=== PATIENT | female | born 1935 | race Caucasian/White ===

== ENCOUNTER 2023-01-15 10:08 | Outpatient (OUT) | payer MEDICARE, SELFPAY ==
[2023-01-15 10:44] LABS: Basophils Percent Auto 0.6 % (0.2-2.0); Eosinophils Absolute Auto 0.2 10^3/uL (0.0-0.7); Hematocrit 38.1 % (36.0-48.0); Immature Granulocytes Abs Auto 0.03 10^3/uL (0.00-0.03); Immature Granulocytes Pct Auto 0.6 % (0.0-0.5); Lymphocytes Absolute Auto 0.8 10^3/uL (1.2-3.8); Lymphocytes Percent Auto 15.8 % (20.5-60.0); Mean Corpuscular HGB Conc 31.5 g/dL (29.9-35.2); Mean Corpuscular Hemoglobin 32.1 pg (26.7-34.0); Mean Corpuscular Volume 101.9 fL (81.0-99.0); Mean Platelet Volume 9.7 fL (9.5-13.5); Monocytes Absolute Auto 0.4 10^3/uL (0.3-0.8); Monocytes Percent Auto 7.8 % (1.7-12.0); Neutrophils Absolute Auto 3.7 10^3/uL (1.4-6.5); Neutrophils Percent Auto 71.2 % (43.0-75.0); Platelet Count 167 10^3/uL (150-450); Red Blood Count 3.74 10^6/uL (4.20-5.40); Red Cell Distribution Width 15.5 % (11.0-15.0); White Blood Count 5.2 10^3/uL (4.0-11.0)
[2023-01-15 11:27] LABS: Estimated Average Glucose 123 mg/dL; Glycohemoglobin A1C 5.9 % (4.5-6.2)
[2023-01-15 11:30] LABS: Creatinine Urine Random 74.81 mg/dL (20.00-300.00); Microalbum Creatinine Ratio Ur 407.6 mg/g (0.0-29.9); Microalbumin Urine Random 30.5 mg/dL (<=30.0)
[2023-01-15 11:43] LABS: Alanine Aminotransferase 16 U/L (14-59); Albumin Globulin Ratio 0.7; Albumin Level 3.5 g/dL (3.4-5.0); Alkaline Phosphatase 66 U/L (46-116); Anion Gap 10.5; Aspartate Amino Transferase 21 U/L (15-37); BUN Creatinine Ratio 19.4; Bilirubin Total 0.5 mg/dL (0.2-1.0); Calcium 10.1 mg/dL (8.5-10.1); Carbon Dioxide 28.9 mmol/L (21.0-32.0); Chloride 104 mmol/L (98-107); Chol HDL Ratio 2.2; Cholesterol 135 mg/dL (<=200); Estimated GFR (African America 47 (>=60); Estimated GFR (Non-African Ame 39 (>=60); Globulin 5.1 g/dL; Glucose 111 mg/dL (74-106); HDL Cholesterol 61 mg/dL (40-60); Potassium 3.4 mmol/L (3.5-5.1); Sodium 140 mmol/L (136-145); Thyroid Stimulating Hormone 1.512 uIU/mL (0.358-3.740); Total Protein 8.6 g/dL (6.4-8.2); Triglycerides 146 mg/dL (<=150); VLDL CHOLESTEROL 29.2 mg/dL
== END 2023-01-15 10:09 | disposition home or self-care (01) ==
LOC: LAB 10:13
PROVIDERS: PCP Internal Medicine; Visit Provider Internal Medicine
DX: E11.9 Type 2 diabetes mellitus without complications (principal); E03.9 Hypothyroidism, unspecified; I10 Essential (primary) hypertension; E78.5 Hyperlipidemia, unspecified
CPT/HCPCS: 36415; 80053; 80061; 82043; 82570; 83036; 84443; 85025

== ENCOUNTER 2023-05-28 14:58 | Inpatient (IN) | payer MEDICARE, SELFPAY ==
[2023-05-28] VITALS (47 sets, daily range): BP systolic 77–140; BP diastolic 41–81; PULSE 71–157; RESP 12–28; TEMP 36.2–36.8; O2SAT 92–98; BMI 26.3; BMI 26.7
--- NOTE | 2023-05-28 15:08 | ECG_ITS ---
The [facility] Test Date: 2023-05-28 Pat Name: BETTY ALCALA Department: Room: - Gender: Female Lab Intern: : 1935 Requested By: SHAIKH SREEDHAR Order Number: [id number] Reading MD: BARBARA MATHUR Measurements Intervals [place] Rate: 129 P: -20325 AR: -62120 QRS: 69 QRSD: 82 T: 3 QT: 294 QTc: 370 Interpretive Statements 75362 Atrial fibrillation with rapid ventricular response [id number] Nonspecific Twave abnormality, probably digitalis effect 9140 abnormal rhythm ECG No previous ECG available for comparison Electronically Signed On 05-29-2023 6:52:57 EST by BARBARA MATHUR
--- NOTE | 2023-05-28 15:08 | XR_ITS ---
The [address] [address] Patient Name: BETTY ALCALA MRN: [id number] date: 1935 Sex: F Assigned Patient Location: ER Current Patient Location: ED.MAIN Accession/Order Number: [id number] Exam Date: 05/28/2023 16:45 Report Date: 05/28/2023 17:19 At the request of: BASIL REYNOLDS Procedure: XR chest 1V EXAM: XR chest 1V HISTORY: Afib COMPARISON: None. TECHNIQUE: Single view of the chest FINDINGS: Limited evaluation secondary to patient positioning/patient condition. Small bilateral pleural effusions with adjacent atelectasis/consolidation. Plaque formation of the right apex pleura. Suspicion for trace pleural separation/pneumothorax at the right apex. No definitive vascular congestion. Borderline cardiomegaly, accentuated by technique. XR/XR chest 1V IMPRESSION: Small pleural effusions with adjacent atelectasis/consolidation. Questionable trace right apical pneumothorax. Electronically authenticated by: MAG ORNELAS Date: 05/28/2023 17:19
--- NOTE | 2023-05-28 15:08 | CT_ITS ---
The [address] [address] Patient Name: BETTY ALCALA MRN: [id number] date: 1935 Sex: F Assigned Patient Location: ER Current Patient Location: Accession/Order Number: [id number] Exam Date: 05/28/2023 16:48 Report Date: 05/28/2023 17:48 At the request of: BASIL REYNOLDS Procedure: CT abdomen pelvis w con EXAM: CT abdomen pelvis w con TECHNIQUE: Axial CT images were obtained of the abdomen and pelvis with intravenous contrast. Sagittal and coronal reformatted images were also obtained. Dose reduction techniques were achieved by using automated exposure control and/or adjustment of mA and/or kV according to patient size and/or use of iterative reconstruction technique. HISTORY: Abdominal pain, diarrhea COMPARISON: 05/12/2022 FINDINGS: Lower chest: Small pneumothorax noted at the right base anteriorly, as described on chest x-ray. Moderate size right-sided pleural effusion, small left-sided pleural effusion and bibasilar atelectasis. Liver: The liver is homogeneous with normal contours and normal size. Gallbladder: Multiple large calcified stones of the gallbladder. No biliary dilatation. Pancreas: The pancreas is homogeneous without evidence for mass lesion or inflammation. Spleen: Small cyst superiorly within the spleen is stable. Adrenal glands: The adrenal glands are unremarkable Kidneys and bladder: Multiple large left renal cysts including a stable 10.5 cm cyst of the anterior cortex left kidney with calcified rim. Smaller cyst of lower pole right kidney. 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 The ureters demonstrate normal caliber. The urinary bladder is unremarkable. GI Tract: Stomach is unremarkable. Visualized small bowel is unremarkable without evidence for obstruction or active inflammation. The appendix is unremarkable.The visualized portion of the large bowel is unremarkable. Reproductive: Unremarkable Lymph nodes: No retroperitoneal or abdominal lymphadenopathy. Vascular: The aorta is not dilated. Dense calcifications at the origins of the renal arteries. Peritoneum: No free intraperitoneal air or fluid. No acute inflammation. Abdominal wall: Unremarkable without acute abnormality. CT/CT abdomen pelvis w con IMPRESSION: Small pneumothorax anteriorly the right lung base. Bilateral pleural effusions and bibasilar atelectasis. No bowel obstruction. Large staghorn stone again noted of left kidney, unchanged. Critical results were NOTIFIED by TELEPHONE BY Dr. Anuel Grimaldo MD to Samy Basil At 05/28/2023 5:38 PM EST. Electronically authenticated by: ANUEL GRIMALDO Date: 05/28/2023 17:48
--- NOTE | 2023-05-28 15:12 | ED_ITS ---
HPI - Abdominal Pain General Chief Complaint: Abdominal Pain Stated Complaint: NAUSEA, VOMITING, ABDOMINAL PAIN Time Seen by Provider: 05/28/23 15:00 Source: patient Mode of arrival: ambulance Limitations: no limitations History of Present Illness HPI narrative: Patient is an 87-year-old female who presents to the emergency department by ambulance from home for increasing left-sided abdominal pain, nausea, vomiting, diarrhea. Patient states last week she had a sinus infection which improved. She then noted pain in the posterior left leg traveling to her hip, she states she was seen in an outside emergency department and prescribed her steroids. She states the leg pain is better although at this time she is having worsening abdominal pain, vomiting and diarrhea over the last several days. She has had n o fevers, chills. She denies any issues with urination. No blood in her stool. She was noted by EMS to be in rapid A-fib on arrival to her home. She has no complaints of chest pain, shortness of breath or dizziness. She has never had A-fib previously and currently takes metoprolol but no other medications for rate control or anticoagulation. Related Data Allergies Allergy/AdvReac Type Severity Reaction Status Date / Time No Known Drug Allergies Allergy Verified 05/28/23 15:02 Review of Systems ROS Constitutional Denies: fever or chills Ears, nose, mouth, and throat Denies: throat pain or nasal congestion Cardiovascular Denies: chest pain Respiratory Denies: shortness of breath or cough Gastrointestinal Reports: abdominal pain, nausea, vomiting and diarrhea Musculoskeletal Reports: back pain and extremity swelling (Chronic lymphedema to the left arm); Denies: neck pain, extremity pain or joint pain Neurological Denies: headache Endocrine Denies: excessive urination Exam Narrative Exam Narrative: Gen.: Awake, alert, in no distress Head: Normocephalic, atraumatic ENT: Moist mucous membranes Respiratory: No respiratory distress, lungs clear bilaterally Cardio: Tachycardia, irregular Gastrointestinal: Abdomen is soft, Mildly distended and nontender to palpation. No guarding or rebound Extremities: Moves extremities equally Psych: Normal mood and affect Neuro: No focal neuro deficit Skin: Warm, dry, intact Constitutional Vital Signs, click to edit/add: Last Vital Signs Temp 98.2 F 05/28/23 15:02 Pulse 141 H 05/28/23 15:02 Resp 17 05/28/23 17:12 BP 101/61 05/28/23 18:26 Pulse Ox 96 05/28/23 16:30 O2 Del Method Room Air 05/28/23 15:02 Course Vital Signs Vital signs: Vital Signs Temperature 98.2 F 05/28/23 15:02 Pulse Rate 141 H 05/28/23 15:02 Respiratory Rate 23 05/28/23 15:02 Blood Pressure 126/79 05/28/23 15:02 Pulse Oximetry 96 05/28/23 15:02 Oxygen Delivery Method Room Air 05/28/23 15:02 Temperature 98.2 F 05/28/23 15:02 Pulse Rate 141 H 05/28/23 15:02 Respiratory Rate 17 05/28/23 17:12 Blood Pressure 101/61 05/28/23 18:26 Pulse Oximetry 96 05/28/23 16:30 Oxygen Delivery Method Room Air 05/28/23 15:02 MDM - Abdominal Pain MDM Narrative Medical decision making narrative: Initially patient's A-fib with RVR was not treated with Cardizem and Lovenox until we determined that her abdomen was nonsurgical. Lab studies are within normal limits,Mild renal insufficiency noted. Urine specimen and respiratory panel were obtained for the patient. CT of the abdomen and pelvis shows no evidence of acute process, I discussed this with the radiologist. There was noted on chest x-ray and CT of the abdomen and pelvis that the patient has a questionable trace right apical pneumothorax that was noted on CT in the right lung base due to positioning. Patient was then started on a Cardizem drip, no bolus was given as she had soft blood pressures that were labile in the ER. At time of discussion with hospitalist, blood pressure is 101/61 and patient has not had any dizziness, chest pain, shortness of breath in the ER. I discussed the pneumothorax and moderate right pleural effusion noted on chest x-ray with Dr. Kim for pulmonology. He was made aware that we are giving 60 mg of subq Lovenox at this time for anticoagulation, he is okay with this and will see the patient tomorrow morning to evaluate for possible thoracentesis as well as monitoring of the small pneumothorax. I discussed these findings with the hospitalist and patient will be admitted for new onset A-fib with RVR, small pneumothorax and right pleural effusion. She is hemodynamically stable, although still in rapid ventricular response at time of admission to ICU for further evaluation and treatment. Critical care time 35 minutes. Medical Records Attestation: I reviewed the patient's medical records. Lab Data Attestation: I reviewed the patient's lab results. Labs: Lab Results 05/28/23 05/28/23 Range/Units 15:49 15:52 WBC 9.9 (4.0-11.0) 10^3/uL RBC 3.66 L (4.20-5.40) 10^6/uL Hgb 11.9 L (12.0-16.0) g/dL Hct 38.2 (36.0-48.0) % MCV 104.4 H (81.0-99.0) fL MCH 32.5 (26.7-34.0) pg MCHC 31.2 (29.9-35.2) g/dL RDW 15.1 H (11.0-15.0) % Plt Count 173 (150-450) 10^3/uL MPV 10.0 (9.5-13.5) fL Seg Neuts % (Manual) 95.0 Lymphocytes % (Manual) 1.0 L (20.5-60.0) % Monocytes % (Manual) 4.0 (1.7-12.0) % Eosinophils % (Manual) 0.0 L (0.9-7.0) % Basophils % (Manual) 0.0 L (0.2-2.0) % Neutrophils # (Manual) 9.40 H (1.4-6.5) 10^3/uL Lymphocytes # (Manual) 0.09 L (1.20-3.80) 10^3/uL Monocytes # (Manual) 0.39 (0.30-0.80) 10^3/uL Eosinophils # (Manual) 0.00 (0.00-0.70) 10^3/uL Basophils # (Manual) 0.00 (0.00-0.10) 10^3/uL PT 10.8 (9.0-11.6) sec INR 1.02 VBG pH 7.466 H (7.330-7.430) VBG pCO2 33.3 L (40.0-52.0) mmHg Sodium 137 (136-145) mmol/L Potassium 4.5 (3.5-5.1) mmol/L Chloride 101 (98-107) mmol/L Carbon Dioxide 26.4 (21.0-32.0) mmol/L Anion Gap 14.1 BUN 58.0 H (7.0-18.0) mg/dL Creatinine 1.57 H (0.55-1.02) mg/dL Est GFR ( Amer) 38 L (>=60) Est GFR (Non-Af Amer) 31 L (>=60) BUN/Creatinine Ratio 36.9 Glucose 125 H (74-106) mg/dL Lactate 1.4 (0.4-2.0) mmol/L Calcium 9.5 (8.5-10.1) mg/dL Magnesium 1.7 L (1.8-2.4) mg/dL Total Bilirubin 0.6 (0.2-1.0) mg/dL AST 56 H (15-37) U/L ALT 34 (14-59) U/L Alkaline Phosphatase 65 (46-116) U/L Troponin I High Sens 34.7 (4.0-51.3) pg/mL Total Protein 7.0 (6.4-8.2) g/dL Albumin 2.9 L (3.4-5.0) g/dL Globulin 4.1 g/dL Albumin/Globulin Ratio 0.7 Lipase 47.0 (16.0-77.0) U/L Procalcitonin 0.18 (0.00-0.50) ng/mL Imaging Data CT scan - abdomen: Attestation: I have reviewed the pertinent imaging results. Radiologist's impression: ITS Impressions Abdomen/Pelvis CT 05/28/23 15:08 IMPRESSION: Small pneumothorax anteriorly the right lung base. Bilateral pleural effusions and bibasilar atelectasis. No bowel obstruction. Large staghorn stone again noted of left kidney, unchanged. Critical results were NOTIFIED by TELEPHONE BY Dr. Geovanny Carpenter MD to Modesta Pablo At 05/28/2023 5:38 PM EST. Electronically authenticated by: GEOVANNY CARPENTER Date: 05/28/2023 17:48 Chest X-Ray 05/28/23 15:08 IMPRESSION: Small pleural effusions with adjacent atelectasis/consolidation. Questionable trace right apical pneumothorax. Electronically authenticated by: MAG ORNELAS Date: 05/28/2023 17:19 ECG Data Attestation: I personally reviewed and interpreted this ECG as follows: (A-fib with RVR at a rate of 129, no acute ST elevation or ectopy. EKG reviewed by attending physician) Critical Care Time Critical Care Time Critical Care Time: Yes Total Critical Care Time: 35 Attestation: 35 minutes of critical care time for Cardizem drip and critical care medications. Discharge Plan Discharge Chief Complaint: Abdominal Pain Patient Disposition: Admitted As Inpatient Time of Disposition Decision: 18:40 Referrals: Shaikh Conde MD [Primary Care Provider] - 1 week
[2023-05-28] MEDS: MORPHINE SULFATE 2 MG/ML SYRINGE IV (15:32)
[2023-05-28] MEDS: HYOSCYAMINE SULFATE 0.125 MG TAB.SUBL SL (15:32)
[2023-05-28] MEDS: ONDANSETRON PF 4 MG/2 ML VIAL IV (15:32)
[2023-05-28] MEDS: 0.9 % SODIUM CHLORIDE 1,000 ML 999 ML IV (15:33)
[2023-05-28 16:03] LABS: PCO2 VBG 33.3 mmHg (40.0-52.0); pH VBG 7.466 (7.330-7.430)
[2023-05-28 16:05] LABS: Hematocrit 38.2 % (36.0-48.0); Hemoglobin 11.9 g/dL (12.0-16.0); Mean Corpuscular HGB Conc 31.2 g/dL (29.9-35.2); Mean Corpuscular Hemoglobin 32.5 pg (26.7-34.0); Mean Corpuscular Volume 104.4 fL (81.0-99.0); Platelet Count 173 10^3/uL (150-450); Red Blood Count 3.66 10^6/uL (4.20-5.40); Red Cell Distribution Width 15.1 % (11.0-15.0); White Blood Count 9.9 10^3/uL (4.0-11.0)
[2023-05-28 16:18] LABS: INR 1.02; Prothrombin Time 10.8 sec (9.0-11.6)
[2023-05-28 16:24] LABS: Alanine Aminotransferase 34 U/L (14-59); Albumin Globulin Ratio 0.7; Albumin Level 2.9 g/dL (3.4-5.0); Alkaline Phosphatase 65 U/L (46-116); Anion Gap 14.1; Aspartate Amino Transferase 56 U/L (15-37); BUN Creatinine Ratio 36.9; Bilirubin Total 0.6 mg/dL (0.2-1.0); Calcium 9.5 mg/dL (8.5-10.1); Carbon Dioxide 26.4 mmol/L (21.0-32.0); Chloride 101 mmol/L (98-107); Estimated GFR (African America 38 (>=60); Estimated GFR (Non-African Ame 31 (>=60); Globulin 4.1 g/dL; Glucose 125 mg/dL (74-106); Magnesium 1.7 mg/dL (1.8-2.4); Potassium 4.5 mmol/L (3.5-5.1); Sodium 137 mmol/L (136-145); Troponin I High Sensitivity 34.7 pg/mL (4.0-51.3)
[2023-05-28] MEDS: ACETAMINOPHEN 325 MG TABLET 650 MG PO (16:36)
[2023-05-28 16:39] LABS: Lymphocytes Absolute Manual 0.09 10^3/uL (1.20-3.80); Monocytes Absolute Manual 0.39 10^3/uL (0.30-0.80)
[2023-05-28 17:00] LABS: Lactate/Lactic Acid 1.4 mmol/L (0.4-2.0)
[2023-05-28] MEDS: DILTIAZEM HCL 25 MG/5 ML VIAL 10 MG IV (17:31)
[2023-05-28] MEDS: 0.9 % SODIUM CHLORIDE 500 ML IV (17:56)
[2023-05-28 18:03] LABS: Bilirubin Urine NEGATIVE (NEGATIVE); Blood Urine MODERATE (NEGATIVE); Clarity Urine CLEAR (CLEAR); Color Urine LT. YELLOW (YELLOW); Glucose Urine UA NEGATIVE (NEGATIVE); Ketones Urine NEGATIVE (NEGATIVE); Leukocyte Esterase Urine SMALL (NEGATIVE); Nitrite Urine NEGATIVE (NEGATIVE); Protein Urine NEGATIVE (NEG/TRACE); Urobilinogen Urine 0.2 EU/dL (0.2-1.0); pH Urine 5.5 (5.0-9.0)
[2023-05-28 18:08] LABS: PROCALCITONIN 0.18 ng/mL (0.00-0.50)
[2023-05-28] MEDS: dilTIAZem HCL 125 MG in 0.9 % SODIUM CHLORIDE 100 ML IV (18:14)
[2023-05-28] MEDS: ENOXAPARIN SODIUM 60 MG/0.6 ML SYRINGE SUBQ (18:17)
[2023-05-28 18:37] LABS: Urine Microscopic Indicated YES
[2023-05-28 18:38] LABS: Bacteria Urine TRACE #/HPF (NONE SEEN); Cast Seen? NONE SEEN #/LPF (NONE SEEN); Crystals Seen? None Seen #/HPF (None Seen); Mucus Urine NONE SEEN (NONE SEEN); Squamous Epithelial Cell Urine RARE #/LPF (NONE/RARE)
[2023-05-28 18:39] LABS: Urine Culture Indicated YES
[2023-05-28 18:43] LABS: Adenovirus NOT DETECTED (NOT DETECTE); Bordetella parapertussis NOT DETECTED (NOT DETECTE); Coronavirus 229E NOT DETECTED (NOT DETECTE); Coronavirus HKU1 NOT DETECTED (NOT DETECTE); Coronavirus NL63 NOT DETECTED (NOT DETECTE); Coronavirus OC43 NOT DETECTED (NOT DETECTE); Human Metapneumovirus NOT DETECTED (NOT DETECTE); Human Rhinovirus/Enterovirus NOT DETECTED (NOT DETECTE); Influenza A NOT DETECTED (NOT DETECTE); Influenza B NOT DETECTED (NOT DETECTE); Mycoplasma pneumoniae NOT DETECTED (NOT DETECTE); Parainfluenza Virus 1 NOT DETECTED (NOT DETECTE); Parainfluenza Virus 2 NOT DETECTED (NOT DETECTE); Parainfluenza Virus 3 NOT DETECTED (NOT DETECTE); Parainfluenza Virus 4 NOT DETECTED (NOT DETECTE); Respiratory Syncytial Virus NOT DETECTED (NOT DETECTE); SARS-CoV-2 NOT DETECTED (NOT DETECTE)
[2023-05-28 20:30] LABS: Troponin I High Sensitivity 39.8 pg/mL (4.0-51.3)
[2023-05-28 20:40] LABS: Glucometer 109 mg/dL (74-106)
[2023-05-28] MEDS: MAGNESIUM SULFATE IN WATER 2 GM/50 ML PREMIX IV (22:18)
[2023-05-29] VITALS (135 sets, daily range): BP systolic 70–147; BP diastolic 36–116; PULSE 81–139; RESP 9–150; TEMP 36.5–36.9; O2SAT 76–100
[2023-05-29] MEDS: 0.9 % SODIUM CHLORIDE 1,000 ML 100 ML IV (02:00)
[2023-05-29] MEDS: METOPROLOL TARTRATE 50 MG TABLET PO ×3 (02:00→21:25)
[2023-05-29 05:14] LABS: Hematocrit 27.8 % (36.0-48.0); Hemoglobin 8.6 g/dL (12.0-16.0); Mean Corpuscular HGB Conc 30.9 g/dL (29.9-35.2); Mean Corpuscular Hemoglobin 32.7 pg (26.7-34.0); Mean Corpuscular Volume 105.7 fL (81.0-99.0); Mean Platelet Volume 10.5 fL (9.5-13.5); Platelet Count 88 10^3/uL (150-450); Red Blood Count 2.63 10^6/uL (4.20-5.40); Red Cell Distribution Width 15.5 % (11.0-15.0); White Blood Count 5.1 10^3/uL (4.0-11.0)
[2023-05-29 05:29] LABS: Estimated Average Glucose 134 mg/dL; Glycohemoglobin A1C 6.3 % (4.5-6.2)
[2023-05-29 05:39] LABS: Anion Gap 10.7; BUN Creatinine Ratio 34.9; Calcium 6.3 mg/dL (8.5-10.1); Carbon Dioxide 22.5 mmol/L (21.0-32.0); Chloride 115 mmol/L (98-107); Estimated GFR (African America 60 (>=60); Estimated GFR (Non-African Ame 49 (>=60); Glucose 72 mg/dL (74-106); Potassium 3.2 mmol/L (3.5-5.1); Sodium 145 mmol/L (136-145)
--- NOTE | 2023-05-29 06:00 | XR_ITS ---
The [address] [address] Patient Name: BETTY ALCALA MRN: [id number] date: 1935 Sex: F Assigned Patient Location: ICU Current Patient Location: ICU Accession/Order Number: [id number] Exam Date: 05/29/2023 06:05 Report Date: 05/29/2023 07:14 At the request of: HUNTER YIP Procedure: XR chest 1V EXAM: XR chest 1V HISTORY: Hydropnemothorax COMPARISON: 05/28/2023 TECHNIQUE: AP portable erect FINDINGS: LUNGS: Low lung volumes. Moderate bibasilar infiltrates obscuring the hemidiaphragms and partially obscuring the heart borders, grossly on the right, slightly increased on the left VASCULATURE: No increased pulmonary vasculature. PLEURA: Likely right apical pneumothorax measuring 0.6 cm.. Bilateral pleural effusions CARDIAC: Mild stable cardiomegaly. MEDIASTINUM: No visible mass or adenopathy. Aortic atherosclerosis BONES: No fracture or visible bone lesion. OTHER: Negative. XR/XR chest 1V IMPRESSION: Moderate bibasilar infiltrates and pleural effusions, stable normal right, increased on the left Suspected 6 mm right apical pneumothorax Electronically authenticated by: NABIL CHARLES Date: 05/29/2023 07:14
[2023-05-29 06:03] LABS: Cholesterol 89 mg/dL (<=200); HDL Cholesterol 51 mg/dL (40-60); Thyroid Stimulating Hormone 1.107 uIU/mL (0.358-3.740); Triglycerides 93 mg/dL (<=150); VLDL CHOLESTEROL 18.6 mg/dL
[2023-05-29 06:04] LABS: Chol HDL Ratio 1.7
--- NOTE | 2023-05-29 06:44 | PC.NURSE ---
coby on standby for low BP
--- NOTE | 2023-05-29 07:26 | PM.PLCN ---
History of Present Illness History of Present Illness Consult date: 05/29/23 Requesting physician: Modesta Pablo Reason for consult: pneumothorax Chief complaint: NAUSEA, VOMITING, New Onset a fib with RVR pneum Narrative: 87yo female presented to the ER with malaise and N/V. During evaluation, she was found to have an irregular heart beat which on telemetry was consistent with afib w/RVR, which was new onset. CXR showed questionable right pneumothorax. Abdominal/pelvic CT was then ordered - was found to have bilateral effusions (R>L) and a small right pneumothorax. I was able to review the imaging and noted the small pneumothorax. There was a prior abdominal/pelvic CT done 05/12/2022 which noted bilateral effusions (R>L) but no pneumothorax. She denies any known history of CHF, but she is treated for unspecified edema with Lasix. She denies any trauma/injury or surgery within the past year. Does not feel greatly short of breath. Has history of left breast cancer s/p mastectomy 1984 - still has right breast with unremarkable mammograms. Denies any history of tobacco abuse. No medical history of asthma or COPD. 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 Denied having any pets. No significant occupational or environmental exposures. Review of Systems ROS Status of ROS 10 or more systems reviewed and unremarkable except as noted in history and below Cardiovascular Reports: edema; Denies: chest pain Respiratory Denies: shortness of breath, cough, wheezing or coughing up blood Gastrointestinal Reports: abdominal pain, nausea and vomiting [facility] Medical History (Updated 05/29/23 @ 07:44 by Aron Kim DO) CKD (chronic kidney disease) ?N18.9 - Chronic kidney disease, unspecified (ICD-10) Hypothyroidism ?E03.9 - Hypothyroidism, unspecified (ICD-10) Kidney stone on left side ?N20.0 - Calculus of kidney (ICD-10) Gall bladder stones ?K80.20 - Calculus of gallbladder without cholecystitis without obstruction (ICD-10) Hyperlipemia ?E78.5 - Hyperlipidemia, unspecified (ICD-10) HTN (hypertension) ?I10 - Essential (primary) hypertension (ICD-10) Diabetic acidosis, type I ?E10.10 - Type 1 diabetes mellitus with ketoacidosis without coma (ICD-10) Sciatic leg pain ?M54.30 - Sciatica, unspecified side (ICD-10) Ulcerative colitis without complications ?K51.90 - Ulcerative colitis, unspecified, without complications (ICD-10) Surgical History (Updated 05/28/23 @ 21:21 by Earnestine Livingston) H/O left mastectomy ?Z90.12 - Acquired absence of left breast and nipple (ICD-10) Social History (Updated 05/28/23 @ 21:23 by Earnestine Livingston) Within the past year, how often did you have a drink containing alcohol: never Score interpretation: A score less than 3 is consistent with normal alcohol consumption. Smoking status: Never smoker Non-prescribed substance use: denies use Highest level of school completed/degree received: 10th grade Are you now , , , , never or living with a partner: In a typical week, how many times do you talk on the telephone with family, friends, or neighbors: 3 or more times per week How often do you get together with friends or relatives: 3 or more times per week How often do you attend christian or oriental orthodox services: 1-3 times per year Do you belong to any clubs or organizations such as christian groups unions, fra[employer] of [place] or athletic groups, or school groups: no Total score: 1 Score interpretation: A score of less than or equal to 1 indicates the most socially isolated. Little interest or pleasure in doing things: not at all Feeling down, depressed, or hopeless: not at all Feel stressed/tense/nervous/anxious/difficulty sleeping: only a little Due to disability, difficulty making decisions: No Meds Home Medications and Allergies Home Medications Medication Instructions Recorded Confirmed Type amlodipine 5 mg tablet 5 mg PO DAILY 05/28/23 05/28/23 History atorvastatin 40 mg tablet 40 mg PO DAILY 05/28/23 05/28/23 History cholecalciferol (vitamin D3) 50 2,000 unit PO .QD 05/28/23 05/29/23 History mcg (2,000 unit) tablet furosemide 20 mg tablet 20 mg PO DAILY 05/28/23 05/28/23 History levothyroxine 75 mcg tablet 75 mcg PO DAILY 05/28/23 05/28/23 History loratadine 10 mg tablet 10 mg PO DAILY 05/28/23 05/28/23 History losartan 100 mg tablet 100 mg PO DAILY 05/28/23 05/28/23 History metformin 500 mg tablet,extended 500 mg PO DAILY 05/28/23 05/28/23 History release 24 hr metoprolol tartrate 50 mg tablet 50 mg PO Q12H 05/28/23 05/28/23 History potassium chloride 10 mEq 10 meq PO DAILY 05/28/23 05/28/23 History capsule,extended release Allergies Allergy/AdvReac Type Severity Reaction Status Date / Time No Known Drug Allergies Allergy Verified 05/28/23 15:02 Exam Constitutional Vital Signs, click to edit/add: Last Vital Signs Temp 98 F 05/29/23 05:00 Pulse 115 H 05/29/23 06:35 Resp 26 H 05/29/23 06:35 BP 102/65 05/29/23 06:35 Pulse Ox 95 05/29/23 06:35 O2 Del Method Room Air 05/29/23 05:00 Documenting provider has reviewed patient's vital signs: yes Common normals: no apparent distress HENMT Common normals: normocephalic Neck & C-Spine General: normal visual inspection Chest Other: Moderate thoracic kyphosis Respiratory Other: Diminished breath sounds with some scant crackles on the right. No true egophony, but muffled breath sounds posteriorly on the right. Dullness present. No rhonchi or wheezes. Cardio Other: Irregularly irregular, rate 110-120's on telemetry GI Inspection: normal to inspection Extremity Other: LUE Edema (Chronic s/p left mastectomy). Trace/mild BLE ankle edema. Neuro Sensorium/orientation: awake and alert Motor exam: no tremor noted Psych Common normals: mental status grossly normal Results Laboratory Findings ABG, PT/INR, D-dimer: PT/INR, D-dimer PT 10.8 sec (9.0-11.6) 05/28/23 15:49 INR 1.02 05/28/23 15:49 Abnormal lab findings: Abnormal Labs 05/28/23 05/28/23 05/28/23 15:49 15:52 17:20 RBC 3.66 L Hgb 11.9 L Hct MCV 104.4 H RDW 15.1 H Plt Count Lymphocytes % (Manual) 1.0 L Eosinophils % (Manual) 0.0 L Basophils % (Manual) 0.0 L Neutrophils # (Manual) 9.40 H Lymphocytes # (Manual) 0.09 L VBG pH 7.466 H VBG pCO2 33.3 L Potassium Chloride BUN 58.0 H Creatinine 1.57 H Est GFR ( Amer) 38 L Est GFR (Non-Af Amer) 31 L Glucose 125 H Hemoglobin A1c Calcium Magnesium 1.7 L AST 56 H NT-Pro-B Natriuret Pep Albumin 2.9 L Urine Occult Blood Moderate A Ur Leukocyte Esterase Small A Urine RBC 2-5 A Urine WBC 5-10 A Urine Bacteria Trace A POC Glucose 05/28/23 05/29/23 20:32 05:00 RBC 2.63 L Hgb 8.6 L Hct 27.8 L MCV 105.7 H RDW 15.5 H Plt Count 88 L Lymphocytes % (Manual) Eosinophils % (Manual) Basophils % (Manual) Neutrophils # (Manual) Lymphocytes # (Manual) VBG pH VBG pCO2 Potassium 3.2 L Chloride 115 H BUN 37.0 H Creatinine 1.06 H Est GFR ( Amer) Est GFR (Non-Af Amer) 49 L Glucose 72 L Hemoglobin A1c 6.3 H Calcium 6.3 L Magnesium AST NT-Pro-B Natriuret Pep 4675.0 H* Albumin Urine Occult Blood Ur Leukocyte Esterase Urine RBC Urine WBC Urine Bacteria POC Glucose 109 H Diagnostic Findings Chest x-ray: report reviewed and image reviewed CT scan - chest: report reviewed and image reviewed Assessment and Plan Assessment and Plan (1) Hydropneumothorax: Assessment and Plan: Right hydropneumothorax. Bilateral pleural effusions present 05/12/2022 and in similar configuration to present imaging (05/28/2023) with exception of right pneumothorax. Patient denies any trauma/injury to the chest. Denies any pleuritic or abrupt sharp pain. No recent surgeries, IVs, etc. The chronic effusions are likely due to underlying CHF, but with new pneumothorax, question other possibilities such as neoplasm or infection, or lung has become trapped. I suggested a right-sided diagnostic thoracentesis to a sample of the fluid to determine the cause; at this point, I am unable to state at 100% this is CHF. Explained risks of thoracentesis including pain, bleeding, infection, and further pneumothorax which could require a chest tube. The patient refused a thoracentesis at this time. Explained again that I cannot state why the pneumothorax occurred, so all we can do at this time is monitor it. She replied that this was acceptable for her. CXR this AM redemonstrates right apical pneumothorax (6mm). Will recheck CXR tomorrow morning. Placing patient on O2 @ 6L/min (do not titrate!) for nitrogen washout. Continue w/up for afib w/RVR including echocardiogram.
[2023-05-29 07:45] LABS: Glucometer 131 mg/dL (74-106)
--- NOTE | 2023-05-29 08:00 | CA_ITS ---
Patient Name: BETTY ALCALA MR#: [id number] : 1935 Exam Date: 05/29/2023 Ordering Doctor: HALLIE BARRIGA ECHOCARDIOGRAM REPORT PROCEDURE: CA ECHO DOPPLER COMPLETE INDICATIONS: A-fib w/RVR COMPARISON: None. DESCRIPTION: COMPLETE ECHOCARDIOGRAM Real-time transthoracic echocardiography with 2D, M-mode, spectral and color flow Doppler performed. QUALITY: Technical quality was good. LEFT VENTRICLE: Normal chamber size. Normal left ventricular wall thickness. LV EF: Global left ventricular systolic function is normal. Visual estimation of left ventricular ejection fraction is 55-60% DIASTOLIC: Not adequately assessed due to heart rhythm. ATRIAL SEPTUM: Inadequately seen. LEFT ATRIUM: Normal chamber size. RIGHT ATRIUM: Normal chamber size.. RIGHT VENTRICLE: Normal chamber size. Normal right ventricular systolic function. TRICUSPID VALVE: Normal mobility and thickness. Mild to moderate regurgitation. No evidence of pulmonary hypertension. RVSP 25mmHg MITRAL VALVE: Mildly thickened with normal mobility. No evidence of mitral valve stenosis. Moderate mitral annular calcification. Moderate mitral regurgitation. AORTIC VALVE: Normal trileaflet appearance. Thickened aortic valve. Normal leaflet mobility. No evidence of aortic valve stenosis. AORTIC ROOT: Normal diameter and appearance. PULMONIC VALVE: Normal thickness and mobility. No stenosis. Trivial regurgitation. PERICARDIUM: Anterior free space; trivial effusion versus fat pad. IVC: Collapses with inspirations. Normal size CONCLUSION: 1. Global left ventricular systolic function is normal; visually estimated ejection fraction is 55 to 60% 2. The right ventricle is normal in size and systolic function 3. Mild to moderate tricuspid regurgitation 4. Moderate mitral regurgitation 5. Anterior free space; trivial effusion versus fat pad Adult Echocardiography Procedure Report Left Ventricle LVEDD (3.7 - 5.6 cm): 3.66 cm LVESD (2.2 - 4.0 cm): 2.47 cm LVIVS thickness (0.6 - 1.2 cm): 0.93 cm LVPW thickness (0.5 - 1.0 cm): 0.85 cm e': 0.10 m/s E - e': 13.07 LVOT Max Gradient: 1.15 mm[Hg], 1.15 mm[Hg] LVOT Area (cm2): 0.54 m/s Peak Velocity (LVOT): 0.54 m/s, 0.54 m/s Mean Velocity (LVOT): 0.38 m/s LVOT Diameter 1.82 cm Left Atrium LA Volume Index (2D A2C): 24.11 ml/m2 Left Atrium Systolic Dimension: 3.51 cm Mitral Valve MV E to A Ratio: 134.28 Mitral Valve A-Wave Peak Velocity: 0.01 m/s Mitral Valve E-Wave Peak Velocity: 1.25 m/s Right Ventricle RV Internal Diastolic Dimension: 3.79 cm Aorta AO Root Diam: 2.67 cm Aortic Valve AoV Area (Peak Kevin): 1.33 cm2, 1.33 cm2 AoV Area (VTI): 1.25 cm2, 1.24 cm2 Peak Velocity(Antegrade Flow): 1.05 m/s Peak Gradient(Antegrade Flow): 4.39 mm[Hg] Mean Velocity(Antegrade Flow): 0.74 m/s Mean Gradient(Antegrade Flow): 2.49 mm[Hg] Velocity Time Integral: 20.44 cm Tricuspid Valve Peak Velocity (Regurgitant Flow): 2.19 m/s, 2.29 m/s, 2.33 m/s Pulmonic Valve Peak Velocity: 0.68 m/s Peak Gradient: 1.60 mm[Hg], 2.08 mm[Hg] Right Atrium Right Atrium Systolic Pressure: 61.34 ml, 61.34 ml Dictated by: Jenny Curry M.D. on 05/29/2023 at 12:26 Approved by: Jenny Curry M.D. on 05/29/2023 at 12:29
[2023-05-29] MEDS: ATORVASTATIN CALCIUM 40 MG TABLET PO (08:26)
[2023-05-29] MEDS: AMLODIPINE BESYLATE 5 MG TABLET PO (08:26)
[2023-05-29] MEDS: CETIRIZINE HCL 10 MG TABLET PO (08:26)
[2023-05-29] MEDS: LEVOTHYROXINE SODIUM 75 MCG TABLET PO (08:26)
[2023-05-29] MEDS: POTASSIUM CHLORIDE 10 MEQ ER TABLET PO (09:33)
[2023-05-29] MEDS: FUROSEMIDE 40 MG/4 ML VIAL IVP (09:33)
[2023-05-29] MEDS: CEFTRIAXONE 1,000 MG in 0.9 % SODIUM CHLORIDE 50 ML 100 MG IV (09:33)
--- NOTE | 2023-05-29 11:24 | CM.NOTE ---
Rounds made with Dr. Berg, no discharge today. Dr. Kim will consult on pt for further recommendations.
--- NOTE | 2023-05-29 11:24 | PM.HP ---
H&P: HPI History of Present Illness Chief complaint: NAUSEA, VOMITING, New Onset a fib with RVR pneum Narrative: 87 y/o female to ER with abdominal pain, nausea, and vomiting. History of ulcerative colitis and recently with increased symptoms. Developed sinusitis last week but resolved. C/o worsening sciatica and to urgent care and placed on steroids. Developed abdominal pain and continued to worsen. Decreased appetite and emesis. To ER by EMS and noted to be in afib. In ER found rapid afib. CT abdomen negative for acute change and showed old kidney stone. Started cardizem drip in ER. Found bilateral pleural effusion and pneumothorax on imaging and discussed with pulmonology. UA with possible UTI and admitted. Weaned off cardizem drip due to hypotension but had resumed home medication including metoprolol. Rate controlled. Pulmonology consulted and placed on 6 LPM and will monitor pneumothorax but likely will need thoracentesis. Review of Systems ROS Constitutional Denies: fever, chills or night sweats Cardiovascular Denies: chest pain, palpitations or edema Respiratory Denies: shortness of breath, cough or wheezing Gastrointestinal Reports: abdominal pain, nausea and vomiting; Denies: diarrhea Genitourinary Denies: painful urination [facility] Medical History (Updated 05/29/23 @ 11:10 by Dave Berg MD) Abdominal pain ?R10.9 - Unspecified abdominal pain (ICD-10) Pneumothorax ?J93.9 - Pneumothorax, unspecified (ICD-10) Nausea vomiting and diarrhea ?R11.2 - Nausea with vomiting, unspecified (ICD-10) ?R19.7 - Diarrhea, unspecified (ICD-10) New onset atrial fibrillation ?I48.91 - Unspecified atrial fibrillation (ICD-10) CKD (chronic kidney disease) ?N18.9 - Chronic kidney disease, unspecified (ICD-10) Kidney stone on left side ?N20.0 - Calculus of kidney (ICD-10) Gall bladder stones ?K80.20 - Calculus of gallbladder without cholecystitis without obstruction (ICD-10) Hyperlipemia ?E78.5 - Hyperlipidemia, unspecified (ICD-10) Diabetic acidosis, type I ?E10.10 - Type 1 diabetes mellitus with ketoacidosis without coma (ICD-10) Sciatic leg pain ?M54.30 - Sciatica, unspecified side (ICD-10) Surgical History (Updated 05/28/23 @ 21:21 by Earnestine Livingston) H/O left mastectomy ?Z90.12 - Acquired absence of left breast and nipple (ICD-10) Social History (Updated 05/28/23 @ 21:23 by Earnestine Livingston) Within the past year, how often did you have a drink containing alcohol: never Score interpretation: A score less than 3 is consistent with normal alcohol consumption. Smoking status: Never smoker Non-prescribed substance use: denies use Highest level of school completed/degree received: 10th grade Are you now , , , , never or living with a partner: In a typical week, how many times do you talk on the telephone with family, friends, or neighbors: 3 or more times per week How often do you get together with friends or relatives: 3 or more times per week How often do you attend confucianism or gnosticism services: 1-3 times per year Do you belong to any clubs or organizations such as confucianism groups unions, [employer] or athletic groups, or school groups: no Total score: 1 Score interpretation: A score of less than or equal to 1 indicates the most socially isolated. Little interest or pleasure in doing things: not at all Feeling down, depressed, or hopeless: not at all Feel stressed/tense/nervous/anxious/difficulty sleeping: only a little Due to disability, difficulty making decisions: No Meds Home Medications and Allergies Home Medications Medication Instructions Recorded Confirmed Type amlodipine 5 mg tablet 5 mg PO DAILY 05/28/23 05/28/23 History atorvastatin 40 mg tablet 40 mg PO DAILY 05/28/23 05/28/23 History cholecalciferol (vitamin D3) 50 2,000 unit PO .QD 05/28/23 05/29/23 History mcg (2,000 unit) tablet furosemide 20 mg tablet 20 mg PO DAILY 05/28/23 05/28/23 History levothyroxine 75 mcg tablet 75 mcg PO DAILY 05/28/23 05/28/23 History loratadine 10 mg tablet 10 mg PO DAILY 05/28/23 05/28/23 History losartan 100 mg tablet 100 mg PO DAILY 05/28/23 05/28/23 History metformin 500 mg tablet,extended 500 mg PO DAILY 05/28/23 05/28/23 History release 24 hr metoprolol tartrate 50 mg tablet 50 mg PO Q12H 05/28/23 05/28/23 History potassium chloride 10 mEq 10 meq PO DAILY 05/28/23 05/28/23 History capsule,extended release Allergies Allergy/AdvReac Type Severity Reaction Status Date / Time No Known Drug Allergies Allergy Verified 05/28/23 15:02 Exam Constitutional Vital Signs, click to edit/add: Last Vital Signs Temp 98.5 F 05/29/23 08:00 Pulse 91 H 05/29/23 10:00 Resp 18 05/29/23 09:40 BP 84/45 L 05/29/23 09:30 Pulse Ox 100 05/29/23 09:40 O2 Del Method Nasal Cannula 05/29/23 08:32 O2 Flow Rate 6 05/29/23 08:32 Documenting provider has reviewed patient's vital signs: yes Common normals: no apparent distress, oriented x3 and alert HENMT Common normals: normocephalic Eye Common normals: PERRL and EOMs intact bilaterally Respiratory Common normals: normal respiratory effort and clear to auscultation bilaterally Cardio Common normals: regular rate, regular rhythm, no gallops, no murmurs and no rub GI Auscultation: normoactive bowel sounds Palpation: tender (Mild diffuse TTP); no guarding Extremity Common normals: no pedal edema Results Labs Labs: Short CBC 05/28/23 05/29/23 Range/Units 15:49 05:00 WBC 9.9 5.1 (4.0-11.0) 10^3/uL Hgb 11.9 L 8.6 L (12.0-16.0) g/dL Hct 38.2 27.8 L (36.0-48.0) % Plt Count 173 88 L (150-450) 10^3/uL BMP 05/28/23 05/29/23 15:49 05:00 Sodium 137 145 Potassium 4.5 3.2 L Chloride 101 115 H Carbon Dioxide 26.4 22.5 BUN 58.0 H 37.0 H Creatinine 1.57 H 1.06 H Glucose 125 H 72 L Calcium 9.5 6.3 L Liver Function 05/28/23 Range/Units 15:49 Total Bilirubin 0.6 (0.2-1.0) mg/dL AST 56 H (15-37) U/L ALT 34 (14-59) U/L Alkaline Phosphatase 65 (46-116) U/L Albumin 2.9 L (3.4-5.0) g/dL Urine 05/28/23 Range/Units 17:20 Urine Color Lt. yellow (YELLOW) Urine Clarity Clear (CLEAR) Urine pH 5.5 (5.0-9.0) Ur Specific Raymond 1.010 (1.005-1.025) Urine Protein Negative (NEG/TRACE) mg/dL Urine Glucose (UA) Negative (NEGATIVE) mg/dL ABG ABG results: 05/28/23 15:52 VBG pH 7.466 H VBG pCO2 33.3 L Assessment and Plan Assessment and Plan (1) Atrial fibrillation with RVR: (2) Hydropneumothorax: (3) Bilateral pleural effusion: (4) UTI (urinary tract infection): (5) SYLVIA (acute kidney injury): (6) Ulcerative colitis without complications: (7) Renal calculi: (8) Type 2 diabetes mellitus with hyperglycemia: (9) HTN (hypertension): (10) Hypothyroidism: (11) Stage 3a chronic kidney disease: Plan Found rapid afib and initially on cardizem drip. Resumed home medication including metoprolol and remains in afib but rate controlled. Hold norvasc due to low BP. Hold anti-coagulation due to likely upcoming thoracentesis. Check echo. Pleural effusions present for months and give IV lasix. Pulmonology following. Start rocephin for likely UTI. Abdominal pain likely related to UC and start solu-medrol. Start PT/OT for weakness. Plan for at least a 2 midnight stay for inpatient medically necessary services.
[2023-05-29] MEDS: METHYLPREDNISOLONE SOD SUCC PF 125 MG/2 ML VIAL 60 MG IVP ×3 (11:52→23:01)
[2023-05-29 11:53] LABS: Glucometer 82 mg/dL (74-106)
--- NOTE | 2023-05-29 14:46 | CM.NOTE ---
Important Message From Medicare discussed with pt, pt verbalizes understanding and signs paper. Original given to pt and copy placed on pt's chart.
--- NOTE | 2023-05-29 15:13 | SWNOTE1 ---
SW spoke with case management and pt will need walker. Documentation showed she had walker, case management went back in and spoke with pt and daughter in room. Pt does not have a wheeled walker at home and would need one. Possible need for home health, pt at this time does not feel she needs it. SW to review therapy notes tomorrow and will determine if HH is needed at discharge. Will need script from doctor and documentation showing need for walker. SW to call [facility] to see if they take [employer] [facility], family would like to use somewhere local.
--- NOTE | 2023-05-29 15:31 | SWNOTE1 ---
BRENDA spoke with [facility] and they can run it through her [facility] medicare and they can, but some [employer] they are not able to. They will need face sheet. BRENDA sent face sheet.
[2023-05-29 16:14] LABS: Glucometer 175 mg/dL (74-106)
[2023-05-29] MEDS: INSULIN ASPART 300 UNIT/3 ML PEN SUBQ (21:30)
[2023-05-29 21:32] LABS: Glucometer 212 mg/dL (74-106)
[2023-05-30] VITALS (76 sets, daily range): BP systolic 97–138; BP diastolic 65–86; PULSE 79–144; RESP 8–150; TEMP 36.4–36.7; O2SAT 83–100
--- NOTE | 2023-05-30 06:00 | XR_ITS ---
The [address] [address] Patient Name: BETTY ALCALA MRN: [id number] date: 1935 Sex: F Assigned Patient Location: ICU Current Patient Location: ICU Accession/Order Number: [id number] Exam Date: 05/30/2023 05:10 Report Date: 05/30/2023 07:08 At the request of: HUNTER YIP Procedure: XR chest 1V EXAM: XR chest 1V HISTORY: Right hydropneumothorax COMPARISON: None. TECHNIQUE: Portable erect FINDINGS: LUNGS: Low lung volumes. Moderate bibasilar infiltrates obscuring the hemidiaphragms and partially obscuring the heart borders, stable. Left lung apex is obscured by the patient's head position VASCULATURE: No increased pulmonary vasculature. PLEURA: Likely 7 mm right apical pneumothorax. Bilateral pleural effusions CARDIAC: Moderate stable cardiomegaly MEDIASTINUM: No visible mass or adenopathy. Aortic atherosclerosis BONES: No fracture or visible bone lesion. OTHER: Negative. XR/XR chest 1V IMPRESSION: Likely 7 mm right apical pneumothorax Moderate bibasilar infiltrates and pleural effusions, grossly stable r Electronically authenticated by: NABIL CHARLES Date: 05/30/2023 07:08
[2023-05-30] MEDS: LEVOTHYROXINE SODIUM 75 MCG TABLET PO (06:08)
[2023-05-30] MEDS: METHYLPREDNISOLONE SOD SUCC PF 125 MG/2 ML VIAL 60 MG IVP ×4 (06:08→23:36)
[2023-05-30 07:44] LABS: Glucometer 204 mg/dL (74-106)
[2023-05-30] MEDS: FUROSEMIDE 40 MG/4 ML VIAL IVP (08:08)
[2023-05-30] MEDS: CETIRIZINE HCL 10 MG TABLET PO (08:08)
[2023-05-30] MEDS: METOPROLOL TARTRATE 50 MG TABLET PO ×2 (08:08→21:10)
[2023-05-30] MEDS: POTASSIUM CHLORIDE 10 MEQ ER TABLET PO (08:08)
[2023-05-30] MEDS: INSULIN ASPART 300 UNIT/3 ML PEN SUBQ ×4 (08:08→21:15)
[2023-05-30] MEDS: ATORVASTATIN CALCIUM 40 MG TABLET PO (08:08)
--- NOTE | 2023-05-30 08:20 | CT_ITS ---
[address] [address] Patient Name: BETTY ALCALA MRN: [id number] date: 1935 Sex: F Assigned Patient Location: ICU Current Patient Location: ICU Accession/Order Number: [id number] Exam Date: 05/30/2023 09:02 Report Date: 05/30/2023 09:25 At the request of: HUNTER YIP Procedure: CT chest wo con EXAMINATION: CT chest wo con HISTORY: Right hydropneumothorax COMPARISON: 05/30/2022 chest x-ray TECHNIQUE: Multi-planar CT images were created with IV contrast. Axial, Coronal, and Sagittal images. Dose reduction techniques were achieved by using automated exposure control and/or adjustment of mA and/or kV according to patient size and/or use of iterative reconstruction technique. FINDINGS: LUNGS: Calcified tracheobronchial tree. Partial consolidation of both lower lobes right greater than left PLEURA: No pneumothorax. Calcified pleural plaque most significant over the right apex. 4.5 cm right and 1.9 cm left pleural effusions VASCULATURE: No abnormality. MARKELL: No mass or adenopathy. MEDIASTINUM: No mass or adenopathy. CARDIAC: No enlargement or pericardial effusion. Mild to moderate coronary atherosclerosis AORTA: No aneurysm or dissection. CHEST WALL: No mass or axillary adenopathy. BONES: Shoulder arthroplasty Exaggerated thoracic kyphosis with degenerative changes LIMITED ABDOMEN: No suspicious findings. Limited images of the upper abdomen. OTHER: Negative. CT/CT chest wo con IMPRESSION: No pneumothorax. 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 Consider pneumonia Electronically authenticated by: NABIL CHARLES Date: 05/30/2023 09:25
--- NOTE | 2023-05-30 08:22 | PM.PLPN ---
Progress Note: A&P Assessment and Plan (1) Hydropneumothorax: Assessment and Plan: Right hydropneumothorax. Unchanged on CXR. Etiology still unclear. Explained to patient once again that I do not know the cause of the fluid. The effusions appear relatively unchanged in size on 05/28/2023 compared to 05/12/2022 - the only significant change is the pneumothorax. Stated that the goal of thoracentesis is to analyze the fluid to see if there is any cancer, infection or other identifiable cause. The pneumothorax does not appear large, so there is no emergent need for chest tube to prevent a tension pneumothorax. Will order full chest CT at this time to evaluate for any upper lung field mass or abscess that could be the cause. Continue O2 @ 6L/min for N2 washout. Subjective Subjective Interval history: Patient is doing about the same this morning. No significant changes regarding her respiratory status. She remains on O2 @ 6L/min for N2 washout and is tolerating it well. She asked more questions about the hydropneumothorax. I replied that I do not know the cause of the fluid nor the air. She stated she did not like the risk of a worsening collapsed lung with a thoracentesis and asked isn't there any other test to get the fluid, which I answered no . She made a comment stating I wish there were a doctor who knew what he was doing. I asked her if she had concerns regarding my management of her? She answered no, that she was referring to someone else... CXR this AM continues to demonstrate a small apical pneumothorax. Exam Constitutional Vital Signs, click to edit/add: Last Vital Signs Temp 98.1 F 05/30/23 07:53 Pulse 112 H 05/30/23 07:58 Resp 20 05/30/23 07:50 BP 129/76 05/30/23 07:38 Pulse Ox 98 05/30/23 07:36 O2 Del Method Nasal Cannula 05/30/23 07:53 O2 Flow Rate 6 05/30/23 07:53 Documenting provider has reviewed patient's vital signs: yes Common normals: no apparent distress HENMT Other: Wearing nasal cannula Chest Common normals: inspection of chest normal Respiratory Other: Diminished breath sounds in the bases, less in the right. No rhonchi or wheezes. Cardio Other: Remains irregularly irregular in the 110's GI Inspection: normal to inspection Extremity Common normals: no clubbing, cyanosis or edema Neuro Motor exam: no tremor noted and no fasciculations Psych Attitude: belligerent (made an insulting comment which I am unclear was directed towards me)
[2023-05-30] MEDS: CEFTRIAXONE 1,000 MG in 0.9 % SODIUM CHLORIDE 50 ML 100 MG IV (09:49)
[2023-05-30 10:42] LABS: Hemoglobin 11.5 g/dL (12.0-16.0); Mean Corpuscular HGB Conc 31.9 g/dL (29.9-35.2); Mean Corpuscular Hemoglobin 32.6 pg (26.7-34.0); Platelet Count 136 10^3/uL (150-450); Red Blood Count 3.53 10^6/uL (4.20-5.40); White Blood Count 5.1 10^3/uL (4.0-11.0)
[2023-05-30 10:48] LABS: Lymphocytes Absolute Manual 0.15 10^3/uL (1.20-3.80); Monocytes Absolute Manual 0.05 10^3/uL (0.30-0.80); Segmented Neut Absolute Manual 4.89 10^3/uL (1.4-6.5)
[2023-05-30 11:09] LABS: Glucometer 166 mg/dL (74-106)
[2023-05-30 11:11] LABS: Anion Gap 20.2; BUN Creatinine Ratio 23.5; Calcium 8.2 mg/dL (8.5-10.1); Carbon Dioxide 22.2 mmol/L (21.0-32.0); Chloride 105 mmol/L (98-107); Estimated GFR (African America 35 (>=60); Estimated GFR (Non-African Ame 29 (>=60); Glucose 180 mg/dL (74-106); Potassium 3.4 mmol/L (3.5-5.1); Sodium 144 mmol/L (136-145)
--- NOTE | 2023-05-30 11:12 | PM.PN ---
Progress Note: Subjective Subjective Interval history: Patient feels better this am. Abdominal pain and diarrhea resolved after starting steroids. Still SOB and mild cough. Continued weakness. Remains in afib but rate controlled and no palpitations or chest pain. Decreased appetite but no emesis or diarrhea. Afebrile. Exam Constitutional Vital Signs, click to edit/add: Last Vital Signs Temp 98.1 F 05/30/23 07:53 Pulse 113 H 05/30/23 08:50 Resp 20 05/30/23 07:50 BP 129/76 05/30/23 07:38 Pulse Ox 98 05/30/23 07:36 O2 Del Method Nasal Cannula 05/30/23 07:53 O2 Flow Rate 6 05/30/23 07:53 Documenting provider has reviewed patient's vital signs: yes Common normals: no apparent distress, oriented x3 and alert HENMT Common normals: normocephalic Eye Common normals: PERRL and EOMs intact bilaterally Respiratory Common normals: normal respiratory effort and clear to auscultation bilaterally Cardio Common normals: regular rate, no gallops, no murmurs and no rub Rhythm: abnormal rhythm irregularly irregular GI Common normals: Normal to inspection, nondistended, normoactive bowel sounds present and non-tender Extremity Common normals: no pedal edema Progress Note: Objective Labs Labs: Short CBC 05/30/23 Range/Units 10:15 WBC 5.1 (4.0-11.0) 10^3/uL Hgb 11.5 L (12.0-16.0) g/dL Hct 36.0 (36.0-48.0) % Plt Count 136 L (150-450) 10^3/uL BMP 05/30/23 10:35 Sodium 144 Potassium 3.4 L Chloride 105 Carbon Dioxide 22.2 BUN 39.0 H Creatinine 1.66 H Glucose 180 H Calcium 8.2 L Progress Note: A&P Assessment and Plan (1) Atrial fibrillation with RVR: (2) Hydropneumothorax: (3) Bilateral pleural effusion: (4) UTI (urinary tract infection): (5) SYLVIA (acute kidney injury): (6) Ulcerative colitis without complications: (7) Renal calculi: (8) Type 2 diabetes mellitus with hyperglycemia: (9) HTN (hypertension): (10) Hypothyroidism: (11) Stage 3a chronic kidney disease: Plan Patient improved today. Abdominal pain and diarrhea resolved after addition of steroids. Check GI panel due to recent antibiotic use. Patient reports history of UC but review of PCP records does not indicate UC. Colonoscopy from 2013 normal with normal biopsy. Will hold any disease modifying medication such as sulfasalazine and patient can address with PCP as outpatient. Remains in afib but rate controlled with metoprolol. PT notes weakness and recommends using rolling walker and patient will need a new one at home since hers is worn. Continue PT/OT. CT chest without pneumothorax but effusions. Further plan per pulmonology. Continue antibiotics for UTI.
--- NOTE | 2023-05-30 11:35 | CM.NOTE ---
Rounds made with Dr. Berg, no discharge today. RN calling Dr. Kim about weaning off oxygen.
--- NOTE | 2023-05-30 11:47 | SWNOTE1 ---
SW sent referral for wheeled walker to [facility].
[2023-05-30 16:05] LABS: Glucometer 171 mg/dL (74-106)
[2023-05-30 21:19] LABS: Glucometer 194 mg/dL (74-106)
[2023-05-31] VITALS (10 sets, daily range): BP systolic 109–135; BP diastolic 73–82; PULSE 93–123; RESP 10–16; TEMP 36.6–36.7; O2SAT 94–99
[2023-05-31 04:46] LABS: Basophils Percent Auto 0.2 % (0.2-2.0); Hematocrit 36.3 % (36.0-48.0); Hemoglobin 11.1 g/dL (12.0-16.0); Immature Granulocytes Abs Auto 0.06 10^3/uL (0.00-0.03); Lymphocytes Absolute Auto 0.5 10^3/uL (1.2-3.8); Lymphocytes Percent Auto 7.4 % (20.5-60.0); Mean Corpuscular HGB Conc 30.6 g/dL (29.9-35.2); Mean Corpuscular Hemoglobin 31.9 pg (26.7-34.0); Mean Corpuscular Volume 104.3 fL (81.0-99.0); Mean Platelet Volume 10.1 fL (9.5-13.5); Monocytes Absolute Auto 0.2 10^3/uL (0.3-0.8); Monocytes Percent Auto 2.9 % (1.7-12.0); Neutrophils Absolute Auto 5.5 10^3/uL (1.4-6.5); Neutrophils Percent Auto 88.5 % (43.0-75.0); Platelet Count 136 10^3/uL (150-450); Red Blood Count 3.48 10^6/uL (4.20-5.40); Red Cell Distribution Width 15.3 % (11.0-15.0); White Blood Count 6.2 10^3/uL (4.0-11.0)
[2023-05-31 04:53] LABS: Anion Gap 16.6; BUN Creatinine Ratio 29.8; Calcium 8.1 mg/dL (8.5-10.1); Carbon Dioxide 23.2 mmol/L (21.0-32.0); Chloride 106 mmol/L (98-107); Estimated GFR (African America 37 (>=60); Estimated GFR (Non-African Ame 30 (>=60); Glucose 179 mg/dL (74-106); Potassium 3.8 mmol/L (3.5-5.1); Sodium 142 mmol/L (136-145)
[2023-05-31] MEDS: METHYLPREDNISOLONE SOD SUCC PF 125 MG/2 ML VIAL 60 MG IVP ×2 (05:48→11:22)
[2023-05-31] MEDS: LEVOTHYROXINE SODIUM 75 MCG TABLET PO (05:49)
--- NOTE | 2023-05-31 07:20 | P.PLPN_ITS ---
Progress Note: A&P Assessment and Plan (1) Hydropneumothorax: Assessment and Plan: Right hydropneumothorax. Unchanged on CXR. Etiology still unclear. Explained to patient once again that I do not know the cause of the fluid. The effusions appear relatively unchanged in size on 05/28/2023 compared to 05/12/2022 - the only significant change is the pneumothorax. Stated that the goal of thoracentesis is to analyze the fluid to see if there is any cancer, infection or other identifiable cause. The pneumothorax does not appear large, so there is no emergent need for chest tube to prevent a tension pneumothorax. Will order full chest CT at this time to evaluate for any upper lung field mass or abscess that could be the cause. Continue O2 @ 6L/min for N2 washout. 1. Right hydropneumothorax. Pneumothorax has essentially spontaneously resolved based on chest CT 05/30/2023 - I personally reviewed the imaging and there may be a tiny miniscule area of are near sternal border, but it is so small, it is negligible. Unclear why air was present. Explained to patient that we may never know. Pleural effusions present since 05/2022 - offered thoracentesis for diagnostic purposes but she has refused. 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 Clinical suspicion for pneumonia is low - the partial consolidations are more consistent with compressive atelectasis than infectious etiology. 2. 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 The asbestos fibers can settle on his clothes and transmitted to her when she did the laundry (e.g [employer]). Prior infection can also cause an apical plaque cap . Pleural plaques by themselves are benign. Plan Patient can be monitored outpatient with a F/U non-contrast chest CT in 3-6 months to document stability of the effusions which I will defer to her PCP to order. If there would be a change, then a thoracentesis would be even more indicated. However, as she has refused a thoracentesis, I do not have anything else to add to this case. Subjective Subjective Interval history: Patient seems to be doing better this AM. No significant complaints at this time. I reviewed chest CT findings from yesterday's (05/30/2023) scan: No pneumothorax. Abnormality on plain x-ray are calcified pleural plaques over the right apex likely representing prior exposure to asbestos. Partial consolidation of both lower lobes with pleural effusions, right greater than left. Consider pneumonia. As the pneumothorax has essentially resolved, I took her off the O2 used for N2 washout. There does not appear to be any decline in her respiratory status. Denies any pleuritic pain or worsening dyspnea. Regarding the pleural plaques, she denies any known asbestos exposure. Asked about her family, etc. 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 Exam Constitutional Vital Signs, click to edit/add: Last Vital Signs Temp 97.9 F 05/30/23 20:00 Pulse 119 H 05/31/23 06:06 Resp 10 L 05/31/23 04:10 BP 129/73 05/31/23 03:00 Pulse Ox 94 L 05/31/23 03:00 O2 Del Method Room Air 05/31/23 03:00 O2 Flow Rate 6 05/30/23 07:53 Documenting provider has reviewed patient's vital signs: yes Common normals: no apparent distress [facility] Common normals: normocephalic Chest Other: Thoracic kyphosis Respiratory Other: Essentially unchanged. Diminished breath sounds in the bases, especially left. Dullness to percussion more on left. Cardio Other: Remains irregularly irregular, rate 100-110's. GI Inspection: normal to inspection Extremity Common normals: no clubbing, cyanosis or edema Neuro Motor exam: no tremor noted and no fasciculations Psych Speech: normal speech
[2023-05-31] MEDS: FUROSEMIDE 40 MG/4 ML VIAL IVP (08:11)
[2023-05-31] MEDS: POTASSIUM CHLORIDE 10 MEQ ER TABLET PO (08:11)
[2023-05-31] MEDS: CETIRIZINE HCL 10 MG TABLET PO (08:12)
[2023-05-31] MEDS: METOPROLOL TARTRATE 50 MG TABLET PO (08:12)
[2023-05-31] MEDS: ATORVASTATIN CALCIUM 40 MG TABLET PO (08:12)
[2023-05-31] MEDS: INSULIN ASPART 300 UNIT/3 ML PEN SUBQ ×2 (08:13→11:22)
[2023-05-31] MEDS: CHOLECALCIFEROL (VITAMIN D3) 25 MCG/1,000 UNITS TABLET 50 MCG PO (08:13)
[2023-05-31] MEDS: CEFTRIAXONE 1,000 MG in 0.9 % SODIUM CHLORIDE 50 ML 100 MG IV (10:02)
--- NOTE | 2023-05-31 10:03 | SWNOTE1 ---
SW had message from case management and [facility] does not take insurance for walker. [facility] [place]. Information sent to [facility].
--- NOTE | 2023-05-31 10:25 | PT.DAILY ---
Physical Therapy Daily Note PT Daily Note/Assess Start: 05/29/23 14:11 Freq: Status: Active Protocol: Document 05/31/23 09:55 ABBY (Rec: 05/31/23 10:24 ABBY [id number]) Physical Therapy Daily Note/Assessment Time In/Time Out Time In 09:55 Time Out 10:15 Pain In Pain N/A Pain Out Pain N/A Subjective Subjective Patient pleasant, agrees to PT . Denies pain. Questions about how to get RW, told her I would send clinical social work aide in to discuss. Therapeutic Exercise Time Therapeutic Exercise Minutes (minutes) 5 Therapeutic Exercise Units 0 Therapeutic Exercise Treatment Therapeutic Exercise Treatment Seated exercises with AP, Marches, LAQ, Hip ER, step outs, and adduction squeeze 10x each Therapeutic Activity Time Therapeutic Activity Minutes (minutes) 10 Therapeutic Activity Units 1 Therapeutic Activity Treatment Chair Transfer Ability Standby Assistance Therapeutic Activity Comments Gait with RW 200 ft. SBA. No LOB. Good safety awareness with RW as well. Total Physical Therapy Time Total Therapy Minutes 15 Total Physical Therapy Units 1 Summary Daily Note Summary Improved ability with gait and gait distance this date. Good safety awareness with RW. No LOB throughout RX.
[2023-05-31 11:21] LABS: Glucometer 208 mg/dL (74-106)
--- NOTE | 2023-05-31 11:46 | SWNOTE1 ---
SW spoke with pt in regards to walker. SW received call from [employer] and there translator and interpreter is not in to run information through insurance. SW let pt know and she is alright with SW sending to [facility] in [place], her daughter works in [place] so she can pick it up. Referral sent to [facility].
--- NOTE | 2023-05-31 11:47 | CM.NOTE ---
Rounds made with Dr. Berg. Plan for discharge today. Will need to follow up with PCP within 2 weeks. PCP will help arrange for Pulmonary physician. Ms. Larios verbalizes understanding.
--- NOTE | 2023-05-31 12:27 | P.DS_ITS ---
DS: Providers Provider Date of admission: 05/28/23 20:12 Primary care physician: Shaikh Elton MD Consults: 05/29/23 07:00 Consult to Pulmonology Routine Consulting Provider: Aron Kim Reason for consultation: Bilateral pleural effusions; Right apical pneumothorax Has provider been notified: Yes 05/29/23 09:00 Occupational Therapy Eval and Treat Routine Reason for consultation: eval and treat Has provider been notified: No Physical Therapy Eval and Treat Routine Reason for consultation: Eval and treat Has provider been notified: No DS: Diagnosis Discharge Diagnosis (1) Atrial fibrillation with RVR: (2) Hydropneumothorax: (3) Bilateral pleural effusion: (4) UTI (urinary tract infection): (5) SYLIVA (acute kidney injury): (6) Ulcerative colitis without complications: (7) Renal calculi: (8) Type 2 diabetes mellitus with hyperglycemia: (9) HTN (hypertension): (10) Hypothyroidism: (11) Stage 3a chronic kidney disease: DS: Summary Hospital Course Hospital Course: Reason for admission: See H&P for details. 87 y/o female to ER with abdominal pain, nausea, and vomiting. Reports a history of ulcerative colitis and recently with increased symptoms. Developed sinusitis last week but resolved. C/o worsening sciatica and to urgent care and placed on steroids. Developed abdominal pain and continued to worsen. Decreased appetite and emesis. To ER by EMS and noted to be in afib. In ER found rapid afib. CT abdomen negative for acute change and showed old kidney stone. Started cardizem drip in ER. Found bilateral pleural effusion and pneumothorax on imaging and discussed with pulmonology. UA with possible UTI and admitted. Hospital course: Weaned off cardizem drip due to hypotension but had resumed home medication including metoprolol. Rate controlled. Pulmonology consulted and placed on 6 LPM and monitored pneumothorax. Started rocephin for UTI and PT/OT for weakness. Continued to c/o abdominal pain and added solu-medrol. SOB improved. CT performed and no pneumothorax but continued pleural effusions. Abdominal pain and diarrhea resolved. Pulmonology discussed thoracentesis but patient refused. On room air and no SOB. Vitals stable. No further abdominal pain and normal appetite. Remained in afib but rate controlled. Discharged home in stable condition. Will take prednisone for colitis. Start Eliquis for afib and continue metoprolol. Follow up with PCP and will need referral for pulmonology as patient did not want to see Dr. Kim. Patient asked about treatment of ulcerative colitis but review or records does not show this diagnosis. Will defer to PCP. Resume home medication as directed. Time Spent with Patient Time attestation: Total time spent providing and/or coordinating discharge services: Exam Constitutional Vital Signs, click to edit/add: Last Vital Signs Temp 98.1 F 05/31/23 11:50 Pulse 104 H 05/31/23 11:50 Resp 16 05/31/23 11:50 BP 135/82 05/31/23 11:50 Pulse Ox 99 05/31/23 11:50 O2 Del Method Room Air 05/31/23 11:50 O2 Flow Rate 6 05/30/23 07:53 Documenting provider has reviewed patient's vital signs: yes Common normals: no apparent distress, oriented x3 and alert HENMT Common normals: normocephalic Eye Common normals: PERRL and EOMs intact bilaterally Respiratory Common normals: normal respiratory effort and clear to auscultation bilaterally Cardio Common normals: regular rate, no gallops, no murmurs and no rub Rhythm: abnormal rhythm irregularly irregular GI Common normals: Normal to inspection, nondistended, normoactive bowel sounds present and non-tender Extremity Common normals: no pedal edema DS: Data Data Completed and Pending Labs on day of discharge: Labs from last 24 hours 05/31/23 05/31/23 05/30/23 11:19 04:24 21:12 WBC 6.2 RBC 3.48 L Hgb 11.1 L Hct 36.3 MCV 104.3 H MCH 31.9 MCHC 30.6 RDW 15.3 H Plt Count 136 L MPV 10.1 Neut % (Auto) 88.5 H Lymph % (Auto) 7.4 L [place] % (Auto) 2.9 Eos % (Auto) 0.0 L Baso % (Auto) 0.2 Neut # (Auto) 5.5 Lymph # (Auto) 0.5 L [place] # (Auto) 0.2 L Eos # (Auto) 0.0 Baso # (Auto) 0.0 Abs Immat Gran (auto) 0.06 H Imm/Tot Granulo (auto) 1.0 H Sodium 142 Potassium 3.8 Chloride 106 Carbon Dioxide 23.2 Anion Gap 16.6 BUN 48.0 H Creatinine 1.61 H Est GFR ( Amer) 37 L Est GFR (Non-Af Amer) 30 L BUN/Creatinine Ratio 29.8 Glucose 179 H Calcium 8.1 L POC Glucose 208 H 194 H 05/30/23 16:03 WBC RBC Hgb Hct MCV MCH MCHC RDW Plt Count MPV Neut % (Auto) Lymph % (Auto) [place] % (Auto) Eos % (Auto) Baso % (Auto) Neut # (Auto) Lymph # (Auto) [place] # (Auto) Eos # (Auto) Baso # (Auto) Abs Immat Gran (auto) Imm/Tot Granulo (auto) Sodium Potassium Chloride Carbon Dioxide Anion Gap BUN Creatinine Est GFR ( Amer) Est GFR (Non-Af Amer) BUN/Creatinine Ratio Glucose Calcium POC Glucose 171 H Preliminary micro results at discharge 05/28/23 15:52 - Preliminary Blood NO GROWTH AT 36-48 HOURS. FINAL TO FOLLOW. 05/28/23 15:49 Blood Culture Result 1 - Preliminary Blood NO GROWTH AT 36-48 HOURS. FINAL TO FOLLOW. Discharge Plan Discharge Disposition: Home, Self-Care Condition: Good Discharge Medications: New cefdinir 300 mg capsule 300 mg PO BID 10 Days Qty: 20 0RF Eliquis 5 mg tablet 5 mg PO BID Qty: 60 0RF prednisone 50 mg tablet 50 mg PO DAILY 5 Days Qty: 5 0RF Continued amlodipine 5 mg tablet 5 mg PO DAILY atorvastatin 40 mg tablet 40 mg PO DAILY furosemide 20 mg tablet 20 mg PO DAILY cholecalciferol (vitamin D3) 50 mcg (2,000 unit) tablet 2,000 unit PO .QD levothyroxine 75 mcg tablet 75 mcg PO DAILY losartan 100 mg tablet 100 mg PO DAILY loratadine 10 mg tablet 10 mg PO DAILY metformin 500 mg tablet extended release 24 hr 500 mg PO DAILY metoprolol tartrate 50 mg tablet 50 mg PO Q12H potassium chloride 10 mEq capsule, extended release 10 meq PO DAILY Activity: resume usual activities as tolerated Activity Detail: Wheeled walker ordered to be picked up at discharge Diet: advance to your usual diet Patient Instructions: Prednisone (By mouth), Cefdinir (By mouth) (Omnicef), Apixaban (By mouth) (Eliquis), A-fib (Atrial Fibrillation) (DC), Blood Thinners (DC) Forms: Portal Instructions Follow Up Appointments: Dr Lenz Jun 14 10 am
--- NOTE | 2023-06-05 10:55 | CM.DCFOLLOWU ---
1st attempt discharge follow up call made by Josselyn Rivas on 06/05/23, no answer
== END 2023-05-31 14:52 | disposition home or self-care (01) | DRG 187 ==
LOC: ER 19:23 → ICU 20:16
PROVIDERS: Physician Assistant; Registered Nurse; Admitting Provider Family Medicine; Emergency Provider Emergency Medicine; PCP Internal Medicine; Visit Provider Family Medicine
DX: J94.8 Other specified pleural conditions (principal); K51.90 Ulcerative colitis, unspecified, without complications; N39.0 Urinary tract infection, site not specified; N17.9 Acute kidney failure, unspecified; I48.91 Unspecified atrial fibrillation; J90 Pleural effusion, not elsewhere classified; N20.0 Calculus of kidney; E11.65 Type 2 diabetes mellitus with hyperglycemia; I12.9 Hypertensive chronic kidney disease with stage 1 through stage 4 chronic kidney disease, or unspecified chronic kidney disease; E11.22 Type 2 diabetes mellitus with diabetic chronic kidney disease; E03.9 Hypothyroidism, unspecified; N18.31 Chronic kidney disease, stage 3a; R53.1 Weakness; Z79.01 Long term (current) use of anticoagulants; Z79.84 Long term (current) use of oral hypoglycemic drugs; Z79.899 Other long term (current) drug therapy; E78.5 Hyperlipidemia, unspecified; M54.30 Sciatica, unspecified side; Z90.12 Acquired absence of left breast and nipple; I95.9 Hypotension, unspecified; Z85.3 Personal history of malignant neoplasm of breast; J92.9 Pleural plaque without asbestos; K80.20 Calculus of gallbladder without cholecystitis without obstruction
CPT/HCPCS: 0202U; 36415; 71045; 71250; 74177; 80048; 80053; 80061; 81001; 82800; 82948; 83036; 83605; 83690; 83735; 83880; 84145; 84443; 84484; 85007; 85025; 85027; 85610; 87040; 87086; 87507; 93005; 93306; 96361; 96365; 96366; 96367; 96372; 96375; 96376; 97110; 97161; 97165; 97530; 97535; 99285; J0696; J1650; J1940; J2270; J2405; J2930; J3475; Q9966

== ENCOUNTER 2023-06-09 17:47 | Inpatient (IN) | payer MEDICARE, SELFPAY ==
[2023-06-09] VITALS (35 sets, daily range): BP systolic 92–151; BP diastolic 55–86; PULSE 92–149; RESP 11–45; TEMP 36.5–36.6; O2SAT 85–98; BMI 28.0; BMI 28.1
--- NOTE | 2023-06-09 18:02 | ECG_ITS ---
The [facility] Test Date: 2023-06-09 Pat Name: BETTY ALCALA Department: Room: - Gender: Female Advanced Practice Registered Nurse: : 1935 Requested By: SHAIKH SREEDHAR Order Number: [id number] Reading MD: CHIRAG IBANEZ Measurements Intervals David Rate: 135 P: -56576 MT: -64703 QRS: 77 QRSD: 90 T: -53 QT: 286 QTc: 365 Interpretive Statements 02355 Atrial fibrillation with rapid ventricular response [address] depression, probably digitalis effect 10287 Twave abnormality, possible inferior ischemia or digitalis effect 9150 abnormal ECG Compared to ECG 05/28/2023 15:05:02 ST (T wave) deviation now present Possible ischemia now present Electronically Signed On 06-10-2023 5:57:29 EST by CHIRAG IBANEZ
--- NOTE | 2023-06-09 18:02 | XR_ITS ---
The [address] [address] Patient Name: BETTY ALCALA MRN: [id number] date: 1935 Sex: F Assigned Patient Location: ER Current Patient Location: ED.MAIN Accession/Order Number: [id number] Exam Date: 06/09/2023 19:32 Report Date: 06/09/2023 20:17 At the request of: RICK CHARLES Procedure: XR chest 1V XR chest 1V 06/09/2023 7:32 PM EST CLINICAL INDICATION: Tachycardia COMPARISON: 05/30/2023 TECHNIQUE: Portable semiupright AP view of the chest. FINDINGS: Left shoulder arthroplasty. The cardiomediastinal silhouette and pulmonary vasculature are within normal limits. Similar appearance of bibasilar airspace disease and small to moderate bilateral pleural effusions. Right apical evaluation is limited by superimposed structures. No displaced rib fractures. Osseous structures demonstrate degenerative changes. Soft tissues are grossly normal. XR/XR chest 1V IMPRESSION: Similar appearance of bibasilar airspace disease and small to moderate bilateral pleural effusions. Evaluation of the right apex is limited by superimposed structures. Electronically authenticated by: JYOTI BAY Date: 06/09/2023 20:17
--- NOTE | 2023-06-09 18:03 | CT_ITS ---
The [address] [address] Patient Name: BETTY ALCALA MRN: [id number] date: 1935 Sex: F Assigned Patient Location: ER Current Patient Location: ED.MAIN Accession/Order Number: [id number] Exam Date: 06/09/2023 19:32 Report Date: 06/09/2023 20:18 At the request of: RICK CHARLES Procedure: CT abdomen pelvis w con EXAM: CT abdomen pelvis w con CLINICAL INDICATION: low abd pain COMPARISON: CT abdomen/pelvis 05/28/2023 . TECHNIQUE: After the injection of intravenous nonionic iodinated contrast, axial CT of the abdomen, and pelvis was performed from the top of the hemidiaphragms to the inferior osseous pelvis. 2D reformats were obtained. Automatic exposure control radiation dose reduction technology was utilized. FINDINGS: Visualized portion of the lung bases demonstrate moderate right and small left pleural effusions with associated atelectasis, slightly progressed. No residual pneumothorax noted at the right lung base. Stable benign-appearing bilateral renal cysts including a large 10.5 cm rim calcified exophytic anterior lower pole left renal cyst. 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 No hydronephrosis. The liver, spleen, adrenal glands and pancreas are within normal limits. Gallbladder contains calcified stones, similar to prior. No abdominal aortic aneurysm. No enlarged lymph nodes, free fluid, or free air. The bowel is without evidence of obstruction or adjacent inflammatory changes. Normal appendix. Bladder unremarkable. Grossly no suspicious osseous lesions are identified. CT/CT abdomen pelvis w con IMPRESSION: 1. No significant acute abnormality identified in the abdomen or pelvis, as described above. 2. Moderate right and small left pleural effusions with associated atelectasis, slightly progressed. No residual pneumothorax noted at the right lung base. 3. Cholelithiasis. Electronically authenticated by: CYNTHIA LOVE Date: 06/09/2023 20:18
--- NOTE | 2023-06-09 18:04 | ED.ABDPAIN1 ---
HPI - Abdominal Pain General Chief Complaint: Abdominal Pain Stated Complaint: abdominal pain Time Seen by Provider: 06/09/23 17:50 Source: patient Source comment: ABD pain before and after using the bathroom and back pain Mode of arrival: ambulance Limitations: physical limitation Limitations comment: movement History of Present Illness HPI narrative: 87-year-old female presents with abdominal pain. Upon arrival she was noted to have a fast heart rate and she has a history of atrial fibrillation. She points to the mid abdomen to indicate where it hurts and she states it is worse when she has a bowel movement. Her lower back hurts as well. No fever or vomiting. She does not seem to have palpitations. Related Data Home Medications Medication Instructions Recorded Confirmed amlodipine 5 mg tablet 5 mg PO DAILY 05/28/23 06/09/23 atorvastatin 40 mg tablet 40 mg PO DAILY 05/28/23 06/09/23 cholecalciferol (vitamin D3) 50 2,000 unit PO .QD 05/28/23 06/09/23 mcg (2,000 unit) tablet furosemide 20 mg tablet 20 mg PO DAILY 05/28/23 06/09/23 levothyroxine 75 mcg tablet 75 mcg PO DAILY 05/28/23 06/09/23 loratadine 10 mg tablet 10 mg PO DAILY 05/28/23 06/09/23 losartan 100 mg tablet 100 mg PO DAILY 05/28/23 06/09/23 metformin 500 mg tablet,extended 500 mg PO DAILY 05/28/23 06/09/23 release 24 hr metoprolol tartrate 50 mg tablet 50 mg PO Q12H 05/28/23 06/09/23 potassium chloride 10 mEq 10 meq PO DAILY 05/28/23 06/09/23 capsule,extended release Previous Rx's Medication Instructions Recorded apixaban 5 mg tablet (Eliquis) 5 mg PO BID #60 tabs 05/31/23 prednisone 50 mg tablet 50 mg PO DAILY 5 days #5 tabs 05/31/23 Allergies Allergy/AdvReac Type Severity Reaction Status Date / Time No Known Drug Allergies Allergy Verified 05/28/23 15:02 Review of Systems ROS Narrative A ten point review of systems is negative except as noted above. [facility] Medical History (Updated 06/09/23 @ 18:35 by Timothy Mcclelland MD) Renal calculi ?N20.0 - Calculus of kidney (ICD-10) Atrial fibrillation with RVR ?I48.91 - Unspecified atrial fibrillation (ICD-10) Stage 3a chronic kidney disease ?N18.31 - Chronic kidney disease, stage 3a (ICD-10) Type 2 diabetes mellitus with hyperglycemia ?E11.65 - Type 2 diabetes mellitus with hyperglycemia (ICD-10) Hydropneumothorax ?J94.8 - Other specified pleural conditions (ICD-10) Hypothyroidism ?E03.9 - Hypothyroidism, unspecified (ICD-10) HTN (hypertension) ?I10 - Essential (primary) hypertension (ICD-10) Ulcerative colitis without complications ?K51.90 - Ulcerative colitis, unspecified, without complications (ICD-10) Bilateral pleural effusion ?J90 - Pleural effusion, not elsewhere classified (ICD-10) Abdominal pain ?R10.9 - Unspecified abdominal pain (ICD-10) Pneumothorax ?J93.9 - Pneumothorax, unspecified (ICD-10) Nausea vomiting and diarrhea ?R11.2 - Nausea with vomiting, unspecified (ICD-10) ?R19.7 - Diarrhea, unspecified (ICD-10) New onset atrial fibrillation ?I48.91 - Unspecified atrial fibrillation (ICD-10) CKD (chronic kidney disease) ?N18.9 - Chronic kidney disease, unspecified (ICD-10) Kidney stone on left side ?N20.0 - Calculus of kidney (ICD-10) Gall bladder stones ?K80.20 - Calculus of gallbladder without cholecystitis without obstruction (ICD-10) Hyperlipemia ?E78.5 - Hyperlipidemia, unspecified (ICD-10) Diabetic acidosis, type I ?E10.10 - Type 1 diabetes mellitus with ketoacidosis without coma (ICD-10) Sciatic leg pain ?M54.30 - Sciatica, unspecified side (ICD-10) Surgical History (Updated 05/28/23 @ 21:21 by Earnestine Livingston) H/O left mastectomy ?Z90.12 - Acquired absence of left breast and nipple (ICD-10) Social History (Updated 05/28/23 @ 21:23 by Earnestine Livingston) Within the past year, how often did you have a drink containing alcohol: never Score interpretation: A score less than 3 is consistent with normal alcohol consumption. Smoking status: Never smoker Non-prescribed substance use: denies use Highest level of school completed/degree received: 10th grade Are you now , , , , never or living with a partner: In a typical week, how many times do you talk on the telephone with family, friends, or neighbors: 3 or more times per week How often do you get together with friends or relatives: 3 or more times per week How often do you attend yarsani or amish services: 1-3 times per year Do you belong to any clubs or organizations such as yarsani groups unions, fraternal or athletic groups, or school groups: no Total score: 1 Score interpretation: A score of less than or equal to 1 indicates the most socially isolated. Little interest or pleasure in doing things: not at all Feeling down, depressed, or hopeless: not at all Feel stressed/tense/nervous/anxious/difficulty sleeping: only a little Due to disability, difficulty making decisions: No Exam Narrative Exam Narrative: Nurses note and vital signs reviewed and patient is not hypoxic. General: The patient appears well and in no apparent distress. Patient is resting comfortably on cart. Skin: Warm, dry, no pallor noted. There is no rash noted. Head: Normocephalic, atraumatic Eye: Normal conjunctiva, no drainage Ears, Nose, Mouth, and Throat: oral mucosa is moist. Nares patent. Cardiovascular: Irregular and tachycardic Respiratory: Patient is in no distress, no accessory muscle use, lungs are clear to auscultation, no wheezing, rales or rhonchi Back: non-tender GI: no tenderness to palpation, no masses appreciated. No rebound, guarding, or rigidity noted. Musculoskeletal: The patient has no evidence of calf tenderness, no pitting edema, symmetrical pulses noted bilaterally Neurological: A&O x4, normal speech Psychiatric: Cooperative Constitutional Vital Signs, click to edit/add: Last Vital Signs Temp 97.7 F 06/09/23 17:50 Pulse 138 H 06/09/23 17:50 Resp 32 H 06/09/23 17:50 BP 151/82 H 06/09/23 17:50 Pulse Ox 94 L 06/09/23 17:50 O2 Del Method Room Air 06/09/23 17:50 Course Vital Signs Vital signs: Vital Signs Temperature 97.7 F 06/09/23 17:50 Pulse Rate 138 H 06/09/23 17:50 Respiratory Rate 32 H 06/09/23 17:50 Blood Pressure 151/82 H 06/09/23 17:50 Pulse Oximetry 94 L 06/09/23 17:50 Oxygen Delivery Method Room Air 06/09/23 17:50 Temperature 97.7 F 06/09/23 17:50 Pulse Rate 138 H 06/09/23 17:50 Respiratory Rate 32 H 06/09/23 17:50 Blood Pressure 151/82 H 06/09/23 17:50 Pulse Oximetry 94 L 06/09/23 17:50 Oxygen Delivery Method Room Air 06/09/23 17:50 MDM - Abdominal Pain MDM Narrative Medical decision making narrative: The patient presented with atrial fibrillation with RVR. She was ordered IV Cardizem and the rest of her workup is pending and the patient is being signed out to Dr. Real at change of shift. Differential Diagnosis Differential diagnosis: Likely abdominal pain, constipation, diverticulitis, gastroenteritis and other (Atrial fibrillation, UTI) Lab Data Attestation: I reviewed the patient's lab results. Discharge Plan Discharge Patient Disposition: Still a Patient
--- OUTSIDE RECORDS SUMMARY | 2023-06-09 18:08 | XMS_ITS | CCD ---
Author Name Unknown Address [address] [place] [address] Organization [facility] Care Team Providers Care [employer] Name Role Phone Obey Condeikh Attending Unavailable Fawwad, Peterson Primary Care Unavailable Fawwad, Peterson Admitting Unavailable FAJAVIER, PETERSON Primary Care Physician [phone] FAWWAD, PETERSON H Admitting Unavailable FAWWAD, PETERSON H Attending Unavailable FAWWAD, PETERSON H Primary Care Unavailable FATremayneWAD, PETERSON H Consulting Unavailable KAYE, SAURABH Admitting Unavailable KAYE, SAURABH Attending Unavailable FAWWAD, PETERSON H Primary Care Unavailable KAYE, SAURABH Consulting Unavailable SHANLELE HACKETT Admitting Unavailable SHANELLE HACKETT Attending Unavailable FAWWAD, PETERSON H Primary Care Unavailable Kunal Rg Consulting Unavailable SHANELLE HACKETT Consulting Unavailable FAWWAD, PETERSON H Primary Care Unavailable PAY ., DR WILLIS Admitting Unavailable PAY ., DR WILLIS Attending Unavailable PAY ., DR WILLIS Consulting Unavailable [facility] Consulting Unavailable ANAIS MEDELLIN Consulting Unavailable KAYE, SAURABH Admitting Unavailable KAYE, SAURABH Attending Unavailable FAWWAD, PETERSON H Primary Care Unavailable KAYE, SAURABH Admitting Unavailable KAYE, SAURABH Attending Unavailable FAWWAD, PETERSON H Primary Care Unavailable KAYE, SAURABH Consulting Unavailable FAWWAD, PETERSON Attending Unavailable Ivis Winston Unavailable FAWWAD, PETERSON Primary Care Unavailable SHANELLE HACKETT Attending Unavailable SHANELLE HACKETT Attending Unavailable FAWWAD, PETERSON Primary Care Unavailable Kia Dawson Unavailable Allergies Allergy Classification Reported Allergen(s) Allergy Type Date of Onset Reaction(s) Facility (2 sources) Sulfamethoxazole / Trimethoprim; Translations: [sulfamethoxazole-t rimethoprim] Drug Allergy Nausea and vomiting (disorder) [facility] (2 sources) Grass; Translations: [Grass] Allergy to substance Unknown (qualifier value) [facility] (1 source) No Known Medication Allergies; Translations: [No Known Medication Allergies] Propensity to adverse reactions (disorder) [facility] Repository Medications Current Medications Medication Drug Class(es) Dates Sig (Normalized) Sig (Original) amLODIPine 5 mg oral tablet (3 sources) Dihydropyridine Calcium Channel Nette Start: 08-16-2022 amLODIPine 5 mg Tab Refills(s) 0 Start Date: 08/16/22 Status: Ordered atorvastatin 40 mg oral tablet (3 sources) HMG-CoA Reductase Inhibitor Start: 08-16-2022 atorvastatin 40 mg Tab Refills(s) 0 Start Date: 08/16/22 Status: Ordered cholecalciferol 0.05 mg oral tablet (2 sources) Vitamin D take 1 tablet by mouth once daily Vitamin D 50 MCG (2000 UT) TAKE 1 TABLET BY MOUTH DAILY Oral for 90 Days Active DDM Vitamin D 2000 IU (1 source) Start: 08-16-2022 DDM Vitamin D 2000 IU DDM Vitamin D 2000 IU Start Date: 08/16/22 Status: Ordered fluticasone propionate 0.05 mg/actuat metered dose nasal spray (2 sources) Corticosteroid Fluticasone Propionate 50 MCG/ACT Nasal for 30 Days Active furosemide 40 mg oral tablet (3 sources) Loop Diuretic Start: 04-17-2019 take 1 mg by mouth every other day furosemide 40 mg Tab mg tab(s), Oral, Every other day, Refills(s) 0 Start Date: 04/17/19 Status: Ordered take 1 tablet by george th once daily as needed Furosemide 20 MG TAKE 1 TABLET BY MOUTH ONCE DAILY Oral for 90 Days Not-Taking/PRN Synthroid (3 sources) l-Thyroxine Start: 04-10-2019 Synthroid 50 m icrogram, Oral, Daily, Refills(s) 0 Start Date: 04/10/19 Status: Ordered Levothyroxine So dium 75 MCG Oral for 90 Days Active loratadine 10 mg oral tablet (3 sources) Start: 08-16-2022 loratadine 10 mg Tab Refills(s) 0 Start Date: 08/16/22 Status: Ordered losartan potassium 100 mg oral tablet (3 sources) Angiotensin 2 Receptor Nette Start: 08-16-2022 losartan 100 mg Tab Refills(s) 0 Start Date: 08/16/22 Status: Ordered metFORMIN hydrochloride 500 mg oral tablet (3 sources) Biguanide Start: 04-10-2019 take 500 mg by mouth once daily metformin 500 mg, Oral, Daily, Refills(s) 0 Start Date: 04/10/19 Status: Ordered take 1 tablet by mouth once wilton y metFORMIN HCl ER 500 MG TAKE 1 TABLET BY MOUTH DAILY Oral for 90 Days Active methylPREDNISolone 4 mg oral tablet (1 source) Corticosteroid Start: 05-24-2023 Medrol 4 MG as directed Orally As Directed for 6 days May, Active Start: 05-24-2023 Medrol 4 MG as directed Orally As Directed for 6 days May, Active 24 hr metoprolol succinate 50 mg extended release oral tablet (3 sources) beta-Adrenergic Nette Start: 04-17-2019 take 1 tablet by mouth twice daily metoprolol 50 mg ER Tab 50 mg = 1 tab(s), Oral, BID, Refills(s) 0 Start Date: 04/17/19 Status: Ordered Metoprolol Tartr ate 50 MG Oral for 90 Days Active Klor-Con (3 sources) Start: 04-10-2019 Klor-Con 20 mE q, Oral, Daily, Refills(s) 0 Start Date: 04/10/19 Status: Ordered take 1 tablet by mouth in the mo rning Potassium Chloride Daisha ER 10 MEQ TAKE 1 TABLET BY MOUTH IN THE MORNING; do not crush or chew Oral for 90 Days Not-Taking/PRN Completed/Discontinued Medications Medication Drug Class(es) Dates Sig (Normalized) Sig (Original) azithromycin 250 mg oral tablet (2 sources) Macrolide Antimicrobial Start: 05-08-2023 Azithromycin 250 MG 2 tablet on the first day, then 1 tablet daily for 4 days Orally Once a day for 5 day(s) May, Not-Taking/PRN triamcinolone acetonide 40 mg/ml injectable suspension (1 source) Corticosteroid Start: 05-23-2023 Kenalog-40 May, 40 mg Problems Active Problems Problem Classification Problem Date Documented Da te Episodic/Chronic Biliary tract disease (1 source) Calculus of gallbladder without cholecystitis without obstruction; Translations: [CALCU GB W/O CHOLECYST W/O OBST] Onset: 08-20-2022 Episodic Calculus of urinary tract (8 sources) Kidney stone; Translations: [Calculus of kidney] Onset: 05-16-2022 Episodic Congestive heart failure; nonhypertensive (5 sources) Chronic diastolic (congestive) heart failure; Translations: [CHRONIC DIASTOLIC HEART FAILURE] Onset: 09-12-2021 Chronic Diabetes mellitus without complication (5 sources) Type 2 diabetes mellitus without complications; Translations: [TYPE 2 DM WITHOUT COMPLICATIONS] Onset: 09-08-2021 Chronic Disorders of lipid metabolism (2 sources) Hypercholesterolemi a; Translations: [Hyperlipidemia, unspecified] Onset: 09-12-2021 08-16-2022 Chronic Essential hypertension (2 sources) Hypertensive disorder; Translations: [Essential (primary) hypertension] Onset: 05-16-2022 08-16-2022 Chronic Genitourinary symptoms and ill-defined conditions (2 sources) Stress incontinence (female) (male); Translations: [Genuine stress incontinence] Onset: 08-16-2022 Chronic Genitourinary symptoms and ill-defined conditions (2 sources) Increased frequency of urination; Translations: [Microscopic hematuria] 04-10-2019 Episodic Hypertension with complications and secondary hypertension (1 source) Hypertensive heart disease with heart failure; Translations: [HTN HEART DISEASE W/HEART FAIL] Onset: 09-12-2021 Chronic Other diseases of kidney and ureters (1 source) Acquired renal cyst without neoplastic change; Translations: [Cyst of kidney, acquired] Onset: 08-16-2022 Episodic Other diseases of kidney and ureters (1 source) Cyst of kidney 08-16-2022 Episodic Other gastrointestinal disorders (1 source) Constipation 08-16-2022 Episodic Other upper respiratory infections (1 source) Acute sinusitis, unspecified Episodic Spondylosis; intervertebral disc disorders; other back problems (1 source) Sciatica, left side Episodic Sprains and strains (1 source) Strain of muscle, fascia and tendon of lower back, initial encounter Episodic Thyroid disorders (2 sources) Hypothyroidism; Translations: [Hypothyroidism, unspecified] Onset: 05-16-2022 08-16-2022 Chronic Unclassified (1 source) Encounter for screening mammogram for malignant neoplasm of breast; Translations: [Encounter for screening mammogram for malignant neoplasm of breast] Onset: 02-20-2022 Unclassified (2 sources) LOW BACK PAIN, UNSPECIFIED; Translations: [LOW BACK PAIN, UNSPECIFIED] Onset: 05-16-2022 Past or Other Problems Problem Classification Problem Date Documented Da te Episodic/Chronic Abdominal hernia (1 source) Diaphragmatic hernia without obstruction or gangrene; Translations: [DIAPH HERNIA W/O OBST/GANGRENE] Onset: 05-16-2022 Episodic Abdominal pain (1 source) Unspecified abdominal pain; Translations: [UNSPECIFIED ABDOMINAL PAIN] Onset: 05-16-2022 Episodic Menopausal disorders (1 source) Hormone replacement therapy; Translations: [HORMONE REPLACEMENT THERAPY] Onset: 05-16-2022 Episodic Other aftercare (1 source) meterman (current) use of aspirin; Translations: [RETIREMENT CURRENT USE OF ASPIRIN] Onset: 05-16-2022 Episodic Other aftercare (1 source) Other fdc (current) drug therapy; Translations: [OTH RETIREMENT CURRENT DRUG THERAPY] Onset: 05-16-2022 Episodic Other aftercare (1 source) intermediate (current) use of oral hypoglycemic drugs; Translations: [RETIREMENT USE ORAL HYPOGLYCEMIC DX] Onset: 05-16-2022 Episodic Other gastrointestinal disorders (1 source) Constipation, unspecified; Translations: [CONSTIPATION UNSPECIFIED] Onset: 05-16-2022 Episodic Pleurisy; pneumothorax; pulmonary collapse (1 source) Pleural effusion, not elsewhere classified; Translations: [PLEURAL EFFUSION NEC] Onset: 05-16-2022 Episodic Unclassified (1 source) LOW BACK PAIN, UNSPECIFIED; Translations: [LOW BACK PAIN, UNSPECIFIED] Onset: 05-12-2022 Results Test Name Value Interpretation Reference Range Facility RAD - MISCon 08-30-2022 RAD - MISC [id number]:[address] [facility] Ambulatory Visit Summaryon 0 08-16-2022 Ambulatory Visit Summary BETTY LARIOS :1935 Visit Date:08/16/2022 Ambulatory Visit Instructions Your Diagnosis Kidney stone Stress incontinence Renal cyst Tests Performed Urnls Dip Stick Auto w/o Microscopy POC 67138 XR Abdomen 1 View -- Results Pending -- Please visit your patient portal for your results or contact your primary care physician. Your Care Team Attending Physician - SHANELLE HACKETT PA-C Primary Care Physician - SHAIKH CONDE This Is Your Medications List Contact prescribing physician if questions or concerns Misc Prescription (DDM Vitamin D 2000 IU) amlodipine (amLODIPine 5 mg Tab) atorvastatin (atorvastatin 40 mg Tab) furosemide (furosemide 40 mg Tab) levothyroxine (Synthroid) loratadine (loratadine 10 mg Tab) losartan (losartan 100 mg Tab) metformin metoprolol (metoprolol 50 mg ER Tab) potassium chloride (Klor-Con) Procedures Performed Cystoscopy (09/12/2018), Cystoscopic insertion of ureteric stent (08/31/2018), Cystoscopy (12/01/2015), Cystoscopy (08/18/2013), Mastectomy. Discharge Vitals Heart Rate (Peripheral) 68 Respiratory Rate 16 Blood Pressure 128/78 Height 142.2 cm Height 56 in Weight 59 kg Weight 129.8 lb BMI 29.18 What to do next You Need to Schedule the Following Appointments Follow Up with SHANELLE HACKETT PA-C, URL When: In 1 year 08/17/2023 EDT Comments: NAVEEN Where: [address] [place] [address] [id number] Medications What How Much When Instructions Unchanged amlodipine (amLODIPine 5 mg Tab) Contact prescribing physician if questions or concerns Unchanged atorvastatin (atorvastatin 40 mg Tab) Contact prescribing physician if questions or concerns Unchanged furosemide (furosemide 40 mg Tab) By Mouth Every other day Contact prescribing physician if questions or concerns Unchanged levothyroxine (Synthroid) 50 Microgram By Mouth Every day Contact prescribing physician if questions or concerns Unchanged loratadine (loratadine 10 mg Tab) Contact prescribing physician if questions or concerns Unchanged losartan (losartan 100 mg Tab) Contact prescribing physician if questions or concerns Unchanged metformin 500 Milligram By Mouth Every day Contact prescribing physician if questions or concerns Unchanged metoprolol (metoprolol 50 mg ER Tab) 1 Tablets By Mouth 2 times a day Contact prescribing physician if questions or concerns Unchanged Misc Prescription (DDM Vitamin D 2000 IU) 0 Contact prescribing physician if questions or concerns Unchanged potassium chloride (Klor-Con) 20 Milliequivalent By Mouth Every day Contact prescribing physician if questions or concerns Test Results Urnls Dip Stick Auto w/o Microscopy POC 67075 (08/16/2022) Bilirubin Urine Dipstick - Negative Glucose Urine Dipstick - Negative Ketones Urine Dipstick - Negative Leukocytes Urine Dipstick - Trace Nitrite Urine Dipstick - Negative Protein Urine Dipstick - Negative Specific [place] Urine Dipstick - 1.015 Urine Appearance Urine Dipstick - Slightly cloudy Urine Color Urine Dipstick - Light yellow Urobilinogen Urine Dipstick - Normal 0.2-1 EU/dl pH Urine Dipstick - 5 Allergies Bactrim (Nausea and vomiting) Grass (Unknown) Problems Ongoing - Any problem that you are currently receiving treatment for. Constipation Hypercholesteremia Hypertension Hypothyroidism Kidney stone Microscopic hematuria Renal cyst Stress incontinence Urinary frequency Education Materials Kidney Stones Kidney stones are rock-like masses that form inside of the kidneys. Kidneys are organs that make pee (urine). A kidney stone may move into other parts of the urinary tract, including: ? The tubes that connect the kidneys to the bladder (ureters). ? The bladder. ? The tube that carries urine out of the body (urethra). Kidney stones can cause very bad pain and can block the flow of pee. The stone usually leaves your body (passes) through your pee. You may need to have a doctor take out the stone. What are the causes? Kidney stones may be caused by: ? A condition in which certain glands make too much parathyroid hormone (primary hyperparathyroidism). ? A buildup of a type of crystals in the bladder made of a chemical called uric acid. The body makes uric acid when you eat certain foods. ? Narrowing (stricture) of one or both of the ureters. ? A kidney blockage that you were born with. ? Past surgery on the kidney or the ureters, such as gastric bypass surgery. What increases the risk? You are more likely to develop this condition if: ? You have had a kidney stone in the past. ? You have a family history of kidney stones. ? You do not drink enough water. ? You eat a diet that is high in protein, salt (sodium), or sugar. ? You are overweight or very overweight (obese). What are the signs or symptoms? Symptoms of a kidney stone may include (more content not included)... Normal [facility] Patient Educationon 08-17-19 Patient Education Urology Kidney Stones Kidney stones are rock-like masses that form inside of the kidneys. Kidneys are organs that make pee (urine). A kidney stone may move into other parts of the urinary tract, including: ? The tubes that connect the kidneys to the bladder (ureters). ? The bladder. ? The tube that carries urine out of the body (urethra). Kidney stones can cause very bad pain and can block the flow of pee. The stone usually leaves your body (passes) through your pee. You may need to have a doctor take out the stone. What are the causes? Kidney stones may be caused by: ? A condition in which certain glands make too much parathyroid hormone (primary hyperparathyroidism). ? A buildup of a type of crystals in the bladder made of a chemical called uric acid. The body makes uric acid when you eat certain foods. ? Narrowing (stricture) of one or both of the ureters. ? A kidney blockage that you were born with. ? Past surgery on the kidney or the ureters, such as gastric bypass surgery. What increases the risk? You are more likely to develop this condition if: ? You have had a kidney stone in the past. ? You have a family history of kidney stones. ? You do not drink enough water. ? You eat a diet that is high in protein, salt (sodium), or sugar. ? You are overweight or very overweight (obese). What are the signs or symptoms? Symptoms of a kidney stone may include: ? Pain in the side of the belly, right below the ribs (flank pain). Pain usually spreads (radiates) to the groin. ? Needing to pee often or right away (urgently). ? Pain when going pee (urinating). ? Blood in your pee (hematuria). ? Feeling like you may vomit (nauseous). ? Vomiting. ? Fever and chills. How is this treated? Treatment depends on the size, location, and makeup of the kidney stones. The stones will often pass out of the body through peeing. You may need to: ? Drink more fluid to help pass the stone. In some cases, you may be given fluids through an IV tube put into one of your veins at the hospital. ? Take medicine for pain. ? Make changes in your diet to help keep kidney stones from coming back. Sometimes, medical procedures are needed to remove a kidney stone. This may involve: ? A procedure to break up kidney stones using a beam of light (laser) or shock waves. ? Surgery to remove the kidney stones. Follow these instructions at home: Medicines ? Take qmsh-was-bgylsdk and prescription medicines only as told by your doctor. ? Ask your doctor if the medicine prescribed to you requires you to avoid driving or using heavy machinery. Eating and drinking ? Drink enough fluid to keep your pee pale yellow. You may be told to drink at least 8?10 glasses of water each day. This will help you pass the stone. ? If told by your doctor, change your diet. This may include: ? Limiting how much salt you eat. ? Eating more fruits and vegetables. ? Limiting how much meat, poultry, fish, and eggs you eat. ? Follow instructions from your doctor about eating or drinking restrictions. General instructions ? Collect pee samples as told by your doctor. You may need to collect a pee sample: ? 24 hours after a stone comes out. ? 8?12 weeks after a stone comes out, and every 6?12 months after that. ? Strain your pee every time you pee (urinate), for as long as told. Use the strainer that your doctor recommends. ? Do not throw out the stone. Keep it so that it can be tested by your doctor. ? Keep all follow-up visits as told by your doctor. This is important. You may need follow-up tests. How is this prevented? To prevent another kidney stone: ? Drink enough fluid to keep your pee pale yellow. This is the best way to prevent kidney stones. ? Eat healthy foods. ? Avoid certain foods as told by your doctor. You may be told to eat less protein. ? Stay at a healthy weight. Where to find more information ? National Kidney Foundation (NKF): www.kidney.org ? [employer] (UCF): www.urologyhealth.org Contact a doctor if: ? You have pain that gets worse or does not get better with medicine. Get help right away if: ? You have a fever or chills. ? You get very bad pain. ? You get new pain in your belly (abdomen). ? You pass out (faint). ? You cannot pee. Summary ? Kidney stones are rock-like masses that form inside of the kidneys. ? Kidney stones can cause very bad pain and can block the flow of pee. ? The stones will often pass out of the body through peeing. ? Drink enough fluid to keep your pee pale yellow. This information is not intended to replace advice given to you by your health care provider. Make sure you discuss any questions you have with your health care provider. Document Released: 10/09/2008 Document Revised: 09/09/2019 Document Reviewed: 09/09/2019 [employer]image Patient Education ? 2019 [employer]. 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 (office RS'd) Additional DX: Urge Incontinence. KUB done 08/15/[address] done 05/12/22. *No Urology Medications. Pt is taking Klor Con from [facility]. Pt went to ER 05/12/22 c/o lower abdominal pain. CT was done at that time. Does show Staghorn Calculus. Hansel is pushing both images through PAC. Denies flank pain. Denies pain/burning and visible blood in urine. Occasional leaking when she sneezes/coughs. Not very often. History of Present Illness staff HPI reviewed and agree. Review of Systems PHQ Score Initial Depression Screen Score: 0 no fever, chills, malaise, myalgia. no rash/lesions. no chest pain, palpitations, or SOB. no abdominal pain, nausea, vomiting. no unilateral calf swelling, redness, pain Physical Exam Vitals & Measurements HR: 68(Peripheral) RR: 16 BP: 128/78 HT: 56 in HT: 142.2 cm WT: 59 kg WT: 129.8 lb BMI: 29.18 General: nontoxic, NAD Mouth: moist mucosa Lungs: normal respiratory effort Cardio: regular rate, good distal perfusion Abdomen: nondistended, no suprapubic distention or tenderness, no CVA tenderness Neurologic: Grossly normal Skin: No rashes or suspicious lesions Assessment/Plan 1. Kidney stone (N20.0: Calculus of kidney) KUB done 08/15/2022 showed multiple large calcifications within the left kidney, large staghorn calcification 3.7cm. Pt denies any flank pain, recurrent UTI's or gross hematuria. advised pt that the only way to treat this would be PCNL and for that she would need referred to tertiary center. Also, we'd have to do a renal scan first to see if that kidney is even functional anymore to see if stone worth treating vs just removing the kidney. Risks of either procedure far outweigh the benefits at this time since pt is completely asymptomatic. Will monitor. 2. Stress incontinence (N39.3: Stress incontinence (female) (male)) Stable. She has mild leaking. She does not need undergarment protection. Pt denies any recent infections. 3. Renal cyst (N28.1: Cyst of kidney, acquired) KUB done 08/15/2022 showed 12.8 cm rim calcified cyst projecting from inferior pole of kidney. Per CT May 2022 cyst is without internal septae. Follow-up With When Contact Information SHANELLE HACKETT PA-C, LIZ In 1 year 08/17/2023 EDT [address] [facility] [place] [phone] Additional Instructions: KUB Patient Education Kidney Stones, Ammi-ht-Wrrb Saundra Yadav personally scribed for Shanelle Hackett PA-C on 08/16/2022 13:49:30. . Documentation recorded by the derick Sandy accurately reflects the services(s) I performed and decisions made by me. Authenticated by Shanelle Hackett PA-C on 08/16/2022 13:54:18. Problem List/Past Medical History Ongoing Constipation Hypercholesteremia Hypertension Hypothyroidism Kidney stone Microscopic hematuria Renal cyst Stress incontinence Urinary frequency Historical No qualifying data Procedure/Surgical History Cystoscopy (09/12/2018), Cystoscopic insertion of ureteric stent (08/31/2018), Cystoscopy (12/01/2015), Cystoscopy (08/18/2013), Mastectomy. Medications amLODIPine 5 mg Tab atorvastatin 40 mg Tab DDM Vitamin D 2000 IU, 0 furosemide 40 mg Tab, Oral, Every other day Klor-Con, 20 mEq, Oral, Daily loratadine 10 mg Tab losartan 100 mg Tab metformin, 500 mg, Oral, Daily metoprolol 50 mg ER Tab, 50 mg= 1 tab(s), Oral, BID Synthroid, 50 mcg, Oral, Daily Allergies Bactrim (Nausea and vomiting) Grass (Unknown) Social History Alcohol - Denies Alcohol Use, 04/10/2019 Substance Abuse - Denies Substance Abuse, 04/10/2019 Tobacco - Denies Tobacco Use, 04/17/2019 Never (less than 100 in lifetime) Tobacco Use:. Never Smokeless Tobacco Use:., 08/16/2022 Family History Heart failure: Mother. Hodgkin's disease: Father. Immunizations Vaccine Date Status influenza virus vaccine, live, trivalent 02/14/2019 Recorded Lab Results Ambulatory Point of Care Results Bilirubin Urine Dipstick: Negative (08/16/22 13:28:00) Glucose Urine Dipstick: Negative (08/16/22 13:28:00) Ketones Urine Dipstick: Negative (08/16/22 13:28:00) Leukocytes Urine Dipstick: Trace (08/16/22 13:28:00) Nitrite Urine Dipstick: Negative (08/16/22 13:28:00) Protein Urine Dipstick: Negative (08/16/22 13:28:00) Specific [place] Urine Dipstick: 1.015 (08/16/22 13:28:00) Urine Appearance Urine Dipstick: Slightly cloudy (08/16/22 13:28:00) Urine Color Urine Dipstick: Light yellow (08/16/22 13:28:00) Urobilinogen Urine Dipstick: Normal 0.2-1 EU/dl (08/16/22 13:28:00) pH Urine Dipstick: 5 (08/16/22 13:28:00) Diagnostic Results Tests Reviewed: Reviewed UA, KUB Normal [facility] Comment on above: Result Comment: Elec tronically Signed By: SHANELLE HACKETT PA-C\.br\Date and Time Signed: 08/16/22 13:54 EDT\.br\Electronically Co-Signed By: Saundra Sandy MA.br\Date and Time Co-Signed: 08/16/22 13:49 EDT XR KUB 1 VIEWon 08-16-2022 XR KUB 1 VIEW EXAMINATION: XR KUB 1 VIEW HISTORY: Kidney stone ; lower abdominal pain COMPARISON: CT abdomen pelvis 05/12/2022 FINDINGS: KIDNEY/URETER - RIGHT: No visible renal or ureteral calcifications. KIDNEY/URETER - LEFT: Multiple large calcifications within left kidney; large staghorn calcification 3.7 cm. 12.8 cm rim calcified cyst projecting from inferior pole of kidney. PELVIS: No appreciable ureteral stones. Multiple tiny pelvic calcifications suspected represent phleboliths. BOWEL: No abnormal dilation or deviation. BONES: No acute abnormality. OTHER: Multiple stones within gallbladder. IMPRESSION: 1. Marked left nephrolithiasis; grossly stable. 2. No convincing stones within right kidney or bilateral ureters. 3. Cholelithiasis. Electronically authenticated by: KUNAL RG Date: 2022-08-16 10:26 Normal [facility] CBC W MANUAL DIFFon 05-12-19 23 ATYPICAL LYMPH # Normal [facility] Comment on above: Performed By: #### B PHARMACEUTICAL PLANT OPERATOR #### [facility] [address] [address] [address] Primitivo Kaplan ATYPICAL LYMPH % Normal [facility] Comment on above: Performed By: #### B PHARMACEUTICAL PLANT OPERATOR #### [facility] [address] [place] [address] Dr. Primitivo Kaplan BAND # Normal 0.0-0.3 [facility] Comment on above: Performed By: #### B PHARMACEUTICAL PLANT OPERATOR #### [facility] [address] [address] [address] Primitivo Kaplan BAND % Normal 0-5 [facility] Comment on above: Performed By: #### B PHARMACEUTICAL PLANT OPERATOR #### [facility] [address] [address] [address] Primitivo Kaplan BASOM # 0.00 103/ul Normal 0.00-0.10 [facility] Comment on above: Performed By: #### B PHARMACEUTICAL PLANT OPERATOR #### [facility] [address] [address] [address] Primitivo Kaplan BASOM % 0.0 % Critically low 0.2-2.0 [facility] Comment on above: Performed By: #### B PHARMACEUTICAL PLANT OPERATOR #### [facility] [address] [address] [address] Primitivo Kaplan BLAST # Normal [facility] Comment on above: Performed By: #### B PHARMACEUTICAL PLANT OPERATOR #### [facility] [address] [place] [address] Dr. Primitivo Kaplan BLAST % Normal [facility] Comment on above: Performed By: #### B PHARMACEUTICAL PLANT OPERATOR #### [facility] [address] [place] [address] Dr. Primitivo Kaplan CORRECTED WBC Normal 4.0-11.0 [facility] Comment on above: Performed By: #### B PHARMACEUTICAL PLANT OPERATOR #### [facility] [address] [place] [address] Dr. Primitivo Kaplan EOS # 0.12 103/ul Normal 0.00-0.70 [facility] Comment on above: Performed By: #### B PHARMACEUTICAL PLANT OPERATOR #### [facility] [address] [place] [address] Dr. Primitivo Kaplan EOS% 2.0 % Normal 0.9-7.0 [facility] Comment on above: Performed By: #### B PHARMACEUTICAL PLANT OPERATOR #### [facility] [address] [place] [address] Dr. Primitivo Kaplan HCT 35.0 % Critically low 36.0-48.0 [facility] Comment on above: Performed By: #### B PHARMACEUTICAL PLANT OPERATOR #### [facility] [address] [place] [address] Dr. Primitivo Kaplan HGB 11.4 g/dl Critically low 12.0-16.0 [facility] Comment on above: Performed By: #### B PHARMACEUTICAL PLANT OPERATOR #### [facility] [address] [place] [address] Dr. Primitivo Kaplan LYMPHM # 0.43 103/ul Critically low 1.20-3.80 [facility] Comment on above: Performed By: #### B PHARMACEUTICAL PLANT OPERATOR #### [facility] [address] [place] [address] Dr. Primitivo Kaplan LYMPHM% 7.0 % Critically low 20.5-60.0 [facility] Comment on above: Performed By: #### B PHARMACEUTICAL PLANT OPERATOR #### [facility] [address] [place] [address] Dr. Primitivo Kaplan MCH 32.1 pg Normal 26.7-34.0 [facility] Comment on above: Performed By: #### B PHARMACEUTICAL PLANT OPERATOR #### [facility] [address] [place] [address] Dr. Primitivo Kaplan MCHC 32.6 g/dl Normal 29.9-35.2 [facility] Comment on above: Performed By: #### B PHARMACEUTICAL PLANT OPERATOR #### [facility] [address] [place] [address] Dr. Primitivo Kaplan MCV 98.6 fL Normal 81.0-99.0 [facility] Comment on above: Performed By: #### B PHARMACEUTICAL PLANT OPERATOR #### [facility] [address] [place] [address] Dr. Primitivo Kaplan METAMYELOCYTE # Normal [facility] Comment on above: Performed By: #### B PHARMACEUTICAL PLANT OPERATOR #### [facility] [address] [place] [address] Dr. Primitivo Kaplan METAMYELOCYTE % Normal [facility] Comment on above: Performed By: #### B PHARMACEUTICAL PLANT OPERATOR #### [facility] [address] [place] [address] Dr. Primitivo Kaplan MONOM# 0.12 103/ul Critically low 0.30-0.80 [facility] Comment on above: Performed By: #### B PHARMACEUTICAL PLANT OPERATOR #### [facility] [address] [place] [address] Dr. Primitivo Kaplan MONOM% 2.0 % Normal 1.7-12.0 [facility] Comment on above: Performed By: #### B PHARMACEUTICAL PLANT OPERATOR #### [facility] [address] [place] [address] Dr. Primitivo Kaplan MPV 9.3 fL Critically low 9.5-13.5 [facility] Comment on above: Performed By: #### B PHARMACEUTICAL PLANT OPERATOR #### [facility] [address] [place] [address] Dr. Primitivo Kaplan MYELOCYTE # Normal [facility] Comment on above: Performed By: #### B PHARMACEUTICAL PLANT OPERATOR #### [facility] [address] [address] [address] Primitivo Kaplan MYELOCYTE % Normal [facility] Comment on above: Performed By: #### B PHARMACEUTICAL PLANT OPERATOR #### [facility] [address] [place] [address] Dr. Primitivo Kaplan NRBC Normal [facility] Comment on above: Performed By: #### B PHARMACEUTICAL PLANT OPERATOR #### [facility] [address] [place] [address] Dr. Primitivo Kaplan PLT 189 103/ul Normal 150-450 [facility] Comment on above: Performed By: #### B PHARMACEUTICAL PLANT OPERATOR #### [facility] [address] [place] [address] Dr. Primitivo Kaplan RBC 3.55 106/ul Critically low 4.20-5.40 [facility] Comment on above: Performed By: #### B PHARMACEUTICAL PLANT OPERATOR #### [facility] [address] [place] [address] Dr. Primitivo Kaplan RDW 14.9 % Normal 11.0-15.0 [facility] Comment on above: Performed By: #### B PHARMACEUTICAL PLANT OPERATOR #### [facility] [address] [place] [address] Dr. Primitivo Kaplan SEG # 5.52 103/ul Normal 1.40-6.50 [facility] Comment on above: Performed By: #### B PHARMACEUTICAL PLANT OPERATOR #### [facility] [address] [place] [address] Dr. Primitivo Kaplan SEG % 89.0 % Critically high 43.0-75.0 [facility] Comment on above: Performed By: #### B PHARMACEUTICAL PLANT OPERATOR #### [facility] [address] [place] [address] Dr. Primitivo Kaplan WBC 6.2 103/ul Normal 4.0-11.0 [facility] Comment on above: Performed By: #### B PHARMACEUTICAL PLANT OPERATOR #### [facility] [address] [place] [address] ABD/PELVIS WO CONon 05-12 CT ABD/PELVIS WO CON EXAMINATION: CT ABD/PELVIS WO CON, 05/12/2022 4:09 PM EST HISTORY: UNSPECIFIED ABDOMINAL PAIN COMPARISON: None. TECHNIQUE: CT scan of the abdomen and pelvis was performed without IV contrast. CT dose reduction technique was used, including Automated Exposure Control. ABDOMEN/PELVIS FINDINGS: Lower Chest: Moderate right and small left pleural effusions with bibasilar atelectasis. The heart is enlarged. Liver: Normal nonenhanced appearance and contour. Biliary/Gallbladder: There are multiple gallstones present. Pancreas: Unremarkable. Spleen: Unremarkable. Adrenal Glands: Unremarkable. Kidneys: There is a large staghorn calculus in the left kidney with dilation of the upper pole calyx. Multiple cystic changes are present with 2 dominant cysts with rim calcification in the left kidney measuring 9.6 cm and 6.6 cm. A smaller 2.7 cm cyst is present in the right kidney. The kidneys appear mildly atrophic. Gastrointestinal/Glendy toneum: There is gaseous distention of the stomach, somewhat protruding the abdomen. No evidence of obstruction. There is mild colonic diverticulosis. The appendix is unremarkable. No free air or free fluid. Vascular: Moderate atherosclerotic calcifications are present. There are coarse atherosclerotic calcifications at the origins of the renal arteries and mesenteric arteries. Lymph Nodes: No enlarged lymph nodes by CT size criteria. Pelvic Organs: Unremarkable. Bladder: Unremarkable. Bones: No acute osseous abnormality. Mild multilevel degenerative changes are present in the visualized spine. Soft tissues: Unremarkable. IMPRESSION: 1. Staghorn calculus of the left kidney with dilation of the upper pole calyx. 2. Moderate right and small left pleural effusions with bibasilar atelectasis. 3. Large cystic changes in the left kidney with rim calcification. 4. Gaseous distention of the stomach, somewhat protruding the abdomen. No evidence of obstruction. 5. Cholelithiasis. 6. Mild colonic diverticulosis. 7. Cardiomegaly. Electronically authenticated by: JUSTINO GIRON Date: 2022-05-12 17:19 Normal [facility] CULTURE URINEon 05-12-2022 CULTURE URINE Culture Observations : NO GROWTH. Normal [facility] Comment on above: Performed By: #### U RCX #### [facility] [address] [place] [address] Dr. Primitivo Kaplan ER URINE PROFILEon 3 Bilirubin Ql (U) Negative Normal NEGATIVE [facility] Comment on above: Performed By: #### Jignesh GO UMICRO #### [facility] [address] [place] [address] Dr. Primitivo Kaplan Clarity (U) SL CLOUDY Abnormal CLEAR [facility] Comment on above: Performed By: #### E DONAVAN UMICRO #### [facility] [address] [place] [address] Dr. Primitivo Kaplan Color (U) LT. YELLOW Normal YELLOW [facility] Comment on above: Performed By: #### E DONAVAN UMICRO #### [facility] [address] [place] [address] Dr. Primitivo REGAN A micrscopic examination will be performed if indicated. Normal [facility] Comment on above: Performed By: #### Jignesh GO UMICRO #### [facility] [address] [place] [address] Dr. Primitivo Kaplan Glucose Ql (U) Negative Normal NEGATIVE [facility] Comment on above: Performed By: #### Jignesh GO UMICRO #### [facility] [address] [place] [address] Dr. Primitivo Kaplan Hemoglobin Ql (U) SMALL Abnormal NEGATIVE [facility] Comment on above: Performed By: #### Jignesh GO UMICRO #### [facility] [address] [place] [address] Dr. Primitivo Kaplan Ketones Ql (U) Negative Normal NEGATIVE [facility] Comment on above: Performed By: #### Jignesh GO UMICRO #### [facility] [address] [place] [address] Dr. Primitivo Kaplan LEUKOCYTES SMALL Abnormal NEGATIVE [facility] Comment on above: Performed By: #### Jignesh GO UMICRO #### [facility] [address] [place] [address] Dr. Primitivo Kaplan Nitrite Ql (U) Negative Normal NEGATIVE [facility] Comment on above: Performed By: #### Jignesh RUR, UMICRO #### [facility] [address] [place] [address] Dr. Primitivo Kaplan pH (U) 6.5 [pH] Normal 5-9 [facility] Comment on above: Performed By: #### GINA MIDDLETON #### [facility] [address] [place] [address] Dr. Primitivo Kaplan SPEC GRAVITY 1.010 Normal 1.005-<=1.025 [facility] Comment on above: Performed By: #### OBINNA MIDDLETONRO #### [facility] [address] [place] [address] Dr. Primitivo Kpalan UA PROTEIN Negative Normal NEGATIVE/ TRACE [facility] Comment on above: Performed By: #### GINA MIDDLETON #### [facility] [address] [place] [address] Dr. Primitivo Kaplan UR MICRO IND INDICATED Normal [facility] Comment on above: Performed By: #### GINA MIDDLETON #### [facility] [address] [place] [address] Dr. Primitivo Kaplan Urobilinogen Qn (U) 0.2 {Neyda'U}/dL Normal 0.2 - 1. 0 [facility] Comment on above: Performed By: #### OBINNA MIDDLETONRO #### [facility] [address] [place] [address] Dr. Primitivo Kaplan LIPASEon 05-12-2022 Lipase [Catalytic activity/Vol] 130.0 U/L Normal 73.0-393.0 [facility] Comment on above: Performed By: #### B PHARMACEUTICAL PLANT OPERATOR #### [facility] [address] [place] [address] Dr. Primitivo Kaplan PROF 14(COMP METB)on 023 Albumin [Mass/Vol] 3.4 g/dL Normal 3.4-5.0 [facility] Comment on above: Performed By: #### B PHARMACEUTICAL PLANT OPERATOR #### [facility] [address] [place] [address] Dr. Primitivo Kaplan Albumin/Globulin [Mass ratio] 0.7 {ratio} Normal [facility] Comment on above: Performed By: #### B PHARMACEUTICAL PLANT OPERATOR #### [facility] [address] [place] [address] Dr. Primitivo Kaplan ALP [Catalytic activity/Vol] 68 U/L Normal 46-116 [facility] Comment on above: Performed By: #### B PHARMACEUTICAL PLANT OPERATOR #### [facility] [address] [place] [address] Dr. Primitivo Kaplan ALT [Catalytic activity/Vol] 15 U/L Normal 14-59 [facility] Comment on above: Performed By: #### B PHARMACEUTICAL PLANT OPERATOR #### [facility] [address] [place] [address] Dr. Primitivo Kaplan Anion gap [Moles/Vol] 10.9 mmol/L Normal [facility] Comment on above: Performed By: #### B PHARMACEUTICAL PLANT OPERATOR #### [facility] [address] [place] [address] Dr. Primitivo Kaplan AST [Catalytic activity/Vol] 24 U/L Normal 15-37 [facility] Comment on above: Performed By: #### B PHARMACEUTICAL PLANT OPERATOR #### [facility] [address] [place] [address] Dr. Primitivo Kaplan Bilirubin [Mass/Vol] 0.4 mg/dL Normal 0.2-1.0 [facility] Comment on above: Performed By: #### B PHARMACEUTICAL PLANT OPERATOR #### [facility] [address] [place] [address] Dr. Primitivo Kaplan Calcium [Mass/Vol] 9.7 mg/dL Normal 8.5-10.1 [facility] Comment on above: Performed By: #### B PHARMACEUTICAL PLANT OPERATOR #### [facility] [address] [place] [address] Dr. Primitivo Kaplan Chloride [Moles/Vol] 100 mmol/L Normal 98-107 [facility] Comment on above: Performed By: #### B PHARMACEUTICAL PLANT OPERATOR #### [facility] [address] [place] [address] Dr. Primitivo Kaplan CO2 [Moles/Vol] 32.8 mmol/L Critically high 21.0-32.0 [facility] Comment on above: Performed By: #### B PHARMACEUTICAL PLANT OPERATOR #### [facility] [address] [address] [address] Primitivo Kaplan Creatinine [Mass/Vol] 1.32 mg/dL Critically high 0.55-1.02 [facility] Comment on above: Performed By: #### B PHARMACEUTICAL PLANT OPERATOR #### [facility] [address] [address] [address] Primitivo Kaplan EGFR-AF ROMANIAN 46 mL/min/1.73m2 Critically low >=60 [facility] Comment on above: Performed By: #### B PHARMACEUTICAL PLANT OPERATOR #### [facility] [address] [address] [address] Primitivo Kaplan EGFR-NON AF ROMANIAN 38 mL/min/1.73m2 Critically low >=60 [facility] Comment on above: Performed By: #### B PHARMACEUTICAL PLANT OPERATOR #### [facility] [address] [address] [address] Primitivo Kaplan Globulin (S) [Mass/Vol] 4.8 g/dL Normal [facility] Comment on above: Performed By: #### B PHARMACEUTICAL PLANT OPERATOR #### [facility] [address] [address] [address] Primitivo Kaplan Glucose [Mass/Vol] 134 mg/dL Critically high 74-106 [facility] Comment on above: Performed By: #### B PHARMACEUTICAL PLANT OPERATOR #### [facility] [address] [address] [address] Primitivo Kaplan Potassium [Moles/Vol] 3.7 mmol/L Normal 3.5-5.1 [facility] Comment on above: Performed By: #### B PHARMACEUTICAL PLANT OPERATOR #### [facility] [address] [address] [address] Primitivo Kaplan Protein [Mass/Vol] 8.2 g/dL Normal 6.4-8.2 [facility] Comment on above: Performed By: #### B PHARMACEUTICAL PLANT OPERATOR #### [facility] [address] [address] [address] Primitivo Kaplan Sodium [Moles/Vol] 140 mmol/L Normal 136-145 [facility] Comment on above: Performed By: #### B PHARMACEUTICAL PLANT OPERATOR #### [facility] [address] [place] [address] Dr. Primitivo Kaplan Urea nitrogen [Mass/Vol] 29.0 mg/dL Critically high 7.0-18.0 [facility] Comment on above: Performed By: #### B PHARMACEUTICAL PLANT OPERATOR #### [facility] [address] [place] [address] Dr. Primitivo Kaplan Urea nitrogen/Creatinine [Mass ratio] 21.2 mg/mg Normal [facility] Comment on above: Performed By: #### B PHARMACEUTICAL PLANT OPERATOR #### [facility] [address] [place] [address] Dr. Primitivo Kaplan URINE MICROSCOPIC ONLYon BACTERIA NONE SEEN Normal NONE SEEN [facility] Comment on above: Performed By: #### KIRK MIDDLETONICRO #### [facility] [address] [place] [address] Dr. Primitivo Kalpan Bacteria identified Cx Nom (U) INDICATED Normal [facility] Comment on above: Performed By: #### Jignesh GO UMICRO #### [facility] [address] [place] [address] Dr. Primitivo Kaplan CAST NONE SEEN Normal NONE SEEN [facility] Comment on above: Performed By: #### Jignesh GO UMICRO #### [facility] [address] [place] [address] Dr. Primitvio Kaplan Crystals LM Nom (Urine sed) NONE SEEN Normal NONE SEEN [facility] Comment on above: Performed By: #### Jignesh GO UMICRO #### [facility] [address] [place] [address] Dr. Primitivo Kaplan Epithelial cells LM Ql (Urine sed) RARE Normal NONE SEEN /RARE [facility] Comment on above: Performed By: #### Jignesh GO UMICRO #### [facility] [address] [place] [address] Dr. Primitivo Kaplan MUCOUS NONE SEEN Normal NONE SEEN [facility] Comment on above: Performed By: #### Jignesh GO UMICRO #### [facility] [address] [place] [address] Dr. Primitivo Kaplan RBC 0-2 Normal 0-2 [facility] Comment on above: Performed By: #### E GINA GO #### [facility] [address] [address] [address] Primitivo Kaplan WBC 2-5 Abnormal NONE SEEN [facility] Comment on above: Performed By: #### E GINA GO #### [facility] [address] [place], [place] [address] Dr. Primitivo Kaplan MM screening mammo RT w/CADo n 02-20-2022 MM screening mammo RT w/CAD [facility] [place] [address] [place] [address] Mammography Report Signed Patient: Betty Larios MR#: [id number] 4 : 1935 Acct:[id number] Age/Sex: 86 / F ADM Date: 02/20/22 Loc: ID Room: Type: [facility] Attending Dr: Shaikh Elton MARTINEZ Copies to: Shaikh Elton MD Ordering Provider: Shaikh Elton MD Date of Service: 02/20/22 MM/MM screening mammo RT w/CAD: SCREENING CLINICAL DATA: Screening for malignancy. Personal history of left-sided breast cancer status post mastectomy in 2010. SCREENING MAMMOGRAM - FULL FIELD DIGITAL WITH TOMOSYNTHESIS AND CAD COMPARISON:Mammograms dating back to 2018. Tomosynthesis craniocaudal and mediolateral oblique views of the right breast were obtained using low-dose digital technique. This examination was reviewed with the aid of CAD. The breast tissue is composed of scattered fibroglandular densities. There are no dominant masses, typically malignant calcifications or architectural distortion. There has been no significant interval change. MM/MM screening mammo RT w/CAD IMPRESSION: NO MAMMOGRAPHIC EVIDENCE OF MALIGNANCY. ROUTINE FOLLOW-UP IS RECOMMENDED IN ONE YEAR. RESULT CODE: 1 Negative DENSITY CODE: 2 (approximately 25-50% glandular) FOLLOW UP: 1YR The false-negative rate of mammography is approximately 10-percent. Management of a palpable abnormality must be based on clinical grounds. Patient was entered into a reminder system with a target due date for the next mammogram. Impression dictated by: Uriah Blake Jr., D.OLona02/20/2022 11:30 AM Dictation Location: [id number] Transcribed By: MANDY 02/20/22 1130 Dictated By: Uriah Blake Jr, 02/20/22 1129 Signed By: 02/20/22 1130 [facility] Abstracton 01-12-2022 Abstract [id number] Betty Larios 1935 F Date Provider Department Center 01/12/2022 YUNIER JAY Family History Problem Relation Age of Onset Diabetes Brother Hypertension Brother Other Brother Family Status - Relation Status Age at Brother [facility] Abstracton 01-06-2022 Abstract [id number] Omayra Lariosbubba Preston 1935 Date Provider Department Center 01/06/2022 YUNIER JAY [facility] Family History Problem Relation Age of Onset Diabetes Brother Hypertension Brother Other Brother Family Status - Relation Status Age at Brother [facility] PROF CHEM 8 (BAS METB)on Anion gap [Moles/Vol] 12.9 mmol/L Normal [facility] Comment on above: Performed By: #### B PHARMACEUTICAL PLANT OPERATOR #### [facility] [address] [address] [address] Primitivo Kaplan Calcium [Mass/Vol] 9.7 mg/dL Normal 8.5-10.1 [facility] Comment on above: Performed By: #### B PHARMACEUTICAL PLANT OPERATOR #### [facility] [address] [address] [address] Primitivo Kaplan Chloride [Moles/Vol] 105 mmol/L Normal 98-107 [facility] Comment on above: Performed By: #### B PHARMACEUTICAL PLANT OPERATOR #### [facility] [address] [address] [address] Primitivo Kaplan CO2 [Moles/Vol] 27.5 mmol/L Normal 21.0-32.0 [facility] Comment on above: Performed By: #### B PHARMACEUTICAL PLANT OPERATOR #### [facility] [address] [address] [address] Primitivo Kaplan Creatinine [Mass/Vol] 1.24 mg/dL Critically high 0.55-1.02 [facility] Comment on above: Performed By: #### B PHARMACEUTICAL PLANT OPERATOR #### [facility] [address] [address] [address] Primitivo Kaplan EGFR-AF ROMANIAN 50 mL/min/1.73m2 Critically low >=60 [facility] Comment on above: Performed By: #### B PHARMACEUTICAL PLANT OPERATOR #### [facility] [address] [address] [address] Primitivo Kaplan EGFR-NON AF ROMANIAN 41 mL/min/1.73m2 Critically low >=60 [facility] Comment on above: Performed By: #### B PHARMACEUTICAL PLANT OPERATOR #### [facility] [address] [address] [address] Primitivo Kaplan Glucose [Mass/Vol] 128 mg/dL Critically high 74-106 [facility] Comment on above: Performed By: #### B PHARMACEUTICAL PLANT OPERATOR #### [facility] [address] [address] [address] Primitivo Kaplan Potassium [Moles/Vol] 3.4 mmol/L Critically low 3.5-5.1 [facility] Comment on above: Performed By: #### B PHARMACEUTICAL PLANT OPERATOR #### [facility] [address] [address] [address] Primitivo Kaplan Sodium [Moles/Vol] 142 mmol/L Normal 136-145 [facility] Comment on above: Performed By: #### B PHARMACEUTICAL PLANT OPERATOR #### [facility] [address] [address] [address] Primitivo Kaplan Urea nitrogen [Mass/Vol] 16.0 mg/dL Normal 7.0-18.0 [facility] Comment on above: Performed By: #### B PHARMACEUTICAL PLANT OPERATOR #### [facility] [address] [address] [address] Primitivo Kaplan Urea nitrogen/Creatinine [Mass ratio] 12.9 mg/mg Normal [facility] Comment on above: Performed By: #### B PHARMACEUTICAL PLANT OPERATOR #### [facility] [address] [address] [address] Primitivo Kaplan BNPon 09-08-2021 Natriuretic peptide B (Bld) [Mass/Vol] 490.0 pg/mL Normal <=1,800.0 [facility] Comment on above: Performed By: #### B PHARMACEUTICAL PLANT OPERATOR #### [facility] [address] [place] [address] Dr. Primitivo Kaplan CBC AUTO DIFFon 09-08-2021 BASO # 0.1 103/ul Normal 0.0-0.1 [facility] Comment on above: Performed By: #### C BC #### [facility] [address] [place] [address] Dr. Primitivo Kaplan Basophils/100 WBC (Bld) 0.8 % Normal 0.2-2.0 [facility] Comment on above: Performed By: #### C BC #### [facility] [address] [place] [address] Dr. Primitivo Kaplan EO # 0.6 103/ul Normal 0.0-0.7 [facility] Comment on above: Performed By: #### C BC #### [facility] [address] [place] [address] Dr. Primitivo Kaplan Eosinophils/100 WBC (Bld) 8.5 % Critically high 0.9-7.0 [facility] Comment on above: Performed By: #### C BC #### [facility] [address] [place] [address] Dr. Primitivo Kaplan Erythrocyte distribution width (RBC) [Ratio] 15.2 % Critically high 11.0-15.0 [facility] Comment on above: Performed By: #### C BC #### [facility] [address] [place] [address] Dr. Primitivo Kaplan Hematocrit (Bld) [Volume fraction] 35.8 % Critically low 36.0-48.0 [facility] Comment on above: Performed By: #### C BC #### [facility] [address] [place] [address] Dr. Primitivo Kaplan Hemoglobin (Bld) [Mass/Vol] 11.1 g/dL Critically low 12.0-16.0 [facility] Comment on above: Performed By: #### C BC #### [facility] [address] [place] [address] Dr. Primitivo Kaplan IG # 0.02 10e3/ul Normal 0.00-0.03 [facility] Comment on above: Performed By: #### C BC #### [facility] [address] [place] [address] Dr. Primitivo Kaplan IG % 0.3 % Normal 0.0-0.5 [facility] Comment on above: Performed By: #### C BC #### [facility] [address] [place] [address] Dr. Primitivo Kaplan LYMPH # 0.8 103/ul Critically low 1.2-3.8 [facility] Comment on above: Performed By: #### C BC #### [facility] [address] [place] [address] Dr. Primitivo Kaplan Lymphocytes/100 WBC (Bld) 12.8 % Critically low 20.5-60.0 [facility] Comment on above: Performed By: #### C BC #### [facility] [address] [place] [address] Dr. Primitivo Kaplan MANUAL DIFF REQ NO Normal [facility] Comment on above: Performed By: #### C BC #### [facility] [address] [place] [address] Dr. Primitivo Kaplan MCH (RBC) [Entitic mass] 31.3 pg Normal 26.7-34.0 [facility] Comment on above: Performed By: #### C BC #### [facility] [address] [place] [address] Dr. Primitivo Kaplan MCHC (RBC) [Mass/Vol] 31.0 g/dL Normal 29.9-35.2 [facility] Comment on above: Performed By: #### C BC #### [facility] [address] [place] [address] Dr. Primitivo Kaplan MCV (RBC) [Entitic vol] 100.8 fL Critically high 81.0-99.0 [facility] Comment on above: Performed By: #### C BC #### [facility] [address] [place] [address] Dr. Primitivo Kaplan MONO # 0.5 103/ul Normal 0.3-0.8 [facility] Comment on above: Performed By: #### C BC #### [facility] [address] [place] [address] Dr. Primitivo Kaplan Monocytes/100 WBC (Bld) 7.6 % Normal 1.7-12.0 [facility] Comment on above: Performed By: #### C BC #### [facility] [address] [address] [address] Primitivo Kaplan NEUT # 4.6 103/ul Normal 1.4-6.5 [facility] Comment on above: Performed By: #### C BC #### [facility] [address] [place] [address] Dr. Primitivo Kaplan Neutrophils/100 WBC (Bld) 70.0 % Normal 43.0-75.0 [facility] Comment on above: Performed By: #### C BC #### [facility] [address] [place] [address] Dr. Primitivo Kaplan Platelet mean volume (Bld) [Entitic vol] 9.0 fL Critically low 9.5-13.5 [facility] Comment on above: Performed By: #### C BC #### [facility] [address] [place] [address] Dr. Primitivo Kaplan PLT 171 103/ul Normal 150-450 [facility] Comment on above: Performed By: #### C BC #### [facility] [address] [place] [address] Dr. Primitivo Kaplan RBC 3.55 106/ul Critically low 4.20-5.40 [facility] Comment on above: Performed By: #### C BC #### [facility] [address] [place] [address] Dr. Primitivo Kaplan WBC 6.6 103/ul Normal 4.0-11.0 [facility] Comment on above: Performed By: #### C BC #### [facility] [address] [place] [address] Dr. Primitivo Kaplan GLYCOHEMOGLOBIN A1Con 2021 ADA RECOMMENDATION SEE BELOW Normal [facility] Comment on above: Result Comment: ADA RECOMMENDED LIMIT 4.0 - 6.0 ADA THERAPEUTIC TARGET < 7.0 ACTION SUGGESTED > 7.0 Performed By: #### A 1C #### [facility] [address] [place] [address] Dr. Primitivo Kaplan Glucose [Mass/Vol] 131 mg/dL Normal [facility] Comment on above: Performed By: #### A 1C #### [facility] [address] [place] [address] Dr. Primitivo Kaplan HbA1c (Bld) [Mass fraction] 6.2 % Normal 4.5-6.2 [facility] Comment on above: Performed By: #### A 1C #### [facility] [address] [place] [address] Dr. Primitivo Kaplan LIPID PROFILEon 09-08-2021 CHOL-HDL RATIO NORM SEE BELOW Normal [facility] Comment on above: Result Comment: 3.3 - 4.4 LOW RISK 4.4 - 7.1 AVERAGE RISK 7.1 - 11.0 MODERATE RISK >11.0 HIGH RISK Performed By: #### C MP, LIPID #### [facility] [address] [place] [address] Dr. Primitivo Kaplan Cholesterol [Mass/Vol] 132 mg/dL Normal <=200 [facility] Comment on above: Performed By: #### C MP, LIPID #### [facility] [address] [place] [address] Dr. Primitivo Kaplan Cholesterol in HDL [Mass/Vol] 59 mg/dL Normal 40-60 [facility] Comment on above: Performed By: #### C MP, LIPID #### [facility] [address] [place] [address] Dr. Primitivo Kaplan Cholesterol in LDL [Mass/Vol] 49.8 mg/dL Normal [facility] Comment on above: Performed By: #### C MP, LIPID #### [facility] [address] [place] [address] Dr. Primitivo Kaplan Cholesterol.total/Chol esterol in HDL [Mass ratio] 2.2 {ratio} Normal [facility] Comment on above: Performed By: #### C MP, LIPID #### [facility] [address] [address] [address] Primitivo Kaplan HDL NORMAL > or = 60 mg/dl - LO W CARDIOVASCULAR RISK <40 mg/dl - HIGH CARDIOVASCULAR RISK Normal [facility] Comment on above: Performed By: #### C MP, LIPID #### [facility] [address] [place] [address] Dr. Primitivo Kaplan LDL CALC NORMAL SEE BELOW Normal [facility] Comment on above: Result Comment: <100 mg/dl OPTIMAL 100 - 129 mg/dl NEAR OR ABOVE OPTIMAL 130 - 159 mg/dl BORDERLINE HIGH 160 - 189 mg/dl HIGH >190 mg/dl VERY HIGH Performed By: #### C MP, LIPID #### [facility] [address] [place] [address] Dr. Primitivo Kaplan Triglyceride [Mass/Vol] 116 mg/dL Normal <=150 [facility] Comment on above: Performed By: #### C MP, LIPID #### [facility] [address] [address] [address] Primitivo Kaplan VLDL CALC 23.2 mg/dL Normal [facility] Comment on above: Performed By: #### C MP, LIPID #### [facility] [address] [place] [address] Dr. Primitivo Kaplan PROF 14(COMP METB)on 022 Albumin [Mass/Vol] 3.2 g/dL Critically low 3.4-5.0 [facility] Comment on above: Performed By: #### C MP, LIPID #### [facility] [address] [place] [address] Dr. Primitivo Kaplan Albumin/Globulin [Mass ratio] 0.7 {ratio} Normal [facility] Comment on above: Performed By: #### C MP, LIPID #### [facility] [address] [place] [address] Dr. Primitivo Kaplan ALP [Catalytic activity/Vol] 63 U/L Normal 46-116 [facility] Comment on above: Performed By: #### C MP, LIPID #### [facility] [address] [place] [address] Dr. Primitivo Kaplan ALT [Catalytic activity/Vol] 19 U/L Normal 14-59 [facility] Comment on above: Performed By: #### C MP, LIPID #### [facility] [address] [place] [address] Dr. Primitivo Kaplan Anion gap [Moles/Vol] 11.3 mmol/L Normal [facility] Comment on above: Performed By: #### C MP, LIPID #### [facility] [address] [address] [address] Primitivo Kaplan AST [Catalytic activity/Vol] 19 U/L Normal 15-37 [facility] Comment on above: Performed By: #### C MP, LIPID #### [facility] [address] [place] [address] Dr. Primitivo Kaplan Bilirubin [Mass/Vol] 0.4 mg/dL Normal 0.2-1.0 [facility] Comment on above: Performed By: #### C MP, LIPID #### [facility] [address] [address] [address] Primitivo Kaplan Calcium [Mass/Vol] 9.0 mg/dL Normal 8.5-10.1 [facility] Comment on above: Performed By: #### C MP, LIPID #### [facility] [address] [place] [address] Dr. Primitivo Kaplan Chloride [Moles/Vol] 101 mmol/L Normal 98-107 [facility] Comment on above: Performed By: #### C MP, LIPID #### [facility] [address] [place] [address] Dr. Primitivo Kaplan CO2 [Moles/Vol] 29.9 mmol/L Normal 21.0-32.0 [facility] Comment on above: Performed By: #### C MP, LIPID #### [facility] [address] [place] [address] Dr. Primitivo Kaplan Creatinine [Mass/Vol] 1.07 mg/dL Critically high 0.55-1.02 [facility] Comment on above: Performed By: #### C MP, LIPID #### [facility] [address] [place] [address] Dr. Primitivo Kaplan EGFR-AF ROMANIAN 59 mL/min/1.73m2 Critically low >=60 [facility] Comment on above: Performed By: #### C MP, LIPID #### [facility] [address] [address] [address] Primitivo Kaplan EGFR-NON AF ROMANIAN 49 mL/min/1.73m2 Critically low >=60 [facility] Comment on above: Performed By: #### C MP, LIPID #### [facility] [address] [address] [address] Primitivo Kpalan Globulin (S) [Mass/Vol] 4.9 g/dL Normal [facility] Comment on above: Performed By: #### C MP, LIPID #### [facility] [address] [place] [address] Dr. Primitivo Kaplan Glucose [Mass/Vol] 124 mg/dL Critically high 74-106 [facility] Comment on above: Performed By: #### C MP, LIPID #### [facility] [address] [address] [address] Primitivo Kaplan Potassium [Moles/Vol] 3.2 mmol/L Critically low 3.5-5.1 [facility] Comment on above: Performed By: #### C MP, LIPID #### [facility] [address] [place] [address] Dr. Primitivo Kaplan Protein [Mass/Vol] 8.1 g/dL Normal 6.1-8.2 [facility] Comment on above: Performed By: #### C MP, LIPID #### [facility] [address] [place] [address] Dr. Primitivo Kaplan Sodium [Moles/Vol] 139 mmol/L Normal 136-145 [facility] Comment on above: Performed By: #### C MP, LIPID #### [facility] [address] [place] [address] Dr. Primitivo Kaplan Urea nitrogen [Mass/Vol] 17.0 mg/dL Normal 7.0-18.0 [facility] Comment on above: Performed By: #### C MP, LIPID #### [facility] [address] [place] [address] Dr. Primitivo Kaplan Urea nitrogen/Creatinine [Mass ratio] 15.9 mg/mg Normal [facility] Comment on above: Performed By: #### C MP, LIPID #### [facility] [address] [place] [address] Dr. Primitivo Kaplan Dermatopathologyon 1 Dermatopathology [facility] Laboratory [address] [place] [id number] DERMATOPATHOLOGY REPORT Name:BETTY LARIOS [facility]. Rec #. [id number] Location: [facility] Date of Procedure: 09/08/2020 Race: Date Received: 09/10/2020 /Sex: 1935 (Age: 85) / F Date Reported: 09/13/2020 Other: Submitting Physician:JOSE PARHAM MD FINAL DIAGNOSIS SKIN, L UPPER ARM, EXCISION: SQUAMOUS CELL CARCINOMA IN SITU, INKED MARGINS FREE IN PLANES OF SECTIONS EXAMINED. Electronically Signed Out by ISIDRA EGAN M.D. Electronically Signed Out By ISIDRA EGAN MD/[facility] By the signature on this report, the individual or group listed as making the Final Interpretation/Diagno sis certifies that they have reviewed this case. Clinical History: [id number]. Excision. Specimens Submitted As: A: SKIN, L UPPER ARM Gross Description: Received in formalin is one jacobs-brown, ellipsoid piece of skin measuring [id number]. The specimen is inked and embedded in toto in two blocks. The tips are in Block A1. dcp/09/10/2020 Microscopic Description: Microscopic analysis shows hyperplastic epidermis with full-thickness atypia of keratinocytes. Normal [facility] Comment on above: Performed By: #### D #### Dermatopathology Dermatopathologyon 1 Dermatopathology [facility] [address] [place] [id number] DERMATOPATHOLOGY REPORT Name:BETTY LARIOS [facility] Rec #. [id number] Location: [facility] Date of Procedure: 07/29/2020 Race: Date Received: 08/02/2020 /Sex: 1935 (Age: 85) / F Date Reported: 08/03/2020 Other: Submitting Physician:JOSE PARHAM MD FINAL DIAGNOSIS A. 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 Note: There are occasional islands of atypical keratinocytes in the superficial dermis such that an underlying invasive squamous cell carcinoma cannot be excluded. B. SKIN, R NOSE, BIOPSY: INVASIVE SQUAMOUS CELL CARCINOMA, MODERATELY DIFFERENTIATED, PRESENT ON THE DEEP MARGIN, SEE NOTE. Note: The tumor is at least 1.1 mm in thickness and extends into at least the superficial reticular dermis. No perineural or lymphovascular invasion is seen. C. SKIN, L UPPER ARM, BIOPSY: SQUAMOUS CELL CARCINOMA IN SITU, PRESENT ON THE DEEP AND PERIPHERAL MARGIN. Electronically Signed Out by ISIDRA EGAN M.D. Electronically Signed Out By ISIDRA EGAN MD/[facility] By the signature on this report, the individual or group listed as making the Final Interpretation/Diagno sis certifies that they have reviewed this case. Clinical History: A: 2.0x1.2cm AK vs. SCC. Biopsy. B: 1.3x1.10cm AK vs. SCC. Biopsy. C: 1.5x1.5cm ISK vs. SCC. Biopsy. Specimens Submitted As: A: SKIN, R EYEBROW B: SKIN, R NOSE C: SKIN, L UPPER ARM Gross Description: A: Received in formalin is one jacobs-brown piece of skin measuring [id number]. The specimen is inked and embedded in toto. B: Received in formalin is one jacobs-brown piece of skin measuring [id number]. The specimen is inked and embedded in toto. C: Received in formalin is one jacobs-brown piece of skin measuring [id number]. The specimen is inked and embedded in toto. ink/08/02/2020 Microscopic Description: A. Microscopic analysis shows hyperplastic epidermis with full-thickness atypia of keratinocytes. There are occasional islands of atypical keratinocytes in the superficial dermis. B. Microscopic analysis shows irregular growth of keratinocytes that are associated with the epidermis and invade the dermis in isolated islands and strands. Horn pearls and partial keratinization are present. The basal cells are poorly demarcated from the stroma. Atypia is moderate and scattered mitoses and apoptotic cells are present. Lymphoplasmacytic inflammation is evident at the interface between tumor and dermis. C. Microscopic analysis shows hyperplastic epidermis with full-thickness atypia of keratinocytes. Normal [facility] Comment on above: Performed By: #### D #### Dermatopathology [facility]REACH[facility] 05-28-2020 [facility] BETTY LARIOS ([id number]) 1935 F Date Time Provider Department 05/28/20 SERINA SYLVESTER3 During your visit today, we recorded the following information about you: Allergies As of Date: 05/28/2020 (No Known Allergies) Date Reviewed: 10/10/2018 Reviewed by: Ayla Rai - Fully Assessed Order(s):SARS-COVID VACCINE 1ST DOSE APPT [[id number]] Order #: [id number] FUTURE Prescriptions as of 05/28/2020 Sig: ASPIRIN 325 MG TABLET 325 mg q 24 HR. ATENOLOL 50 MG TABLET atenolol 50 mg tablet CHOLECALCIFEROL (VITAMIN D3) * q 24 HR. HYOSCYAMINE SULFATE 0.125 MG * TAKE 1 TABLET BY MOUTH FOUR T* LISINOPRIL 10 MG TABLET lisinopril 10 mg tablet OXYCODONE-ACETAMINOPH EN 5 MG-* oxycodone-acetaminoph en 5 mg-* TRAMADOL 50 MG TABLET Take 50 mg by mouth every 6 h* FUROSEMIDE 20 MG TABLET Take 20 mg by mouth every mor* LEVOTHYROXINE 75 MCG TABLET Synthroid 75 mcg tablet METOPROLOL TARTRATE 50 MG TAB* Take 50 mg by mouth. SPIRONOLACTONE 25 MG TABLET Take 25 mg by mouth once wilton* SYNTHROID 75 MCG TABLET Take 75 mcg by mouth once matt* LORATADINE 10 MG TABLET Take 10 mg by mouth once wilton* LOSARTAN 50 MG TABLET Take 50 mg by mouth once wilton* KLOR-CON M20 MEQ TABLET,EXTEN* Take 20 mEq by mouth once matt* METFORMIN 500 MG TABLET Take 500 mg by mouth daily wi* FUROSEMIDE 40 MG TABLET Take 40 mg by mouth once wilton* SIMVASTATIN 40 MG TABLET Take 40 mg by mouth daily at * Problem List As Of Date 05/28/2020 Noted Resolved Breast CA [C50.919] Letter Text Encounter Status:Closed by EPIC, PRODUSER on 05/31/20 Normal [facility] Vital Signs Date Time Vital Sign Value Performing Clinician Facility 05-23-2023 14:05-0500 Body height 137.16 cm Kia Dawson Other [facility] Other 05-23-2023 14:05-0500 Body mass index (BMI) [Ratio] 33.75 kg/m2 Kia Dawson Other [facility] Other 05-23-2023 14:05-0500 Body temperature 99.7 [degF] Kia Dawson Other [facility] Other 05-23-2023 14:05-0500 Body weight 63.5 kg Kia Dawson Other [facility] Other 05-23-2023 14:05-0500 Diastolic blood pressure 70 mm[Hg] Kia Dawson Other [facility] Other 05-23-2023 14:05-0500 Respiratory rate 18 /min Kia Dawson Other [facility] Other 05-23-2023 14:05-0500 SaO2% (BldA) [Mass fraction] 98 % Kia Dawson Other [facility] Other 05-23-2023 14:05-0500 Systolic blood pressure 141 mm[Hg] Kia Eunice Other [facility] Other 05-08-2023 09:30-0500 Body height 137.16 cm Ivis Winston Other [facility] Other 05-08-2023 09:30-0500 Body mass index (BMI) [Ratio] 33.75 kg/m2 Ivis Winston Other [facility] Other 05-08-2023 09:30-0500 Body temperature 98.4 [degF] Ivis Winston Other [facility] Other 05-08-2023 09:30-0500 Body weight 63.5 kg Ivis Winston Other [facility] Other 05-08-2023 09:30-0500 Respiratory rate 18 /min Ivis Winston Other [facility] Other 05-08-2023 09:30-0500 SaO2% (BldA) [Mass fraction] 99 % Ivis Winston Other [facility] Other 08-16-2022 13:30-0400 Blood Pressure Location SHANELLE HACKETT [facility] 08-16-2022 13:30-0400 Diastolic blood pressure 78 mm[Hg] SHANELLE SHAWRY [facility] 08-16-2022 13:30-0400 Heart rate 68 /min SHANELLE HACKETT [facility] 08-16-2022 13:30-0400 Respiratory rate 16 /min SHANELLE HACKETT [facility] 08-16-2022 13:30-0400 Systolic blood pressure 128 mm[Hg] SHANELLE LEW [facility] Encounters Encounter Date Encounter Type Care Provider Facility Start: 08-21-2023 ambulatory SHAIKH ELTON Facility: [facility] Start: 05-23-2023 (URG) Urgent Care Visit Kia payne [facility] Start: 05-23-2023 End: 05-23-2023 ambulatory Kia Dawson Other [facility] Start: 05-08-2023 End: 05-08-2023 ambulatory Ivis Winston Other [facility] Other Start: 05-08-2023 Office outpatient ne w 30 minutes Ivis Winston [facility] Start: 04-26-2023 End: 04-26-2023 ambulatory SHAIKH JANELLED Not Available Start: 08-16-2022 End: 08-17-2022 ambulatory SHANELLE HACKETT Facility:[facility] Start: 08-16-2022 End: 08-16-2022 Patient encounter procedure SHANELLE HACKETT [facility] Start: 08-15-2022 End: 08-16-2022 ambulatory SHANELLE HACKETT Facility:[facility] Start: 05-12-2022 End: 05-12-2022 ambulatory SHAIKH Nolan CONDE Facility: Start: 02-20-2022 End: 02-20-2022 ambulatory Shaikh Tabithawad Facility:[facility] Start: 10-31-2021 End: 11-01-2021 ambulatory SAURABH RESTREPO Facility:[facility] Start: 09-28-2021 ambulatory SAURABH RESTREPO Facility :[facility] Start: 09-08-2021 End: 09-09-2021 ambulatory SHAIKH Nolan CONDE Facility:[facility] Procedures Date Procedure Procedure Detail Performing Clinician Start: 09-12-2018 Cystoscopy SHANELLE SINCLAIR Comment on above: left stent removal Start: 08-31-2018 Cystoscopic insertio n of ureteric stent SHANELLE HACKETT Comment on above: stone extraction Start: 12-01-2015 Cystoscopy SHANELLE Elvis [place] Start: 08-18-2013 Cystoscopy SHANELLE Elvis [place] Simple mastectomy SHANELLE Elvis [place] Comment on above: 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 Immunizations Immunization Date Immunization Notes Care Provider Fa [facility] 02-14-2019 influenza virus vaccine, live, attenuated, for intranasal use SHANELLE HACKETT [facility] Payers Date Payer Category Payer Medicare [id number] 1958 Self-pay 1959 Unknown [id number] 1935 Unknown [id number] 2.16.84 [id number] 1935 Unknown [id number] 2.16.84 [id number] 1935 Unknown [id number] 2.16.84 [id number] 1935 Unknown [id number] 2.16.84 [id number] 1935 Unknown [id number] 2.16.84 [id number] 1935 Unknown [id number] 2.16.84 [id number] 1935 Unknown [id number] 2.16.840 .[id number] 1935 Unknown [id number] 2.16.8 [id number] 1935 Unknown [id number] 2.16.8 [id number] Medicare [id number] 2.1 [id number] Unknown [id number] 2.16.8 [id number] Social History Date Type Detail Facility Start: 08-16-2022 Tobacco smoking status Never s moked tobacco (finding) [facility] Tobacco smoking status Never [facility] Sex Assigned At Female [facility] Functional Status Date Assessment Result Facility 08-16-2022 Functional Status N/A [facility] Evaluation note 05-23-2023 Note Date & Type Note Facility 05-23-2023 Evaluation note Encounter Date Diagnosis Assessment Notes May, Strain of lumbar region, initial encounter (ICD-10 - S39.012A) May, Sciatica, left side (ICD-10 - M54.32) Drink plenty fluids, get plenty of rest. Continue home medications as prescribed. Take the Medrol Dosepak as prescribed until gone starting tomorrow. You may take Tylenol as needed for pain. Follow-up with your family physician if no improvement in 2 to 3 days. Go to the ER for worsening symptoms or concerns [facility] Evaluation note 05-08-2023 Note Date & Type Note Facility 05-08-2023 Evaluation note Encounter Date Diagnosis Assessment Notes May, Acute non-recurrent sinusitis, unspecified location (ICD-10 - J01.90) Patient declines/refus es COVID/influenz a testing today in office. Discussed diagnosis with patient. Advised patient that physical exam is consistent with viral illness, however, patient states that she knows that she has a sinus infection and is requesting a Z-Ilan, states that is the only thing that works for her . Will send in Rx of antibiotic per patient request. Advised patient to take antibiotic as prescribed, complete entire course of therapy even if symptoms resolve. Reviewed allergies and recent antibiotic use with patient. Encouraged supportive care as directed, push fluids and rest, Tylenol and/or Motrin as directed for discomfort/fev er, warm moist compress over sinuses several times a day, cool mist humidification , nasal saline spray as directed. Symptoms should improve in the next 3 days, if symptoms persist follow up with PCP. Immediate eval for warning s/sx as discussed. Patient verbalizes understanding and is agreeable to treatment plan [facility] Discharge instructions 08-16-2022 Note Date & Type Note Facility 08-16-2022 Hospital Discharg e instructions Patient Education 08/16/2022 13:30:44 Kidney Stones, [id number] Kidney Stones Kidney stones are rock-like masses that form inside of the kidneys. Kidneys are organs that make pee (urine). A kidney stone may move into other parts of the urinary tract, including: The tubes that connect the kidneys to the bladder (ureters). The bladder. The tube that carries urine out of the body (urethra). Kidney stones can cause very bad pain and can block the flow of pee. The stone usually leaves your body (passes) through your pee. You may need to have a doctor take out the stone. What are the causes? Kidney stones may be caused by: A condition in which certain glands make too much parathyroid hormone (primary hyperparathyroidism). A buildup of a type of crystals in the bladder made of a chemical called uric acid. The body makes uric acid when you eat certain foods. Narrowing (stricture) of one or both of the ureters. A kidney blockage that you were born with. Past surgery on the kidney or the ureters, such as gastric bypass surgery. What increases the risk? You are more likely to develop this condition if: You have had a kidney stone in the past. You have a family history of kidney stones. You do not drink enough water. You eat a diet that is high in protein, salt (sodium), or sugar. You are overweight or very overweight (obese). What are the signs or symptoms? Symptoms of a kidney stone may include: Pain in the side of the belly, right below the ribs (flank pain). Pain usually spreads (radiates) to the groin. Needing to pee often or right away (urgently). Pain when going pee (urinating). Blood in your pee (hematuria). Feeling like you may vomit (nauseous). Vomiting. Fever and chills. How is this treated? Treatment depends on the size, location, and makeup of the kidney stones. The stones will often pass out of the body through peeing. You may need to: Drink more fluid to help pass the stone. In some cases, you may be given fluids through an IV tube put into one of your veins at the hospital. Take medicine for pain. Make changes in your diet to help keep kidney stones from coming back. Sometimes, medical procedures are needed to remove a kidney stone. This may involve: A procedure to break up kidney stones using a beam of light (laser) or shock waves. Surgery to remove the kidney stones. Follow these instructions at home: Medicines Take [id number] and prescription medicines only as told by your doctor. Ask your doctor if the medicine prescribed to you requires you to avoid driving or using heavy machinery. Eating and drinking Drink enough fluid to keep your pee pale yellow. You may be told to drink at least 8 10 glasses of water each day. This will help you pass the stone. If told by your doctor, change your diet. This may include: ?Limiting how much salt you eat. ?Eating more fruits and vegetables. ?Limiting how much meat, poultry, fish, and eggs you eat. Follow instructions from your doctor about eating or drinking restrictions. General instructions Collect pee samples as told by your doctor. You may need to collect a pee sample: ?24 hours after a stone comes out. ?8 12 weeks after a stone comes out, and every 6 12 months after that. Strain your pee every time you pee (urinate), for as long as told. Use the strainer that your doctor recommends. Do not throw out the stone. Keep it so that it can be tested by your doctor. Keep all follow-up visits as told by your doctor. This is important. You may need follow-up tests. How is this prevented? To prevent another kidney stone: Drink enough fluid to keep your pee pale yellow. This is the best way to prevent kidney stones. Eat healthy foods. Avoid certain foods as told by your doctor. You may be told to eat less protein. Stay at a healthy weight. Where to find more information National Kidney Foundation (NKF): www.kidney.org [employer] (UCF): www.urologyhealth.org Contact a doctor if: You have pain that gets worse or does not get better with medicine. Get help right away if: You have a fever or chills. You get very bad pain. You get new pain in your belly (abdomen). You pass out (faint). You cannot pee. Summary Kidney stones are rock-like masses that form inside of the kidneys. Kidney stones can cause very bad pain and can block the flow of pee. The stones will often pass out of the body through peeing. Drink enough fluid to keep your pee pale yellow. This information is not intended to replace advice given to you by your health care provider. Make sure you discuss any questions you have with your health care provider. Document Released: 10/09/2008 Document Revised: 09/09/2019 Document Reviewed: 09/09/2019 [employer] Patient Education 2020 [employer]. Follow Up Care 03/01/2021 11:04:18 With:SHANELLE HACKETT PA-C, URL [facility] [place] [phone] When:08/17/2023 Comments:[facility] Evaluation + Plan note Note Date & Type Note Facility Evaluation + Plan note Future Appointments Appointment Date:08/21/2023 10:00:00 AM Scheduled Provider:SHANELLE HACKETT PA-C Location:[facility] Appointment Type:URO Office Visit [facility] History general Narrative - Reported Note Date & Type Note Facility History general Narrative - Reported Type Medical History Hypothyroidism Medical History high blood pressure Medical History high cholesterol Medical History diabetes mellitus Surgical History left mastectomy Hospitalization History See Above [facility] Hospital course Narrative Note Date & Type Note Facility Hospital course Narrative No data available for this section [facility] Progress note Note Date & Type Note Facility Progress note No data available for this section [facility] Summary Purpose Family History No Family History Records FoundNo Family History Records FoundNo Family History Records FoundNo Family History Records FoundNo Family History Records FoundNo Family History Records FoundNo Family History Records Found Advance Directives No Advanced Directives Records FoundNo Advanced Directives Records FoundNo Advanced Directives Records FoundNo Advanced Directives Records FoundNo Advanced Directives Records FoundNo Advanced Directives Records FoundNo Advanced Directives Records Found Additional Source Comments INFORMATION SOURCE (unrecogn ized section and content) DATE CREATED AUTHOR 05/31/2020 [facility] DATE CREATED AUTHOR AUTHOR'S ORGANIZ ATION 09/14/2020 [facility] DATE CREATED AUTHOR AUTHOR'S ORGANIZ ATION 01/14/2022 [facility] DATE CREATED AUTHOR AUTHOR'S ORGANIZ ATION 03/04/2022 [facility] DATE CREATED AUTHOR AUTHOR'S ORGANIZ ATION 08/21/2022 [facility] DATE CREATED AUTHOR AUTHOR'S ORGANIZ ATION 04/27/2023 [facility] EPIC DATE CREATED AUTHOR AUTHOR'S ORGANIZ ATION 05/16/2023 [facility] Patient Care team informatio n (unrecognized section and content) Personnel Name: SHAIKH CONDE Address: Address: [address] [place] [id number] REASON FOR VISIT (unrecogniz ed section and content) SINUS PROBLEMSLOW BACK PAIN RADIATING DOWN LEG FOR RECORDS PERTAINING TO PATIENTS WHO ARE OR HAVE BEEN ENROLLED IN A CHEMICAL DEPENDENCY/SUBSTANCEABUSE PROGRAM, SOME INFORMATION MAY BE OMITTED. This clinical summary was aggregated from multiple sources. Caution should be exercised in using it in the provision of clinical care. This summary normalizes information from multiple sources, and as a consequence, information in this document may materially change the coding, format and clinical context of patient data. In addition, data may be omitted in some cases. CLINICAL DECISIONS SHOULD BE BASED ON THE PRIMARY CLINICAL RECORDS. [facility] [employer] [facility]. provides no warranty or guarantee of the accuracy or completeness of information in this document.
[2023-06-09] MEDS: DILTIAZEM HCL 25 MG/5 ML VIAL 10 MG IV (18:42)
[2023-06-09 19:33] LABS: Hematocrit 36.3 % (36.0-48.0); Hemoglobin 11.6 g/dL (12.0-16.0); Mean Corpuscular Hemoglobin 32.6 pg (26.7-34.0); Mean Platelet Volume 9.9 fL (9.5-13.5); Platelet Count 132 10^3/uL (150-450); Red Blood Count 3.56 10^6/uL (4.20-5.40); Red Cell Distribution Width 15.9 % (11.0-15.0); White Blood Count 10.5 10^3/uL (4.0-11.0)
[2023-06-09 19:57] LABS: Anion Gap 11.6; BUN Creatinine Ratio 25.2; Calcium 9.1 mg/dL (8.5-10.1); Carbon Dioxide 28.9 mmol/L (21.0-32.0); Chloride 104 mmol/L (98-107); Estimated GFR (African America 44 (>=60); Estimated GFR (Non-African Ame 36 (>=60); Glucose 163 mg/dL (74-106); Potassium 3.5 mmol/L (3.5-5.1); Sodium 141 mmol/L (136-145); Troponin I High Sensitivity 32.6 pg/mL (4.0-51.3)
[2023-06-09 20:39] LABS: Lactate/Lactic Acid 1.1 mmol/L (0.4-2.0)
[2023-06-09] MEDS: DILTIAZEM HCL 25 MG/5 ML VIAL 20 MG IV (20:41)
[2023-06-09] MEDS: 0.9 % SODIUM CHLORIDE 1,000 ML 500 ML IV (20:41)
[2023-06-09] MEDS: ONDANSETRON PF 4 MG/2 ML VIAL IV (20:44)
[2023-06-09] MEDS: HYDROMORPHONE HCL 0.5 MG/0.5 ML SYRINGE IV (20:46)
[2023-06-09] MEDS: dilTIAZem HCL 125 MG in 0.9 % SODIUM CHLORIDE 100 ML IV (20:48)
[2023-06-09 21:15] LABS: Lymphocytes Absolute Manual 0.42 10^3/uL (1.20-3.80); Monocytes Absolute Manual 0.31 10^3/uL (0.30-0.80); Segmented Neut Absolute Manual 9.13 10^3/uL (1.4-6.5)
[2023-06-09 21:16] LABS: Band Neutrophils Absolute 0.4 10^3/uL (0.0-0.3); Metamyelocytes Absolute Manual 0.21
[2023-06-09 21:33] LABS: Alanine Aminotransferase 37 U/L (14-59); Albumin Globulin Ratio 0.7; Albumin Level 2.7 g/dL (3.4-5.0); Alkaline Phosphatase 94 U/L (46-116); Amylase 67 U/L (25-115); Aspartate Amino Transferase 26 U/L (15-37); Bilirubin Direct 0.2 mg/dL (0.0-0.2); Bilirubin Total 0.6 mg/dL (0.2-1.0); Total Protein 6.7 g/dL (6.4-8.2)
[2023-06-09 22:08] LABS: Bilirubin Urine NEGATIVE (NEGATIVE); Blood Urine LARGE (NEGATIVE); Clarity Urine CLEAR (CLEAR); Color Urine LT. YELLOW (YELLOW); Glucose Urine UA NEGATIVE (NEGATIVE); Ketones Urine NEGATIVE (NEGATIVE); Leukocyte Esterase Urine SMALL (NEGATIVE); Nitrite Urine NEGATIVE (NEGATIVE); Protein Urine TRACE mg/dL (NEG/TRACE); Specific Gravity Urine <=1.005 (1.005-1.025); Urobilinogen Urine 0.2 EU/dL (0.2-1.0); pH Urine 6.5 (5.0-9.0)
[2023-06-09 22:11] LABS: Urine Microscopic Indicated YES
[2023-06-09 22:15] LABS: Bacteria Urine TRACE #/HPF (NONE SEEN); Cast Seen? SEEN #/LPF (NONE SEEN); Crystals Seen? None Seen #/HPF (None Seen); Hyaline Casts Urine RARE; Mucus Urine NONE SEEN (NONE SEEN); RBC Urine 20-50 #/HPF (0-2); Squamous Epithelial Cell Urine RARE #/LPF (NONE/RARE); Urine Culture Indicated YES
[2023-06-09] MEDS: AZITHROMYCIN 250 MG TABLET 500 MG PO (22:20)
[2023-06-09] MEDS: CEFTRIAXONE 2,000 MG in 0.9 % SODIUM CHLORIDE 100 ML 200 MG IV (22:25)
--- OUTSIDE RECORDS SUMMARY | 2023-06-09 22:45 | XMS_ITS | CCD ---
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 Role Phone Obey Condeikh Attending Unavailable Fawwad, Peterson Primary Care Unavailable Fawwad, Peterson Admitting Unavailable FAJAVIER, PETERSON Primary Care Physician FAWWAD, PETERSON H Admitting Unavailable FAWWAD, PETERSON H Attending Unavailable FAWWAD, PETERSON H Primary Care Unavailable FATremayneWAD, PETERSON H Consulting Unavailable KAYE, SAURABH Admitting Unavailable KAYE, SAURABH Attending Unavailable FAWWAD, PETERSON H Primary Care Unavailable KAYE, SAURABH Consulting Unavailable SHANELLE HACKETT Admitting Unavailable SHANELLE HACKETT Attending Unavailable FAWWAD, PETERSON H Primary Care Unavailable Kunal Rg Consulting Unavailable SHANELLE HACKETT Consulting Unavailable FAWWAD, PETERSON H Primary Care Unavailable PAY ., DR WILLIS Admitting Unavailable PAY ., DR WILLIS Attending Unavailable PAY ., DR WILLIS Consulting Unavailable [facility] Consulting Unavailable ANAIS MEDELLIN Consulting Unavailable KAYE, [...] Nausea and vomiting (disorder) [facility] (2 sources) Grass; Translations: [Grass] Allergy to substance Unknown (qualifier value) [facility] (1 source) No Known Medication Allergies; Translations: [No Known Medication Allergies] Propensity to adverse reactions (disorder) [facility] Repository Medications Current Medications Medication Drug Class(es) [...] Onset: 05-16-2022 Episodic 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; Translations: [SENIOR LIVING CURRENT USE OF ASPIRIN] Onset: 05-16-2022 Episodic Other aftercare (1 source) Other group home (current) drug therapy; Translations: [OTH SENIOR LIVING CURRENT DRUG THERAPY] Onset: 05-16-2022 Episodic Other aftercare (1 source) shelter (current) use of oral hypoglycemic drugs; Translations: [SENIOR LIVING USE ORAL HYPOGLYCEMIC DX] Onset: 05-16-2022 Episodic [...] RAD - MISCon 08-30-2022 RAD - MISC [id number] Normal [facility] Ambulatory Visit Summaryon 0 08-16-2022 Ambulatory Visit Summary BETTY LARIOS :1935 Visit Date:08/16/2022 Ambulatory Visit Instructions Your Diagnosis Kidney stone Stress incontinence Renal cyst Tests Performed Urnls Dip Stick Auto w/o Microscopy POC 03382 XR Abdomen 1 View -- Results Pending [...] NAVEEN Where: [address] [place] [address] [id number] Medications What How Much When Instructions Unchanged [...] Urnls Dip Stick Auto w/o Microscopy POC 60187 (08/16/2022) Bilirubin Urine Dipstick - Negative Glucose Urine Dipstick - Negative Ketones Urine Dipstick - Negative Leukocytes Urine Dipstick - Trace Nitrite Urine Dipstick - Negative Protein Urine Dipstick - Negative Specific [place] Urine Dipstick - 1.015 Urine Appearance Urine [...] include (more content not included)... Normal [facility] Patient Educationon 08-17-19 Patient Education Urology [...] these instructions at home: Medicines ? Take [id number] and prescription medicines only as told by [...] 10/09/2008 Document Revised: 09/09/2019 Document Reviewed: 09/09/2019 [employer] Patient Education ? 2019 [employer]. 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 (office RS'd) Additional DX: Urge Incontinence. KUB done 08/15/[address] done 05/12/22. *No Urology Medications. Pt is taking Klor Con from Facility Manager Histology. Pt went to ER 05/12/22 c/o lower [...] PA-C, LIZ In 1 year 08/17/2023 EDT [address] [facility] [place] [address] [id number] Additional Instructions: KUB Patient Education Kidney Stones, [id number] Saundra Yadav personally scribed for Shanelle Hackett [...] Protein Urine Dipstick: Negative (08/16/22 13:28:00) Specific [place] Urine Dipstick: 1.015 (08/16/22 13:28:00) Urine Appearance Urine Dipstick: Slightly cloudy (08/16/22 13:28:00) Urine Color Urine Dipstick: Light yellow (08/16/22 13:28:00) Urobilinogen Urine Dipstick: Normal 0.2-1 EU/dl (08/16/22 13:28:00) pH Urine Dipstick: 5 (08/16/22 13:28:00) Diagnostic Results Tests Reviewed: Reviewed UA, KUB Normal [facility] Comment on above: Result Comment: Elec tronically [...] KUNAL RG Date: 2022-08-16 10:26 Normal [facility] CBC W MANUAL DIFFon 05-12-19 23 ATYPICAL LYMPH # Normal The [facility] Comment on above: Performed By: #### B WOUND CARE TECHNICIAN #### [facility] [address] [address] [address] Primitivo Kaplan ATYPICAL LYMPH % Normal The [facility] Comment on above: Performed By: #### B WOUND CARE TECHNICIAN #### [facility] [address] [place] [address] Dr. Primitivo Kaplan BAND # Normal 0.0-0.3 [facility] Comment on above: Performed By: #### B WOUND CARE TECHNICIAN #### [facility] [address] [address] [address] Primitivo Kaplan BAND % Normal 0-5 [facility] Comment on above: Performed By: #### B WOUND CARE TECHNICIAN #### [facility] [address] [address] [address] Primitivo Kaplan BASOM # 0.00 103/ul Normal 0.00-0.10 [facility] Comment on above: Performed By: #### B WOUND CARE TECHNICIAN #### [facility] [address] [address] [address] Primitivo Kaplan BASOM % 0.0 % Critically low 0.2-2.0 [facility] Comment on above: Performed By: #### B WOUND CARE TECHNICIAN #### [facility] [address] [address] [address] Primtiivo Kaplan BLAST # Normal [facility] Comment on above: Performed By: #### B WOUND CARE TECHNICIAN #### [facility] [address] [place] [address] Dr. Primitivo Kaplan BLAST % Normal [facility] Comment on above: Performed By: #### B WOUND CARE TECHNICIAN #### [facility] [address] [place] [address] Dr. Primitivo Kaplan CORRECTED WBC Normal 4.0-11.0 [facility] Comment on above: Performed By: #### B WOUND CARE TECHNICIAN #### [facility] [address] [place] [address] Dr. Primitivo Kaplan EOS # 0.12 103/ul Normal 0.00-0.70 [facility] Comment on above: Performed By: #### B WOUND CARE TECHNICIAN #### [facility] [address] [place] [address] Dr. Primitivo Kaplan EOS% 2.0 % Normal 0.9-7.0 [facility] Comment on above: Performed By: #### B WOUND CARE TECHNICIAN #### [facility] [address] [place] [address] Dr. Primitivo Kaplan HCT 35.0 % Critically low 36.0-48.0 [facility] Comment on above: Performed By: #### B WOUND CARE TECHNICIAN #### [facility] [address] [place] [address] Dr. Primitivo Kaplan HGB 11.4 g/dl Critically low 12.0-16.0 [facility] Comment on above: Performed By: #### B WOUND CARE TECHNICIAN #### [facility] [address] [place] [address] Dr. Primitivo Kaplan LYMPHM # 0.43 103/ul Critically low 1.20-3.80 [facility] Comment on above: Performed By: #### B WOUND CARE TECHNICIAN #### [facility] [address] [place] [address] Dr. Primitivo Kaplan LYMPHM% 7.0 % Critically low 20.5-60.0 [facility] Comment on above: Performed By: #### B WOUND CARE TECHNICIAN #### [facility] [address] [place] [address] Dr. Primitivo Kaplan MCH 32.1 pg Normal 26.7-34.0 [facility] Comment on above: Performed By: #### B WOUND CARE TECHNICIAN #### [facility] [address] [place] [address] Dr. Primitivo Kaplan MCHC 32.6 g/dl Normal 29.9-35.2 [facility] Comment on above: Performed By: #### B WOUND CARE TECHNICIAN #### [facility] [address] [place] [address] Dr. Primitivo Kaplan MCV 98.6 fL Normal 81.0-99.0 [facility] Comment on above: Performed By: #### B WOUND CARE TECHNICIAN #### [facility] [address] [place] [address] Dr. Prmiitivo Kaplan METAMYELOCYTE # Normal The [facility] Comment on above: Performed By: #### B WOUND CARE TECHNICIAN #### [facility] [address] [place] [address] Dr. Primitivo Kaplan METAMYELOCYTE % Normal The [facility] Comment on above: Performed By: #### B WOUND CARE TECHNICIAN #### [facility] [address] [place] [address] Dr. Primitivo Kaplan MONOM# 0.12 103/ul Critically low 0.30-0.80 [facility] Comment on above: Performed By: #### B WOUND CARE TECHNICIAN #### [facility] [address] [place] [address] Dr. Primitivo Kaplan MONOM% 2.0 % Normal 1.7-12.0 [facility] Comment on above: Performed By: #### B WOUND CARE TECHNICIAN #### [facility] [address] [place] [address] Dr. Primitivo Kaplan MPV 9.3 fL Critically low 9.5-13.5 [facility] Comment on above: Performed By: #### B WOUND CARE TECHNICIAN #### [facility] [address] [place] [address] Dr. Primitivo Kaplan MYELOCYTE # Normal [facility] Comment on above: Performed By: #### B WOUND CARE TECHNICIAN #### [facility] [address] [address] [address] Primitivo Kaplan MYELOCYTE % Normal [facility] Comment on above: Performed By: #### B WOUND CARE TECHNICIAN #### [facility] [address] [place] [address] Dr. Primitivo Kaplan NRBC Normal [facility] Comment on above: Performed By: #### B WOUND CARE TECHNICIAN #### [facility] [address] [place] [address] Dr. Primitivo Kaplan PLT 189 103/ul Normal 150-450 [facility] Comment on above: Performed By: #### B WOUND CARE TECHNICIAN #### [facility] [address] [place] [address] Dr. Primitivo Kaplan RBC 3.55 106/ul Critically low 4.20-5.40 [facility] Comment on above: Performed By: #### B WOUND CARE TECHNICIAN #### [facility] [address] [place] [address] Dr. Primitivo Kaplan RDW 14.9 % Normal 11.0-15.0 [facility] Comment on above: Performed By: #### B WOUND CARE TECHNICIAN #### [facility] [address] [place] [address] Dr. Primitivo Kaplan SEG # 5.52 103/ul Normal 1.40-6.50 [facility] Comment on above: Performed By: #### B WOUND CARE TECHNICIAN #### [facility] [address] [place] [address] Dr. Primitivo Kaplan SEG % 89.0 % Critically high 43.0-75.0 [facility] Comment on above: Performed By: #### B WOUND CARE TECHNICIAN #### [facility] [address] [place] [address] Dr. Primitivo Kaplan WBC 6.2 103/ul Normal 4.0-11.0 [facility] Comment on above: Performed By: #### B WOUND CARE TECHNICIAN #### [facility] [address] [place] [address] ABD/PELVIS WO CONon [...] JUSTINO GIRON Date: 2022-05-12 17:19 Normal [facility] CULTURE URINEon 05-12-2022 CULTURE URINE Culture Observations : NO GROWTH. Normal [facility] Comment on above: Performed By: #### U RCX #### [facility] [address] [place] [address] Dr. Primitivo Kaplan ER URINE PROFILEon 3 Bilirubin Ql (U) Negative Normal NEGATIVE [facility] Comment on above: Performed By: #### Jignesh GO UMICRO #### [facility] [address] [place] [address] Dr. Primitivo Kaplan Clarity (U) SL CLOUDY Abnormal CLEAR [facility] Comment on above: Performed By: #### E DONAVAN UMICRO #### [facility] [address] [place] [address] Dr. Primitivo Kaplan Color (U) LT. YELLOW Normal YELLOW [facility] Comment on above: Performed By: #### E DONAVAN UMICRO #### [facility] [address] [place] [address] Dr. Primitivo REGAN A micrscopic examination will be performed if indicated. Normal [facility] Comment on above: Performed By: #### Jignesh GO UMICRO #### [facility] [address] [place] [address] Dr. Primitivo Kaplan Glucose Ql (U) Negative Normal NEGATIVE [facility] Comment on above: Performed By: #### Jignesh GO UMICRO #### [facility] [address] [place] [address] Dr. Primitivo Kaplan Hemoglobin Ql (U) SMALL Abnormal NEGATIVE [facility] Comment on above: Performed By: #### Jignesh GO UMICRO #### [facility] [address] [place] [address] Dr. Primitivo Kaplan Ketones Ql (U) Negative Normal NEGATIVE The [facility] Comment on above: Performed By: #### Jignesh GO UMICRO #### [facility] [address] [place] [address] Dr. Primitivo Kaplan LEUKOCYTES SMALL Abnormal NEGATIVE [facility] Comment on above: Performed By: #### Jignesh GO UMICRO #### [facility] [address] [place] [address] Dr. Primitivo Kaplan Nitrite Ql (U) Negative Normal NEGATIVE [facility] Comment on above: Performed By: #### Jignesh RUR, UMICRO #### [facility] [address] [place] [address] Dr. Primitivo Kaplan pH (U) 6.5 [pH] Normal 5-9 [facility] Comment on above: Performed By: #### GINA MIDDLETON #### [facility] [address] [place] [address] Dr. Primitivo Kaplan SPEC GRAVITY 1.010 Normal 1.005-<=1.025 [facility] Comment on above: Performed By: #### OBINNA MIDDLETONRO #### [facility] [address] [place] [address] Dr. Primitivo Kaplan UA PROTEIN Negative Normal NEGATIVE/ TRACE [facility] Comment on above: Performed By: #### GINA MIDDLETON #### [facility] [address] [place] [address] Dr. Primitivo Kaplan UR MICRO IND INDICATED Normal [facility] Comment on above: Performed By: #### GINA MIDDLETON #### [facility] [address] [place] [address] Dr. Primitivo Kaplan Urobilinogen Qn (U) 0.2 {Neyda'U}/dL Normal 0.2 - 1. 0 [facility] Comment on above: Performed By: #### OBINNA MIDDLETONRO #### [facility] [address] [place] [address] Dr. Primitivo Kaplan LIPASEon 05-12-2022 Lipase [Catalytic activity/Vol] 130.0 U/L Normal 73.0-393.0 [facility] Comment on above: Performed By: #### B WOUND CARE TECHNICIAN #### [facility] [address] [place] [address] Dr. Primitivo Kaplan PROF 14(COMP METB)on 023 Albumin [Mass/Vol] 3.4 g/dL Normal 3.4-5.0 [facility] Comment on above: Performed By: #### B WOUND CARE TECHNICIAN #### [facility] [address] [place] [address] Dr. Primitivo Kaplan Albumin/Globulin [Mass ratio] 0.7 {ratio} Normal [facility] Comment on above: Performed By: #### B WOUND CARE TECHNICIAN #### [facility] [address] [place] [address] Dr. Primitivo Kaplan ALP [Catalytic activity/Vol] 68 U/L Normal 46-116 [facility] Comment on above: Performed By: #### B WOUND CARE TECHNICIAN #### [facility] [address] [place] [address] Dr. Primitivo Kaplan ALT [Catalytic activity/Vol] 15 U/L Normal 14-59 [facility] Comment on above: Performed By: #### B WOUND CARE TECHNICIAN #### [facility] [address] [place] [address] Dr. Primitivo Kaplan Anion gap [Moles/Vol] 10.9 mmol/L Normal Th e [facility] Comment on above: Performed By: #### B WOUND CARE TECHNICIAN #### [facility] [address] [place] [address] Dr. Primitivo Kaplan AST [Catalytic activity/Vol] 24 U/L Normal 15-37 [facility] Comment on above: Performed By: #### B WOUND CARE TECHNICIAN #### [facility] [address] [place] [address] Dr. Primitivo Kaplan Bilirubin [Mass/Vol] 0.4 mg/dL Normal 0.2-1.0 [facility] Comment on above: Performed By: #### B WOUND CARE TECHNICIAN #### [facility] [address] [place] [address] Dr. Primitivo Kaplan Calcium [Mass/Vol] 9.7 mg/dL Normal 8.5-10.1 [facility] Comment on above: Performed By: #### B WOUND CARE TECHNICIAN #### [facility] [address] [place] [address] Dr. Primitivo Kaplna Chloride [Moles/Vol] 100 mmol/L Normal 98-107 [facility] Comment on above: Performed By: #### B WOUND CARE TECHNICIAN #### [facility] [address] [place] [address] Dr. Primitivo Kaplan CO2 [Moles/Vol] 32.8 mmol/L Critically high 21.0-32.0 [facility] Comment on above: Performed By: #### B WOUND CARE TECHNICIAN #### [facility] [address] [address] [address] Primitivo Kaplan Creatinine [Mass/Vol] 1.32 mg/dL Critically high 0.55-1.02 [facility] Comment on above: Performed By: #### B WOUND CARE TECHNICIAN #### [facility] [address] [address] [address] Primitivo Kaplan EGFR-AF VINCENTIAN 46 mL/min/1.73m2 Critically low >=60 [facility] Comment on above: Performed By: #### B WOUND CARE TECHNICIAN #### [facility] [address] [address] [address] Primitivo Kaplan EGFR-NON AF VINCENTIAN 38 mL/min/1.73m2 Critically low >=60 [facility] Comment on above: Performed By: #### B WOUND CARE TECHNICIAN #### [facility] [address] [address] [address] Primitivo Kaplan Globulin (S) [Mass/Vol] 4.8 g/dL Normal [facility] Comment on above: Performed By: #### B WOUND CARE TECHNICIAN #### [facility] [address] [address] [address] Primitivo Kaplan Glucose [Mass/Vol] 134 mg/dL Critically high 74-106 [facility] Comment on above: Performed By: #### B WOUND CARE TECHNICIAN #### [facility] [address] [address] [address] Primitivo Kaplan Potassium [Moles/Vol] 3.7 mmol/L Normal 3.5-5.1 [facility] Comment on above: Performed By: #### B WOUND CARE TECHNICIAN #### [facility] [address] [address] [address] Primitivo Kaplan Protein [Mass/Vol] 8.2 g/dL Normal 6.4-8.2 [facility] Comment on above: Performed By: #### B WOUND CARE TECHNICIAN #### [facility] [address] [address] [address] Primitivo Kaplan Sodium [Moles/Vol] 140 mmol/L Normal 136-145 [facility] Comment on above: Performed By: #### B WOUND CARE TECHNICIAN #### [facility] [address] [place] [address] Dr. Primitivo Kaplan Urea nitrogen [Mass/Vol] 29.0 mg/dL Critically high 7.0-18.0 [facility] Comment on above: Performed By: #### B WOUND CARE TECHNICIAN #### [facility] [address] [place] [address] Dr. Primitivo Kaplan Urea nitrogen/Creatinine [Mass ratio] 21.2 mg/mg Normal [facility] Comment on above: Performed By: #### B WOUND CARE TECHNICIAN #### [facility] [address] [place] [address] Dr. Primitivo Kaplan URINE MICROSCOPIC ONLYon BACTERIA NONE SEEN Normal NONE SEEN [facility] Comment on above: Performed By: #### KIRK MIDDLETONICRO #### [facility] [address] [place] [address] Dr. Primitivo Kaplan Bacteria identified Cx Nom (U) INDICATED Normal [facility] Comment on above: Performed By: #### Jignesh GO UMICRO #### [facility] [address] [place] [address] Dr. Primitivo Kaplan CAST NONE SEEN Normal NONE SEEN [facility] Comment on above: Performed By: #### Jignesh GO UMICRO #### [facility] [address] [place] [address] Dr. Primitivo Kaplan Crystals LM Nom (Urine sed) NONE SEEN Normal NONE SEEN [facility] Comment on above: Performed By: #### Jignesh GO UMICRO #### [facility] [address] [place] [address] Dr. Primitivo Kaplan Epithelial cells LM Ql (Urine sed) RARE Normal NONE SEEN /RARE [facility] Comment on above: Performed By: #### Jignesh GO UMICRO #### [facility] [address] [place] [address] Dr. Primitivo Kaplan MUCOUS NONE SEEN Normal NONE SEEN [facility] Comment on above: Performed By: #### Jignesh GO UMICRO #### [facility] [address] [place] [address] Dr. Primitivo Kaplan RBC 0-2 Normal 0-2 [facility] Comment on above: Performed By: #### E GINA GO #### [facility] [address] [address] [address] Primitivo Kaplan WBC 2-5 Abnormal NONE SEEN [facility] Comment on above: Performed By: #### E GINA GO #### [facility] [address] [place], [place] [address] Dr. Primitivo Kaplan MM screening mammo RT w/CADo n 02-20-2022 MM screening mammo RT w/CAD [facility] [place] [address] [place] [address] Mammography Report Signed Patient: Betty Larios MR#: [id number] 4 : 1935 Acct:[id number] Age/Sex: 86 / F ADM Date: 02/20/22 Loc: [place] Room: Type: [facility] Attending Dr: Shaikh Elton MARTINEZ Copies to: [...] Jr, 02/20/22 1129 Signed By: 02/20/22 1130 [facility] Abstracton 01-12-2022 Abstract [id number] Betty Larios 1935 F Date Provider Department Center 01/12/2022 YUNIER JAY Family History Problem Relation Age of Onset Diabetes Brother Hypertension Brother Other Brother Family Status - Relation Status Age at Brother [facility] Abstracton 01-06-2022 Abstract [id number] Omayra Lariosbubba Preston 1935 Date Provider Department Center 01/06/2022 YUNIER JAY [facility] Family History Problem Relation Age of Onset Diabetes Brother Hypertension Brother Other Brother Family Status - Relation Status Age at Brother [facility] PROF CHEM 8 (BAS METB)on Anion gap [Moles/Vol] 12.9 mmol/L Normal [facility] Comment on above: Performed By: #### B WOUND CARE TECHNICIAN #### [facility] [address] [address] [address] Primitivo Kaplan Calcium [Mass/Vol] 9.7 mg/dL Normal 8.5-10.1 [facility] Comment on above: Performed By: #### B WOUND CARE TECHNICIAN #### [facility] [address] [address] [address] Primitivo Kaplan Chloride [Moles/Vol] 105 mmol/L Normal 98-107 [facility] Comment on above: Performed By: #### B WOUND CARE TECHNICIAN #### [facility] [address] [address] [address] Primitivo Kaplan CO2 [Moles/Vol] 27.5 mmol/L Normal 21.0-32.0 [facility] Comment on above: Performed By: #### B WOUND CARE TECHNICIAN #### [facility] [address] [address] [address] Primitivo Kaplan Creatinine [Mass/Vol] 1.24 mg/dL Critically high 0.55-1.02 [facility] Comment on above: Performed By: #### B WOUND CARE TECHNICIAN #### [facility] [address] [address] [address] Primitivo Kaplan EGFR-AF VINCENTIAN 50 mL/min/1.73m2 Critically low >=60 [facility] Comment on above: Performed By: #### B WOUND CARE TECHNICIAN #### [facility] [address] [address] [address] Primitivo Kaplan EGFR-NON AF VINCENTIAN 41 mL/min/1.73m2 Critically low >=60 [facility] Comment on above: Performed By: #### B WOUND CARE TECHNICIAN #### [facility] [address] [address] [address] Primitivo Kaplan Glucose [Mass/Vol] 128 mg/dL Critically high 74-106 T [facility] Comment on above: Performed By: #### B WOUND CARE TECHNICIAN #### [facility] [address] [address] [address] Primitivo Kaplan Potassium [Moles/Vol] 3.4 mmol/L Critically low 3.5-5.1 [facility] Comment on above: Performed By: #### B WOUND CARE TECHNICIAN #### [facility] [address] [address] [address] Primitivo Kaplan Sodium [Moles/Vol] 142 mmol/L Normal 136-145 [facility] Comment on above: Performed By: #### B WOUND CARE TECHNICIAN #### [facility] [address] [address] [address] Primitivo Kaplan Urea nitrogen [Mass/Vol] 16.0 mg/dL Normal 7.0-18.0 [facility] Comment on above: Performed By: #### B WOUND CARE TECHNICIAN #### [facility] [address] [address] [address] Primitivo Kaplan Urea nitrogen/Creatinine [Mass ratio] 12.9 mg/mg Normal [facility] Comment on above: Performed By: #### B WOUND CARE TECHNICIAN #### [facility] [address] [address] [address] Primitivo Kaplan BNPon 09-08-2021 Natriuretic peptide B (Bld) [Mass/Vol] 490.0 pg/mL Normal <=1,800.0 [facility] Comment on above: Performed By: #### B WOUND CARE TECHNICIAN #### [facility] [address] [place] [address] Dr. Primitivo Kaplan CBC AUTO DIFFon 09-08-2021 BASO # 0.1 103/ul Normal 0.0-0.1 [facility] Comment on above: Performed By: #### C BC #### [facility] [address] [place] [address] Dr. Primitivo Kaplan Basophils/100 WBC (Bld) 0.8 % Normal 0.2-2.0 [facility] Comment on above: Performed By: #### C BC #### [facility] [address] [place] [address] Dr. Primitivo Kaplan EO # 0.6 103/ul Normal 0.0-0.7 [facility] Comment on above: Performed By: #### C BC #### [facility] [address] [place] [address] Dr. Primitivo Kaplan Eosinophils/100 WBC (Bld) 8.5 % Critically high 0.9-7.0 [facility] Comment on above: Performed By: #### C BC #### [facility] [address] [place] [address] Dr. Primitivo Kaplan Erythrocyte distribution width (RBC) [Ratio] 15.2 % Critically high 11.0-15.0 [facility] Comment on above: Performed By: #### C BC #### [facility] [address] [place] [address] Dr. Primitivo Kaplan Hematocrit (Bld) [Volume fraction] 35.8 % Critically low 36.0-48.0 [facility] Comment on above: Performed By: #### C BC #### [facility] [address] [place] [address] Dr. Primitivo Kaplan Hemoglobin (Bld) [Mass/Vol] 11.1 g/dL Critically low 12.0-16.0 [facility] Comment on above: Performed By: #### C BC #### [facility] [address] [place] [address] Dr. Primitivo Kaplan IG # 0.02 10e3/ul Normal 0.00-0.03 [facility] Comment on above: Performed By: #### C BC #### [facility] [address] [place] [address] Dr. Primitivo Kaplan IG % 0.3 % Normal 0.0-0.5 [facility] Comment on above: Performed By: #### C BC #### [facility] [address] [place] [address] Dr. Primitivo Kaplan LYMPH # 0.8 103/ul Critically low 1.2-3.8 [facility] Comment on above: Performed By: #### C BC #### [facility] [address] [place] [address] Dr. Primitivo Kaplan Lymphocytes/100 WBC (Bld) 12.8 % Critically low 20.5-60.0 [facility] Comment on above: Performed By: #### C BC #### [facility] [address] [place] [address] Dr. Primitivo Kaplan MANUAL DIFF REQ NO Normal [facility] Comment on above: Performed By: #### C BC #### [facility] [address] [place] [address] Dr. Primitivo Kaplan MCH (RBC) [Entitic mass] 31.3 pg Normal 26.7-34.0 [facility] Comment on above: Performed By: #### C BC #### [facility] [address] [place] [address] Dr. Primitivo Kaplan MCHC (RBC) [Mass/Vol] 31.0 g/dL Normal 29.9-35.2 [facility] Comment on above: Performed By: #### C BC #### [facility] [address] [place] [address] Dr. Primitivo Kaplan MCV (RBC) [Entitic vol] 100.8 fL Critically high 81.0-99.0 [facility] Comment on above: Performed By: #### C BC #### [facility] [address] [place] [address] Dr. Primitivo Kaplan MONO # 0.5 103/ul Normal 0.3-0.8 [facility] Comment on above: Performed By: #### C BC #### [facility] [address] [place] [address] Dr. Primitivo Kaplan Monocytes/100 WBC (Bld) 7.6 % Normal 1.7-12.0 [facility] Comment on above: Performed By: #### C BC #### [facility] [address] [address] [address] Primitivo Kaplan NEUT # 4.6 103/ul Normal 1.4-6.5 [facility] Comment on above: Performed By: #### C BC #### [facility] [address] [place] [address] Dr. Primitivo Kaplan Neutrophils/100 WBC (Bld) 70.0 % Normal 43.0-75.0 [facility] Comment on above: Performed By: #### C BC #### [facility] [address] [place] [address] Dr. Primitivo Kaplan Platelet mean volume (Bld) [Entitic vol] 9.0 fL Critically low 9.5-13.5 [facility] Comment on above: Performed By: #### C BC #### [facility] [address] [place] [address] Dr. Primitivo Kaplan PLT 171 103/ul Normal 150-450 [facility] Comment on above: Performed By: #### C BC #### [facility] [address] [place] [address] Dr. Primitivo Kaplan RBC 3.55 106/ul Critically low 4.20-5.40 [facility] Comment on above: Performed By: #### C BC #### [facility] [address] [place] [address] Dr. Primitivo Kaplan WBC 6.6 103/ul Normal 4.0-11.0 [facility] Comment on above: Performed By: #### C BC #### [facility] [address] [place] [address] Dr. Primitivo Kaplan GLYCOHEMOGLOBIN A1Con 2021 ADA RECOMMENDATION SEE BELOW Normal [facility] Comment on above: Result Comment: ADA RECOMMENDED LIMIT 4.0 - 6.0 ADA THERAPEUTIC TARGET < 7.0 ACTION SUGGESTED > 7.0 Performed By: #### A 1C #### [facility] [address] [place] [address] Dr. Primitivo Kaplan Glucose [Mass/Vol] 131 mg/dL Normal [facility] Comment on above: Performed By: #### A 1C #### [facility] [address] [place] [address] Dr. Primitivo Kaplan HbA1c (Bld) [Mass fraction] 6.2 % Normal 4.5-6.2 [facility] Comment on above: Performed By: #### A 1C #### [facility] [address] [place] [address] Dr. Primitivo Kaplan LIPID PROFILEon 09-08-2021 CHOL-HDL RATIO NORM SEE BELOW Normal [facility] Comment on above: Result Comment: 3.3 - 4.4 LOW RISK 4.4 - 7.1 AVERAGE RISK 7.1 - 11.0 MODERATE RISK >11.0 HIGH RISK Performed By: #### C MP, LIPID #### [facility] [address] [place] [address] Dr. Primitivo Kaplan Cholesterol [Mass/Vol] 132 mg/dL Normal <=200 [facility] Comment on above: Performed By: #### C MP, LIPID #### [facility] [address] [place] [address] Dr. Primitivo Kaplan Cholesterol in HDL [Mass/Vol] 59 mg/dL Normal 40-60 [facility] Comment on above: Performed By: #### C MP, LIPID #### [facility] [address] [place] [address] Dr. Primitivo Kaplan Cholesterol in LDL [Mass/Vol] 49.8 mg/dL Normal [facility] Comment on above: Performed By: #### C MP, LIPID #### [facility] [address] [place] [address] Dr. Primitivo Kaplan Cholesterol.total/Chol esterol in HDL [Mass ratio] 2.2 {ratio} Normal [facility] Comment on above: Performed By: #### C MP, LIPID #### [facility] [address] [address] [address] Primitivo Kaplan HDL NORMAL > or = 60 mg/dl - LO W CARDIOVASCULAR RISK <40 mg/dl - HIGH CARDIOVASCULAR RISK Normal [facility] Comment on above: Performed By: #### C MP, LIPID #### [facility] [address] [place] [address] Dr. Primitivo Kaplan LDL CALC NORMAL SEE BELOW Normal [facility] Comment on above: Result Comment: <100 mg/dl OPTIMAL 100 - 129 mg/dl NEAR OR ABOVE OPTIMAL 130 - 159 mg/dl BORDERLINE HIGH 160 - 189 mg/dl HIGH >190 mg/dl VERY HIGH Performed By: #### C MP, LIPID #### [facility] [address] [place] [address] Dr. Primitivo Kaplan Triglyceride [Mass/Vol] 116 mg/dL Normal <=150 [facility] Comment on above: Performed By: #### C MP, LIPID #### [facility] [address] [address] [address] Primitivo Kaplan VLDL CALC 23.2 mg/dL Normal [facility] Comment on above: Performed By: #### C MP, LIPID #### [facility] [address] [place] [address] Dr. Primitivo Kaplan PROF 14(COMP METB)on 022 Albumin [Mass/Vol] 3.2 g/dL Critically low 3.4-5.0 Th [facility] Comment on above: Performed By: #### C MP, LIPID #### [facility] [address] [place] [address] Dr. Primitivo Kaplan Albumin/Globulin [Mass ratio] 0.7 {ratio} Normal [facility] Comment on above: Performed By: #### C MP, LIPID #### [facility] [address] [place] [address] Dr. Primitivo Kaplan ALP [Catalytic activity/Vol] 63 U/L Normal 46-116 [facility] Comment on above: Performed By: #### C MP, LIPID #### [facility] [address] [place] [address] Dr. Primitivo Kaplan ALT [Catalytic activity/Vol] 19 U/L Normal 14-59 [facility] Comment on above: Performed By: #### C MP, LIPID #### [facility] [address] [place] [address] Dr. Primitivo Kaplan Anion gap [Moles/Vol] 11.3 mmol/L Normal Th [facility] Comment on above: Performed By: #### C MP, LIPID #### [facility] [address] [address] [address] Primitivo Kaplan AST [Catalytic activity/Vol] 19 U/L Normal 15-37 [facility] Comment on above: Performed By: #### C MP, LIPID #### [facility] [address] [place] [address] Dr. Primitivo Kaplan Bilirubin [Mass/Vol] 0.4 mg/dL Normal 0.2-1.0 [facility] Comment on above: Performed By: #### C MP, LIPID #### [facility] [address] [address] [address] Primitivo Kaplan Calcium [Mass/Vol] 9.0 mg/dL Normal 8.5-10.1 [facility] Comment on above: Performed By: #### C MP, LIPID #### [facility] [address] [place] [address] Dr. Primitivo Kaplan Chloride [Moles/Vol] 101 mmol/L Normal 98-107 [facility] Comment on above: Performed By: #### C MP, LIPID #### [facility] [address] [place] [address] Dr. Primitivo Kaplan CO2 [Moles/Vol] 29.9 mmol/L Normal 21.0-32.0 [facility] Comment on above: Performed By: #### C MP, LIPID #### [facility] [address] [place] [address] Dr. Primitivo Kaplan Creatinine [Mass/Vol] 1.07 mg/dL Critically high 0.55-1.02 [facility] Comment on above: Performed By: #### C MP, LIPID #### [facility] [address] [place] [address] Dr. Primitivo Kaplan EGFR-AF VINCENTIAN 59 mL/min/1.73m2 Critically low >=60 [facility] Comment on above: Performed By: #### C MP, LIPID #### [facility] [address] [address] [address] Primitivo Kaplan EGFR-NON AF VINCENTIAN 49 mL/min/1.73m2 Critically low >=60 [facility] Comment on above: Performed By: #### C MP, LIPID #### [facility] [address] [address] [address] Primitivo Kaplan Globulin (S) [Mass/Vol] 4.9 g/dL Normal [facility] Comment on above: Performed By: #### C MP, LIPID #### [facility] [address] [place] [address] Dr. Primitivo Kaplan Glucose [Mass/Vol] 124 mg/dL Critically high 74-106 [facility] Comment on above: Performed By: #### C MP, LIPID #### [facility] [address] [address] [address] Primitiov Kaplan Potassium [Moles/Vol] 3.2 mmol/L Critically low 3.5-5.1 [facility] Comment on above: Performed By: #### C MP, LIPID #### [facility] [address] [place] [address] Dr. Primitivo Kaplan Protein [Mass/Vol] 8.1 g/dL Normal 6.1-8.2 [facility] Comment on above: Performed By: #### C MP, LIPID #### [facility] [address] [place] [address] Dr. Primitivo Kaplan Sodium [Moles/Vol] 139 mmol/L Normal 136-145 [facility] Comment on above: Performed By: #### C MP, LIPID #### [facility] [address] [place] [address] Dr. Primitivo Kaplan Urea nitrogen [Mass/Vol] 17.0 mg/dL Normal 7.0-18.0 [facility] Comment on above: Performed By: #### C MP, LIPID #### [facility] [address] [place] [address] Dr. Primitivo Kaplan Urea nitrogen/Creatinine [Mass ratio] 15.9 mg/mg Normal [facility] Comment on above: Performed By: #### C MP, LIPID #### [facility] [address] [place] [address] Dr. Primitivo Kaplan Dermatopathologyon 1 Dermatopathology [facility] [address] [place] [id number] DERMATOPATHOLOGY REPORT Name:BETTY LARIOS [facility]. Rec #. [id number] Location: [facility] Date of Procedure: 09/08/2020 Race: Date Received: 09/10/2020 /Sex: 1935 (Age: 85) / F Date Reported: 09/13/2020 Other: Submitting Physician:JOSE PARHAM MD FINAL DIAGNOSIS SKIN, L UPPER ARM, EXCISION: SQUAMOUS CELL CARCINOMA IN SITU, INKED MARGINS FREE IN PLANES OF SECTIONS EXAMINED. Electronically Signed Out by ISIDRA EGAN M.D. Electronically Signed Out By ISIDRA EGAN MD/[facility] By the signature on this report, the individual or group listed as making the Final Interpretation/Diagno sis certifies that they have reviewed this case. Clinical History: [id number]. Excision. Specimens Submitted As: A: SKIN, L UPPER ARM Gross Description: Received in formalin is one jacobs-brown, ellipsoid piece of skin measuring [id number]. The specimen is inked and embedded in toto in two blocks. The tips are in Block A1. dcp/09/10/2020 Microscopic Description: Microscopic analysis shows hyperplastic epidermis with full-thickness atypia of keratinocytes. Normal [facility] Comment on above: Performed By: #### D #### Dermatopathology Dermatopathologyon 1 Dermatopathology [facility] [address] [place] [id number] DERMATOPATHOLOGY REPORT Name:BETTY LARIOS [facility] Rec #. [id number] Location: [facility] Date of Procedure: 07/29/2020 Race: [...] M.D. Electronically Signed Out By ISIDRA EGAN MD/[facility] By the signature on this report, [...] is one jacobs-brown piece of skin measuring [id number]. The specimen is inked and embedded in toto. B: Received in formalin is one jacobs-brown piece of skin measuring [id number]. The specimen is inked and embedded in toto. C: Received in formalin is one jacobs-brown piece of skin measuring [id number]. The specimen is inked and embedded in [...] epidermis with full-thickness atypia of keratinocytes. Normal [facility] Comment on above: Performed By: #### D #### [facility]ermat[facility]REACH[facility] BETTY LARIOS ([id number]) 1935 F Date Time Provider Department 05/28/20 SERINA SYLVESTER3 During your visit today, we recorded the following information about you: Allergies As of Date: 05/28/2020 (No Known Allergies) Date Reviewed: 10/10/2018 Reviewed by: Ayla Rai - Fully Assessed Order(s):SARS-COVID VACCINE 1ST DOSE APPT [[id number]] Order #: [id number] FUTURE Prescriptions as of 05/28/2020 Sig: ASPIRIN [...] Status:Closed by EPIC, PRODUSER on 05/31/20 Normal [facility] Vital Signs Date Time Vital Sign Value Performing Clinician Facility 05-23-2023 14:05-0500 Body height 137.16 cm Kia Dawson Other [facility] 05-23-2023 14:05-0500 Body mass index (BMI) [Ratio] 33.75 kg/m2 Kia Dawson Other [facility] 05-23-2023 14:05-0500 Body temperature 99.7 [degF] Kia Dawson Other [facility] 05-23-2023 14:05-0500 Body weight 63.5 kg Kia Dawson Other [facility] 05-23-2023 14:05-0500 Diastolic blood pressure 70 mm[Hg] Kia Dawson Other [facility] 05-23-2023 14:05-0500 Respiratory rate 18 /min Kia Dawson Other [facility] 05-23-2023 14:05-0500 SaO2% (BldA) [Mass fraction] 98 % Kia Dawson Other [facility] 05-23-2023 14:05-0500 Systolic blood pressure 141 mm[Hg] Kia Eunice Other [facility] 05-08-2023 09:30-0500 Body height 137.16 cm Ivis Winston Other [facility] 05-08-2023 09:30-0500 Body mass index (BMI) [Ratio] 33.75 kg/m2 Ivis Winston Other [facility] 05-08-2023 09:30-0500 Body temperature 98.4 [degF] Ivis Winston Other [facility] 05-08-2023 09:30-0500 Body weight 63.5 kg Ivis Winston Other [facility] 05-08-2023 09:30-0500 Respiratory rate 18 /min Ivis Winston Other [facility] 05-08-2023 09:30-0500 SaO2% (BldA) [Mass fraction] 99 % Ivis Winston Other [facility] 08-16-2022 13:30-0400 Blood Pressure Location SHANELLE HACKETT [facility] 08-16-2022 13:30-0400 Diastolic blood pressure 78 mm[Hg] SHANELLE SHAWRY [facility] 08-16-2022 13:30-0400 Heart rate 68 /min SHANELLE HACKETT [facility] 08-16-2022 13:30-0400 Respiratory rate 16 /min SHANELLE HACKETT [facility] 08-16-2022 13:30-0400 Systolic blood pressure 128 mm[Hg] SHANELLE LEW [facility] Encounters Encounter Date Encounter Type Care Provider Facility Start: 08-21-2023 ambulatory SHAIKH ELTON Facility: [facility] Start: 05-23-2023 (URG) Urgent Care Visit Kia payne [facility] Start: 05-23-2023 End: 05-23-2023 ambulatory Kia Dawson Other [facility] Start: 05-08-2023 End: 05-08-2023 ambulatory Ivis Winston Other [facility] Start: 05-08-2023 Office outpatient ne w 30 minutes Ivis Winston [facility] Start: 04-26-2023 End: 04-26-2023 ambulatory SHAIKH JANELLED Not Available Start: 08-16-2022 End: 08-17-2022 ambulatory SHANELLE HACKETT Facility:[facility] Start: 08-16-2022 End: 08-16-2022 Patient encounter procedure SHANELLE HACKETT [facility] Start: 08-15-2022 End: 08-16-2022 ambulatory SHANELLE HACKETT Facility:[facility] Start: 05-12-2022 End: 05-12-2022 ambulatory SHAIKH Nolan CONDE Facility: Start: 02-20-2022 End: 02-20-2022 ambulatory Shaikh Tabithawad Facility:[facility] Start: 10-31-2021 End: 11-01-2021 ambulatory SAURABH RESTREPO Facility:[facility] Start: 09-28-2021 ambulatory SAURABH RESTREPO Facility :[facility] Start: 09-08-2021 End: 09-09-2021 ambulatory SHAIKH Nolan CONDE Facility:[facility] Procedures Date Procedure Procedure Detail Performing Clinician Start: 09-12-2018 Cystoscopy SHANELLE SINCLAIR Comment on above: left stent removal Start: 08-31-2018 Cystoscopic insertio n of ureteric stent SHANELLE HACKETT Comment on above: stone extraction Start: 12-01-2015 Cystoscopy SHANELLE Elvis [facility] Start: 08-18-2013 Cystoscopy SHANELLE Elvis [facility] Simple mastectomy SHANELLE Elvis [facility] Comment on above: 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 Immunizations Immunization Date Immunization Notes Care Provider [facility] 02-14-2019 influenza virus vaccine, live, attenuated, for intranasal use SHANELLE HACKETT [facility] Payers Date Payer Category Payer Medicare [id number] 1958 Self-pay 1958 Unknown [id number] 1935 Unknown [id number] 2.16.84 [id number] 1935 Unknown [id number] 2.16.84 [id number] 1935 Unknown [id number] 2.16.84 [id number] 1935 Unknown [id number] 2.16.84 [id number] 1935 Unknown [id number] 2.16.84 [id number] 1935 Unknown [id number] 2.16.84 [id number] 1935 Unknown [id number] 2.16.840 .[id number] 1935 Unknown [id number] 2.16.8 [id number] 1935 Unknown [id number] 2.16.8 [id number] Medicare [id number] 2.1 [id number] Unknown [id number] 2.16.8 [id number] Social History Date Type Detail Facility Start: 08-16-2022 Tobacco smoking status Never s moked tobacco (finding) [facility] Tobacco smoking status Never [facility] Sex Assigned At Female [facility] Functional Status Date Assessment Result Facility 08-16-2022 Functional Status N/A [facility] Evaluation note 05-23-2023 Note Date & Type [...] the ER for worsening symptoms or concerns [facility] Evaluation note 05-08-2023 Note Date & [...] understanding and is agreeable to treatment plan [facility] Discharge instructions 08-16-2022 Note Date & Type Note Facility 08-16-2022 Hospital Discharg e instructions Patient Education 08/16/2022 13:30:44 Kidney Stones, [id number] Kidney Stones Kidney stones are rock-like masses [...] Follow these instructions at home: Medicines Take [id number] and prescription medicines only as told by [...] 10/09/2008 Document Revised: 09/09/2019 Document Reviewed: 09/09/2019 [employer] Patient Education 2020 [employer]. Follow Up Care 03/01/2021 11:04:18 With:SHANELLE HACKETT PA-C, URL [facility] [place] [address] [phone] When:08/17/2023 Comments:NAVEEN [facility] Evaluation + Plan note Note Date & Type Note Facility Evaluation + Plan note Future Appointments Appointment Date:08/21/2023 10:00:00 AM Scheduled Provider:SHANELLE HACKETT PA-C Location:[facility] Appointment Type:URO Office Visit [facility] History general Narrative - Reported Note Date & Type Note Facility History general Narrative - Reported Type Medical History Hypothyroidism Medical History high blood pressure Medical History high cholesterol Medical History diabetes mellitus Surgical History left mastectomy Hospitalization History See Above Affle Other Hospital course Narrative Note Date & Type Note Facility Hospital course Narrative No data available for this section [facility] Progress note Note Date & Type Note Facility Progress note No data available for this section [facility] Summary Purpose Family History No Family History [...] section and content) DATE CREATED AUTHOR 05/31/2020 [facility] DATE CREATED AUTHOR AUTHOR'S ORGANIZ ATION 09/14/2020 [facility] DATE CREATED AUTHOR AUTHOR'S ORGANIZ ATION 01/14/2022 [facility] DATE CREATED AUTHOR AUTHOR'S ORGANIZ ATION 03/04/2022 [facility] DATE CREATED AUTHOR AUTHOR'S ORGANIZ ATION 08/21/2022 [facility] DATE CREATED AUTHOR AUTHOR'S ORGANIZ ATION 04/27/2023 [facility] EP[facility] DATE CREATED AUTHOR AUTHOR'S ORGANIZ ATION 05/16/2023 [facility] Patient Care team informatio n (unrecognized section and content) Personnel Name: SHAIKH CONDE Address: Address: [address] [place] [id number] REASON FOR VISIT (unrecogniz ed section and [...] BE BASED ON THE PRIMARY CLINICAL RECORDS. [facility] [employer] [facility]. provides no warranty or guarantee of the accuracy or completeness of information in this document.
[2023-06-09 23:11] LABS: Glucometer 119 mg/dL (74-106)
[2023-06-09] MEDS: CHOLECALCIFEROL (VITAMIN D3) 25 MCG/1,000 UNITS TABLET 50 MCG PO (23:23)
[2023-06-09] MEDS: PANTOPRAZOLE SODIUM 40 MG VIAL IV (23:23)
[2023-06-09] MEDS: METOPROLOL TARTRATE 50 MG TABLET PO (23:23)
[2023-06-09] MEDS: BENZONATATE 100 MG CAPSULE 200 MG PO (23:24)
[2023-06-09] MEDS: 0.9 % SODIUM CHLORIDE 1,000 ML 75 ML IV (23:24)
[2023-06-10] VITALS (106 sets, daily range): BP systolic 83–127; BP diastolic 55–87; PULSE 78–149; RESP 18–54; TEMP 36.5–36.9; O2SAT 81–96
--- NOTE | 2023-06-10 04:00 | ECG_ITS ---
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
[2023-06-10 05:38] LABS: PCO2 VBG 52.2 mmHg (40.0-52.0); pH VBG 7.342 (7.330-7.430)
[2023-06-10 05:56] LABS: Basophils Percent Auto 0.2 % (0.2-2.0); Eosinophils Percent Auto 0.3 % (0.9-7.0); Hematocrit 32.2 % (36.0-48.0); Hemoglobin 9.7 g/dL (12.0-16.0); Immature Granulocytes Abs Auto 0.06 10^3/uL (0.00-0.03); Immature Granulocytes Pct Auto 0.6 % (0.0-0.5); Lymphocytes Absolute Auto 0.3 10^3/uL (1.2-3.8); Lymphocytes Percent Auto 2.8 % (20.5-60.0); Mean Corpuscular HGB Conc 30.1 g/dL (29.9-35.2); Mean Corpuscular Hemoglobin 32.1 pg (26.7-34.0); Mean Corpuscular Volume 106.6 fL (81.0-99.0); Mean Platelet Volume 10.3 fL (9.5-13.5); Monocytes Absolute Auto 0.5 10^3/uL (0.3-0.8); Monocytes Percent Auto 5.2 % (1.7-12.0); Neutrophils Absolute Auto 9.2 10^3/uL (1.4-6.5); Neutrophils Percent Auto 90.9 % (43.0-75.0); Platelet Count 127 10^3/uL (150-450); Red Blood Count 3.02 10^6/uL (4.20-5.40); Red Cell Distribution Width 16.3 % (11.0-15.0); White Blood Count 10.1 10^3/uL (4.0-11.0)
[2023-06-10 06:07] LABS: Alanine Aminotransferase 30 U/L (14-59); Albumin Globulin Ratio 0.7; Albumin Level 2.1 g/dL (3.4-5.0); Alkaline Phosphatase 66 U/L (46-116); Anion Gap 7.5; Aspartate Amino Transferase 20 U/L (15-37); BUN Creatinine Ratio 21.8; Bilirubin Total 0.3 mg/dL (0.2-1.0); Calcium 8.1 mg/dL (8.5-10.1); Carbon Dioxide 32.7 mmol/L (21.0-32.0); Chloride 109 mmol/L (98-107); Estimated GFR (African America 50 (>=60); Estimated GFR (Non-African Ame 41 (>=60); Globulin 3.2 g/dL; Glucose 139 mg/dL (74-106); Potassium 4.2 mmol/L (3.5-5.1); Sodium 145 mmol/L (136-145); Total Protein 5.3 g/dL (6.4-8.2)
[2023-06-10 06:08] LABS: Adenovirus NOT DETECTED (NOT DETECTE); Bordetella parapertussis NOT DETECTED (NOT DETECTE); Coronavirus 229E NOT DETECTED (NOT DETECTE); Coronavirus HKU1 NOT DETECTED (NOT DETECTE); Coronavirus NL63 NOT DETECTED (NOT DETECTE); Coronavirus OC43 NOT DETECTED (NOT DETECTE); Human Metapneumovirus NOT DETECTED (NOT DETECTE); Human Rhinovirus/Enterovirus NOT DETECTED (NOT DETECTE); Influenza A NOT DETECTED (NOT DETECTE); Influenza B NOT DETECTED (NOT DETECTE); Mycoplasma pneumoniae NOT DETECTED (NOT DETECTE); Parainfluenza Virus 1 NOT DETECTED (NOT DETECTE); Parainfluenza Virus 2 NOT DETECTED (NOT DETECTE); Parainfluenza Virus 3 NOT DETECTED (NOT DETECTE); Parainfluenza Virus 4 NOT DETECTED (NOT DETECTE); SARS-CoV-2 NOT DETECTED (NOT DETECTE)
[2023-06-10] MEDS: BENZONATATE 100 MG CAPSULE 200 MG PO ×3 (06:11→21:40)
[2023-06-10 06:54] LABS: Troponin I High Sensitivity 58.6 pg/mL (4.0-51.3)
[2023-06-10 07:02] LABS: Magnesium 1.7 mg/dL (1.8-2.4)
[2023-06-10 07:32] LABS: Respiratory Syncytial Virus DETECTED (NOT DETECTE)
[2023-06-10 07:44] LABS: Glucometer 143 mg/dL (74-106)
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
[2023-06-10] MEDS: MAGNESIUM OXIDE 400 MG TABLET PO (10:04)
[2023-06-10] MEDS: PREDNISONE 20 MG TABLET 50 MG PO (10:05)
[2023-06-10] MEDS: APIXABAN 5 MG TABLET PO ×2 (10:05→21:40)
[2023-06-10] MEDS: POTASSIUM CHLORIDE 10 MEQ ER TABLET PO (10:05)
[2023-06-10] MEDS: LOSARTAN POTASSIUM 50 MG TABLET 100 MG PO (10:06)
[2023-06-10] MEDS: CHOLECALCIFEROL (VITAMIN D3) 25 MCG/1,000 UNITS TABLET 50 MCG PO (10:06)
[2023-06-10] MEDS: ATORVASTATIN CALCIUM 40 MG TABLET PO (10:07)
[2023-06-10] MEDS: CETIRIZINE HCL 10 MG TABLET PO (10:07)
[2023-06-10] MEDS: METOPROLOL TARTRATE 50 MG TABLET PO ×2 (10:07→21:40)
[2023-06-10] MEDS: LEVOTHYROXINE SODIUM 75 MCG TABLET PO (10:07)
[2023-06-10] MEDS: AMLODIPINE BESYLATE 5 MG TABLET PO (10:08)
[2023-06-10 10:31] LABS: Troponin I High Sensitivity 45.1 pg/mL (4.0-51.3)
--- NOTE | 2023-06-10 11:37 | XR_ITS ---
The [address] [address] Patient Name: BETTY ALCALA MRN: [id number] date: 1935 Sex: F Assigned Patient Location: ICU Current Patient Location: ICU Accession/Order Number: [id number] Exam Date: 06/10/2023 11:42 Report Date: 06/10/2023 14:05 At the request of: CHIRAG IBANEZ Procedure: XR chest 1V EXAM: XR chest 1V HISTORY: picc placement COMPARISON: 06/09/2023. 05/30/2023. TECHNIQUE: AP upright portable. FINDINGS: Kyphotic positioning of the patient with mandible projecting over the left hemithorax. Moderate-sized bilateral pleural effusions, right greater than left, mildly increasing as compared to 06/09/2023. Stable cardiac enlargement. Mild pulmonary edema. Right PICC tip extends to the right atrium. Left shoulder arthroplasty. Diffuse demineralization. Overlying monitoring leads. XR/XR chest 1V IMPRESSION: 1. Interval placement of right PICC. The tip extends approximately 3 cm into the right atrium. 2. Mildly increasing bilateral moderate-sized pleural effusions, right greater than left. 3. Cardiac enlargement. Mild pulmonary edema. Electronically authenticated by: YUMI SALDANA Date: 06/10/2023 14:05
[2023-06-10 11:41] LABS: Glucometer 165 mg/dL (74-106)
--- NOTE | 2023-06-10 12:44 | PC.NURSE ---
1240- called radiology to check status of stat pcxr being read , no reading as of this time. tech stated she will contact radiologist.
--- NOTE | 2023-06-10 14:46 | XR_ITS ---
The [address] [address] Patient Name: BETTY ALCALA MRN: [id number] date: 1935 Sex: F Assigned Patient Location: ICU Current Patient Location: ICU Accession/Order Number: [id number] Exam Date: 06/10/2023 14:55 Report Date: 06/10/2023 15:07 At the request of: CHIRAG IBANEZ Procedure: XR chest 1V EXAM: XR chest 1V HISTORY: PICC placement, pulled back. *STAT READ* COMPARISON: 06/10/2023 at 11:10 AM TECHNIQUE: One view. FINDINGS: Interval retraction of the right PICC currently within the distal SVC. Persistent moderate-sized bilateral pleural effusions, unchanged. Stable cardiac enlargement. Mild pulmonary edema. XR/XR chest 1V IMPRESSION: Interval retraction of the right PICC, currently within the distal SVC. Electronically authenticated by: YUMI SALDANA Date: 06/10/2023 15:07
--- NOTE | 2023-06-10 14:53 | PC.NURSE ---
1450 picc rn moon at bedside, retracted picc line 3cm per radiologist recommendation. repeat stat cxr completed.
[2023-06-10] MEDS: LEVOFLOXACIN IN DEXTROSE 5 % 750 MG/150 ML IV.SOLN 100 MG IV (15:13)
[2023-06-10] MEDS: BUMETANIDE 10 MG in 0.9 % SODIUM CHLORIDE 160 ML 20 MG IV (15:15)
[2023-06-10 16:02] LABS: Glucometer 158 mg/dL (74-106)
[2023-06-10] MEDS: IPRATROPIUM/ALBUTEROL SULFATE 3 ML AMPUL.NEB IH ×3 (16:09→23:54)
[2023-06-10] MEDS: dilTIAZem HCL 125 MG in 0.9 % SODIUM CHLORIDE 100 ML IV (17:15)
[2023-06-10] MEDS: CEFTRIAXONE 1,000 MG in 0.9 % SODIUM CHLORIDE 50 ML 100 MG IV (21:40)
[2023-06-10] MEDS: PANTOPRAZOLE SODIUM 40 MG VIAL IV (21:40)
[2023-06-10] MEDS: ENSURE HP 237 ML LIQUID PO (21:40)
[2023-06-10 21:46] LABS: Glucometer 179 mg/dL (74-106)
[2023-06-11] VITALS (58 sets, daily range): BP systolic 74–128; BP diastolic 29–89; PULSE 73–130; RESP 16–52; TEMP 36.4–36.9; O2SAT 89–98
--- NOTE | 2023-06-11 01:19 | PC.NURSE ---
IV line discontinued by Dandre Bauer RN during previous shift.
[2023-06-11 05:36] LABS: Basophils Percent Auto 0.1 % (0.2-2.0); Hematocrit 30.9 % (36.0-48.0); Hemoglobin 9.4 g/dL (12.0-16.0); Immature Granulocytes Abs Auto 0.06 10^3/uL (0.00-0.03); Immature Granulocytes Pct Auto 0.7 % (0.0-0.5); Lymphocytes Absolute Auto 0.1 10^3/uL (1.2-3.8); Lymphocytes Percent Auto 1.4 % (20.5-60.0); Mean Corpuscular HGB Conc 30.4 g/dL (29.9-35.2); Mean Corpuscular Hemoglobin 32.4 pg (26.7-34.0); Mean Corpuscular Volume 106.6 fL (81.0-99.0); Mean Platelet Volume 10.3 fL (9.5-13.5); Monocytes Absolute Auto 0.4 10^3/uL (0.3-0.8); Monocytes Percent Auto 3.9 % (1.7-12.0); Neutrophils Absolute Auto 8.3 10^3/uL (1.4-6.5); Neutrophils Percent Auto 93.9 % (43.0-75.0); Platelet Count 127 10^3/uL (150-450); Red Cell Distribution Width 16.3 % (11.0-15.0); White Blood Count 8.9 10^3/uL (4.0-11.0)
[2023-06-11] MEDS: dilTIAZem HCL 125 MG in 0.9 % SODIUM CHLORIDE 100 ML IV (06:03)
[2023-06-11] MEDS: BENZONATATE 100 MG CAPSULE 200 MG PO (06:04)
[2023-06-11 06:25] LABS: Alanine Aminotransferase 32 U/L (14-59); Albumin Globulin Ratio 0.6; Albumin Level 2.2 g/dL (3.4-5.0); Alkaline Phosphatase 65 U/L (46-116); Anion Gap 12.1; Aspartate Amino Transferase 21 U/L (15-37); BUN Creatinine Ratio 19.6; Bilirubin Total 0.4 mg/dL (0.2-1.0); Calcium 8.7 mg/dL (8.5-10.1); Carbon Dioxide 28.8 mmol/L (21.0-32.0); Chloride 106 mmol/L (98-107); Estimated GFR (African America 39 (>=60); Estimated GFR (Non-African Ame 32 (>=60); Globulin 3.6 g/dL; Glucose 182 mg/dL (74-106); Potassium 3.9 mmol/L (3.5-5.1); Sodium 143 mmol/L (136-145); Total Protein 5.8 g/dL (6.4-8.2)
[2023-06-11 06:31] LABS: Magnesium 1.7 mg/dL (1.8-2.4); Troponin I High Sensitivity 40.7 pg/mL (4.0-51.3)
[2023-06-11] MEDS: IPRATROPIUM/ALBUTEROL SULFATE 3 ML AMPUL.NEB IH ×4 (07:16→22:14)
[2023-06-11] MEDS: DILTIAZEM HCL 60 MG TABLET PO ×3 (07:35→21:14)
--- NOTE | 2023-06-11 08:01 | CA_ITS ---
Patient Name: BETTY ALCALA MR#: [id number] : 1935 Exam Date: 06/11/2023 Ordering Doctor: DR Dax Hidalgo . ECHOCARDIOGRAM REPORT PROCEDURE: CA ECHO LIMITED INDICATIONS: CHF, atrial fibrillation, diabetes, hypertension, hypoxia, chronic kidney disease COMPARISON: None. DESCRIPTION: Limited ECHOCARDIOGRAM Real-time transthoracic echocardiography with 2D and M-mode performed. QUALITY: Technical quality was adequate. Limited echocardiogram per physician order. 58 , 134#, BSA 1.54 m2 LEFT VENTRICLE: Small chamber size. Thickened septal wall. LV EF: Global left ventricular systolic function is hyperdynamic; visually estimated ejection fraction is 70 to 75%. Unable to assess regional wall motion abnormalities. LEFT ATRIUM: Normal chamber size. RIGHT ATRIUM: Normal chamber size. RIGHT VENTRICLE: Poorly seen. Normal chamber size. Systolic function appears preserved. TRICUSPID VALVE: Normal mobility and thickness. MITRAL VALVE: Moderately thickened. Moderate mitral annular calcification. AORTIC VALVE: Normal trileaflet appearance. Mildly calcified aortic valve. AORTIC ROOT: Normal diameter and appearance. PULMONIC VALVE: Not well visualized. PERICARDIUM: No evidence of pericardial effusion. IVC: IVC is normal in size, does not collapse. CONCLUSION: 1. Global left ventricular systolic function is hyperdynamic; visually estimated ejection fraction is 70 to 75% 2. The right ventricle is poorly seen; it appears normal in size and systolic function A limited echocardiogram was performed Adult Echocardiography Procedure Report Left Ventricle LVEDD (3.7 - 5.6 cm): 2.60 cm LVESD (2.2 - 4.0 cm): 1.95 cm , 1.93 cm LVIVS thickness (0.6 - 1.2 cm): 9.27 mm LVPW thickness (0.5 - 1.0 cm): 1.37 cm LVOT Diameter 1.60 cm Left Atrium Left Atrium Systolic Dimension: 2.80 cm Mitral Valve Right Ventricle Aorta AO Root Diam: 2.80 cm Aortic Valve Tricuspid Valve Pulmonic Valve Right Atrium Dictated by: Jenny Curry M.D. on 06/11/2023 at 14:53 Approved by: Jenny Curry M.D. on 06/11/2023 at 14:56
--- NOTE | 2023-06-11 08:02 | P.PN_ITS ---
Progress Note: Subjective Subjective Interval history: Patient still with dyspnea with activity and persistent cough Exam Constitutional Vital Signs, click to edit/add: Last Vital Signs Temp 97.6 F 06/11/23 07:00 Pulse 119 H 06/11/23 07:30 Resp 35 H 06/11/23 07:30 BP 97/71 06/11/23 07:29 Pulse Ox 93 L 06/11/23 07:30 O2 Del Method Nasal Cannula 06/11/23 07:17 O2 Flow Rate 3 06/11/23 07:17 Documenting provider has reviewed patient's vital signs: yes Common normals: apparent distress (Moderate conversational dyspnea) Exam limitations: no altered mental status General appearance: cooperative; not comfortable Chest Common normals: inspection of chest normal Respiratory Common normals: no use of accessory muscles; abnormal respiratory effort (Apnea) and not clear to ascultation bilaterally Auscultation: rales and rhonchi Cardio Common normals: no murmurs Rate: tachycardic Rhythm: abnormal rhythm GI Common normals: Normal to inspection, nondistended, normoactive bowel sounds pre sent, soft to palpation, non-tender, no hepatosplenomegaly and no masses Extremity Common normals: abnormal to inspection (3+ edema bilateral lower extremities, lymphedema left arm) Progress Note: Objective Labs Labs: Short CBC 06/11/23 Range/Units 04:05 WBC 8.9 (4.0-11.0) 10^3/uL Hgb 9.4 L (12.0-16.0) g/dL Hct 30.9 L (36.0-48.0) % Plt Count 127 L (150-450) 10^3/uL BMP 06/11/23 04:05 Sodium 143 Potassium 3.9 Chloride 106 Carbon Dioxide 28.8 BUN 30.0 H Creatinine 1.53 H Glucose 182 H Calcium 8.7 Liver Function 06/11/23 Range/Units 04:05 Total Bilirubin 0.4 (0.2-1.0) mg/dL AST 21 (15-37) U/L ALT 32 (14-59) U/L Alkaline Phosphatase 65 (46-116) U/L Albumin 2.2 L (3.4-5.0) g/dL Progress Note: A&P Assessment and Plan (1) Atrial fibrillation with RVR: (2) Elevated troponin: (3) Abdominal pain: (4) Stage 3a chronic kidney disease: (5) Type 2 diabetes mellitus with hyperglycemia: (6) Hypothyroidism: (7) HTN (hypertension): (8) Bilateral pleural effusion: (9) Edema: (10) Moderate protein-calorie malnutrition: (11) Iron deficiency anemia: (12) Hypomagnesemia: (13) Acute UTI: (14) Cholelithiasis: Plan (1) Atrial fibrillation with RVR: Assessment and Plan: Atrial fibrillation rapid ventricular response with dyspnea secondary to 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 only just over liter output -had a placed back on the Cardizem drip last night. Start oral medications today-check on echo Assessment and Plan: (2) Elevated troponin secondary to demand [id number] on echo (3) Abdominal pain: Assessment and Plan: No significant tenderness currently. She does have gallstones (4) Stage 3a chronic kidney disease: Assessment and Plan: Follow daily. Continue to monitor (5) Type 2 diabetes mellitus with hyperglycemia: Assessment and Plan: Insulin sliding scale (6) Hypothyroidism: Assessment and Plan: Check on levels (7) HTN (hypertension): Assessment and Plan: Somewhat low this morning. Will need to monitor that closely with diuresis as outlined above (8) Bilateral pleural effusion: Assessment and Plan: Acute hypoxia with O2 saturations of 85% likely secondary to bilateral pleural effusions and complicated by her acute combined congestive heart failure (9) Edema: Assessment and Plan: Secondary to acute combined congestive heart failure-monitor daily (10) Moderate protein-calorie malnutrition: Assessment and Plan: Add Ensure Plus. Increasing albumin will help to pull and fluid from her peripheral edema (11) Iron deficiency anemia: Assessment and Plan: Monitor daily and check stool for occult blood, down 2 g today. (12) Hypomagnesemia: Assessment and Plan: Supplement, monitor (13) Acute UTI: Assessment and Plan: Check and urine culture tomorrow on antibiotics (14) Cholelithiasis: Assessment and Plan: Currently no symptoms (15) RSV bronchiolitis-steroids and antibiotics. Frequent breathing treatments. This may be the primary source of her shortness of breath and hypoxia. Try to wean supplemental oxygen today. Plan Lack of overall improvement, still with significant dyspnea and hypoxia. Try to wean supplemental oxygen today. Likely 2-3 more days ?
[2023-06-11] MEDS: MAGNESIUM OXIDE 400 MG TABLET PO (08:37)
[2023-06-11] MEDS: CETIRIZINE HCL 10 MG TABLET PO (08:37)
[2023-06-11] MEDS: POTASSIUM CHLORIDE 10 MEQ ER TABLET PO (08:37)
[2023-06-11] MEDS: CHOLECALCIFEROL (VITAMIN D3) 25 MCG/1,000 UNITS TABLET 50 MCG PO (08:37)
[2023-06-11] MEDS: ATORVASTATIN CALCIUM 40 MG TABLET PO (08:38)
[2023-06-11] MEDS: METHYLPREDNISOLONE SOD SUCC PF 125 MG/2 ML VIAL 60 MG IVP ×3 (08:38→21:13)
[2023-06-11] MEDS: APIXABAN 5 MG TABLET 2.5 MG PO ×2 (08:38→21:13)
[2023-06-11] MEDS: ENSURE HP 237 ML LIQUID PO ×2 (08:39→14:53)
[2023-06-11] MEDS: METOPROLOL TARTRATE 50 MG TABLET PO ×2 (08:41→21:14)
[2023-06-11] MEDS: LEVOTHYROXINE SODIUM 75 MCG TABLET PO (08:41)
--- NOTE | 2023-06-11 09:27 | CM.NOTE ---
Rounds made with Dr. Hidalgo. Still with cough. Dr. Hidalgo to order a repeat chest xray today. No plan for discharge today.
--- NOTE | 2023-06-11 10:29 | CM.NOTE ---
Important Message from Medicare reviewed and signed by Ms. Larios. Verbalizes understanding, no questions offered. Copy to chart and copy to Ms. Larios.
--- NOTE | 2023-06-11 10:46 | ECG_ITS ---
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
[2023-06-11 11:43] LABS: Glucometer 264 mg/dL (74-106)
--- NOTE | 2023-06-11 12:00 | RESP.RT ---
Titrated down to 3L
[2023-06-11] MEDS: INSULIN ASPART 300 UNIT/3 ML PEN SUBQ ×3 (12:23→21:27)
--- NOTE | 2023-06-11 15:15 | PC.NURSE ---
Patient required oxygen to be titrated up after activity. Patient was noticeable short of breath, tachypneic, and SPO2 decreased to 82% while on 3L NC. Once patient was rested able to titrate back down to 3LNC, will continue to monitor and attempt to titrate to patient's baseline of room air.
--- NOTE | 2023-06-11 15:55 | SWNOTE1 ---
SW spoke to Garth in physical therapy, possible need for HH vs. SNF. SW to speak with pt tomorrow.
--- NOTE | 2023-06-11 16:53 | RESP.RT ---
Have been unsuccessful at weaning oxygen today
[2023-06-11 17:22] LABS: Glucometer 300 mg/dL (74-106)
--- NOTE | 2023-06-11 20:33 | PC.NURSE ---
Patient asymptomatic with blood pressure reading.
[2023-06-11] MEDS: PANTOPRAZOLE SODIUM 40 MG VIAL IV (21:14)
[2023-06-11] MEDS: CEFTRIAXONE 1,000 MG in 0.9 % SODIUM CHLORIDE 50 ML 100 MG IV (21:15)
[2023-06-11 21:26] LABS: Glucometer 288 mg/dL (74-106)
[2023-06-11] MEDS: GUAIFENESIN 200 MG/DEXTROMETHORPHAN 20 MG 10 ML UNIT DOSE CUP PO (21:27)
[2023-06-12] VITALS (44 sets, daily range): BP systolic 84–116; BP diastolic 57–77; PULSE 70–121; RESP 15–44; TEMP 36.3–36.4; O2SAT 83–98
[2023-06-12] MEDS: IPRATROPIUM/ALBUTEROL SULFATE 3 ML AMPUL.NEB IH ×4 (04:08→20:17)
--- NOTE | 2023-06-12 04:08 | RESP.RT ---
titrated down to 2L
[2023-06-12] MEDS: METHYLPREDNISOLONE SOD SUCC PF 125 MG/2 ML VIAL 60 MG IVP ×4 (04:27→21:12)
[2023-06-12 04:48] LABS: Basophils Percent Auto 0.1 % (0.2-2.0); Hematocrit 30.3 % (36.0-48.0); Hemoglobin 9.2 g/dL (12.0-16.0); Immature Granulocytes Abs Auto 0.06 10^3/uL (0.00-0.03); Immature Granulocytes Pct Auto 0.6 % (0.0-0.5); Lymphocytes Absolute Auto 0.2 10^3/uL (1.2-3.8); Lymphocytes Percent Auto 1.7 % (20.5-60.0); Mean Corpuscular HGB Conc 30.4 g/dL (29.9-35.2); Mean Corpuscular Hemoglobin 32.6 pg (26.7-34.0); Mean Corpuscular Volume 107.4 fL (81.0-99.0); Mean Platelet Volume 10.1 fL (9.5-13.5); Monocytes Absolute Auto 0.2 10^3/uL (0.3-0.8); Monocytes Percent Auto 2.1 % (1.7-12.0); Neutrophils Absolute Auto 9.3 10^3/uL (1.4-6.5); Neutrophils Percent Auto 95.5 % (43.0-75.0); Platelet Count 126 10^3/uL (150-450); Red Blood Count 2.82 10^6/uL (4.20-5.40); Red Cell Distribution Width 16.6 % (11.0-15.0); White Blood Count 9.7 10^3/uL (4.0-11.0)
[2023-06-12 05:17] LABS: Alanine Aminotransferase 33 U/L (14-59); Albumin Globulin Ratio 0.6; Albumin Level 2.4 g/dL (3.4-5.0); Alkaline Phosphatase 65 U/L (46-116); Anion Gap 12.7; Aspartate Amino Transferase 24 U/L (15-37); BUN Creatinine Ratio 18.3; Bilirubin Total 0.4 mg/dL (0.2-1.0); Carbon Dioxide 29.8 mmol/L (21.0-32.0); Chloride 106 mmol/L (98-107); Estimated GFR (African America 23 (>=60); Estimated GFR (Non-African Ame 19 (>=60); Globulin 3.7 g/dL; Glucose 153 mg/dL (74-106); Potassium 4.5 mmol/L (3.5-5.1); Sodium 144 mmol/L (136-145); Total Protein 6.1 g/dL (6.4-8.2)
[2023-06-12 05:21] LABS: Troponin I High Sensitivity 54.4 pg/mL (4.0-51.3)
--- NOTE | 2023-06-12 05:59 | XR_ITS ---
The [address] [address] Patient Name: BETTY ALCALA MRN: [id number] date: 1935 Sex: F Assigned Patient Location: ICU Current Patient Location: ICU Accession/Order Number: [id number] Exam Date: 06/12/2023 06:20 Report Date: 06/12/2023 06:50 At the request of: CHIRAG IBANEZ Procedure: XR chest 1V EXAMINATION: XR chest 1V HISTORY: dyspnea , cough COMPARISON: XR chest 06/10/2023 FINDINGS: LUNGS: Opacification of right lung base and obscuration the heart and diaphragm margins bilaterally. VASCULATURE: No increased pulmonary vasculature. PLEURA: Moderate bilateral pleural effusions, right greater than left. CARDIAC: Obscured, but suspect cardiomegaly. MEDIASTINUM: No visible mass or adenopathy. BONES: Marked kyphosis. Prior left shoulder replacement. OTHER: Right PICC line with tip near cavoatrial junction. XR/XR chest 1V IMPRESSION: 1. Moderate bilateral pleural effusions, right greater than left; not significantly changed. 2. Moderate bibasilar atelectasis versus infiltrates, right greater than left; not significant changed. Electronically authenticated by: ANIKET PERSAUD Date: 06/12/2023 06:50
[2023-06-12] MEDS: DIGOXIN 500 MCG/2 ML AMPUL 250 MCG IV ×3 (06:30→19:21)
--- NOTE | 2023-06-12 08:25 | PM.PN ---
Progress Note: Subjective Subjective Interval history: Still withOn room system only at 715 patient felt to be she stated her breathing felt overall better. She did ambulate 40 feet yesterday. Still on supplemental oxygen. Heart rate still elevated but better. Blood pressure low this morning. Medications were adjusted to add Lanoxin for rate better rate control without decrease further in her blood pressure. Late morning, called due to increasing shortness of breath and acute hypoxia. CT scan showed likely aspiration pneumonia. Antibiotics were adjusted. Consultation to pulmonology. Exam Constitutional Vital Signs, click to edit/add: Last Vital Signs Temp 98.4 F 06/11/23 19:33 Pulse 104 H 06/12/23 08:00 Resp 27 H 06/12/23 08:00 BP 84/57 L 06/12/23 07:14 Pulse Ox 91 L 06/12/23 08:00 O2 Del Method Nasal Cannula 06/12/23 08:15 O2 Flow Rate 5 06/12/23 08:15 Documenting provider has reviewed patient's vital signs: yes Common normals: apparent distress (Moderate conversational dyspnea) Exam limitations: no altered mental status General appearance: cooperative; not comfortable Chest Common normals: inspection of chest normal Respiratory Common normals: no use of accessory muscles; abnormal respiratory effort (Apnea) and not clear to ascultation bilaterally Auscultation: rales and rhonchi Cardio Common normals: no murmurs Rate: tachycardic Rhythm: abnormal rhythm GI Common normals: Normal to inspection, nondistended, normoactive bowel sounds present, soft to palpation, non-tender, no hepatosplenomegaly and no masses Extremity Common normals: abnormal to inspection (3+ edema bilateral lower extremities, lymphedema left arm) Progress Note: Objective Labs Labs: Short CBC 06/12/23 Range/Units 04:35 WBC 9.7 (4.0-11.0) 10^3/uL Hgb 9.2 L (12.0-16.0) g/dL Hct 30.3 L (36.0-48.0) % Plt Count 126 L (150-450) 10^3/uL BMP 06/12/23 04:35 Sodium 144 Potassium 4.5 Chloride 106 Carbon Dioxide 29.8 BUN 45.0 H Creatinine 2.46 H Glucose 153 H Calcium 9.0 Liver Function 06/12/23 Range/Units 04:35 Total Bilirubin 0.4 (0.2-1.0) mg/dL AST 24 (15-37) U/L ALT 33 (14-59) U/L Alkaline Phosphatase 65 (46-116) U/L Albumin 2.4 L (3.4-5.0) g/dL Progress Note: A&P Assessment and Plan (1) Atrial fibrillation with RVR: (2) Elevated troponin: (3) Abdominal pain: (4) Stage 3a chronic kidney disease: (5) Type 2 diabetes mellitus with hyperglycemia: (6) Hypothyroidism: (7) HTN (hypertension): (8) Bilateral pleural effusion: (9) Edema: (10) Moderate protein-calorie malnutrition: (11) Iron deficiency anemia: (12) Hypomagnesemia: (13) Acute UTI: (14) Cholelithiasis: Plan (1) Atrial fibrillation with RVR: Assessment and Plan: Atrial fibrillation rapid ventricular response with dyspnea secondary to 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 Continue to monitor. Atrial fibrillation rate is overall improved but still having some significantly fast times. Troponin elevated today possible demand ischemia. Repeat BNP late morning was better. Patient started on Lanoxin for rate control. Check level in a.m. Assessment and Plan: (2) Elevated troponin secondary to demand [id number] on echo (3) Abdominal pain: Assessment and Plan: No significant tenderness currently. She does have gallstones (4) Stage 3a chronic kidney disease: Assessment and Plan: Follow daily. Continue to monitor (5) Type 2 diabetes mellitus with hyperglycemia: Assessment and Plan: Insulin sliding scale (6) Hypothyroidism: Assessment and Plan: Check on levels (7) HTN (hypertension): Assessment and Plan: Somewhat low this morning. Will need to monitor that closely with diuresis as outlined above (8) Bilateral pleural effusion: Assessment and Plan: Acute hypoxia with O2 saturations of 85% likely secondary to bilateral pleural effusions and complicated by her acute combined congestive heart failure-and now complicated by acute aspiration pneumonia. Change in antibiotics today. (9) Edema: Assessment and Plan: Secondary to acute combined congestive heart failure-monitor daily (10) Moderate protein-calorie malnutrition: Assessment and Plan: Add Ensure Plus. Increasing albumin will help to pull and fluid from her peripheral edema (11) Iron deficiency anemia: Assessment and Plan: Monitor daily and check stool for occult blood, down 2 g today. (12) Hypomagnesemia: Assessment and Plan: Supplement, monitor (13) Acute UTI: Assessment and Plan: Check and urine culture tomorrow on antibiotics (14) Cholelithiasis: Assessment and Plan: Currently no symptoms (15) RSV bronchiolitis-steroids and antibiotics. Frequent breathing treatments. This may be the primary source of her shortness of breath and hypoxia. Try to wean supplemental oxygen today. Plan Likely 2-3 more day hospitalization with the aspiration pneumonia today. Significant hypoxia with O2 saturations low 80s. ?
[2023-06-12] MEDS: DILTIAZEM HCL 60 MG TABLET PO ×3 (08:58→21:09)
[2023-06-12] MEDS: LEVOTHYROXINE SODIUM 75 MCG TABLET PO (08:59)
[2023-06-12] MEDS: 0.9 % SODIUM CHLORIDE 1,000 ML 250 ML IV (08:59)
[2023-06-12] MEDS: MAGNESIUM OXIDE 400 MG TABLET PO (09:00)
[2023-06-12] MEDS: ATORVASTATIN CALCIUM 40 MG TABLET PO (09:00)
[2023-06-12] MEDS: APIXABAN 5 MG TABLET 2.5 MG PO ×2 (09:00→21:17)
[2023-06-12] MEDS: CHOLECALCIFEROL (VITAMIN D3) 25 MCG/1,000 UNITS TABLET 50 MCG PO (09:00)
[2023-06-12] MEDS: ENSURE HP 237 ML LIQUID PO ×2 (09:03→14:32)
[2023-06-12] MEDS: GUAIFENESIN 200 MG/DEXTROMETHORPHAN 20 MG 10 ML UNIT DOSE CUP PO (09:04)
--- NOTE | 2023-06-12 09:07 | CM.NOTE ---
Rounds made with Dr. Hidalgo. No plan for discharge today.
[2023-06-12] MEDS: METOPROLOL TARTRATE 50 MG TABLET PO ×2 (09:08→21:17)
[2023-06-12] MEDS: LEVOFLOXACIN IN DEXTROSE 5 % 500 MG/100 ML PIGGYBACK 100 MG IV (09:08)
[2023-06-12] MEDS: CETIRIZINE HCL 10 MG TABLET PO (09:08)
[2023-06-12] MEDS: POTASSIUM CHLORIDE 10 MEQ ER TABLET PO (09:09)
[2023-06-12 11:34] LABS: Glucometer 369 mg/dL (74-106)
--- NOTE | 2023-06-12 11:35 | SWNOTE1 ---
BRENDA met with pt to discuss dc needs. Pt does live at home alone. Pt voiced she has a daughter and other family who check on her daily. She also stated she has 2 friends who work for hospice and they check on her. She does not have hospice services, just friends that work for hospice. Pt has a walker at home that she has been using. Last visit when she was dc she was not using any device. Pt does not wear home oxygen and is on 6 liters now. She has potential of needing home 02. BRENDA let pt know that rehab is being recommended at discharge. Pt voiced she does not want to go to rehab, she wants to go home. At this time pt is refusing. SW asked pt why she does not want rehab, she stated she just wants to go home. Pt is agreeable to HH. SW let her know difference between HH and SNF. Pt still refusing SNF. SW reviewed HH list from medicare.gov, pt voiced she has no preference. She would like to use someone who takes her insurance. At this time pt has no other needs. BRENDA sent referral to [address] Referral included face sheet, physician notes, and therapy notes.
[2023-06-12 11:52] LABS: Allen Test POSITIVE (POSITIVE); Base Excess ABG 0.2 mmol/L (-2.0-2.0); HCO3 ABG 26.3 mmol/L (22.0-26.0); Oxygen Saturation ABG 93.7 %; PO2 ABG 69.5 mmHg (80.0-100.0); pH ABG 7.324 (7.350-7.450)
[2023-06-12 11:53] LABS: ABG PCO2 50.5 mmHg (35.0-45.0); O2 Mode NC
[2023-06-12 11:54] LABS: Liters per Minute 6; Puncture Site RR
--- NOTE | 2023-06-12 12:09 | CT_ITS ---
[address] [address] Patient Name: BETTY ALCALA MRN: [id number] date: 1935 Sex: F Assigned Patient Location: ICU Current Patient Location: ICU Accession/Order Number: [id number] Exam Date: 06/12/2023 12:03 Report Date: 06/12/2023 12:28 At the request of: CHIRAG IBANEZ Procedure: CT chest wo con EXAM: CT chest wo con; [id number] REASON FOR EXAM: acute hypoxia TECHNIQUE: Helical CT images of the chest were obtained without contrast. Multiplanar reformats and maximum intensity projection images were generated at the scanner. Dose reduction technique used: Automated exposure control and/or adjustment of the mA and/or kV according to patient size and/or use of iterative reconstruction technique. COMPARISON: Chest CT 05/30/[address] abdomen/pelvis 06/09/2023. FINDINGS: Note: Compared with contrasted CT exams, noncontrast images are less sensitive for the detection of various types of soft tissue, solid organ, and vascular pathologies. Chest: Support devices: Central venous catheter terminates in the mid one third of the SVC. Visualized Thyroid: No nodules. Chest wall: Within normal limits. Radha/mediastinum/esophagus: No mass. Thoracic lymph nodes: No enlarged supraclavicular, mediastinal, hilar or axillary lymph nodes. Heart and vasculature: -The heart is only partially visualized on this exam. -No pericardial effusion or aortic aneurysm. -Severe coronary artery calcifications versus coronary artery stents. -Moderate cardiomegaly. Visualized portions of the upper abdomen: No portion of the upper abdomen is occluded within the [id number]. Musculoskeletal: No acute abnormality or suspicious osseous lesion. Lungs/airways: -Complete collapse of the right lower and right middle lobe and near complete collapse of the left lower lobe, moderately worse compared with 05/30/2023. -Complete plugging of bilateral lower lobe and right middle lobe airways, new. Pleura: Medium-sized right pleural effusion and small to medium-sized left pleural effusion, mildly worse. No pneumothorax. CT/CT chest wo con IMPRESSION: 1. Interval aspiration versus mucous plugging resulting in complete obstruction of the bilateral lower lobe and right middle lobe airways and resulting worsening bilateral lobar collapse. 2. Medium-sized right pleural effusion and small to medium-sized left pleural effusion, mildly worse. Electronically authenticated by: RAÚL HERNANDEZ Date: 06/12/2023 12:28
[2023-06-12] MEDS: INSULIN ASPART 300 UNIT/3 ML PEN SUBQ ×2 (12:28→21:18)
[2023-06-12 12:50] LABS: Troponin I High Sensitivity 55.7 pg/mL (4.0-51.3)
--- NOTE | 2023-06-12 12:52 | PT.DAILY ---
Physical Therapy Daily Note PT Daily Note/Assess Start: 06/12/23 12:47 Freq: Status: Active Protocol: Document 06/12/23 10:30 ESANNIE (Rec: 06/12/23 12:52 ESHURANGEL [id number]) Physical Therapy Daily Note/Assessment Time In/Time Out Time In 10:32 Time Out 10:49 Subjective Subjective Patient up in chair. ICU nursing okay with RX, but states patient de-stats quickly. Patient up in chair and agrees to RX. Therapeutic Exercise Time Therapeutic Exercise Minutes (minutes) 10 Therapeutic Exercise Units 1 Therapeutic Exercise Treatment Therapeutic Exercise Treatment Exercises completed in both long sitting and seated position 10 reps. SPO2 maintains 88-92 percent with rest breaks as needed. Therapeutic Activity Time Therapeutic Activity Minutes (minutes) 7 Therapeutic Activity Units 0 Therapeutic Activity Treatment Therapeutic Activity Comments Sit to stand x 1 with SBA/CGA. Static standing at RW x30 seconds. SPO2 decreased to 85 percent. Took patient 4-5 min to recover. Instructed in breathing exercises with rest break. Total Physical Therapy Time Total Therapy Minutes 17 Total Physical Therapy Units 1 Summary Daily Note Summary Progress exercises for increased strength. Poor tolerance to standing with 5 LO2 with SPO2 quickly decreasing to 85 percent. With rest break took patient 4-5 min to recover back to 90 percent.
[2023-06-12] MEDS: PIPERACILLIN SODIUM/TAZOBACTAM 3.375 GM in 0.9 % SODIUM CHLORIDE 50 ML IV ×2 (13:08→21:12)
--- NOTE | 2023-06-12 13:59 | SWNOTE1 ---
[facility] is able to accept.
[2023-06-12] MEDS: ACETYLCYSTEINE 400 MG/4 ML VIAL 100 MG IH ×2 (15:00→20:17)
[2023-06-12 17:15] LABS: Glucometer 181 mg/dL (74-106)
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
[2023-06-12 19:15] LABS: Creatine Kinase 273 U/L (26-192)
[2023-06-12 19:27] LABS: Myoglobin 1468 ng/mL (9-82); Troponin I High Sensitivity 70.1 pg/mL (4.0-51.3)
[2023-06-12] MEDS: PANTOPRAZOLE SODIUM 40 MG VIAL IV (21:13)
[2023-06-12 21:25] LABS: Glucometer 221 mg/dL (74-106)
[2023-06-12 23:12] LABS: Bilirubin Urine NEGATIVE (NEGATIVE); Blood Urine LARGE (NEGATIVE); Clarity Urine CLEAR (CLEAR); Color Urine YELLOW (YELLOW); Glucose Urine UA NEGATIVE (NEGATIVE); Ketones Urine NEGATIVE (NEGATIVE); Leukocyte Esterase Urine SMALL (NEGATIVE); Nitrite Urine NEGATIVE (NEGATIVE); Protein Urine 100 mg/dL (NEG/TRACE); Specific Gravity Urine 1.025 (1.005-1.025); Urobilinogen Urine 0.2 EU/dL (0.2-1.0); pH Urine 5.5 (5.0-9.0)
[2023-06-12 23:18] LABS: Bacteria Urine TRACE #/HPF (NONE SEEN); RBC Urine 50-75 #/HPF (0-2)
[2023-06-12 23:19] LABS: Cast Seen? NONE SEEN #/LPF (NONE SEEN); Crystals Seen? None Seen #/HPF (None Seen); Mucus Urine NONE SEEN (NONE SEEN); Squamous Epithelial Cell Urine NONE SEEN #/LPF (NONE/RARE)
[2023-06-13] VITALS (75 sets, daily range): BP systolic 105–130; BP diastolic 61–94; PULSE 66–101; RESP 12–55; TEMP 36.5–36.8; O2SAT 81–98
[2023-06-13] MEDS: METHYLPREDNISOLONE SOD SUCC PF 125 MG/2 ML VIAL 60 MG IVP (03:29)
[2023-06-13 03:48] LABS: Basophils Percent Auto 0.1 % (0.2-2.0); Hematocrit 31.6 % (36.0-48.0); Hemoglobin 9.5 g/dL (12.0-16.0); Immature Granulocytes Abs Auto 0.06 10^3/uL (0.00-0.03); Immature Granulocytes Pct Auto 0.5 % (0.0-0.5); Lymphocytes Absolute Auto 0.2 10^3/uL (1.2-3.8); Lymphocytes Percent Auto 1.7 % (20.5-60.0); Mean Corpuscular HGB Conc 30.1 g/dL (29.9-35.2); Mean Corpuscular Hemoglobin 32.3 pg (26.7-34.0); Mean Corpuscular Volume 107.5 fL (81.0-99.0); Mean Platelet Volume 10.3 fL (9.5-13.5); Monocytes Absolute Auto 0.4 10^3/uL (0.3-0.8); Monocytes Percent Auto 3.2 % (1.7-12.0); Neutrophils Absolute Auto 10.8 10^3/uL (1.4-6.5); Neutrophils Percent Auto 94.5 % (43.0-75.0); Platelet Count 129 10^3/uL (150-450); Red Blood Count 2.94 10^6/uL (4.20-5.40); Red Cell Distribution Width 16.9 % (11.0-15.0); White Blood Count 11.4 10^3/uL (4.0-11.0)
[2023-06-13 04:04] LABS: Magnesium 2.2 mg/dL (1.8-2.4)
[2023-06-13 04:07] LABS: Alanine Aminotransferase 41 U/L (14-59); Albumin Globulin Ratio 0.7; Albumin Level 2.4 g/dL (3.4-5.0); Alkaline Phosphatase 63 U/L (46-116); Anion Gap 10.1; Aspartate Amino Transferase 35 U/L (15-37); BUN Creatinine Ratio 22.3; Bilirubin Total 0.4 mg/dL (0.2-1.0); Calcium 9.2 mg/dL (8.5-10.1); Chloride 110 mmol/L (98-107); Estimated GFR (African America 21 (>=60); Estimated GFR (Non-African Ame 17 (>=60); Globulin 3.6 g/dL; Glucose 174 mg/dL (74-106); Potassium 5.1 mmol/L (3.5-5.1); Sodium 144 mmol/L (136-145)
[2023-06-13 04:17] LABS: Troponin I High Sensitivity 108.4 pg/mL (4.0-51.3)
[2023-06-13 04:18] LABS: Digoxin 3.7 ng/mL (0.9-2.0)
[2023-06-13] MEDS: DILTIAZEM HCL 60 MG TABLET PO ×3 (05:21→21:43)
[2023-06-13] MEDS: PIPERACILLIN SODIUM/TAZOBACTAM 3.375 GM in 0.9 % SODIUM CHLORIDE 50 ML IV ×2 (05:22→16:11)
--- NOTE | 2023-06-13 05:59 | ECG_ITS ---
[facility] Test Date: 2023-06-13 Pat Name: BETTY ALCALA Department: Room: 2711 Gender: Female Cryptologic Linguist: : 1935 Requested By: SHAIKH SREEDHAR Order Number: [id number] Reading MD: BARBARA MATHUR Measurements Intervals [place] Rate: 76 P: -12030 CO: -04634 QRS: 58 QRSD: 86 T: 250 QT: 294 QTc: 325 Interpretive Statements 1210 Atrial fibrillation [address] depression, probably digitalis effect 81353 Twave abnormality, possible inferolateral ischemia or digitalis effect 8305 Short QTc interval 9150 abnormal ECG Electronically Signed On 06-14-2023 6:47:08 EST by BARBARA MATHUR
[2023-06-13] MEDS: 0.9 % SODIUM CHLORIDE 1,000 ML 500 ML IV ×2 (06:19→08:23)
[2023-06-13 07:22] LABS: Glucometer 170 mg/dL (74-106)
[2023-06-13] MEDS: CHOLECALCIFEROL (VITAMIN D3) 25 MCG/1,000 UNITS TABLET 50 MCG PO (08:23)
[2023-06-13] MEDS: MAGNESIUM OXIDE 400 MG TABLET PO (08:23)
[2023-06-13] MEDS: ATORVASTATIN CALCIUM 40 MG TABLET PO (08:24)
[2023-06-13] MEDS: METOPROLOL TARTRATE 50 MG TABLET PO ×2 (08:24→21:44)
[2023-06-13] MEDS: CETIRIZINE HCL 10 MG TABLET PO (08:24)
[2023-06-13] MEDS: ENSURE HP 237 ML LIQUID PO ×2 (08:25→15:26)
[2023-06-13] MEDS: METHYLPREDNISOLONE SOD SUCC PF 125 MG/2 ML VIAL 40 MG IVP ×3 (08:37→21:44)
--- NOTE | 2023-06-13 09:03 | P.PN_ITS ---
Progress Note: Subjective Subjective Interval history: Patient was actually somewhat improving overnight with down to 3 L but then again this morning had another episode with a traumatic deep drop in her saturations. Had to be placed on Vapotherm again. Exam Constitutional Vital Signs, click to edit/add: Last Vital Signs Temp 97.7 F 06/13/23 08:53 Pulse 77 06/13/23 08:00 Resp 32 H 06/13/23 07:15 BP 121/61 06/13/23 07:15 Pulse Ox 88 L 06/13/23 07:15 O2 Del Method Vapotherm 06/13/23 08:53 O2 Flow Rate 30 06/13/23 08:53 FiO2 60 06/13/23 08:53 Documenting provider has reviewed patient's vital signs: yes Common normals: no apparent distress Exam limitations: no altered mental status General appearance: cooperative; not comfortable HENMT Common normals: normocephalic Chest Common normals: inspection of chest normal Other: Thoracic kyphosis Respiratory Common normals: no use of accessory muscles; abnormal respiratory effort (Apnea) and not clear to ascultation bilaterally Auscultation: rales and rhonchi Cardio Common normals: no murmurs Rate: tachycardic Rhythm: abnormal rhythm Other: Irregularly irregular, but rate-controlled GI Common normals: Normal to inspection, nondistended, normoactive bowel sounds present, soft to palpation, non-tender, no hepatosplenomegaly and no masses Inspection: normal to inspection Extremity Common normals: no clubbing, cyanosis or edema Neuro Sensorium/orientation: awake and alert Psych Attitude: calm Speech: normal speech Progress Note: Objective Labs Labs: Short CBC 06/13/23 Range/Units 03:35 WBC 11.4 H (4.0-11.0) 10^3/uL Hgb 9.5 L (12.0-16.0) g/dL Hct 31.6 L (36.0-48.0) % Plt Count 129 L (150-450) 10^3/uL BMP 06/13/23 03:35 Sodium 144 Potassium 5.1 Chloride 110 H Carbon Dioxide 29.0 BUN 59.0 H Creatinine 2.65 H Glucose 174 H Calcium 9.2 Cardiac Enzymes 06/12/23 Range/Units 18:25 Total Creatine Kinase 273 H (26-192) U/L CK-MB (CK-2) 10.90 H* (<=3.60) ng/mL Liver Function 06/13/23 Range/Units 03:35 Total Bilirubin 0.4 (0.2-1.0) mg/dL AST 35 (15-37) U/L ALT 41 (14-59) U/L Alkaline Phosphatase 63 (46-116) U/L Albumin 2.4 L (3.4-5.0) g/dL Urine 06/12/23 Range/Units 22:45 Urine Color Yellow (YELLOW) Urine Clarity Clear (CLEAR) Urine pH 5.5 (5.0-9.0) Ur Specific [place] 1.025 (1.005-1.025) Urine Protein 100 A (NEG/TRACE) mg/dL Urine Glucose (UA) Negative (NEGATIVE) mg/dL Progress Note: A&P Assessment and Plan (1) RSV (respiratory syncytial virus pneumonia): (2) Atrial fibrillation with RVR: (3) Elevated troponin: (4) Abdominal pain: (5) Stage 3a chronic kidney disease: (6) Type 2 diabetes mellitus with hyperglycemia: (7) Hypothyroidism: (8) HTN (hypertension): (9) Bilateral pleural effusion: (10) Edema: (11) Moderate protein-calorie malnutrition: (12) Iron deficiency anemia: (13) Hypomagnesemia: (14) Acute UTI: (15) Cholelithiasis: Plan (1) Atrial fibrillation with RVR: Assessment and Plan: Atrial fibrillation rapid ventricular response with dyspnea secondary to 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 Lanoxin did seem to improve her heart rate but now she is digoxin toxic. But overall heart rate much improved today (2) Elevated troponin secondary to demand [id number] on echo- elevated today, consult to cardiology (3) Abdominal pain: Assessment and Plan: No significant tenderness currently. She does have gallstones (4) Stage 3a chronic kidney disease: Somewhat improved after fluid boluses this afternoon Assessment and Plan: Follow daily. Continue to monitor (5) Type 2 diabetes mellitus with hyperglycemia: Assessment and Plan: Insulin sliding scale (6) Hypothyroidism: Assessment and Plan: Check on levels (7) HTN (hypertension): Assessment and Plan: Somewhat low this morning. Will need to monitor that closely with diuresis as outlined above (8) Bilateral pleural effusion: Assessment and Plan: Acute hypoxia with O2 saturations of 85% likely secondary to bilateral pleural effusions and complicated by her acute combined congestive heart failure-and now complicated by acute aspiration pneumonia. Maintain current antibiotics, consult to pulmonology (9) Edema: Assessment and Plan: Secondary to acute combined congestive heart failure-peripheral edema is much improved (10) Moderate protein-calorie malnutrition: Assessment and Plan: Add Ensure Plus. Increasing albumin will help to pull and fluid from her peripheral edema (11) Iron deficiency anemia: Assessment and Plan: Monitor daily and check stool for occult blood, down 2 g today. (12) Hypomagnesemia: Assessment and Plan: Supplement, monitor (13) Acute UTI: Assessment and Plan: Check and urine culture - on antibiotics (14) Cholelithiasis: Assessment and Plan: Currently no symptoms (15) RSV bronchiolitis-steroids and antibiotics. Frequent breathing treatments. This may be the primary source of her shortness of breath and hypoxia. Try to wean supplemental oxygen today. Plan Again likely 2-3 more day hospitalization with the aspiration pneumonia yesterday. Discussed options of transferring, patient would prefer to stay here, discussed options of CODE STATUS and patient would be DNR-cc-A, no intubation ?
[2023-06-13] MEDS: ACETYLCYSTEINE 400 MG/4 ML VIAL 100 MG IH ×3 (09:48→20:12)
[2023-06-13] MEDS: IPRATROPIUM/ALBUTEROL SULFATE 3 ML AMPUL.NEB IH ×3 (09:48→20:12)
--- NOTE | 2023-06-13 09:56 | CM.NOTE ---
Rounds made with Dr. Hidalgo. Started on Vapotherm this am. Dr. Hidalgo reviews abnormal labs with Yaritza. No discharge today.
[2023-06-13] MEDS: LACTATED RINGER'S SOLUTION 1,000 ML 75 ML IV (10:22)
[2023-06-13 11:21] LABS: Glucometer 176 mg/dL (74-106)
[2023-06-13 11:35] LABS: Anion Gap 12.6; BUN Creatinine Ratio 23.3; Calcium 8.3 mg/dL (8.5-10.1); Carbon Dioxide 26.4 mmol/L (21.0-32.0); Chloride 111 mmol/L (98-107); Creatine Kinase 212 U/L (26-192); Estimated GFR (African America 24 (>=60); Estimated GFR (Non-African Ame 20 (>=60); Glucose 180 mg/dL (74-106); Sodium 145 mmol/L (136-145)
--- NOTE | 2023-06-13 11:37 | REH.PTDLY ---
Physical Therapy Daily Note PT Daily Note/Assess Start: 06/12/23 12:47 Freq: Status: Active Protocol: Document 06/13/23 11:12 ADRIANA (Rec: 06/13/23 11:37 [facility] [id number]) Physical Therapy Daily Note/Assessment Time In 10:40 Time Out 10:50 Pain Level 0 Pain Level 0 Subjective Nurse Velma reports pt's O2 has been dropping even on vapotherm. Wouldn't get pt up, but can do bed exs. Pt agreeable to bed exs upon entering. Therapeutic Exercise Minutes (minutes) 8 Therapeutic Exercise Units 1 Therapeutic Exercise Treatment Instructed pt in supine exs 10x ea with B LEs with exs including AP, QS, GS, SLR, heel slides, hip abd slides, hip IR/ER and hip add for improved mobility and strength . Pt denies any complaints when performing and O2 maintains at 91% while on vapotherm is at 80%. Total Therapy Minutes 8 Total Physical Therapy Units 1 Daily Note Summary Supine exs only with B LEs per nursing request. Pt able to perform all exs actively with B LEs with SpO2 staying in the low 90s while on vapotherm. Progress as tolerated
[2023-06-13 11:38] LABS: Creatine Kinase MB 7.66 ng/mL (<=3.60); Myoglobin 547 ng/mL (9-82)
[2023-06-13 11:39] LABS: Troponin I High Sensitivity 99.1 pg/mL (4.0-51.3)
--- NOTE | 2023-06-13 11:46 | XR_ITS ---
The [address] [address] Patient Name: BETTY ALCALA MRN: [id number] date: 1935 Sex: F Assigned Patient Location: ICU Current Patient Location: ICU Accession/Order Number: [id number] Exam Date: 06/13/2023 11:55 Report Date: 06/13/2023 12:06 At the request of: CHIRAG IBANEZ Procedure: XR chest 1V EXAM: XR chest 1V at 1121 hours HISTORY: hypoxia COMPARISON: 06/12/2023 TECHNIQUE: AP upright portable chest x-ray FINDINGS: Atelectasis or infiltrates are seen in the right mid and lower lung and the left lower lung, accompanied by significant bilateral pleural effusions. The heart is mildly enlarged with vascular congestion. Pleural-parenchymal scarring is seen at the right apex. The left apex is obscured by the patient's chin placement. The right-sided PICC line remains in place. There is a shoulder prosthesis on the left. XR/XR chest 1V IMPRESSION: Bilateral atelectasis or infiltrates, with bilateral effusions, greater on the right side. The overall appearance is slightly worse in each lung. The heart remains mildly enlarged with vascular congestion, and the overall appearance of the chest is otherwise unchanged. Electronically authenticated by: CRISTA WHITNEY Date: 06/13/2023 12:06
[2023-06-13 12:52] LABS: HCO3 ABG 24.9 mmol/L (22.0-26.0); PO2 ABG 77.2 mmHg (80.0-100.0)
[2023-06-13 12:53] LABS: Allen Test POSITIVE (POSITIVE); Oxygen Saturation ABG 94.8 %
[2023-06-13 12:54] LABS: Fractionated Inspired Oxygen 80 %; Liters per Minute 40; O2 Mode VAPOTHERM
[2023-06-13 12:57] LABS: Puncture Site RR
[2023-06-13 12:58] LABS: ABG PCO2 53.7 mmHg (35.0-45.0); pH ABG 7.274 (7.350-7.450)
[2023-06-13] MEDS: LACTATED RINGER'S SOLUTION 1,000 ML 500 ML IV (13:15)
[2023-06-13] MEDS: HEPARIN SODIUM,PORCINE/NS/PF 1,000 UNIT/500 ML IV.SOLN 10 UNIT IV (14:02)
--- NOTE | 2023-06-13 14:29 | PC.NURSE ---
pt placed on bipap per RT. tolerating well.
--- NOTE | 2023-06-13 14:42 | PC.NURSE ---
telenephrology consult called to call center. stripping shovel operator stated there is no coverage today dr valera notified.
--- NOTE | 2023-06-13 14:49 | PM.PLPN ---
Progress Note: A&P Assessment and Plan (1) RSV (respiratory syncytial virus pneumonia): Assessment and Plan: 1. Acute viral pneumonia secondary to RSV. Supportive care. 2. Acute hypercapnic respiratory failure. Worsening slightly on repeat ABG today despite Vapotherm. Explained to patient that she is failing Vapotherm and we need to try BiPAP to see if that helps (she was resistant to it in the past). She voiced agreement now to use it. Discussed plan of care if BiPAP fails. Next step would be intubation and use of a ventilator. She said she would not want to be on a ventilator. I asked if it were necessary to save her life, would she be willing to placed on a ventilator or not. She replied I don't know. I advised her to think about what she would want and let us and her family know her plans. I stated I would not wait days for an answer, as the rate she is declining, urgent intubation may be a consideration. Anticipate difficult intubation given her thoracic kyphosis. Would not induce with succinylcholine as K+ 5 and renal function is worse from baseline. 3. Acute hypoxic respiratory failure. Worsening oxygenation despite Vapotherm. BiPAP may also help. See above. 4. Bilateral pleural effusions. Chronic since at least 05/2022. Appear to be worsening. Previously refused thoracentesis. I brought thoracentesis up as an option again at this time, but she did not elect to proceed with this. 5. Bilateral lower lobe bronchial mucus plugging. Associated with RSV. Continue with aggressive pulmonary toilet. Mucomyst was added yesterday. Possible that positive pressure from BiPAP could loosen secretions. 6. Acute kidney failure on top of chronic kidney disease. Concerned about pulmonary edema. Stopped maintenance fluids for now. Will attemp to transduce CVP for better fluid status marker. <8mmHg suggests hypovolemia, >12mmHg suggests hypervolemia or cardiac/cardiovascular involvement. 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 8. Afib with RVR. Currently irregularly irregular, rate-controlled. Subjective Subjective Interval history: Discussed with RN. Patient is declining over the past 8-12 hours. She is currently on Vapotherm and was desaturating to 89% on 40L/min on 80% FiO2. The patient appeared dry with worsening renal function - previously was on Bumex gtt, and she has been receiving boluses of LR. CXR noted worsening infiltrates and ABG shows mild worsening of hypercapnia. The patient states she is having more difficulty with breathing - increased effort. Despite adding Mucomyst, she is not able ot expectorate well. Exam Constitutional Vital Signs, click to edit/add: Last Vital Signs Temp 97.7 F 06/13/23 08:53 Pulse 78 06/13/23 14:25 Resp 27 H 06/13/23 14:25 BP 115/67 06/13/23 11:18 Pulse Ox 94 L 06/13/23 14:25 O2 Del Method Vapotherm 06/13/23 09:17 O2 Flow Rate 40 06/13/23 09:17 FiO2 50 06/13/23 14:20 Documenting provider has reviewed patient's vital signs: yes General appearance: in distress mild; not comfortable and not lethargic HENMT Other: Wearing Vapotherm nasal cannula Chest Common normals: inspection of chest normal Respiratory Other: Tachypneic. Decreased breath sounds in the upper lung [place] compared to yesterday. More wet rhonchi. Diminished/near absent breath sounds in the bases. Cardio Other: Irregularly irregular, rate controlled GI Inspection: normal to inspection Back & Pelvis Thoracic spine/upper back: kyphosis present (moderate) Extremity Right upper extremity: upper arm and elbow joint Right elbow: special tests Other: Left arm appears edematous. Lower extremities have KAROL hose. 1+ posterior pitting edema. Neuro Sensorium/orientation: awake and alert Psych Thought process: normal thought process Urinary Catheter Management Urinary Catheter Management Urethral: Insertion date: 06/13/23 Insertion time: 09:13
--- NOTE | 2023-06-13 15:00 | SWNOTE1 ---
SW updated MED1 of no discharge today.
--- NOTE | 2023-06-13 15:17 | SWNOTE1 ---
SW called daughter again, she did answer. SW and nursing spoke with daughter and she is on her way in to help make decisions in regards to pt. Pt is a full code and is on bipap now.
--- NOTE | 2023-06-13 15:44 | SWNOTE1 ---
Pt's daughter was in and nursing, SW, and daughter spoke to pt. At this time she would like to be a DNRCCA and no intubation. At this time daughter and patient voice no other needs. Pt has no spouse or other children.
--- NOTE | 2023-06-13 15:47 | PC.NURSE ---
code status discussed with pt and daughter. pt stated she does not want to be intubated or placed on the vent, would like to change code status to dnrcca. dr valera notified.
[2023-06-13 16:03] LABS: Hemoglobin 9.2 g/dL (12.0-16.0); Mean Corpuscular HGB Conc 29.7 g/dL (29.9-35.2); Mean Corpuscular Hemoglobin 32.4 pg (26.7-34.0); Mean Corpuscular Volume 109.2 fL (81.0-99.0); Mean Platelet Volume 10.5 fL (9.5-13.5); Platelet Count 124 10^3/uL (150-450); Red Blood Count 2.84 10^6/uL (4.20-5.40); Red Cell Distribution Width 16.8 % (11.0-15.0); White Blood Count 9.6 10^3/uL (4.0-11.0)
[2023-06-13] MEDS: INSULIN ASPART 300 UNIT/3 ML PEN SUBQ (16:14)
[2023-06-13 16:20] LABS: Anion Gap 11.3; BUN Creatinine Ratio 24.6; Calcium 8.6 mg/dL (8.5-10.1); Carbon Dioxide 26.9 mmol/L (21.0-32.0); Chloride 112 mmol/L (98-107); Estimated GFR (African America 25 (>=60); Estimated GFR (Non-African Ame 21 (>=60); Glucose 228 mg/dL (74-106); Potassium 5.2 mmol/L (3.5-5.1); Sodium 145 mmol/L (136-145)
[2023-06-13 16:20] LABS: Glucometer 266 mg/dL (74-106)
[2023-06-13 16:26] LABS: Troponin I High Sensitivity 103.7 pg/mL (4.0-51.3)
[2023-06-13 16:34] LABS: Anisocytosis 1+; Lymphocytes Absolute Manual 0.09 10^3/uL (1.20-3.80); Monocytes Absolute Manual 0.19 10^3/uL (0.30-0.80); Segmented Neut Absolute Manual 9.31 10^3/uL (1.4-6.5)
[2023-06-13 16:35] LABS: Macrocytosis 2+
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
[2023-06-13] MEDS: FUROSEMIDE 40 MG/4 ML VIAL 60 MG IVP (20:18)
[2023-06-13] MEDS: PANTOPRAZOLE SODIUM 40 MG VIAL IV (21:44)
[2023-06-13 22:01] LABS: Glucometer 145 mg/dL (74-106)
--- NOTE | 2023-06-13 23:02 | SUR.HOLD ---
Patient placed on BIPAP with preset settings of 12/6 and FIO2 of 50%.
[2023-06-14] VITALS (60 sets, daily range): BP systolic 82–129; BP diastolic 59–73; PULSE 62–103; RESP 12–41; TEMP 36.4–36.6; O2SAT 56–98
--- NOTE | 2023-06-14 00:41 | PC.NURSE ---
Patient called nurse with patient call light. Asked for break from BIPAP mask. RN noted sudden decrease in SPO2 from 90% into low 80%'s. Oxygen Saturation continued to drop to low of 58%. No change in patient orientation, color or work of breathing with BIPAP remaining in use. SPO2 increased to 100% for patient recovery. RT notified and called to patient room. See RT BIPAP setting change note. Patient recovered to 96% SPO2. Patient was able to be given 1 ice chip to moisten mouth after recovery for SPO2 levels and BIPAP loosened and reapplied after ice melted in mouth. Explained to patient importance of maintaining BIPAP due to decrease in Oxygen levels and patient agreed to leave in place at this time.
--- NOTE | 2023-06-14 00:46 | PC.NURSE ---
FIO2 increased to 100% with episode of low oxygen saturation
[2023-06-14] MEDS: METHYLPREDNISOLONE SOD SUCC PF 125 MG/2 ML VIAL 40 MG IVP ×4 (03:35→21:30)
[2023-06-14 04:52] LABS: Basophils Percent Auto 0.1 % (0.2-2.0); Hemoglobin 9.2 g/dL (12.0-16.0); Immature Granulocytes Abs Auto 0.05 10^3/uL (0.00-0.03); Immature Granulocytes Pct Auto 0.6 % (0.0-0.5); Lymphocytes Absolute Auto 0.1 10^3/uL (1.2-3.8); Lymphocytes Percent Auto 1.2 % (20.5-60.0); Mean Corpuscular HGB Conc 29.7 g/dL (29.9-35.2); Mean Corpuscular Hemoglobin 32.5 pg (26.7-34.0); Mean Corpuscular Volume 109.5 fL (81.0-99.0); Mean Platelet Volume 10.5 fL (9.5-13.5); Monocytes Absolute Auto 0.2 10^3/uL (0.3-0.8); Monocytes Percent Auto 2.5 % (1.7-12.0); Neutrophils Absolute Auto 7.9 10^3/uL (1.4-6.5); Neutrophils Percent Auto 95.6 % (43.0-75.0); Platelet Count 119 10^3/uL (150-450); Red Blood Count 2.83 10^6/uL (4.20-5.40); Red Cell Distribution Width 16.7 % (11.0-15.0); White Blood Count 8.3 10^3/uL (4.0-11.0)
[2023-06-14 05:07] LABS: Magnesium 2.3 mg/dL (1.8-2.4)
--- NOTE | 2023-06-14 05:08 | PC.NURSE ---
Patient requested break from BIPAP mask. Vapotherm applied at 40 Liter flow and 80% FIO2
--- NOTE | 2023-06-14 05:09 | PC.NURSE ---
Patient turned to adjust bed linens and pulled up in bed with 2 assists. SPO2 decreased to 84% with slight activity. Patient recovered to 90% with 4 minutes of rest. Remained on Vapotherm 40 Liter flow and 60% FIO2.
--- NOTE | 2023-06-14 05:13 | PC.NURSE ---
Patient asymptomatic with current BP level.
[2023-06-14 05:16] LABS: Alanine Aminotransferase 45 U/L (14-59); Albumin Globulin Ratio 0.6; Albumin Level 2.2 g/dL (3.4-5.0); Alkaline Phosphatase 56 U/L (46-116); Anion Gap 9.9; Aspartate Amino Transferase 35 U/L (15-37); BUN Creatinine Ratio 25.3; Bilirubin Total 0.5 mg/dL (0.2-1.0); Carbon Dioxide 28.9 mmol/L (21.0-32.0); Chloride 112 mmol/L (98-107); Estimated GFR (African America 24 (>=60); Estimated GFR (Non-African Ame 19 (>=60); Globulin 3.6 g/dL; Glucose 180 mg/dL (74-106); Potassium 4.8 mmol/L (3.5-5.1); Sodium 146 mmol/L (136-145); Total Protein 5.8 g/dL (6.4-8.2)
[2023-06-14] MEDS: PIPERACILLIN SODIUM/TAZOBACTAM 3.375 GM in 0.9 % SODIUM CHLORIDE 50 ML IV ×2 (05:26→17:10)
[2023-06-14 05:52] LABS: ABG PCO2 49.2 mmHg (35.0-45.0); Allen Test POSITIVE (POSITIVE); Base Excess ABG 0.8 mmol/L (-2.0-2.0); HCO3 ABG 26.6 mmol/L (22.0-26.0); O2 Mode BIPAP; Oxygen Saturation ABG 95.5 %; PO2 ABG 73.6 mmHg (80.0-100.0)
[2023-06-14 05:53] LABS: BIPAP Pressure 14/7; Fractionated Inspired Oxygen 50 %; Puncture Site RR; Rate 12
[2023-06-14] MEDS: DILTIAZEM HCL 60 MG TABLET PO ×3 (06:02→22:59)
[2023-06-14] MEDS: LEVOTHYROXINE SODIUM 75 MCG TABLET PO (06:03)
[2023-06-14 06:27] LABS: Troponin I High Sensitivity 114.3 pg/mL (4.0-51.3)
[2023-06-14 07:41] LABS: Glucometer 195 mg/dL (74-106)
--- NOTE | 2023-06-14 08:11 | PM.PLPN ---
Progress Note: A&P Assessment and Plan (1) RSV (respiratory syncytial virus pneumonia): Assessment and Plan: 1. Acute viral pneumonia secondary to RSV. Supportive care. 2. Acute hypercapnic respiratory failure. Reviewed ABG. Improved today. Continue on/off BiPAP for now as tolerated. 3. Acute hypoxic respiratory failure. Improvement in oxygenation, but still requiring minimum 50% FiO2 on Vapotherm. Exacerbated by increased intravascular volume. Recommend holding IVF until evaluated by nephrology. 4. Bilateral pleural effusions. Chronic since at least 05/2022. Patient has refused thoracentesis. 5. Bilateral lower lobe bronchial mucus plugging. Still not expectorating despite Mucomyst. Acute desaturation last night - question mucus plug migration. Will add IPV. ? if she would tolerate a vest. 6. Acute kidney failure on top of chronic kidney disease. CVP 20 - increased intravascular volume - IVF held. Creatinine increased today however. Will await nephrology recommendations. 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 8. Afib with RVR. Currently irregularly irregular, rate-controlled. Plan Patient is still ill requiring increased O2 administration. Still requiring BiPAP on/off. Subjective Subjective Interval history: Patient seems to be slightly better than yesterday. Sometimes is uncomfortable with BiPAP, but is trying to wear it through the night/day. On Vapotherm currently - FiO2 down to 50%. IVF held - Lasix administered last evening, ~1400mL out. Tele-nephrology consulted. She states she has less dyspnea, but still cannot expectorate well. Exam Constitutional Vital Signs, click to edit/add: Last Vital Signs Temp 97.6 F 06/14/23 00:00 Pulse 91 H 06/14/23 06:00 Resp 37 H 06/14/23 05:00 BP 129/73 06/14/23 06:02 Pulse Ox 98 06/14/23 05:40 O2 Del Method Vapotherm 06/14/23 04:35 O2 Flow Rate 40 06/14/23 04:30 FiO2 50 06/14/23 05:40 Documenting provider has reviewed patient's vital signs: yes General appearance: not in distress (Respiratory status/breathing is less labored this morning) HENHI Other: Wearing Vapotherm Chest Common normals: inspection of chest normal Respiratory Other: Decreased rales. Cough not as rhonchorous. No wheezes. Breathing not as labored as yesterday. Cardio Other: Irregularly irregular, rate-controlled GI Inspection: normal to inspection Back & Pelvis Thoracic spine/upper back: kyphosis present (Moderate) Extremity Other: Decreased BLE edema - non-pitting today. LUE chronic lymphedema, still appears edematous. Neuro Sensorium/orientation: awake and alert Psych Appearance: grossly normal Attitude: calm Urinary Catheter Management Urinary Catheter Management Urethral: Insertion date: 06/13/23 Insertion time: 09:13
[2023-06-14] MEDS: ACETYLCYSTEINE 400 MG/4 ML VIAL 100 MG IH ×3 (08:21→20:06)
[2023-06-14] MEDS: SODIUM CHLORIDE 3% INHALATION 15 ML NEB 6 ML IH ×3 (08:21→20:07)
[2023-06-14] MEDS: IPRATROPIUM/ALBUTEROL SULFATE 3 ML AMPUL.NEB IH ×3 (08:21→20:06)
[2023-06-14] MEDS: INSULIN ASPART 300 UNIT/3 ML PEN SUBQ ×3 (08:35→22:00)
[2023-06-14] MEDS: LEVOFLOXACIN IN DEXTROSE 5 % 500 MG/100 ML PIGGYBACK 100 MG IV (08:36)
[2023-06-14] MEDS: ATORVASTATIN CALCIUM 40 MG TABLET PO (08:36)
[2023-06-14] MEDS: CETIRIZINE HCL 10 MG TABLET PO (08:37)
[2023-06-14] MEDS: APIXABAN 5 MG TABLET 2.5 MG PO ×2 (08:37→21:29)
[2023-06-14] MEDS: METOPROLOL TARTRATE 50 MG TABLET PO (08:37)
[2023-06-14] MEDS: MAGNESIUM OXIDE 400 MG TABLET PO (08:37)
[2023-06-14] MEDS: CHOLECALCIFEROL (VITAMIN D3) 25 MCG/1,000 UNITS TABLET 50 MCG PO (08:37)
[2023-06-14] MEDS: POTASSIUM CHLORIDE 10 MEQ ER TABLET PO (08:37)
[2023-06-14] MEDS: ENSURE HP 237 ML LIQUID PO ×2 (08:42→15:14)
--- NOTE | 2023-06-14 09:05 | P.PN_ITS ---
Progress Note: Subjective Subjective Interval history: Tolerated the BiPAP for a little bit last night. Does feel more comfortable on the Vapotherm. Her numbers are little bit better on the BiPAP however. She does look much better today than the previous day. Still with significant dyspnea and generalized weakness Exam Constitutional Vital Signs, click to edit/add: Last Vital Signs Temp 97.6 F 06/14/23 00:00 Pulse 88 06/14/23 08:41 Resp 20 06/14/23 08:00 BP 129/73 06/14/23 06:02 Pulse Ox 96 06/14/23 08:41 O2 Del Method Vapotherm 06/14/23 08:41 O2 Flow Rate 40 06/14/23 08:41 FiO2 50 06/14/23 08:41 Documenting provider has reviewed patient's vital signs: yes Common normals: no apparent distress Exam limitations: no altered mental status General appearance: cooperative; not comfortable HENMT Common normals: normocephalic Chest Common normals: inspection of chest normal Other: Thoracic kyphosis Respiratory Common normals: no use of accessory muscles; abnormal respiratory effort (Apnea) and not clear to ascultation bilaterally Auscultation: rales and rhonchi Cardio Common normals: no murmurs Rate: tachycardic Rhythm: abnormal rhythm Other: Irregularly irregular, but rate-controlled GI Common normals: Normal to inspection, nondistended, normoactive bowel sounds present, soft to palpation, non-tender, no hepatosplenomegaly and no masses Inspection: normal to inspection Extremity Common normals: clubbing, cyanosis or edema (Still plus edema) Neuro Sensorium/orientation: awake and alert Psych Attitude: calm Speech: normal speech Progress Note: Objective Labs Labs: Short CBC 06/13/23 06/14/23 Range/Units 15:44 03:40 WBC 9.6 8.3 (4.0-11.0) 10^3/uL Hgb 9.2 L 9.2 L (12.0-16.0) g/dL Hct 31.0 L 31.0 L (36.0-48.0) % Plt Count 124 L 119 L (150-450) 10^3/uL BMP 06/13/23 06/13/23 06/14/23 11:00 15:44 03:40 Sodium 145 145 146 H Potassium 5.0 5.2 H 4.8 Chloride 111 H 112 H 112 H Carbon Dioxide 26.4 26.9 28.9 BUN 54.0 H 55.0 H 60.0 H Creatinine 2.32 H 2.24 H 2.37 H Glucose 180 H 228 H 180 H Calcium 8.3 L 8.6 9.0 Cardiac Enzymes 06/13/23 Range/Units 11:00 Total Creatine Kinase 212 H (26-192) U/L CK-MB (CK-2) 7.66 H* (<=3.60) ng/mL Liver Function 06/14/23 Range/Units 03:40 Total Bilirubin 0.5 (0.2-1.0) mg/dL AST 35 (15-37) U/L ALT 45 (14-59) U/L Alkaline Phosphatase 56 (46-116) U/L Albumin 2.2 L (3.4-5.0) g/dL Progress Note: A&P Assessment and Plan (1) RSV (respiratory syncytial virus pneumonia): (2) Atrial fibrillation with RVR: (3) Elevated troponin: (4) Abdominal pain: (5) Stage 3a chronic kidney disease: (6) Type 2 diabetes mellitus with hyperglycemia: (7) Hypothyroidism: (8) HTN (hypertension): (9) Bilateral pleural effusion: (10) Edema: (11) Moderate protein-calorie malnutrition: (12) Iron deficiency anemia: (13) Hypomagnesemia: (14) Acute UTI: (15) Cholelithiasis: Plan (1) Atrial fibrillation with RVR: Atrial fibrillation rapid ventricular response with dyspnea secondary to 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 Continue to hold Lanoxin today. Heart rate is still excellent but Lanoxin level is high (2) Elevated troponin secondary to demand [id number] on echo- elevated today, consult to cardiology-see note (3) Abdominal pain: No significant tenderness currently. She does have gallstones (4) Stage 3a chronic kidney disease: Deteriorated today. She receives a dose of Lasix yesterday. Consult to telemetry nephrology (5) Type 2 diabetes mellitus with hyperglycemia: Insulin sliding scale (6) Hypothyroidism: Consider repeat labs (7) HTN (hypertension):-Stable (8) Bilateral pleural effusion: Acute hypoxia with O2 saturations of 85% likely secondary to bilateral pleural effusions and complicated by her acute combined congestive heart failure-and now complicated by acute aspiration pneumonia. Mohan rivera current antibiotics, consult to pulmonology (9) Edema: Slight edema today. Compression hose in place (10) Moderate protein-calorie malnutrition: Patient not eating well. Continue to encourage (11) Iron deficiency anemia: Hemoglobin improved slightly today (12) Hypomagnesemia: Supplement, monitor (13) Acute UTI: on antibiotics (14) Cholelithiasis: Currently no symptoms (15) RSV bronchiolitis-steroids and antibiotics. Frequent breathing treatments. Complicated by the aspiration pneumonia. Continue with current treatment plan, see consultation with pulmonology (16) aspiration pneumonia-on IV antibiotics, will white blood cell count is improving Plan Maintaining again likely 2-3 more day hospitalization with the aspiration pneumonia if patient is slow to improve. Discussed options of transferring, patient would prefer to stay here, discussed options of CODE STATUS and patient would be DNR-cc-A, no intubation-also discussed with her she is likely need placement after this she is extremely weak. Patient agreeable to only start the process ? Urinary Catheter Management Urinary Catheter Management Urethral: Cath placed during this visit: yes Urethral indwelling: Yes Reason for continuing: acute urinary retention Insertion date: 06/13/23 Insertion time: 09:13
--- NOTE | 2023-06-14 09:35 | CM.NOTE ---
Rounds made with Dr. Hidalgo. Encouraged Yaritza to wear the BiPap as much as possible. Yaritza verbalizes understanding. No discharge today.
--- NOTE | 2023-06-14 09:57 | SWNOTE1 ---
BRENDA spoke with daughter, [place]/. BRENDA explained to her that pt will likely need rehab if she continues to improve and is able to be weaned off high flow oxygen/bipap. Pt is agreeable for BRENDA to send information to a facility, but she does not have a preference. BRENDA reviewed list from medicare.gov with pt's daughter. She stated she prefers a 5 star rated facility, but she would like to review the list. Daughter plans on coming around 1/2pm. BRENDA left list from medicare.gov with star ratings in the room for daughter.
--- NOTE | 2023-06-14 11:25 | PT.DAILY ---
Physical Therapy Daily Note PT Daily Note/Assess Start: 06/12/23 12:47 Freq: Status: Active Protocol: Document 06/14/23 10:35 ABBY (Rec: 06/14/23 11:24 ABBY [id number]) Physical Therapy Daily Note/Assessment Time In/Time Out Time In 10:35 Time Out 10:52 Pain In Pain N/A Pain Out Pain N/A Subjective Subjective Patient reports, I think I feel better today. Nursing reports patient is up in chair on vapo-therm, okay to exercise, but does de-stat quickly. Respiratory will be coming up to patient back on Bi-Pap shortly but wishes for patient to stay up in chair as her breathing does seem improved in chair vs. bed. Patient also verbalizes wanting to stay in chair, agrees to exercises. Therapeutic Exercise Time Therapeutic Exercise Minutes (minutes) 10 Therapeutic Exercise Units 1 Therapeutic Exercise Treatment Therapeutic Exercise Treatment Exercises completed in both long sitting and dependent seated position with isometrics and AROM. Patient is on 60 percent vapo-therm and SPO2 maintains between 86- 90 percent with exercise program. Total Physical Therapy Time Total Therapy Minutes 10 Total Physical Therapy Units 1 Summary Daily Note Summary Patient now on vapo-therm, does de-stat with activity, but is able to recover. Patient up in chair, and does work hard with PT and exercise program. No ambulation this date as patient on vapo-therm, and RT enters room to place patient on Bi-Pap post exercise program today.
[2023-06-14 12:25] LABS: Glucometer 255 mg/dL (74-106)
[2023-06-14] MEDS: HEPARIN SODIUM,PORCINE/NS/PF 1,000 UNIT/500 ML IV.SOLN 10 UNIT IV (15:13)
--- NOTE | 2023-06-14 15:48 | SWNOTE1 ---
SW spoke with pt's daughter and son in law in regards to SNF facilities. They reviewed list from medicare.gov with star ratings and they have decided [facility] as first choice and [facility] as second. BRENDA sent referral to [facility]. Referral included face sheet, physician notes, labs, PT/OT, diagnostic imaging, vitals, nursing notes, and med list.
[2023-06-14 17:26] LABS: Glucometer 136 mg/dL (74-106)
[2023-06-14] MEDS: PANTOPRAZOLE SODIUM 40 MG VIAL IV (21:30)
[2023-06-14 21:36] LABS: Glucometer 237 mg/dL (74-106)
[2023-06-15] VITALS (44 sets, daily range): BP systolic 108–131; BP diastolic 70–104; PULSE 71–113; RESP 12–34; TEMP 36.3–36.5; O2SAT 85–99
--- NOTE | 2023-06-15 00:02 | RESP.RT ---
patient refused bipap at this time
[2023-06-15] MEDS: METHYLPREDNISOLONE SOD SUCC PF 125 MG/2 ML VIAL 40 MG IVP ×4 (04:00→21:02)
[2023-06-15] MEDS: PIPERACILLIN SODIUM/TAZOBACTAM 3.375 GM in 0.9 % SODIUM CHLORIDE 50 ML IV ×2 (05:11→16:17)
[2023-06-15] MEDS: DILTIAZEM HCL 60 MG TABLET PO ×3 (05:54→21:03)
[2023-06-15] MEDS: LEVOTHYROXINE SODIUM 75 MCG TABLET PO (05:55)
[2023-06-15 06:02] LABS: Digoxin 1.9 ng/mL (0.9-2.0)
[2023-06-15 06:05] LABS: Magnesium 2.1 mg/dL (1.8-2.4)
[2023-06-15 06:09] LABS: Troponin I High Sensitivity 123.5 pg/mL (4.0-51.3)
[2023-06-15 07:48] LABS: Glucometer 237 mg/dL (74-106)
--- NOTE | 2023-06-15 08:28 | P.PN_ITS ---
Progress Note: Subjective Subjective Interval history: On Vapotherm all night, she does feel like she is breathing somewhat better today. Exam Constitutional Vital Signs, click to edit/add: Last Vital Signs Temp 97.3 F L 06/15/23 07:00 Pulse 94 H 06/15/23 07:48 Resp 20 06/15/23 07:48 BP 131/92 H 06/15/23 05:54 Pulse Ox 96 06/15/23 07:48 O2 Del Method Vapotherm 06/15/23 04:05 O2 Flow Rate 40 06/15/23 04:05 FiO2 60 06/15/23 04:05 Documenting provider has reviewed patient's vital signs: yes Common normals: no apparent distress Exam limitations: no altered mental status General appearance: cooperative; not comfortable HENMT Common normals: normocephalic Chest Common normals: inspection of chest normal Other: Thoracic kyphosis Respiratory Common normals: no use of accessory muscles; abnormal respiratory effort (Apnea) and not clear to ascultation bilaterally Auscultation: rales and rhonchi Cardio Common normals: no murmurs Rate: tachycardic Rhythm: abnormal rhythm Other: Irregularly irregular, but rate-controlled GI Common normals: Normal to inspection, nondistended, normoactive bowel sounds present, soft to palpation, non-tender, no hepatosplenomegaly and no masses Inspection: normal to inspection Extremity Common normals: clubbing, cyanosis or edema (Still plus edema) Neuro Sensorium/orientation: awake and alert Psych Attitude: calm Speech: normal speech Progress Note: A&P Assessment and Plan (1) RSV (respiratory syncytial virus pneumonia): (2) Atrial fibrillation with RVR: (3) Elevated troponin: (4) Abdominal pain: (5) Stage 3a chronic kidney disease: (6) Type 2 diabetes mellitus with hyperglycemia: (7) Hypothyroidism: (8) HTN (hypertension): (9) Bilateral pleural effusion: (10) Edema: (11) Moderate protein-calorie malnutrition: (12) Iron deficiency anemia: (13) Hypomagnesemia: (14) Acute UTI: (15) Cholelithiasis: Plan (1) Atrial fibrillation with RVR: Atrial fibrillation rapid ventricular response with dyspnea secondary to 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 Lanoxin level down to normal, will restart half of the previous dose (2) Elevated troponin secondary to demand ischemia-continues to elevate, check with cardiology, still likely demand ischemia from the above (3) Abdominal pain: No significant tenderness currently. She does have gallstones (4) Stage 3a chronic kidney disease: Awaiting tele nephrology input, consider repeat dose of Lasix (5) Type 2 diabetes mellitus with hyperglycemia: Insulin sliding scale (6) Hypothyroidism: Consider repeat labs L(7) HTN (hypertension):-Stable (8) Bilateral pleural effusion: Acute hypoxia with O2 saturations of 85% likely secondary to bilateral pleural effusions and complicated by her acute combined congestive heart failure-and now complicated by acute aspiration pneumonia. Maintain current antibiotics, consult to pulmonology (9) Edema: Slight edema today. Compression hose in place (10) Moderate protein-calorie malnutrition: Continue to encourage patient to eat better. Needs increased protein to help colon fluid. (11) Iron deficiency anemia: Hemoglobin improved slightly today (12) Hypomagnesemia: Supplement, monitor (13) Acute UTI: on antibiotics (14) Cholelithiasis: Currently no symptoms (15) RSV bronchiolitis-steroids and antibiotics. Frequent breathing treatments. Complicated by the aspiration pneumonia. Continue with current treatment plan, see consultation with pulmonology (16) aspiration pneumonia-on IV antibiotics, will white blood cell count is improving Plan Patient still likely 2-3 more day hospitalization with the aspiration pneumonia with no dramatic improvement in the last 2 days.. Discussed options of transferring, patient would prefer to stay here, discussed options of CODE STATUS and patient would be DNR-cc-A, no intubation-also discussed with her she is likely need placement after this she is extremely weak. Patient agreeable to only start the process ? Urinary Catheter Management Urinary Catheter Management Urethral: Cath placed during this visit: yes Urethral indwelling: Yes Reason for continuing: measure accurate output Insertion date: 06/13/23 Insertion time: 09:13
--- NOTE | 2023-06-15 08:35 | CM.NOTE ---
Rounds made with Dr. Hidalgo. Remains on Vapotherm. No discharge today.
--- NOTE | 2023-06-15 08:45 | XR_ITS ---
The [address] [address] Patient Name: BETTY ALCALA MRN: [id number] date: 1935 Sex: F Assigned Patient Location: ICU Current Patient Location: ICU Accession/Order Number: [id number] Exam Date: 06/15/2023 08:40 Report Date: 06/15/2023 08:58 At the request of: CHIRAG IBANEZ Procedure: XR chest 1V EXAM: XR chest 1V HISTORY: hypoxia COMPARISON: Chest study dated 06/13/2023 TECHNIQUE: AP view of the chest was obtained with portable technique at 8:36 AM. FINDINGS: Heart is mildly enlarged. Moderately prominent interstitial and airspace density primarily in the mid and lower lung field regions bilaterally compatible with edema related to congestive changes and/or infiltrates. Moderate right pleural effusion currently with small left pleural effusion inferiorly. Mild degenerative changes in the dorsal spine. Partially visualized left shoulder prosthesis is noted. Evidence of prior rib resection on the right superiorly. XR/XR chest 1V IMPRESSION: Mild cardiomegaly. Congestive and/or infiltrative changes with bilateral pleural effusions as noted. Findings appear similar on the right and mildly progressed on the left. Electronically authenticated by: OJ SHEPPARD Date: 06/15/2023 08:58
[2023-06-15] MEDS: INSULIN ASPART 300 UNIT/3 ML PEN SUBQ ×3 (08:52→21:06)
[2023-06-15 09:00] LABS: Hematocrit 29.5 % (36.0-48.0); Hemoglobin 8.7 g/dL (12.0-16.0); Mean Corpuscular HGB Conc 29.5 g/dL (29.9-35.2); Mean Corpuscular Hemoglobin 31.9 pg (26.7-34.0); Mean Corpuscular Volume 108.1 fL (81.0-99.0); Mean Platelet Volume 10.8 fL (9.5-13.5); Platelet Count 96 10^3/uL (150-450); Red Blood Count 2.73 10^6/uL (4.20-5.40); Red Cell Distribution Width 16.7 % (11.0-15.0); White Blood Count 6.4 10^3/uL (4.0-11.0)
[2023-06-15 09:05] LABS: Alanine Aminotransferase 46 U/L (14-59); Albumin Globulin Ratio 0.8; Albumin Level 2.4 g/dL (3.4-5.0); Alkaline Phosphatase 51 U/L (46-116); Aspartate Amino Transferase 28 U/L (15-37); BUN Creatinine Ratio 27.3; Bilirubin Total 0.4 mg/dL (0.2-1.0); Calcium 8.9 mg/dL (8.5-10.1); Carbon Dioxide 26.4 mmol/L (21.0-32.0); Chloride 111 mmol/L (98-107); Estimated GFR (African America 23 (>=60); Estimated GFR (Non-African Ame 19 (>=60); Globulin 3.2 g/dL; Glucose 195 mg/dL (74-106); Potassium 4.4 mmol/L (3.5-5.1); Sodium 150 mmol/L (136-145); Total Protein 5.6 g/dL (6.4-8.2)
[2023-06-15] MEDS: ENSURE HP 237 ML LIQUID PO ×2 (09:18→15:56)
[2023-06-15] MEDS: CHOLECALCIFEROL (VITAMIN D3) 25 MCG/1,000 UNITS TABLET 50 MCG PO (09:19)
[2023-06-15] MEDS: POTASSIUM CHLORIDE 10 MEQ ER TABLET PO (09:19)
[2023-06-15] MEDS: MAGNESIUM OXIDE 400 MG TABLET PO (09:19)
[2023-06-15] MEDS: METOPROLOL TARTRATE 50 MG TABLET PO ×2 (09:19→21:03)
[2023-06-15] MEDS: ATORVASTATIN CALCIUM 40 MG TABLET PO (09:19)
[2023-06-15] MEDS: ACETYLCYSTEINE 400 MG/4 ML VIAL 100 MG IH ×3 (09:19→20:47)
[2023-06-15] MEDS: DIGOXIN 125 MCG TABLET PO (09:20)
[2023-06-15] MEDS: CETIRIZINE HCL 10 MG TABLET PO (09:20)
[2023-06-15] MEDS: IPRATROPIUM/ALBUTEROL SULFATE 3 ML AMPUL.NEB IH ×3 (09:20→20:47)
[2023-06-15] MEDS: SODIUM CHLORIDE 3% INHALATION 15 ML NEB 6 ML IH ×3 (09:20→20:47)
[2023-06-15 09:44] LABS: Lymphocytes Absolute Manual 0.06 10^3/uL (1.20-3.80); Monocytes Absolute Manual 0.12 10^3/uL (0.30-0.80)
--- NOTE | 2023-06-15 09:44 | SWNOTE1 ---
BRENDA had email from [facility]. They would not review referral at this time, pt is still on vapotherm. Will re-assess Sunday. SW did notify doctor.
[2023-06-15 09:45] LABS: Anisocytosis 1+; Poikilocytosis 1+
[2023-06-15 09:46] LABS: Tear Drop Cells 1+
--- NOTE | 2023-06-15 10:34 | PT.DAILY ---
Physical Therapy Daily Note PT Daily Note/Assess Start: 06/12/23 12:47 Freq: Status: Active Protocol: Document 06/15/23 09:45 ABBY (Rec: 06/15/23 10:34 ABBY [id number]) Physical Therapy Daily Note/Assessment Time In/Time Out Time In 09:45 Time Out 10:05 Subjective Subjective Feeling better. Still on Vapo- therm. Up in chair, more comfortable in chair, reports had a rough night in bed last night. Therapeutic Exercise Time Therapeutic Exercise Minutes (minutes) 15 Therapeutic Exercise Units 1 Therapeutic Exercise Treatment Therapeutic Exercise Treatment Exercises completed in both long sitting and dependent seated position with isometrics and AROM. Patient is on 60 percent vapo-therm and SPO2 maintains between 94- 96 percent with exercise program. Therapeutic Activity Time Therapeutic Activity Minutes (minutes) 5 Therapeutic Activity Units 0 Therapeutic Activity Treatment Chair Transfer Ability Standby Assistance Therapeutic Activity Comments Sit to stand x 3 from chair SBA. Static stand about 30 seconds each stand at RW. SPO2 maintained above 90 percent on 60 percent vapo-therm. Total Physical Therapy Time Total Therapy Minutes 20 Total Physical Therapy Units 1 Summary Daily Note Summary Showing improvement with strength and ability to keep SPO2 in safe ranges with activity today. Still on 60 percent vapo-therm.
--- NOTE | 2023-06-15 10:34 | PC.NURSE ---
Called telenephrology, was told we are not on the schedule for today. Dr. Hidalgo and nursing group home supervisor informed.
[2023-06-15 12:14] LABS: Glucometer 221 mg/dL (74-106)
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
[2023-06-15] MEDS: FUROSEMIDE 40 MG/4 ML VIAL 80 MG IVP (14:08)
[2023-06-15] MEDS: HEPARIN SODIUM,PORCINE/NS/PF 1,000 UNIT/500 ML IV.SOLN 10 UNIT IV (14:08)
--- NOTE | 2023-06-15 14:57 | SWNOTE1 ---
Updates were sent to [facility] for review on Sunday. Updates included vitals, physician notes, labs, PT/OT, med list, and nursing notes.
[2023-06-15 16:10] LABS: Glucometer 167 mg/dL (74-106)
[2023-06-15] MEDS: METOLAZONE 2.5 MG TABLET 5 MG PO (21:02)
[2023-06-15] MEDS: PANTOPRAZOLE SODIUM 40 MG VIAL IV (21:03)
[2023-06-15 21:06] LABS: Glucometer 200 mg/dL (74-106)
[2023-06-16] VITALS (46 sets, daily range): BP systolic 108–152; BP diastolic 74–98; PULSE 68–108; RESP 17–41; TEMP 36.4–36.8; O2SAT 86–100
[2023-06-16] MEDS: METHYLPREDNISOLONE SOD SUCC PF 125 MG/2 ML VIAL 40 MG IVP ×4 (04:57→21:21)
[2023-06-16] MEDS: LEVOTHYROXINE SODIUM 75 MCG TABLET PO (05:11)
[2023-06-16] MEDS: DILTIAZEM HCL 60 MG TABLET PO (05:11)
[2023-06-16] MEDS: PIPERACILLIN SODIUM/TAZOBACTAM 3.375 GM in 0.9 % SODIUM CHLORIDE 50 ML IV (05:11)
[2023-06-16 06:14] LABS: Hematocrit 29.8 % (36.0-48.0); Hemoglobin 9.1 g/dL (12.0-16.0); Immature Granulocytes Abs Auto 0.03 10^3/uL (0.00-0.03); Immature Granulocytes Pct Auto 0.6 % (0.0-0.5); Lymphocytes Absolute Auto 0.1 10^3/uL (1.2-3.8); Lymphocytes Percent Auto 1.2 % (20.5-60.0); Mean Corpuscular HGB Conc 30.5 g/dL (29.9-35.2); Mean Corpuscular Hemoglobin 32.4 pg (26.7-34.0); Mean Platelet Volume 10.6 fL (9.5-13.5); Monocytes Absolute Auto 0.2 10^3/uL (0.3-0.8); Monocytes Percent Auto 3.5 % (1.7-12.0); Neutrophils Absolute Auto 4.6 10^3/uL (1.4-6.5); Neutrophils Percent Auto 94.7 % (43.0-75.0); Platelet Count 84 10^3/uL (150-450); Red Blood Count 2.81 10^6/uL (4.20-5.40); Red Cell Distribution Width 16.4 % (11.0-15.0); White Blood Count 4.9 10^3/uL (4.0-11.0)
[2023-06-16 06:39] LABS: Magnesium 2.2 mg/dL (1.8-2.4)
[2023-06-16 06:44] LABS: Alanine Aminotransferase 44 U/L (14-59); Albumin Globulin Ratio 0.7; Albumin Level 2.4 g/dL (3.4-5.0); Alkaline Phosphatase 55 U/L (46-116); Anion Gap 8.6; Aspartate Amino Transferase 29 U/L (15-37); BUN Creatinine Ratio 29.4; Bilirubin Total 0.7 mg/dL (0.2-1.0); Calcium 9.2 mg/dL (8.5-10.1); Chloride 110 mmol/L (98-107); Estimated GFR (African America 27 (>=60); Estimated GFR (Non-African Ame 22 (>=60); Globulin 3.6 g/dL; Glucose 220 mg/dL (74-106); Potassium 3.6 mmol/L (3.5-5.1); Sodium 153 mmol/L (136-145)
[2023-06-16 06:46] LABS: Troponin I High Sensitivity 161.8 pg/mL (4.0-51.3)
[2023-06-16 07:33] LABS: Glucometer 226 mg/dL (74-106)
[2023-06-16] MEDS: INSULIN ASPART 300 UNIT/3 ML PEN SUBQ ×3 (07:35→21:22)
[2023-06-16] MEDS: CETIRIZINE HCL 10 MG TABLET PO (08:35)
[2023-06-16] MEDS: ATORVASTATIN CALCIUM 40 MG TABLET PO (08:35)
[2023-06-16] MEDS: ENSURE HP 237 ML LIQUID PO ×2 (08:35→15:53)
[2023-06-16] MEDS: MAGNESIUM OXIDE 400 MG TABLET PO (08:36)
[2023-06-16] MEDS: METOPROLOL TARTRATE 50 MG TABLET PO ×2 (08:36→20:07)
[2023-06-16] MEDS: POTASSIUM CHLORIDE 10 MEQ ER TABLET PO (08:36)
[2023-06-16] MEDS: CHOLECALCIFEROL (VITAMIN D3) 25 MCG/1,000 UNITS TABLET 50 MCG PO (08:36)
[2023-06-16] MEDS: LEVOFLOXACIN IN DEXTROSE 5 % 500 MG/100 ML PIGGYBACK 100 MG IV (08:40)
[2023-06-16] MEDS: IPRATROPIUM/ALBUTEROL SULFATE 3 ML AMPUL.NEB IH ×2 (09:55→15:47)
[2023-06-16] MEDS: SODIUM CHLORIDE 3% INHALATION 15 ML NEB 6 ML IH ×3 (09:55→20:57)
[2023-06-16] MEDS: ACETYLCYSTEINE 400 MG/4 ML VIAL 100 MG IH ×3 (09:55→20:57)
--- NOTE | 2023-06-16 09:56 | PM.NEPPN ---
Progress Note: A&P Assessment and Plan (1) RSV (respiratory syncytial virus pneumonia): (2) Atrial fibrillation with RVR: (3) Elevated troponin: (4) Abdominal pain: (5) Moderate protein-calorie malnutrition: (6) Iron deficiency anemia: (7) Hypomagnesemia: (8) Acute UTI: (9) Cholelithiasis: Plan Acute kidney injury likely ATN related to hemodynamics, AFib RVR CKD 3a baseline Cr around 1.3 mg/dL related to nephrosclerosis Acute respiratory failure related to Acute on chronic diastolic CHF, bilateral pleural effusions Anasarca Afib Hypernatremia related to poor free water intake and loop diuretics RSV + -Will continue diuretics as Cr better. Given worsening Na, will only use metolazone 5 mg x 2 doses today and follow BMP in AM. -Pt is DNR-CCA, no dialysis plans. Will give symptomatic relief with diuretics while ensuring renal function not worsening -continue toprol 50 mg bid po, heart rate relatively well controlled Televisit done after pt consent and with assistance of RN. Pt located at [place], [place] and provider at [place], [place]. Subjective Subjective Interval history: 2.4 L urine output overnight, good response to restarting diuretics, Cr down to 2.1 today. no nausea, vomiting. Remains on vapotherm 40L/50% and alternating with BIPAP. Completed physical therapy today. Not eating much, drinking fluids. No vomiting or diarrhea. No chest pain or palpitations. All other systems reviewed and negative. Exam Narrative: Exam Narrative: General appearance: appears stated age, not in acute distress HEENT: head atraumatic and normocephalic, no icterus, pallor+ Chest:Air entry decreased at bases, scatterer rhonchi Heart: S1S2 nl, no murmurs, normal rate, irregular heart rate around 90/min Extremities: lower extremity edema 1+ Abd: soft, non distended Neuro: Alert, awake, oriented and communicative, answering qns Skin: no visible rash Constitutional: Vital Signs, click to edit/add: Last Vital Signs Temp 98.0 F 06/16/23 07:59 Pulse 75 06/16/23 09:37 Resp 20 06/16/23 09:37 BP 150/89 H 06/16/23 07:27 Pulse Ox 98 06/16/23 09:37 O2 Del Method Vapotherm 06/16/23 06:20 O2 Flow Rate 40 06/16/23 05:30 FiO2 60 06/16/23 05:30 Urinary Catheter Management Urinary Catheter Management Urethral: Cath placed during this visit: yes Urethral indwelling: Yes Reason for continuing: ICU pt on diuretics Insertion date: 06/13/23 Insertion time: 09:13
[2023-06-16] MEDS: OMEPRAZOLE 40 MG CAPSULE.DR PO (11:11)
[2023-06-16 11:19] LABS: Glucometer 231 mg/dL (74-106)
--- NOTE | 2023-06-16 11:57 | REH.PTDLY ---
Physical Therapy Daily Note PT Daily Note/Assess Start: 06/12/23 12:47 Freq: Status: Active Protocol: Document 06/16/23 10:20 ADRIANA (Rec: 06/16/23 11:30 ADRIANA [id number]) Physical Therapy Daily Note/Assessment Time In 10:12 Time Out 10:21 Subjective Pt just finished breathing rx and waiting on teleneuro consult. Agreeable to therapy in mean time. Pt is on vapotherm at 50%, but nursing states she needs to go back on bipap soon. Therapeutic Exercise Minutes (minutes) 8 Therapeutic Exercise Units 1 Therapeutic Exercise Treatment Pt performs BLE supine exs 10x ea with exs including AP, QS, GS, heel slides, SLR, and hip abd slides. Short rest break taken as SPO2 drops, however it seems to be a bad read nursing states as it jumps back up into 90s once adjusted . Pt declines getting into chair at this time. Total Therapy Minutes 8 Total Physical Therapy Units 1 Daily Note Summary Supine exs only today per pt request. Does well with AROM exs with B LE exs. Still alternating between vapotherm and bipap.
--- NOTE | 2023-06-16 12:21 | P.IMPN_ITS ---
Progress Note: A&P Assessment and Plan (1) Acute respiratory failure with hypoxia: Assessment and Plan: due to viral PNA and acute on chronic diastolic HF. On high flow, still requiring 50% FiO2. Cw diuresis, pulm toilet, wean off Ox as tolerated. (2) Acute on chronic diastolic (congestive) heart failure: Assessment and Plan: Metolazone as per nephrology. Avoiding loop diuretics due to hypernatremia. (3) RSV (respiratory syncytial virus pneumonia): Assessment and Plan: Supportive care. Aggressive Pulm toilet. (4) Atrial fibrillation with RVR: Assessment and Plan: Rate controlled. C/w Eliquis and Toprol. (5) Elevated troponin: Assessment and Plan: Likely due to renal insufficiency, acute illness. Monitor. Consider outpatient ischemic w/u (6) SYLVIA (acute kidney injury): Assessment and Plan: due to acute congestive HF. Improving with diuresis. (7) Abdominal pain: Assessment and Plan: Resolved. Unclear etiology. (8) Hypernatremia: Assessment and Plan: due to free water deficit. encouraged to dirnk water. lasix held due to hypernatremia. on metolazone and it possibly might help with it too. (9) Acute UTI: Assessment and Plan: No growth on urine cx - stop levaquin (10) Cholelithiasis: Assessment and Plan: Likely incidental finding. Will defer to outpatient for further work up Qualifiers: Cholelithiasis location: gallbladder Cholecystitis presence: without cholecystitis Biliary obstruction: without biliary obstruction Qualified Code(s): K80.20 - Calculus of gallbladder without cholecystitis without obstruction (11) Type 2 diabetes mellitus: Assessment and Plan: On metformin as outpatient. SSI while in patient. Qualifiers: Diabetes mellitus medical terminologist insulin use: without care home use Diabetes mellitus complication status: with kidney complications Diabetes mellitus complication detail: with chronic kidney disease Chronic kidney disease stage 3 subtype: stage 3a (GFR 45-59) (12) CKD stage 3 due to type 2 diabetes mellitus: Assessment and Plan: due to HTN and T2 DM. Now has SYLVIA. Npehrology on board. (13) Anemia: Assessment and Plan: Macroycytic anemia, more or less at baseline. Check iron profile, b12, folate. (14) Moderate protein-calorie malnutrition: Assessment and Plan: Poor PO intake, on Ensure (15) Hypothyroidism: Assessment and Plan: Cw synthyroid. (16) HTN (hypertension): Assessment and Plan: Stable, controlled. C/w Lopressor. Internal Medicine - PN: Subj Subjective Interval history: Seen and examined. Lethargic and appears tired. No overnight events. Good UO with diuretics. Appreciate nephrology recs. Exam Constitutional Vital Signs, click to edit/add: Last Vital Signs Temp 97.5 F L 06/16/23 11:39 Pulse 77 06/16/23 11:39 Resp 21 06/16/23 11:30 BP 145/80 H 06/16/23 11:25 Pulse Ox 98 06/16/23 11:39 O2 Del Method Vapotherm 06/16/23 09:56 O2 Flow Rate 40 06/16/23 09:56 FiO2 50 06/16/23 09:56 Documenting provider has reviewed patient's vital signs: yes Common normals: no apparent distress and oriented x3 General appearance: cooperative Respiratory Effort & inspection: able to speak in complete sentences and tachypneic Auscultation: diminished lung sounds Cardio Common normals: regular rate, S1 normal heart sound and S2 normal heart sound Rate: regular rate Heart sounds: S1 normal and S2 normal Extremity Common normals: no calf tenderness General: edema Neuro Common normals: oriented x3, moves all extremities and no focal motor deficits Psych Common normals: mental status grossly normal, denies hallucinations, denies homicidal ideation and denies suicidal ideation Internal Medicine - PN: Obj Da Labs Labs: Laboratory Results - last 24 hr 06/15/23 06/15/23 06/16/23 15:59 21:05 05:50 WBC 4.9 RBC 2.81 L Hgb 9.1 L Hct 29.8 L MCV 106.0 H MCH 32.4 MCHC 30.5 RDW 16.4 H Plt Count 84 L MPV 10.6 Neut % (Auto) 94.7 H Lymph % (Auto) 1.2 L [place] % (Auto) 3.5 Eos % (Auto) 0.0 L Baso % (Auto) 0.0 L Neut # (Auto) 4.6 Lymph # (Auto) 0.1 L [place] # (Auto) 0.2 L Eos # (Auto) 0.0 Baso # (Auto) 0.0 Abs Immat Gran (auto) 0.03 Imm/Tot Granulo (auto) 0.6 H Sodium 153 H Potassium 3.6 Chloride 110 H Carbon Dioxide 38.0 H Anion Gap 8.6 BUN 62.0 H Creatinine 2.11 H Est GFR ( Amer) 27 L Est GFR (Non-Af Amer) 22 L BUN/Creatinine Ratio 29.4 Glucose 220 H Calcium 9.2 Magnesium 2.2 Total Bilirubin 0.7 AST 29 ALT 44 Alkaline Phosphatase 55 Troponin I High Sens 161.8 H* NT-Pro-B Natriuret Pep 8903.0 H* Total Protein 6.0 L Albumin 2.4 L Globulin 3.6 Albumin/Globulin Ratio 0.7 Digoxin 2.0 POC Glucose 167 H 200 H 06/16/23 06/16/23 07:31 11:16 WBC RBC Hgb Hct MCV MCH MCHC RDW Plt Count MPV Neut % (Auto) Lymph % (Auto) [place] % (Auto) Eos % (Auto) Baso % (Auto) Neut # (Auto) Lymph # (Auto) [place] # (Auto) Eos # (Auto) Baso # (Auto) Abs Immat Gran (auto) Imm/Tot Granulo (auto) Sodium Potassium Chloride Carbon Dioxide Anion Gap BUN Creatinine Est GFR ( Amer) Est GFR (Non-Af Amer) BUN/Creatinine Ratio Glucose Calcium Magnesium Total Bilirubin AST ALT Alkaline Phosphatase Troponin I High Sens NT-Pro-B Natriuret Pep Total Protein Albumin Globulin Albumin/Globulin Ratio Digoxin POC Glucose 226 H 231 H Urinary Catheter Management Urinary Catheter Management Urethral: Cath placed during this visit: yes Urethral indwelling: Yes Reason for continuing: measure accurate output Insertion date: 06/13/23 Insertion time: 09:13
[2023-06-16] MEDS: METOLAZONE 2.5 MG TABLET 5 MG PO ×2 (13:28→20:07)
[2023-06-16] MEDS: HEPARIN SODIUM,PORCINE/NS/PF 1,000 UNIT/500 ML IV.SOLN 10 UNIT IV (13:29)
[2023-06-16 16:29] LABS: Glucometer 174 mg/dL (74-106)
[2023-06-16 20:18] LABS: Glucometer 229 mg/dL (74-106)
[2023-06-17] VITALS (26 sets, daily range): BP systolic 126–159; BP diastolic 10–102; PULSE 68–115; RESP 18–28; TEMP 36.3–36.6; O2SAT 83–99
[2023-06-17 05:06] LABS: Basophils Percent Auto 0.1 % (0.2-2.0); Hematocrit 31.7 % (36.0-48.0); Hemoglobin 9.6 g/dL (12.0-16.0); Immature Granulocytes Abs Auto 0.04 10^3/uL (0.00-0.03); Immature Granulocytes Pct Auto 0.6 % (0.0-0.5); Lymphocytes Absolute Auto 0.1 10^3/uL (1.2-3.8); Mean Corpuscular HGB Conc 30.3 g/dL (29.9-35.2); Mean Corpuscular Hemoglobin 32.1 pg (26.7-34.0); Mean Platelet Volume 11.1 fL (9.5-13.5); Monocytes Absolute Auto 0.2 10^3/uL (0.3-0.8); Monocytes Percent Auto 2.5 % (1.7-12.0); Neutrophils Absolute Auto 6.8 10^3/uL (1.4-6.5); Neutrophils Percent Auto 95.8 % (43.0-75.0); Platelet Count 88 10^3/uL (150-450); Red Blood Count 2.99 10^6/uL (4.20-5.40); Red Cell Distribution Width 16.4 % (11.0-15.0); White Blood Count 7.1 10^3/uL (4.0-11.0)
[2023-06-17 05:42] LABS: Alanine Aminotransferase 45 U/L (14-59); Albumin Globulin Ratio 0.7; Albumin Level 2.4 g/dL (3.4-5.0); Alkaline Phosphatase 59 U/L (46-116); Anion Gap 7.2; Aspartate Amino Transferase 36 U/L (15-37); BUN Creatinine Ratio 33.7; Bilirubin Total 0.7 mg/dL (0.2-1.0); Calcium 9.2 mg/dL (8.5-10.1); Carbon Dioxide 40.1 mmol/L (21.0-32.0); Chloride 106 mmol/L (98-107); Estimated GFR (African America 33 (>=60); Estimated GFR (Non-African Ame 28 (>=60); Globulin 3.6 g/dL; Glucose 174 mg/dL (74-106); Potassium 3.3 mmol/L (3.5-5.1); Sodium 150 mmol/L (136-145)
[2023-06-17] MEDS: LEVOTHYROXINE SODIUM 75 MCG TABLET PO (05:50)
[2023-06-17] MEDS: OMEPRAZOLE 40 MG CAPSULE.DR PO (05:50)
[2023-06-17] MEDS: METHYLPREDNISOLONE SOD SUCC PF 125 MG/2 ML VIAL 40 MG IVP ×3 (05:50→21:45)
[2023-06-17 05:51] LABS: Magnesium 2.2 mg/dL (1.8-2.4)
[2023-06-17 05:53] LABS: Digoxin 1.7 ng/mL (0.9-2.0)
[2023-06-17 06:02] LABS: Troponin I High Sensitivity 229.7 pg/mL (4.0-51.3)
[2023-06-17 06:50] LABS: Percent Iron Saturation 49.1 %
[2023-06-17] MEDS: ATORVASTATIN CALCIUM 40 MG TABLET PO (08:12)
[2023-06-17] MEDS: ENSURE HP 237 ML LIQUID PO ×2 (08:12→15:20)
[2023-06-17] MEDS: CETIRIZINE HCL 10 MG TABLET PO (08:12)
[2023-06-17] MEDS: MAGNESIUM OXIDE 400 MG TABLET PO (08:12)
[2023-06-17] MEDS: POTASSIUM CHLORIDE 10 MEQ ER TABLET PO (08:12)
[2023-06-17] MEDS: METOLAZONE 2.5 MG TABLET 5 MG PO ×4 (08:12→11:29)
[2023-06-17] MEDS: METOPROLOL TARTRATE 50 MG TABLET PO ×2 (08:12→21:48)
[2023-06-17] MEDS: CHOLECALCIFEROL (VITAMIN D3) 25 MCG/1,000 UNITS TABLET 50 MCG PO (08:13)
[2023-06-17] MEDS: INSULIN ASPART 300 UNIT/3 ML PEN SUBQ ×3 (08:13→21:47)
[2023-06-17] MEDS: ACETYLCYSTEINE 400 MG/4 ML VIAL 100 MG IH ×3 (08:43→20:51)
[2023-06-17] MEDS: SODIUM CHLORIDE 3% INHALATION 15 ML NEB 6 ML IH ×3 (08:53→20:51)
[2023-06-17] MEDS: DEXTROSE 5 % IN WATER 1,000 ML 75 ML IV (11:15)
[2023-06-17] MEDS: FUROSEMIDE 40 MG/4 ML VIAL IVP ×2 (11:16→21:45)
[2023-06-17] MEDS: DIGOXIN 125 MCG TABLET PO (11:16)
--- NOTE | 2023-06-17 11:18 | PM.NEPPN ---
Progress Note: A&P Assessment and Plan (1) Acute respiratory failure with hypoxia: (2) Acute on chronic diastolic (congestive) heart failure: (3) RSV (respiratory syncytial virus pneumonia): (4) Atrial fibrillation with RVR: (5) Elevated troponin: (6) SYLVIA (acute kidney injury): (7) Abdominal pain: (8) Hypernatremia: (9) Acute UTI: (10) Cholelithiasis: Qualifiers: Biliary obstruction: without biliary obstruction Cholecystitis presence: without cholecystitis Cholelithiasis location: gallbladder Qualified Code(s): K80.20 - Calculus of gallbladder without cholecystitis without obstruction (11) Moderate protein-calorie malnutrition: Plan Acute kidney injury likely ATN related to hemodynamics, AFib RVR CKD 3a baseline Cr around 1.3 mg/dL related to nephrosclerosis Acute respiratory failure related to Acute on chronic diastolic CHF, bilateral pleural effusions Anasarca Afib Hypernatremia related to poor free water intake and loop diuretics. Hypokalemia from diuresis RSV + -Will continue diuretics , Cr improving with active diuresis. Getting D5W at 100 ml/hr during rounds for hypernatremia, will dc after bag completed. Continue lasix 40 mg IV twice daily with metolazone 5 mg bid. -K repletion ordered, standing 40 KCl daily -Pt is DNR-CCA, no dialysis plans. Will give symptomatic relief with diuretics while following renal function while in the hospital. -continue toprol 50 mg bid po, heart rate relatively well controlled Televisit done after pt consent and with assistance of Keyona HERRON. RN helped in exam narrative, steth not connecting. Pt located at [place], [place] and provider at [place], [place]. Total time 20 minutes, 5 minutes on video Subjective Subjective Interval history: 1.8 L urine output documented yday. Doing relatively well, on 4-5 L NC O2 today from HFNC. Remains weak and dyspneic with exertion. No nausea, vomiting, tolerated bfast today and appetite gradually getting better. No chest pain or palpitations. all other systems reviewed as possible and neg except as mentioned above. Exam Narrative: Exam Narrative: General appearance: appears stated age, mild resp distress, weak, on nasal cannula HEENT: head atraumatic and normocephalic, no icterus, pallor+ Chest and heart:steth not connecting, AE decreased at bases, rales+, Afib on monitor Extremities: 1+ LE edema Abd: soft, non distended Neuro: Alert, awake, oriented in person, weak but communicative Skin: no visible rash Constitutional: Vital Signs, click to edit/add: Last Vital Signs Temp 98 F 06/17/23 09:00 Pulse 88 06/17/23 11:16 Resp 22 06/17/23 10:00 BP 133/70 06/17/23 09:00 Pulse Ox 95 06/17/23 10:00 O2 Del Method Nasal Cannula 06/17/23 09:00 O2 Flow Rate 5 06/17/23 09:00 FiO2 50 06/16/23 09:56 Urinary Catheter Management Urinary Catheter Management Urethral: Cath placed during this visit: yes Urethral indwelling: Yes Reason for continuing: ICU pt on diuretics Insertion date: 06/13/23 Insertion time: 09:13
[2023-06-17] MEDS: POTASSIUM CHLORIDE 10 MEQ ER TABLET 40 MEQ PO (11:48)
--- NOTE | 2023-06-17 13:37 | P.IMPN_ITS ---
Progress Note: A&P Assessment and Plan (1) Acute respiratory failure with hypoxia: Assessment and Plan: due to viral PNA and acute on chronic diastolic HF. Improving slowly and now on 5 L O2 via NC. C/w systemic steroids, inhaled bronchodilators. Wean off O2 as tolerated. (2) Acute on chronic diastolic (congestive) heart failure: Assessment and Plan: Started on D5-water to help with hypernatremia, added lasix 40 q12 along with metolazone. Recheck BMP at 4 pm . (3) RSV (respiratory syncytial virus pneumonia): Assessment and Plan: Supportive care. Aggressive Pulm toilet. C/w steroids, nebs. (4) Atrial fibrillation with RVR: Assessment and Plan: Rate controlled. C/w Eliquis and Toprol. (5) Elevated troponin: Assessment and Plan: Likely due to renal insufficiency, acute illness. Monitor. Consider outpatient ischemic w/u (6) SYLVIA (acute kidney injury): Assessment and Plan: due to acute congestive HF. Improving with diuresis. (7) Abdominal pain: Assessment and Plan: Resolved. Unclear etiology. (8) Hypernatremia: Assessment and Plan: Added D5-water - restarted lasix. C/w metolazone. (9) Acute UTI: Assessment and Plan: No growth on urine cx - stopped levaquin (10) Cholelithiasis: Assessment and Plan: Likely incidental finding. Will defer to outpatient for further work up Qualifiers: Cholelithiasis location: gallbladder Cholecystitis presence: without cholecystitis Biliary obstruction: without biliary obstruction Qualified Code(s): K80.20 - Calculus of gallbladder without cholecystitis without obstruction (11) Moderate protein-calorie malnutrition: Assessment and Plan: Poor PO intake, on Ensure (12) Type 2 diabetes mellitus: Assessment and Plan: On metformin as outpatient. SSI while in patient. Qualifiers: Diabetes mellitus care home insulin use: without regional intermodal truck driver use Diabetes mellitus complication status: with kidney complications Diabetes mellitus complication detail: with chronic kidney disease Chronic kidney disease stage 3 subtype: stage 3a (GFR 45-59) (13) CKD stage 3 due to type 2 diabetes mellitus: Assessment and Plan: due to HTN and T2 DM. Now has SYLVIA. Npehrology on board. (14) Anemia: Assessment and Plan: Anemia of chronic disease. Monitor. Qualifiers: Anemia type: other cause Other causes of anemia: chronic disease, other Qualified Code(s): D63.8 - Anemia in other chronic diseases classified elsewhere (15) Hypothyroidism: Assessment and Plan: Cw synthyroid. Qualifiers: Hypothyroidism type: unspecified Qualified Code(s): E03.9 - Hypothyroidism, unspecified (16) HTN (hypertension): Assessment and Plan: Stable, controlled. C/w Lopressor. Qualifiers: Hypertension type: primary hypertension Qualified Code(s): I10 - Essential (primary) hypertension Internal Medicine - PN: Subj Subjective Interval history: Seen and examined. Improving slowly. Now on 5 L O2 via NC. No overnight events. Exam Constitutional Vital Signs, click to edit/add: Last Vital Signs Temp 98 F 06/17/23 09:00 Pulse 88 06/17/23 11:16 Resp 22 06/17/23 10:00 BP 133/70 06/17/23 09:00 Pulse Ox 95 06/17/23 10:00 O2 Del Method Nasal Cannula 06/17/23 09:00 O2 Flow Rate 5 06/17/23 09:00 FiO2 50 06/16/23 09:56 Documenting provider has reviewed patient's vital signs: yes Common normals: no apparent distress and oriented x3 General appearance: cooperative Respiratory Effort & inspection: able to speak in complete sentences and tachypneic Auscultation: diminished lung sounds Cardio Common normals: regular rate, S1 normal heart sound and S2 normal heart sound Rate: regular rate Heart sounds: S1 normal and S2 normal Extremity Common normals: no calf tenderness General: edema Neuro Common normals: oriented x3, moves all extremities and no focal motor deficits Psych Common normals: mental status grossly normal, denies hallucinations, denies homicidal ideation and denies suicidal ideation Internal Medicine - PN: Obj Da Labs Labs: Laboratory Results - last 24 hr 06/16/23 06/16/23 06/17/23 16:19 20:17 04:05 WBC 7.1 RBC 2.99 L Hgb 9.6 L Hct 31.7 L MCV 106.0 H MCH 32.1 MCHC 30.3 RDW 16.4 H Plt Count 88 L MPV 11.1 Neut % (Auto) 95.8 H Lymph % (Auto) 1.0 L [place] % (Auto) 2.5 Eos % (Auto) 0.0 L Baso % (Auto) 0.1 L Neut # (Auto) 6.8 H Lymph # (Auto) 0.1 L [place] # (Auto) 0.2 L Eos # (Auto) 0.0 Baso # (Auto) 0.0 Abs Immat Gran (auto) 0.04 H Imm/Tot Granulo (auto) 0.6 H Sodium 150 H Potassium 3.3 L Chloride 106 Carbon Dioxide 40.1 H Anion Gap 7.2 BUN 59.0 H Creatinine 1.75 H Est GFR ( Amer) 33 L Est GFR (Non-Af Amer) 28 L BUN/Creatinine Ratio 33.7 Glucose 174 H Calcium 9.2 Magnesium 2.2 Iron 111.0 TIBC 226.0 L % Saturation 49.1 Ferritin 1230.0 H Total Bilirubin 0.7 AST 36 ALT 45 Alkaline Phosphatase 59 Troponin I High Sens 229.7 H* NT-Pro-B Natriuret Pep 9801.0 H* Total Protein 6.0 L Albumin 2.4 L Globulin 3.6 Albumin/Globulin Ratio 0.7 Vitamin B12 1208.0 H Folate 22.40 Digoxin 1.7 POC Glucose 174 H 229 H Urinary Catheter Management Urinary Catheter Management Urethral: Cath placed during this visit: yes Urethral indwelling: Yes Reason for continuing: measure accurate output Insertion date: 06/13/23 Insertion time: 09:13
[2023-06-17] MEDS: HEPARIN SODIUM,PORCINE/NS/PF 1,000 UNIT/500 ML IV.SOLN 10 UNIT IV (15:21)
[2023-06-17 15:59] LABS: Anion Gap 5.5; BUN Creatinine Ratio 34.4; Calcium 8.4 mg/dL (8.5-10.1); Carbon Dioxide 42.3 mmol/L (21.0-32.0); Chloride 101 mmol/L (98-107); Estimated GFR (African America 31 (>=60); Estimated GFR (Non-African Ame 26 (>=60); Glucose 435 mg/dL (74-106); Potassium 3.8 mmol/L (3.5-5.1); Sodium 145 mmol/L (136-145)
[2023-06-17 17:14] LABS: Glucometer 449 mg/dL (74-106)
[2023-06-17 21:44] LABS: Glucometer 231 mg/dL (74-106)
[2023-06-17] MEDS: GUAIFENESIN 200 MG/DEXTROMETHORPHAN 20 MG 10 ML UNIT DOSE CUP PO (21:44)
[2023-06-17] MEDS: INSULIN DETEMIR 300 UNIT/3 ML INSULN.PEN 20 UNIT SQ (21:46)
[2023-06-18] VITALS (37 sets, daily range): BP systolic 119–168; BP diastolic 55–96; PULSE 60–113; RESP 7–39; TEMP 35.9–36.9; O2SAT 28–98
[2023-06-18 04:30] LABS: Basophils Percent Auto 0.1 % (0.2-2.0); Hemoglobin 10.3 g/dL (12.0-16.0); Immature Granulocytes Abs Auto 0.09 10^3/uL (0.00-0.03); Immature Granulocytes Pct Auto 0.8 % (0.0-0.5); Lymphocytes Absolute Auto 0.1 10^3/uL (1.2-3.8); Lymphocytes Percent Auto 0.5 % (20.5-60.0); Mean Corpuscular HGB Conc 30.3 g/dL (29.9-35.2); Mean Corpuscular Hemoglobin 32.4 pg (26.7-34.0); Mean Corpuscular Volume 106.9 fL (81.0-99.0); Mean Platelet Volume 10.2 fL (9.5-13.5); Monocytes Absolute Auto 0.3 10^3/uL (0.3-0.8); Monocytes Percent Auto 2.6 % (1.7-12.0); Neutrophils Absolute Auto 10.2 10^3/uL (1.4-6.5); Platelet Count 107 10^3/uL (150-450); Red Blood Count 3.18 10^6/uL (4.20-5.40); Red Cell Distribution Width 15.9 % (11.0-15.0); White Blood Count 10.6 10^3/uL (4.0-11.0)
[2023-06-18 04:50] LABS: Alanine Aminotransferase 44 U/L (14-59); Albumin Globulin Ratio 0.7; Albumin Level 2.5 g/dL (3.4-5.0); Alkaline Phosphatase 67 U/L (46-116); Aspartate Amino Transferase 35 U/L (15-37); BUN Creatinine Ratio 35.6; Bilirubin Total 0.7 mg/dL (0.2-1.0); Calcium 9.1 mg/dL (8.5-10.1); Carbon Dioxide 45.4 mmol/L (21.0-32.0); Chloride 104 mmol/L (98-107); Estimated GFR (African America 34 (>=60); Estimated GFR (Non-African Ame 28 (>=60); Globulin 3.7 g/dL; Glucose 60 mg/dL (74-106); Potassium 3.4 mmol/L (3.5-5.1); Sodium 150 mmol/L (136-145); Total Protein 6.2 g/dL (6.4-8.2)
[2023-06-18] MEDS: METHYLPREDNISOLONE SOD SUCC PF 125 MG/2 ML VIAL 40 MG IVP ×3 (05:20→21:54)
[2023-06-18] MEDS: LEVOTHYROXINE SODIUM 75 MCG TABLET PO (05:21)
[2023-06-18] MEDS: OMEPRAZOLE 40 MG CAPSULE.DR PO (05:22)
[2023-06-18 07:13] LABS: Glucometer 130 mg/dL (74-106)
[2023-06-18] MEDS: SODIUM CHLORIDE 3% INHALATION 15 ML NEB 6 ML IH ×3 (08:07→20:20)
[2023-06-18] MEDS: ACETYLCYSTEINE 400 MG/4 ML VIAL 100 MG IH ×3 (08:10→20:21)
[2023-06-18] MEDS: CHOLECALCIFEROL (VITAMIN D3) 25 MCG/1,000 UNITS TABLET 50 MCG PO (08:22)
[2023-06-18] MEDS: AMLODIPINE BESYLATE 5 MG TABLET PO (08:23)
[2023-06-18] MEDS: POTASSIUM CHLORIDE 10 MEQ ER TABLET PO (08:23)
[2023-06-18] MEDS: CETIRIZINE HCL 10 MG TABLET PO (08:23)
[2023-06-18] MEDS: DIGOXIN 125 MCG TABLET PO (08:23)
[2023-06-18] MEDS: MAGNESIUM OXIDE 400 MG TABLET PO (08:23)
[2023-06-18] MEDS: ATORVASTATIN CALCIUM 40 MG TABLET PO (08:23)
[2023-06-18] MEDS: METOLAZONE 2.5 MG TABLET 5 MG PO (08:23)
[2023-06-18] MEDS: ENSURE HP 237 ML LIQUID PO (08:24)
[2023-06-18] MEDS: FUROSEMIDE 40 MG/4 ML VIAL IVP (08:24)
--- NOTE | 2023-06-18 10:21 | PM.IMPN1 ---
Progress Note: A&P Assessment and Plan (1) Acute respiratory failure with hypoxia: Assessment and Plan: Improving, now on 2 L O2 via NC. C/w systemic steroids, inhaled bronchodilators. Wean off O2 as tolerated. (2) Acute on chronic diastolic (congestive) heart failure: Assessment and Plan: Lasix 40 daily along with metolazone. D5-water for hypernatremia. Diuresing well. (3) RSV (respiratory syncytial virus pneumonia): Assessment and Plan: Supportive care. Aggressive Pulm toilet. C/w steroids, nebs. (4) Atrial fibrillation with RVR: Assessment and Plan: Rate controlled. C/w Eliquis and Toprol. Resumed digoxine (5) Elevated troponin: Assessment and Plan: Likely due to renal insufficiency, acute illness. Monitor. Consider outpatient ischemic w/u (6) SYLVIA (acute kidney injury): Assessment and Plan: due to acute congestive HF. Improving with diuresis. (7) Abdominal pain: Assessment and Plan: Resolved. Unclear etiology. (8) Hypernatremia: Assessment and Plan: due to low/no PO intake and free water deficit. Had improved with D5-water but worsened since D5 water was discontinued. Resumed. Encouraged patient to eat/drink more. (9) Acute UTI: Assessment and Plan: No growth on urine cx - stopped levaquin (10) Cholelithiasis: Assessment and Plan: Likely incidental finding. Will defer to outpatient for further work up Qualifiers: Cholelithiasis location: gallbladder Cholecystitis presence: without cholecystitis Biliary obstruction: without biliary obstruction Qualified Code(s): K80.20 - Calculus of gallbladder without cholecystitis without obstruction (11) Moderate protein-calorie malnutrition: Assessment and Plan: No PO intake. She reports poor appetite and that food tastes bad and she does not feel like eating much. After encouraging her, she was agreeable to try and eat something. Discussed possibility of feeding tube but refused. (12) Type 2 diabetes mellitus: Assessment and Plan: On metformin as outpatient. SSI while in patient. Added glargine for hyperglycemia in response to D5 infusion Qualifiers: Diabetes mellitus emt intermediate insulin use: without chcf use Diabetes mellitus complication status: with kidney complications Diabetes mellitus complication detail: with chronic kidney disease Chronic kidney disease stage 3 subtype: stage 3a (GFR 45-59) (13) CKD stage 3 due to type 2 diabetes mellitus: Assessment and Plan: due to HTN and T2 DM. Now has SYLVIA. Npehrology on board. (14) Anemia: Assessment and Plan: Anemia of chronic disease. Monitor. Qualifiers: Anemia type: other cause Other causes of anemia: chronic disease, other Qualified Code(s): D63.8 - Anemia in other chronic diseases classified elsewhere (15) Hypothyroidism: Assessment and Plan: Cw synthyroid. Qualifiers: Hypothyroidism type: unspecified Qualified Code(s): E03.9 - Hypothyroidism, unspecified (16) HTN (hypertension): Assessment and Plan: Above goal. C/w Lopressor. Resumed norvasc. Qualifiers: Hypertension type: primary hypertension Qualified Code(s): I10 - Essential (primary) hypertension (17) Hematuria: Assessment and Plan: improving. Hb stable. Monitor while on Eliquis. Qualifiers: Hematuria type: gross Qualified Code(s): R31.0 - Gross hematuria Internal Medicine - PN: Subj Subjective Interval history: Seen and examined. Little to no PO intake. Feels weak/tired. Improving clinically and now down to 2 L O2 via NC. Exam Constitutional Vital Signs, click to edit/add: Last Vital Signs Temp 97.6 F 06/18/23 07:27 Pulse 104 H 06/18/23 10:00 Resp 20 06/18/23 08:12 BP 168/74 H 06/18/23 07:10 Pulse Ox 96 06/18/23 08:12 O2 Del Method Nasal Cannula 06/18/23 08:12 O2 Flow Rate 2 06/18/23 08:12 FiO2 50 06/17/23 13:00 Documenting provider has reviewed patient's vital signs: yes Common normals: oriented x3 General appearance: ill appearing and frail appearing HENMT Other: Tortillosis. Respiratory Common normals: no use of accessory muscles Effort & inspection: able to speak in complete sentences and decreased respiratory effort Auscultation: clear to auscultation bilaterally and diminished lung sounds Cardio Common normals: no JVD, regular rate, S1 normal heart sound and S2 normal heart sound Rhythm: abnormal rhythm GI Common normals: Normal to inspection, nondistended, normoactive bowel sounds present, soft to palpation, non-tender and no hepatosplenomegaly Extremity Common normals: normal to inspection and full ROM Neuro Common normals: oriented x3, moves all extremities and no focal motor deficits Psych Common normals: mental status grossly normal, thought process normal, denies homicidal ideation and denies suicidal ideation Internal Medicine - PN: Obj Da Labs Labs: Laboratory Results - last 24 hr 06/17/23 06/17/23 06/17/23 15:46 17:11 21:44 WBC RBC Hgb Hct MCV MCH MCHC RDW Plt Count MPV Neut % (Auto) Lymph % (Auto) [place] % (Auto) Eos % (Auto) Baso % (Auto) Neut # (Auto) Lymph # (Auto) [place] # (Auto) Eos # (Auto) Baso # (Auto) Abs Immat Gran (auto) Imm/Tot Granulo (auto) Sodium 145 Potassium 3.8 Chloride 101 Carbon Dioxide 42.3 H Anion Gap 5.5 BUN 64.0 H Creatinine 1.86 H Est GFR ( Amer) 31 L Est GFR (Non-Af Amer) 26 L BUN/Creatinine Ratio 34.4 Glucose 435 H Calcium 8.4 L Total Bilirubin AST ALT Alkaline Phosphatase Total Protein Albumin Globulin Albumin/Globulin Ratio POC Glucose 449 H 231 H 06/18/23 06/18/23 04:17 07:09 WBC 10.6 RBC 3.18 L Hgb 10.3 L Hct 34.0 L MCV 106.9 H MCH 32.4 MCHC 30.3 RDW 15.9 H Plt Count 107 L MPV 10.2 Neut % (Auto) 96.0 H Lymph % (Auto) 0.5 L [place] % (Auto) 2.6 Eos % (Auto) 0.0 L Baso % (Auto) 0.1 L Neut # (Auto) 10.2 H Lymph # (Auto) 0.1 L [place] # (Auto) 0.3 Eos # (Auto) 0.0 Baso # (Auto) 0.0 Abs Immat Gran (auto) 0.09 H Imm/Tot Granulo (auto) 0.8 H Sodium 150 H Potassium 3.4 L Chloride 104 Carbon Dioxide 45.4 H Anion Gap 4.0 BUN 62.0 H Creatinine 1.74 H Est GFR ( Amer) 34 L Est GFR (Non-Af Amer) 28 L BUN/Creatinine Ratio 35.6 Glucose 60 L Calcium 9.1 Total Bilirubin 0.7 AST 35 ALT 44 Alkaline Phosphatase 67 Total Protein 6.2 L Albumin 2.5 L Globulin 3.7 Albumin/Globulin Ratio 0.7 POC Glucose 130 H Urinary Catheter Management Urinary Catheter Management Urethral: Cath placed during this visit: yes Urethral indwelling: Yes Reason for continuing: measure accurate output Insertion date: 06/13/23 Insertion time: 09:13
--- NOTE | 2023-06-18 10:29 | CM.NOTE ---
Rounds made with Dr. Conde, talked with pt about P.O intake and needing to eat to build strength. Pt verbalizes understanding. Dr. Conde discussed options with pt and also talked with pt about Hospice. Pt refuses Hospice at this time. Pt wishes are to go skilled at discharge.
--- NOTE | 2023-06-18 10:29 | SWNOTE1 ---
SW spoke with pt about going to SNF to get stronger. Pt is agreeable. Hospice was mentioned over the weekend, per nursing. Pt does not want Hospice at this time. BRENDA spoke with Crissy at [facility] and they are reviewing, will need updates. BRENDA sent PT/OT updates, physician notes labs, vitals, nursing notes, and med list.
[2023-06-18] MEDS: DEXTROSE IV (10:36)
[2023-06-18] MEDS: SOD CHLORID IV (10:36)
--- NOTE | 2023-06-18 10:41 | PT.DAILY ---
Physical Therapy Daily Note PT Daily Note/Assess Start: 06/12/23 12:47 Freq: Status: Active Protocol: Document 06/18/23 09:55 ABBY (Rec: 06/18/23 10:41 ESANNIE [id number]) Physical Therapy Daily Note/Assessment Time In/Time Out Time In 09:55 Time Out 09:15 Subjective Subjective Patient reports does not want to get out of bed, but will. Denies pain. Reports is feeling better. Therapeutic Exercise Time Therapeutic Exercise Minutes (minutes) 10 Therapeutic Exercise Units 0 Therapeutic Exercise Treatment Therapeutic Exercise Treatment Supine and EOB seated exercises 10 reps. SPO2 was 94 percent and maintained with supine exercises. Once recovered from bed mobility SPO2 maintained at 91 percent for seated exercises. Therapeutic Activity Time Therapeutic Activity Minutes (minutes) 10 Therapeutic Activity Units 1 Therapeutic Activity Treatment Therapeutic Activity Comments Supine to sit with min assist. Patient now on NC, and SPO2 decreased to 84 percent with transfers but was able to recover to 91 percent with rest. Patient maintained at 91 with exercises. When asked to transfer to chair patient zones out for a few minutes, and then reports I don't think I can stand up At time PT had nursing come into room for safety. Sit to stand x2 with max assist x2, patient unable to come into standing position. Patient on edge of bed, and was a total assist x2 to safely get back into supine position. SPO2 at this time was 75%. PT stayed in room with nursing until SPO2 did reach 88 percent. Nursing was still present in room when PT exited room. Total Physical Therapy Time Total Therapy Minutes 20 Total Physical Therapy Units 1 Summary Daily Note Summary Patient has had a significant decline in transfers in past 2 days. Was a 1 assist with CGA 2 days ago. Now is unable to stand with max assist x2. Patient is showing steady decline per nursing as well, and not eating. Per nursing MD did discuss hospice with patient but patient declined. Patient will need SNF at [facility] due to significant decline in strength over past couple days .
[2023-06-18 11:27] LABS: Glucometer 225 mg/dL (74-106)
[2023-06-18] MEDS: INSULIN ASPART 300 UNIT/3 ML PEN SUBQ ×2 (11:27→21:55)
--- NOTE | 2023-06-18 11:50 | SWNOTE1 ---
PT/OT notes from today sent to [facility]. Pt did not participate in OT.
--- NOTE | 2023-06-18 11:55 | CM.NOTE ---
2nd Notice for Important Message From Medicare discussed with pt, pt denies any questions or concerns.
--- NOTE | 2023-06-18 13:23 | SWNOTE1 ---
BRENDA sent email to Crissy at [facility] to see if they can accept and start precert, waiting for reply. SW to call at 2:00 if no response.
--- NOTE | 2023-06-18 14:06 | SWNOTE1 ---
BRENDA called [facility] and spoke to Crissy. She voiced she sent me an email back, BRENDA has no email from Crissy. She stated they are able to accept and she is working on getting precert started today.
--- NOTE | 2023-06-18 14:11 | SWNOTE1 ---
BRENDA called daughter, Ny, and updated her as well.
--- NOTE | 2023-06-18 15:00 | W.PM.WC ---
Wound Consult Note Assessment and Plan (1) Acute respiratory failure with hypoxia: (2) Acute on chronic diastolic (congestive) heart failure: (3) RSV (respiratory syncytial virus pneumonia): (4) Atrial fibrillation with RVR: (5) Elevated troponin: (6) SYLVIA (acute kidney injury): (7) Abdominal pain: (8) Hypernatremia: (9) Acute UTI: (10) Cholelithiasis: Qualifiers: Cholelithiasis location: gallbladder Cholecystitis presence: without cholecystitis Biliary obstruction: without biliary obstruction Qualified Code(s): K80.20 - Calculus of gallbladder without cholecystitis without obstruction (11) Moderate protein-calorie malnutrition: (12) Type 2 diabetes mellitus: Qualifiers: Diabetes mellitus mcfp insulin use: without senior insight manager international use Diabetes mellitus complication status: with kidney complications Diabetes mellitus complication detail: with chronic kidney disease Chronic kidney disease stage 3 subtype: stage 3a (GFR 45-59) (13) CKD stage 3 due to type 2 diabetes mellitus: (14) Anemia: Qualifiers: Anemia type: other cause Other causes of anemia: chronic disease, other Qualified Code(s): D63.8 - Anemia in other chronic diseases classified elsewhere (15) Hypothyroidism: Qualifiers: Hypothyroidism type: unspecified Qualified Code(s): E03.9 - Hypothyroidism, unspecified (16) HTN (hypertension): Qualifiers: Hypertension type: primary hypertension Qualified Code(s): I10 - Essential (primary) hypertension (17) Hematuria: Qualifiers: Hematuria type: gross Qualified Code(s): R31.0 - Gross hematuria Plan Consult: diandra-rectal ulcerations. Patient seen today for concern with worsening ulcerations to diandra-rectal area. Bedside RN has put all pressure relief measures in place (air mattress overlay, topical skin protectant, repositioning), however area continues to spread and worsen. Patient does report as being painful. Upon assessment, there is a 2.5-3.5 cm band circumferentially around the rectum of vesicles that appear to be herpes-like in appearance. They are circular, sharply demarcated vesicles with a central ulceration. There is a pre-ulcerative area on her labia, and there are 2 open lesions proximal to the main cluster. Unable to take photos with iPad due to technical problems with the EHR. Bedside RN to take photos to be placed in chart. Recommend continuing current treatment to prevent any further trauma to the area. After discussing case with wound care PA, updated bedside RN that there was a concern for a viral component to lesions. She will send hospitalist medical operations supervisor a message regarding recommendations for care. Jett Craft, KRISTAN, RN, CWON
--- NOTE | 2023-06-18 15:26 | PC.NURSE ---
pt aware of move to room 202, report given to ferny mendez. called and spoke with isabel, pts daughter, aware of transfer to room 202.
--- NOTE | 2023-06-18 19:32 | PM.NEPPN ---
Progress Note: A&P Assessment and Plan (1) Acute respiratory failure with hypoxia: (2) Acute on chronic diastolic (congestive) heart failure: (3) RSV (respiratory syncytial virus pneumonia): (4) Atrial fibrillation with RVR: (5) Elevated troponin: (6) SYLVIA (acute kidney injury): (7) Abdominal pain: (8) Hypernatremia: (9) Acute UTI: (10) Cholelithiasis: Qualifiers: Cholelithiasis location: gallbladder Cholecystitis presence: without cholecystitis Biliary obstruction: without biliary obstruction Qualified Code(s): K80.20 - Calculus of gallbladder without cholecystitis without obstruction (11) Moderate protein-calorie malnutrition: (12) Type 2 diabetes mellitus: Qualifiers: Diabetes mellitus skilled nursing insulin use: without termite exterminator helper use Diabetes mellitus complication status: with kidney complications Diabetes mellitus complication detail: with chronic kidney disease Chronic kidney disease stage 3 subtype: stage 3a (GFR 45-59) (13) CKD stage 3 due to type 2 diabetes mellitus: (14) Anemia: Qualifiers: Anemia type: other cause Other causes of anemia: chronic disease, other Qualified Code(s): D63.8 - Anemia in other chronic diseases classified elsewhere (15) Hypothyroidism: Qualifiers: Hypothyroidism type: unspecified Qualified Code(s): E03.9 - Hypothyroidism, unspecified (16) HTN (hypertension): Qualifiers: Hypertension type: primary hypertension Qualified Code(s): I10 - Essential (primary) hypertension (17) Hematuria: Qualifiers: Hematuria type: gross Qualified Code(s): R31.0 - Gross hematuria Plan Seen and examined over AV tele Acute kidney injury. Has chronic kidney disease stage III at baseline. Creatinine slightly better to 1.7. She is on Lasix 40 mg IV daily and metolazone. She has acute heart failure. Primary team is managing that. We are managing the diuretics. She has hypernatremia and her sodium went up to 150 now. She is on D5 and quarter normal saline. At this time I will discontinue IV fluids and stop Lasix also. Loop diuretics can worsen hypernatremia so I will keep her on metolazone instead and increase the dose to 10 mg of metolazone daily. Monitor sodium levels for now. Urine output is okay at this point. Blood pressure is currently acceptable Labs and previous records were reviewed by me and summarized above. Discussed with the bedside nurse. Subjective Subjective Principal diagnosis: SYLVIA Interval history: Seen and examined. Little to no PO intake. on d5 and 0.2 NS. Exam Narrative: Exam Narrative: Awake and alert Normal speech Positive edema On 2 L of oxygen Skin no obvious rash Constitutional: Vital Signs, click to edit/add: Last Vital Signs Temp 97.6 F 06/18/23 07:27 Pulse 78 06/18/23 18:00 Resp 28 H 06/18/23 15:30 BP 125/63 06/18/23 11:29 Pulse Ox 97 06/18/23 15:30 O2 Del Method Nasal Cannula 06/18/23 14:19 O2 Flow Rate 2 06/18/23 14:19 FiO2 50 06/17/23 13:00 Urinary Catheter Management Urinary Catheter Management Urethral: Cath placed during this visit: yes Urethral indwelling: Yes Reason for continuing: measure accurate output Insertion date: 06/13/23 Insertion time: 09:13
[2023-06-18] MEDS: IPRATROPIUM/ALBUTEROL SULFATE 3 ML AMPUL.NEB IH (20:20)
[2023-06-18 21:52] LABS: Glucometer 310 mg/dL (74-106)
[2023-06-18] MEDS: METOPROLOL TARTRATE 50 MG TABLET PO (21:54)
[2023-06-18] MEDS: INSULIN DETEMIR 300 UNIT/3 ML INSULN.PEN 15 UNIT SQ (21:56)
[2023-06-19] VITALS (22 sets, daily range): BP systolic 116–143; BP diastolic 63–79; PULSE 72–102; RESP 18–20; TEMP 36.3–36.7; O2SAT 90–95
[2023-06-19 05:22] LABS: Basophils Percent Auto 0.2 % (0.2-2.0); Hematocrit 29.5 % (36.0-48.0); Hemoglobin 9.1 g/dL (12.0-16.0); Immature Granulocytes Abs Auto 0.12 10^3/uL (0.00-0.03); Immature Granulocytes Pct Auto 1.2 % (0.0-0.5); Lymphocytes Absolute Auto 0.1 10^3/uL (1.2-3.8); Lymphocytes Percent Auto 0.5 % (20.5-60.0); Mean Corpuscular HGB Conc 30.8 g/dL (29.9-35.2); Mean Corpuscular Hemoglobin 32.4 pg (26.7-34.0); Mean Platelet Volume 11.4 fL (9.5-13.5); Monocytes Absolute Auto 0.3 10^3/uL (0.3-0.8); Monocytes Percent Auto 2.6 % (1.7-12.0); Neutrophils Absolute Auto 9.3 10^3/uL (1.4-6.5); Neutrophils Percent Auto 95.5 % (43.0-75.0); Platelet Count 94 10^3/uL (150-450); Red Blood Count 2.81 10^6/uL (4.20-5.40); Red Cell Distribution Width 15.8 % (11.0-15.0); White Blood Count 9.7 10^3/uL (4.0-11.0)
[2023-06-19] MEDS: OMEPRAZOLE 40 MG CAPSULE.DR PO (05:38)
[2023-06-19] MEDS: LEVOTHYROXINE SODIUM 75 MCG TABLET PO (05:38)
[2023-06-19] MEDS: METHYLPREDNISOLONE SOD SUCC PF 125 MG/2 ML VIAL 40 MG IVP ×2 (05:38→14:02)
[2023-06-19 05:42] LABS: Alanine Aminotransferase 38 U/L (14-59); Albumin Globulin Ratio 0.6; Albumin Level 2.1 g/dL (3.4-5.0); Alkaline Phosphatase 54 U/L (46-116); Anion Gap 2.9; Aspartate Amino Transferase 37 U/L (15-37); BUN Creatinine Ratio 41.2; Bilirubin Total 0.7 mg/dL (0.2-1.0); Calcium 8.6 mg/dL (8.5-10.1); Carbon Dioxide 47.8 mmol/L (21.0-32.0); Chloride 99 mmol/L (98-107); Estimated GFR (African America 39 (>=60); Estimated GFR (Non-African Ame 32 (>=60); Globulin 3.3 g/dL; Glucose 63 mg/dL (74-106); Sodium 147 mmol/L (136-145); Total Protein 5.4 g/dL (6.4-8.2)
[2023-06-19 06:21] LABS: Potassium 2.7 mmol/L (3.5-5.1)
[2023-06-19 07:48] LABS: Glucometer 132 mg/dL (74-106)
--- NOTE | 2023-06-19 08:37 | CM.NOTE ---
Rounds made with Dr. Hidalgo, pt verbalizes she is feeling better today. Continue to work with PT for strengthening.
--- NOTE | 2023-06-19 08:47 | P.PN_ITS ---
Progress Note: Subjective Subjective Interval history: Patient states she is trying to eat better. No new complaints today.-Looks better than when I saw her 5 days ago Exam Constitutional Vital Signs, click to edit/add: Last Vital Signs Temp 97.6 F 06/19/23 03:57 Pulse 72 06/19/23 08:00 Resp 20 06/19/23 03:57 BP 143/77 H 06/19/23 03:57 Pulse Ox 91 L 06/19/23 04:52 O2 Del Method Nasal Cannula 06/19/23 04:52 O2 Flow Rate 2 06/19/23 04:52 FiO2 50 06/17/23 13:00 Documenting provider has reviewed patient's vital signs: yes Common normals: oriented x3 General appearance: ill appearing and frail appearing HENMT Other: Tortillosis. Respiratory Common normals: no use of accessory muscles Effort & inspection: able to speak in complete sentences and decreased respiratory effort Auscultation: clear to auscultation bilaterally and diminished lung sounds Cardio Common normals: no JVD and regular rate Rhythm: abnormal rhythm GI Common normals: Normal to inspection, nondistended, normoactive bowel sounds present, soft to palpation, non-tender and no hepatosplenomegaly Extremity Common normals: normal to inspection and full ROM Neuro Common normals: oriented x3, moves all extremities and no focal motor deficits Psych Common normals: mental status grossly normal, thought process normal, denies homicidal ideation and denies suicidal ideation Progress Note: Objective Labs Labs: Short CBC 06/19/23 Range/Units 04:50 WBC 9.7 (4.0-11.0) 10^3/uL Hgb 9.1 L (12.0-16.0) g/dL Hct 29.5 L (36.0-48.0) % Plt Count 94 L (150-450) 10^3/uL BMP 06/19/23 04:50 Sodium 147 H Potassium 2.7 L* Chloride 99 Carbon Dioxide 47.8 H BUN 63.0 H Creatinine 1.53 H Glucose 63 L Calcium 8.6 Liver Function 06/19/23 Range/Units 04:50 Total Bilirubin 0.7 (0.2-1.0) mg/dL AST 37 (15-37) U/L ALT 38 (14-59) U/L Alkaline Phosphatase 54 (46-116) U/L Albumin 2.1 L (3.4-5.0) g/dL Progress Note: A&P Assessment and Plan (1) Acute respiratory failure with hypoxia: Assessment and Plan: Improving, now on 2 L O2 via NC. Continue to wean supplemental oxygen overall improved. (2) Acute on chronic diastolic (congestive) heart failure: Assessment and Plan: Lasix 40 daily along with metolazone. D5-water for hypernatremia. Sodium improved (3) RSV (respiratory syncytial virus pneumonia): Assessment and Plan: Supportive care. Aggressive Pulm toilet. C/w steroids, nebs. (4) Atrial fibrillation with RVR: Assessment and Plan: Rate controlled. C/w Eliquis and Toprol. Resumed digoxine (5) Elevated troponin: Assessment and Plan: Likely due to renal insufficiency, acute illness. Monitor. Consider outpatient ischemic w/u (6) SYLVIA (acute kidney injury): Assessment and Plan: due to acute congestive HF. Improving with diuresis. Continue to monitor daily (7) Abdominal pain: Assessment and Plan: Resolved. Unclear etiology. (8) Hypernatremia: Assessment and Plan: due to low/no PO intake and free water deficit. Continue with current treatment plan (9) Acute UTI: Assessment and Plan: No growth on urine cx - stopped levaquin (10) Cholelithiasis: Assessment and Plan: Likely incidental finding. Will defer to outpatient for further work up Qualifiers: Biliary obstruction: without biliary obstruction Cholecystitis presence: without cholecystitis Cholelithiasis location: gallbladder Qualified Code(s): K80.20 - Calculus of gallbladder without cholecystitis without obstruction (11) Moderate protein-calorie malnutrition: Assessment and Plan: No PO intake. She reports poor appetite and that food tastes bad and she does not feel like eating much. After encouraging her, she was agreeable to try and eat something. Discussed possibility of feeding tube but refused. (12) Type 2 diabetes mellitus: Assessment and Plan: On metformin as outpatient. SSI while in patient. Added glargine for hyperglycemia in response to D5 infusion-continue to monitor Qualifiers: Chronic kidney disease stage 3 subtype: stage 3a (GFR 45-59) Diabetes mellitus complication detail: with chronic kidney disease Diabetes mellitus complication status: with kidney complications Diabetes mellitus intermediate card tender insulin use: without intermediate card tender use (13) CKD stage 3 due to type 2 diabetes mellitus: Assessment and Plan: due to HTN and T2 DM. Now has SYLVIA. Npehrology on board. (14) Anemia: Assessment and Plan: Anemia of chronic disease. Monitor.-Down somewhat today, continue to monitor Qualifiers: Anemia type: other cause Other causes of anemia: chronic disease, other Qualified Code(s): D63.8 - Anemia in other chronic diseases classified elsewhere (15) Hypothyroidism: Assessment and Plan: Cw synthyroid. Qualifiers: Hypothyroidism type: unspecified Qualified Code(s): E03.9 - Hypothyroidism, unspecified (16) HTN (hypertension): Assessment and Plan: Above goal. C/w Lopressor. Resumed norvasc. Qualifiers: Hypertension type: primary hypertension Qualified Code(s): I10 - Essential (primary) hypertension (17) Hematuria: Assessment and Plan: improving. Hb stable. Monitor while on Eliquis. Qualifiers: Hematuria type: gross Qualified Code(s): R31.0 - Gross hematuria (18) Hypokalemia: Assessment and Plan: Monitor daily and continue with IV supplementation. Increased oral supplementation. Urinary Catheter Management Urinary Catheter Management Urethral: Cath placed during this visit: yes Urethral indwelling: Yes Reason for continuing: measure accurate output Insertion date: 06/13/23 Insertion time: 09:13
[2023-06-19] MEDS: SODIUM CHLORIDE 3% INHALATION 15 ML NEB 6 ML IH ×3 (09:11→20:52)
[2023-06-19] MEDS: ACETYLCYSTEINE 400 MG/4 ML VIAL 100 MG IH ×3 (09:11→20:52)
[2023-06-19] MEDS: AMLODIPINE BESYLATE 5 MG TABLET PO (09:47)
[2023-06-19] MEDS: METOPROLOL TARTRATE 50 MG TABLET PO ×2 (09:47→22:11)
[2023-06-19] MEDS: CHOLECALCIFEROL (VITAMIN D3) 25 MCG/1,000 UNITS TABLET 50 MCG PO (09:47)
[2023-06-19] MEDS: METOLAZONE 2.5 MG TABLET 10 MG PO (09:47)
[2023-06-19] MEDS: ATORVASTATIN CALCIUM 40 MG TABLET PO (09:47)
[2023-06-19] MEDS: CETIRIZINE HCL 10 MG TABLET PO (09:47)
[2023-06-19] MEDS: DIGOXIN 125 MCG TABLET PO (09:48)
[2023-06-19] MEDS: MAGNESIUM OXIDE 400 MG TABLET PO (09:48)
[2023-06-19] MEDS: POTASSIUM CHLORIDE 10 MEQ ER TABLET 20 MEQ PO ×2 (09:48→22:11)
[2023-06-19] MEDS: ENSURE HP 237 ML LIQUID PO ×2 (09:48→14:02)
[2023-06-19 11:09] LABS: Glucometer 263 mg/dL (74-106)
--- NOTE | 2023-06-19 11:18 | PT.DAILY ---
Physical Therapy Daily Note PT Daily Note/Assess Start: 06/12/23 12:47 Freq: Status: Active Protocol: Document 06/19/23 10:30 ABBY (Rec: 06/19/23 11:17 ESANNIE [id number]) Physical Therapy Daily Note/Assessment Time In/Time Out Time In 10:30 Time Out 11:00 Subjective Subjective Patient reports feeling okay, agrees to sit EOB. Therapeutic Activity Time Therapeutic Activity Minutes (minutes) 20 Therapeutic Activity Units 1 Therapeutic Activity Treatment Therapeutic Activity Comments SPO2 89 percent in bed on 2 LO2, nursing did increase O2 to 3 LO2 for therapy. Sit to supine min assist x2. EOB SPO2 bounces between 79-84 percent while completing activity with OT, patient does not appear to be in distress, or SOB with this. Stops and takes rest breaks and PT instructs in breathing exercises and LE exercises as well. No attempt at standing today due to low SPO2 with EOB sitting. Mod assist x 2 to reposition patient back into supine. Once supine with head elevated SPO2 levels back to 89 percent . Total Physical Therapy Time Total Therapy Minutes 20 Total Physical Therapy Units 1 Summary Daily Note Summary Patient has slight improvement with tolerance to EOB sitting . Is able to complete active exercises as well. Maintains unsupported sitting well. Does have drop in SPO2 with activity but did not appear to be in distress. Nursing was notified. Patient will need SNF placement at [place] to improve strength due to loss of strength.
[2023-06-19] MEDS: INSULIN ASPART 300 UNIT/3 ML PEN SUBQ ×3 (11:30→22:11)
--- NOTE | 2023-06-19 11:31 | SWNOTE1 ---
Updates sent to Crissy at [place]. Updates included were physician notes, labs, nursing notes, PT/OT, vitals, and med list.
--- NOTE | 2023-06-19 12:34 | SWNOTE1 ---
SW had email back from [facility] and precert was started late in afternoon on 06/18/23.
[2023-06-19 16:45] LABS: Glucometer 242 mg/dL (74-106)
--- NOTE | 2023-06-19 18:26 | PM.NEPPN ---
Progress Note: A&P Assessment and Plan (1) Acute respiratory failure with hypoxia: (2) Acute on chronic diastolic (congestive) heart failure: (3) RSV (respiratory syncytial virus pneumonia): (4) Atrial fibrillation with RVR: (5) Elevated troponin: (6) SYLVIA (acute kidney injury): (7) Abdominal pain: (8) Hypernatremia: (9) Acute UTI: (10) Cholelithiasis: Qualifiers: Cholelithiasis location: gallbladder Cholecystitis presence: without cholecystitis Biliary obstruction: without biliary obstruction Qualified Code(s): K80.20 - Calculus of gallbladder without cholecystitis without obstruction (11) Moderate protein-calorie malnutrition: (12) Type 2 diabetes mellitus: Qualifiers: Diabetes mellitus half-way insulin use: without termite control representative use Diabetes mellitus complication status: with kidney complications Diabetes mellitus complication detail: with chronic kidney disease Chronic kidney disease stage 3 subtype: stage 3a (GFR 45-59) (13) CKD stage 3 due to type 2 diabetes mellitus: (14) Anemia: Qualifiers: Anemia type: other cause Other causes of anemia: chronic disease, other Qualified Code(s): D63.8 - Anemia in other chronic diseases classified elsewhere (15) Hypothyroidism: Qualifiers: Hypothyroidism type: unspecified Qualified Code(s): E03.9 - Hypothyroidism, unspecified (16) HTN (hypertension): Qualifiers: Hypertension type: primary hypertension Qualified Code(s): I10 - Essential (primary) hypertension (17) Hematuria: Qualifiers: Hematuria type: gross Qualified Code(s): R31.0 - Gross hematuria (18) Hypokalemia: Plan Seen and examined over AV tele Acute kidney injury. Has chronic kidney disease stage III at baseline. Creatinine slightly better to 1.5 She is on Lasix 40 mg IV daily and metolazone. She has acute heart failure. Primary team is managing that. We are managing the diuretics. She has hypernatremia and her sodium better today. continue metolazone. Due to hematuria: I will put her on fluids. Hypokalemia: K was replaced. Monitor sodium levels for now. Urine output is okay at this point. Blood pressure is currently acceptable Labs and previous records were reviewed by me and summarized above. Discussed with the bedside nurse. video time 5 mins. total time 22 mins. Subjective Subjective Principal diagnosis: SYLVIA Interval history: Patient states she is trying to eat better. hematuria+ Exam Narrative: Exam Narrative: alert oriented normal speech skin; no rash no abd distention non icteric sclera + edema Constitutional: Vital Signs, click to edit/add: Last Vital Signs Temp 98.0 F 06/19/23 14:10 Pulse 98 H 06/19/23 17:36 Resp 20 06/19/23 14:10 BP 116/63 06/19/23 14:10 Pulse Ox 95 06/19/23 15:20 O2 Del Method Nasal Cannula 06/19/23 15:20 O2 Flow Rate 2 06/19/23 15:20 FiO2 50 06/17/23 13:00 Urinary Catheter Management Urinary Catheter Management Urethral: Cath placed during this visit: yes Urethral indwelling: Yes Reason for continuing: other continuation reason Insertion date: 06/13/23 Insertion time: 09:13
[2023-06-19] MEDS: POTASSIUM CHLORIDE 40 MEQ in 0.9 % SODIUM CHLORIDE 250 ML 67.5 MEQ IV (19:21)
[2023-06-19 20:29] LABS: Glucometer 145 mg/dL (74-106)
[2023-06-19] MEDS: VALACYCLOVIR HCL 500 MG TABLET 1000 MG PO (22:11)
[2023-06-19] MEDS: INSULIN DETEMIR 300 UNIT/3 ML INSULN.PEN 15 UNIT SQ (22:12)
[2023-06-19] MEDS: METHYLPREDNISOLONE SOD SUCC PF 40 MG/ML VIAL IVP (22:12)
[2023-06-20] VITALS (14 sets, daily range): BP systolic 102–132; BP diastolic 64–77; PULSE 68–107; RESP 18; TEMP 36.5–36.6; O2SAT 90–94
[2023-06-20 05:33] LABS: Basophils Percent Auto 0.1 % (0.2-2.0); Hematocrit 35.1 % (36.0-48.0); Hemoglobin 10.8 g/dL (12.0-16.0); Immature Granulocytes Abs Auto 0.12 10^3/uL (0.00-0.03); Immature Granulocytes Pct Auto 1.4 % (0.0-0.5); Lymphocytes Absolute Auto 0.1 10^3/uL (1.2-3.8); Lymphocytes Percent Auto 0.9 % (20.5-60.0); Mean Corpuscular HGB Conc 30.8 g/dL (29.9-35.2); Mean Corpuscular Hemoglobin 32.2 pg (26.7-34.0); Mean Corpuscular Volume 104.8 fL (81.0-99.0); Mean Platelet Volume 11.2 fL (9.5-13.5); Monocytes Absolute Auto 0.2 10^3/uL (0.3-0.8); Monocytes Percent Auto 2.2 % (1.7-12.0); Neutrophils Absolute Auto 8.2 10^3/uL (1.4-6.5); Neutrophils Percent Auto 95.4 % (43.0-75.0); Platelet Count 96 10^3/uL (150-450); Red Blood Count 3.35 10^6/uL (4.20-5.40); White Blood Count 8.6 10^3/uL (4.0-11.0)
[2023-06-20 06:02] LABS: Alanine Aminotransferase 43 U/L (14-59); Albumin Globulin Ratio 0.6; Albumin Level 2.1 g/dL (3.4-5.0); Alkaline Phosphatase 65 U/L (46-116); Anion Gap 5.1; Aspartate Amino Transferase 43 U/L (15-37); BUN Creatinine Ratio 45.2; Bilirubin Total 0.8 mg/dL (0.2-1.0); Calcium 8.8 mg/dL (8.5-10.1); Carbon Dioxide 45.3 mmol/L (21.0-32.0); Chloride 102 mmol/L (98-107); Estimated GFR (African America 41 (>=60); Estimated GFR (Non-African Ame 34 (>=60); Globulin 3.3 g/dL; Glucose 142 mg/dL (74-106); Potassium 4.4 mmol/L (3.5-5.1); Sodium 148 mmol/L (136-145); Total Protein 5.4 g/dL (6.4-8.2)
[2023-06-20] MEDS: OMEPRAZOLE 40 MG CAPSULE.DR PO (06:05)
[2023-06-20] MEDS: LEVOTHYROXINE SODIUM 75 MCG TABLET PO (06:05)
[2023-06-20] MEDS: METHYLPREDNISOLONE SOD SUCC PF 40 MG/ML VIAL IVP (06:05)
[2023-06-20 06:52] LABS: Digoxin 2.4 ng/mL (0.9-2.0)
--- NOTE | 2023-06-20 09:28 | P.PN_ITS ---
Progress Note: Subjective Subjective Interval history: Patient states she is trying to eat better. hematuria+ Exam Constitutional Vital Signs, click to edit/add: Last Vital Signs Temp 98 F 06/20/23 06:00 Pulse 72 06/20/23 08:01 Resp 18 06/20/23 08:00 BP 132/68 06/20/23 06:00 Pulse Ox 91 L 06/20/23 06:00 O2 Del Method Nasal Cannula 06/20/23 06:00 O2 Flow Rate 2 06/20/23 06:00 FiO2 50 06/17/23 13:00 Progress Note: Objective Labs Labs: Short CBC 06/20/23 Range/Units 04:45 WBC 8.6 (4.0-11.0) 10^3/uL Hgb 10.8 L (12.0-16.0) g/dL Hct 35.1 L (36.0-48.0) % Plt Count 96 L (150-450) 10^3/uL BMP 06/20/23 04:45 Sodium 148 H Potassium 4.4 Chloride 102 Carbon Dioxide 45.3 H BUN 66.0 H Creatinine 1.46 H Glucose 142 H Calcium 8.8 Liver Function 06/20/23 Range/Units 04:45 Total Bilirubin 0.8 (0.2-1.0) mg/dL AST 43 H (15-37) U/L ALT 43 (14-59) U/L Alkaline Phosphatase 65 (46-116) U/L Albumin 2.1 L (3.4-5.0) g/dL Progress Note: A&P Assessment and Plan (1) Acute respiratory failure with hypoxia: (2) Acute on chronic diastolic (congestive) heart failure: (3) RSV (respiratory syncytial virus pneumonia): (4) Atrial fibrillation with RVR: (5) Elevated troponin: (6) SYLVIA (acute kidney injury): (7) Abdominal pain: (8) Hypernatremia: (9) Acute UTI: (10) Cholelithiasis: Qualifiers: Cholelithiasis location: gallbladder Cholecystitis presence: without cholecystitis Biliary obstruction: without biliary obstruction Qualified Code(s): K80.20 - Calculus of gallbladder without cholecystitis without obstruction (11) Moderate protein-calorie malnutrition: (12) Type 2 diabetes mellitus: Qualifiers: 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: without skilled nursing 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 Diabetes mellitus complication status: with kidney complications Diabetes mellitus complication detail: with chronic kidney disease Chronic kidney disease stage 3 subtype: stage 3a (GFR 45-59) (13) CKD stage 3 due to type 2 diabetes mellitus: (14) Anemia: Qualifiers: Anemia type: other cause Other causes of anemia: chronic disease, other Qualified Code(s): D63.8 - Anemia in other chronic diseases classified elsewhere (15) Hypothyroidism: Qualifiers: Hypothyroidism type: unspecified Qualified Code(s): E03.9 - Hypothyroidism, unspecified (16) HTN (hypertension): Qualifiers: Hypertension type: primary hypertension Qualified Code(s): I10 - Essential (primary) hypertension (17) Hematuria: Qualifiers: Hematuria type: gross Qualified Code(s): R31.0 - Gross hematuria (18) Hypokalemia: Urinary Catheter Management Urinary Catheter Management Urethral: Cath placed during this visit: yes Urethral indwelling: Yes Insertion date: 06/13/23 Insertion time: 09:13
--- NOTE | 2023-06-20 09:29 | CM.NOTE ---
Rounds made with Dr. Hidalgo, pt showing improvement today. Pt still has decreased appetite, possible discharge to [place] today.
[2023-06-20] MEDS: ACETYLCYSTEINE 400 MG/4 ML VIAL 100 MG IH ×2 (09:31→15:46)
[2023-06-20] MEDS: SODIUM CHLORIDE 3% INHALATION 15 ML NEB 6 ML IH ×2 (09:31→15:47)
[2023-06-20] MEDS: AMLODIPINE BESYLATE 5 MG TABLET PO (09:39)
[2023-06-20] MEDS: CETIRIZINE HCL 10 MG TABLET PO (09:39)
[2023-06-20] MEDS: METOLAZONE 2.5 MG TABLET 10 MG PO (09:39)
[2023-06-20] MEDS: POTASSIUM CHLORIDE 10 MEQ ER TABLET 20 MEQ PO (09:39)
[2023-06-20] MEDS: PROSTAT 15 GM PROTEIN/100 CAL 30 ML LIQUID PACKET PO (09:39)
[2023-06-20] MEDS: MAGNESIUM OXIDE 400 MG TABLET PO (09:40)
[2023-06-20] MEDS: ATORVASTATIN CALCIUM 40 MG TABLET PO (09:40)
[2023-06-20] MEDS: METOPROLOL TARTRATE 50 MG TABLET PO (09:40)
[2023-06-20] MEDS: VALACYCLOVIR HCL 500 MG TABLET 1000 MG PO (09:40)
[2023-06-20] MEDS: CHOLECALCIFEROL (VITAMIN D3) 25 MCG/1,000 UNITS TABLET 50 MCG PO (09:40)
[2023-06-20] MEDS: ENSURE HP 237 ML LIQUID PO (09:41)
[2023-06-20 11:01] LABS: Glucometer 255 mg/dL (74-106)
--- NOTE | 2023-06-20 11:16 | SWNOTE1 ---
SW received email from [employer] and pt is approved to go. BRENDA let nursing and doctor know.
--- NOTE | 2023-06-20 11:49 | REH.PTDLY ---
Physical Therapy Daily Note PT Daily Note/Assess Start: 06/12/23 12:47 Freq: Status: Active Protocol: Document 06/20/23 11:39 ADRIANA (Rec: 06/20/23 11:49 [id number] Physical Therapy Daily Note/Assessment Time In 10:50 Time Out 11:03 Pain Level 0 Pain Level 0 Subjective Pt reports not feeling too good, but unable to state why. When asking pt questions she doesn't respond just sits there. Agreeable though when asked to sit at side of bed and states she does not want in chair. Therapeutic Exercise Minutes (minutes) 6 Therapeutic Exercise Units 0 Therapeutic Exercise Treatment Instructed in supine AP and QS 10x ea with B LEs. Once sitting instructed in B LE seated exs 10x ea with LAQ, marching and hip abd. Therapeutic Activity Minutes (minutes) 6 Therapeutic Activity Units 0 Bed Mobility Ability Minimum Assist,2 Person Assist Therapeutic Activity Comments Pt performs supine to sit transfers Min-Mod A x2 to EOB. Cues for pt to move legs as able. Once sitting cues for pt to perform leg exs with cues while sitting for pt to try and look ahead if able however due to chronic poor posture pt's head stays flexed forward . Mod A x2 with sit to supine transfer and to boost pt up in bed. Total Therapy Minutes 12 Total Physical Therapy Units 0 Daily Note Summary Pt's SpO2 drops to 87% while sitting on 2L of O2, does not appear to be SOB while sitting . Pt declines getting up to chair or standing transfer. Possible DC today to SNF as pt needs rehab as she cannot care for herself at this time.
[2023-06-20] MEDS: INSULIN ASPART 300 UNIT/3 ML PEN SUBQ (12:12)
--- NOTE | 2023-06-20 12:46 | P.DS_ITS ---
DS: Providers Provider Date of admission: 06/09/23 22:36 Primary care physician: Shaikh Elton MD Consults: 06/11/23 08:03 Occupational Therapy Eval and Treat Routine Reason for consultation: eval for placemtn if needed Physical Therapy Eval and Treat Routine Reason for consultation: eval 06/12/23 11:25 Consult to Pulmonology Routine Consulting Provider: Aron Kim Reason for consultation: RSV - acute hypoxia Has provider been notified: No 06/13/23 08:58 Consult to Cardiology Routine Reason for consultation: elevated trop Has provider been notified: No 06/13/23 12:20 Speech Therapy Eval and Treat Routine Reason for consultation: aspiration Has provider been notified: No 06/13/23 14:34 Consult to Telenephrology Routine Reason for consultation: renal failure and fluid overload Has provider been notified: No 06/18/23 Wound Assessment Consult Routine Consulting Provider: Shaikh Conde Reason for consultation: wounds to diandra care, rectum Has provider been notified: Yes DS: Diagnosis Discharge Diagnosis (1) Acute respiratory failure with hypoxia: (2) Acute on chronic diastolic (congestive) heart failure: (3) RSV (respiratory syncytial virus pneumonia): (4) Atrial fibrillation with RVR: (5) Elevated troponin: (6) SYLVIA (acute kidney injury): (7) Abdominal pain: (8) Hypernatremia: (9) Acute UTI: (10) Cholelithiasis: Qualifiers: Cholelithiasis location: gallbladder Cholecystitis presence: without cholecystitis Biliary obstruction: without biliary obstruction Qualified Code(s): K80.20 - Calculus of gallbladder without cholecystitis without obstruction (11) Moderate protein-calorie malnutrition: (12) Type 2 diabetes mellitus: Qualifiers: Diabetes mellitus care home insulin use: without care home use Diabetes mellitus complication status: with kidney complications Diabetes mellitus complication detail: with chronic kidney disease Chronic kidney disease stage 3 subtype: stage 3a (GFR 45-59) (13) CKD stage 3 due to type 2 diabetes mellitus: (14) Anemia: Qualifiers: Anemia type: other cause Other causes of anemia: chronic disease, other Qualified Code(s): D63.8 - Anemia in other chronic diseases classified elsewhere (15) Hypothyroidism: Qualifiers: Hypothyroidism type: unspecified Qualified Code(s): E03.9 - Hypothyroidism, unspecified (16) HTN (hypertension): Qualifiers: Hypertension type: primary hypertension Qualified Code(s): I10 - Essential (primary) hypertension (17) Hematuria: Qualifiers: Hematuria type: gross Qualified Code(s): R31.0 - Gross hematuria (18) Hypokalemia: DS: Summary Hospital Course Hospital Course: Patient admitted for A-fib RVR. And acute combined congestive heart failure placed in the intensive care unit. Rate was controlled, she diuresed well initially with a Bumex drip. Was overall improving with the addition of Lanoxin for rate control. And then had an aspiration pneumonia event. Significant hypoxia. Consultation with pulmonology. Medications were adjusted. She also had acute renal failure from lack of intake and medications. She was given some fluids back. Been developed a little bit more of her CHF worsening. Consultation to telemetry nephrology. She was placed on different oral antibiotics and has gradually been improving and her BUN and creatinine. She is still requiring supplemental oxygen of 2 L. She had some issues with hypokalemia as well as hypernatremia. This is due to lack of p.o. intake. Patient currently at baseline. She can be discharged to rehab. Needs to be encouraged to eat. May need assistance with feeding at times. Continue to encourage protein supplementation is much as possible. Medications see list. Follow-up with her PCP at discharge. Time Spent with Patient Time attestation: Total time spent providing and/or coordinating discharge services: Quality: Stroke Symptom Onset Unknown: No Exam Constitutional Vital Signs, click to edit/add: Last Vital Signs Temp 98 F 06/20/23 06:00 Pulse 96 H 06/20/23 12:05 Resp 18 06/20/23 08:00 BP 126/77 06/20/23 09:39 Pulse Ox 93 L 06/20/23 09:38 O2 Del Method Nasal Cannula 06/20/23 09:38 O2 Flow Rate 2 06/20/23 09:38 FiO2 50 06/17/23 13:00 Documenting provider has reviewed patient's vital signs: yes Common normals: oriented x3 General appearance: ill appearing and frail appearing HENMT Other: Tortillosis. Respiratory Common normals: no use of accessory muscles Effort & inspection: able to speak in complete sentences and decreased respiratory effort Auscultation: clear to auscultation bilaterally and diminished lung sounds Cardio Common normals: no JVD and regular rate Rhythm: abnormal rhythm GI Common normals: Normal to inspection, nondistended, normoactive bowel sounds present, soft to palpation, non-tender and no hepatosplenomegaly Extremity Common normals: normal to inspection and full ROM Neuro Common normals: oriented x3, moves all extremities and no focal motor deficits Psych Common normals: mental status grossly normal, thought process normal, denies homicidal ideation and denies suicidal ideation DS: Data Data Completed and Pending Labs on day of discharge: Labs from last 24 hours 06/20/23 06/20/23 06/19/23 11:00 04:45 20:28 WBC 8.6 RBC 3.35 L Hgb 10.8 L Hct 35.1 L MCV 104.8 H MCH 32.2 MCHC 30.8 RDW 16.0 H Plt Count 96 L MPV 11.2 Neut % (Auto) 95.4 H Lymph % (Auto) 0.9 L [place] % (Auto) 2.2 Eos % (Auto) 0.0 L Baso % (Auto) 0.1 L Neut # (Auto) 8.2 H Lymph # (Auto) 0.1 L [place] # (Auto) 0.2 L Eos # (Auto) 0.0 Baso # (Auto) 0.0 Abs Immat Gran (auto) 0.12 H Imm/Tot Granulo (auto) 1.4 H Sodium 148 H Potassium 4.4 Chloride 102 Carbon Dioxide 45.3 H Anion Gap 5.1 BUN 66.0 H Creatinine 1.46 H Est GFR ( Amer) 41 L Est GFR (Non-Af Amer) 34 L BUN/Creatinine Ratio 45.2 Glucose 142 H Calcium 8.8 Total Bilirubin 0.8 AST 43 H ALT 43 Alkaline Phosphatase 65 Total Protein 5.4 L Albumin 2.1 L Globulin 3.3 Albumin/Globulin Ratio 0.6 Digoxin 2.4 H* POC Glucose 255 H 145 H 06/19/23 16:44 WBC RBC Hgb Hct MCV MCH MCHC RDW Plt Count MPV Neut % (Auto) Lymph % (Auto) [place] % (Auto) Eos % (Auto) Baso % (Auto) Neut # (Auto) Lymph # (Auto) [place] # (Auto) Eos # (Auto) Baso # (Auto) Abs Immat Gran (auto) Imm/Tot Granulo (auto) Sodium Potassium Chloride Carbon Dioxide Anion Gap BUN Creatinine Est GFR ( Amer) Est GFR (Non-Af Amer) BUN/Creatinine Ratio Glucose Calcium Total Bilirubin AST ALT Alkaline Phosphatase Total Protein Albumin Globulin Albumin/Globulin Ratio Digoxin POC Glucose 242 H Discharge Plan Discharge Disposition: Xfer SNF Discharge Medications: New ipratropium-albuterol 0.5 mg-3 mg(2.5 mg base)/3 mL Solution For Nebulization 3 ml inhalation Q2H PRN (Reason: Dyspnea) Qty: 180 11RF digoxin 125 mcg (0.125 mg) Tablet 125 mcg PO Q48H Qty: 15 11RF Ensure Active Protein-Muscle Liquid 1 ea PO BID@0900,1500 Qty: 5688 11RF insulin aspart U-100 [Novolog FlexPen U-100 Insulin] 100 unit/mL (3 mL) Insulin Pen 5 - 25 unit subcut ACHS Qty: 15 11RF prednisone 10 mg tablet 40 mg PO DAILY Qty: 32 0RF Rx Instructions: 5/day for 3 days. 4/day for 3 days, 3/day for 3 days, 2/day for 3 days, 1/day for 3 days, 1/2 /day for 4 days Continued amlodipine 5 mg tablet 5 mg PO DAILY atorvastatin 40 mg tablet 40 mg PO DAILY furosemide 20 mg tablet 20 mg PO DAILY cholecalciferol (vitamin D3) 50 mcg (2,000 unit) tablet 2,000 unit PO .QD levothyroxine 75 mcg tablet 75 mcg PO DAILY loratadine 10 mg tablet 10 mg PO DAILY metoprolol tartrate 50 mg tablet 50 mg PO Q12H potassium chloride 10 mEq capsule, extended release 10 meq PO DAILY Discontinued losartan 100 mg tablet 100 mg PO DAILY metformin 500 mg tablet extended release 24 hr 500 mg PO DAILY Eliquis 5 mg tablet 5 mg PO BID Qty: 60 0RF prednisone 50 mg tablet 50 mg PO DAILY 5 Days Qty: 5 0RF Consumer Relations Complaint Clerk/Gardener Instructions: Discharge to [facility]. Forms: Portal Instructions
--- NOTE | 2023-06-20 13:00 | SWNOTE1 ---
Discharge orders are in. BRENDA completed HENS. BRENDA faxed over dc med rec and dc summary. BRENDA also sent secure email with dc med rec and dc summary. SW to work on transport. Nursing recommended stretcher.
--- NOTE | 2023-06-20 14:16 | P.NEPPN_ITS ---
Progress Note: A&P Assessment and Plan (1) Acute respiratory failure with hypoxia: (2) Acute on chronic diastolic (congestive) heart failure: (3) RSV (respiratory syncytial virus pneumonia): (4) Atrial fibrillation with RVR: (5) Elevated troponin: (6) SYLVIA (acute kidney injury): (7) Abdominal pain: (8) Hypernatremia: (9) Acute UTI: (10) Cholelithiasis: Qualifiers: Cholelithiasis location: gallbladder Cholecystitis presence: without cholecystitis Biliary obstruction: without biliary obstruction Qualified Code(s): K80.20 - Calculus of gallbladder without cholecystitis without obstruction (11) Moderate protein-calorie malnutrition: (12) Type 2 diabetes mellitus: Qualifiers: Diabetes mellitus long-term insulin use: without salvage determiner use Diabetes mellitus complication status: with kidney complications Diabetes mellitus complication detail: with chronic kidney disease Chronic kidney disease stage 3 subtype: stage 3a (GFR 45-59) (13) CKD stage 3 due to type 2 diabetes mellitus: (14) Anemia: Qualifiers: Anemia type: other cause Other causes of anemia: chronic disease, other Qualified Code(s): D63.8 - Anemia in other chronic diseases classified elsewhere (15) Hypothyroidism: Qualifiers: Hypothyroidism type: unspecified Qualified Code(s): E03.9 - Hypothyroidism, unspecified (16) HTN (hypertension): Qualifiers: Hypertension type: primary hypertension Qualified Code(s): I10 - Essential (primary) hypertension (17) Hematuria: Qualifiers: Hematuria type: gross Qualified Code(s): R31.0 - Gross hematuria (18) Hypokalemia: Plan Seen and examined over AV tele Acute kidney injury. Has chronic kidney disease stage III at baseline. Creatinine slightly better to 1.4 She has acute heart failure. Primary team is managing that. We are managing the diuretics. She has hypernatremia and her sodium better today. continue metolazone. decrease to 2.5 Hematuria: will see urology as OP Labs and previous records were reviewed by me and summarized above. Discussed with the bedside nurse. video time 8 mins. total time [address] Hidalgo Subjective Subjective Principal diagnosis: SYLVIA Interval history: Patient states she is trying to eat better. hematuria+ Exam Narrative: Exam Narrative: AAOx3 Normal speech not agitated minimal edema skin: no rash Constitutional: Vital Signs, click to edit/add: Last Vital Signs Temp 98 F 06/20/23 06:00 Pulse 80 06/20/23 13:54 Resp 18 06/20/23 08:00 BP 126/77 06/20/23 09:39 Pulse Ox 93 L 06/20/23 09:38 O2 Del Method Nasal Cannula 06/20/23 09:38 O2 Flow Rate 2 06/20/23 09:38 FiO2 50 06/17/23 13:00 Urinary Catheter Management Urinary Catheter Management Urethral: Cath placed during this visit: yes Urethral indwelling: Yes Reason for continuing: other continuation reason Insertion date: 06/13/23 Insertion time: 09:13
[2023-06-20] MEDS: IPRATROPIUM/ALBUTEROL SULFATE 3 ML AMPUL.NEB IH (15:47)
== END 2023-06-20 17:46 | DRG 291 ==
LOC: ER 21:01 → ICU 22:42 → MS 06-18 15:35
PROVIDERS: Emergency Medicine; Family Medicine; Internal Medicine; Nurse Practitioner Acute Care; Admitting Provider Internal Medicine; Emergency Provider Emergency Medicine; PCP Internal Medicine; Visit Provider Internal Medicine
DX: I13.0 Hypertensive heart and chronic kidney disease with heart failure and stage 1 through stage 4 chronic kidney disease, or unspecified chronic kidney disease (principal); I50.43 Acute on chronic combined systolic (congestive) and diastolic (congestive) heart failure; J69.0 Pneumonitis due to inhalation of food and vomit; J96.01 Acute respiratory failure with hypoxia; J12.1 Respiratory syncytial virus pneumonia; J96.02 Acute respiratory failure with hypercapnia; N39.0 Urinary tract infection, site not specified; E44.0 Moderate protein-calorie malnutrition; E87.0 Hyperosmolality and hypernatremia; N17.9 Acute kidney failure, unspecified; I48.91 Unspecified atrial fibrillation; R79.89 Other specified abnormal findings of blood chemistry; R10.9 Unspecified abdominal pain; N18.31 Chronic kidney disease, stage 3a; E03.9 Hypothyroidism, unspecified; D50.9 Iron deficiency anemia, unspecified; E83.42 Hypomagnesemia; K80.20 Calculus of gallbladder without cholecystitis without obstruction; E11.22 Type 2 diabetes mellitus with diabetic chronic kidney disease; E11.65 Type 2 diabetes mellitus with hyperglycemia; R60.9 Edema, unspecified; R33.9 Retention of urine, unspecified; R31.0 Gross hematuria; E87.6 Hypokalemia; E78.5 Hyperlipidemia, unspecified; R23.8 Other skin changes; J92.9 Pleural plaque without asbestos; Z68.26 Body mass index [BMI] 26.0-26.9, adult; Z79.899 Other long term (current) drug therapy; Z79.890 Hormone replacement therapy; Z79.84 Long term (current) use of oral hypoglycemic drugs; Z90.12 Acquired absence of left breast and nipple; Z79.01 Long term (current) use of anticoagulants; Z87.442 Personal history of urinary calculi; Z66 Do not resuscitate
CPT/HCPCS: 0202U; 36415; 36569; 36592; 36600; 51702; 71045; 71250; 74177; 80048; 80053; 80076; 80162; 81001; 82150; 82550; 82553; 82607; 82728; 82746; 82800; 82805; 82948; 83540; 83550; 83605; 83690; 83735; 83874; 83880; 84484; 85007; 85025; 85027; 87040; 87070; 87086; 87106; 87205; 92526; 92610; 93005; 93308; 94640; 94660; 94667; 94668; 94761; 94799; 96361; 96365; 96366; 96367; 96368; 96375; 96376; 97110; 97161; 97165; 97530; 97535; 99285; C1887; G0328; J0696; J1160; J1170; J1644; J1940; J2405; J2543; J2920; J2930; J3480; J7512; Q3014; Q9966